=== PATIENT | male | born 1970 | race Caucasian/White ===

== ENCOUNTER 2022-02-06 08:51 | Observation (INO) | payer OTHER, SELFPAY ==
[2022-02-06] VITALS (14 sets, daily range): BP systolic 110–144; BP diastolic 67–104; PULSE 65–78; RESP 14–16; TEMP 36.7–36.9; O2SAT 93–99; BMI 19.9; BMI 19.6
--- NOTE | 2022-02-06 09:11 | ED.GENADULT ---
HPI - General Adult General Time Seen by Provider: 09:11 Date Seen: 02/06/22 Chief complaint: Headache/Migraine Stated complaint: severe pain on left side/headache/dizzy Time Seen by Provider: 02/06/22 09:05 Source: patient and RN notes reviewed Mode of arrival: ambulatory Limitations: no limitations History of Present Illness HPI narrative: Patient is a 51-year-old male coming in with headache, dizzy, nausea vomiting, left-sided abdominal pain, body aches. His symptoms started on Sunday night, today is Sunday morning. The headache is left-sided but generalize is into the full back of his head. He maybe thinks his global vision might be a little more blurry with this. He does have a history of migraines but he has other associated symptoms with this. He has felt chilled and hot but has not taken a temperature. He states he was vomiting all night last night, did not sleep. He is nauseated. He is complaining of left-sided abdominal pain. He describes the headache as someone just status Storm off inside his head. He has had no travel, is un vaccinated for COVID. He feels like he is probably had COVID before, maybe last time 8 months ago. He has had some diarrhea. He has had no hematemesis, no blood in his diarrhea. Denies any urinary symptoms. No neurologic changes such as numbness tingling weakness. He last took Tylenol about 2:00 a.m.. I did discuss pain management with him and he stated dilaudid is really what works for him. I did review his chart, did review [place] prescribing website. He only has had 30 Ambien prescribed in March of 2021. His last hospitalization here was in 2018 for colitis it appears that he uses our hospital primarily for his acute care. I do not feel upon review of his history that this is drug-seeking at all. He states he is feeling miserably. Does describe myalgias/body aches as well. Denies any sore throat or respiratory symptoms with this. No travel, no definite known ill contacts. Related Data Home Medications Medication Instructions Recorded Confirmed No Known Home Medications 02/06/22 02/06/22 Allergies Allergy/AdvReac Type Severity Reaction Status Date / Time No Known Drug Allergies Allergy Verified 02/06/22 09:10 Review of Systems Status of ROS: Reports: 10 or more systems reviewed and unremarkable except as noted in History and below [facility] Medical History (Updated 02/06/22 @ 15:14 by Bren Velasquez MD) Anxiety Colitis Depression Surgical History (Updated 02/06/22 @ 13:26 by Bren Velasquez MD) History of esophagogastroduodenoscopy (EGD) Hx laparoscopic cholecystectomy Social History Smoking Status: Never smoker How often do you have a drink containing alcohol: 2-3 times a week AUDIT-C Alcohol total score: 3 Non-prescribed substance use: former substance user and marijuana (any form) Exam Const: Vital Signs, click to edit/add: Vital Signs - 24 hr 02/06/22 09:03 02/06/22 12:11 02/06/22 12:13 Temperature 98.4 F Pulse Rate 66 68 Pulse Rate [Pulse Oximeter] 77 Respiratory Rate 14 Blood Pressure 110/70 Blood Pressure [Ri ght Upper Arm] 144/101 H Pulse Oximetry 99 96 95 Oxygen Delivery Me thod Room Air 02/06/22 12:31 02/06/22 13:02 02/06/22 13:32 Temperature Pulse Rate 73 72 65 Pulse Rate [Pulse Oximeter] Respiratory Rate Blood Pressure 133/104 H 144/102 H 141/99 H Blood Pressure [Ri ght Upper Arm] Pulse Oximetry 93 96 97 Oxygen Delivery Me thod 02/06/22 14:02 02/06/22 14:32 02/06/22 15:02 Temperature Pulse Rate 71 69 70 Pulse Rate [Pulse Oximeter] Respiratory Rate Blood Pressure 136/93 H 136/89 142/94 H Blood Pressure [Ri ght Upper Arm] Pulse Oximetry 94 94 97 Oxygen Delivery Me thod Documenting provider has reviewed patient's vital signs: yes Common normals: no apparent distress, oriented x3, no limitations, healthy appearing and alert General appearance: cooperative and well kempt Nutritional appearance: thin Other: Is lying on the ED cart, looks mildly uncomfortable at times but certainly is pleasant. Able speak in complete sentences. HENMT: Common normals: normocephalic, head/scalp atraumatic, hearing grossly normal bilaterally, external ears normal, EAC's normal, TM's normal bilaterally, external nose normal, nasal mucous membranes and turbinates normal, moist oral mucous membranes, oropharynx normal, dentition normal and gingiva normal Head and scalp: normocephalic and atraumatic Nose: external nose normal and nasal mucous membranes and turbinates normal External ear: external ears normal External auditory canal: EAC's normal Tympanic membrane: TM's normal bilaterally Eye: Common normals: PERRL, EOMs intact bilaterally, conjunctivae normal and no scleral icterus Conjunctiva: conjunctiva(e) normal Pupil: PERRL Neck & C-Spine: Common normals: full ROM, no lymphadenopathy, supple, no meningeal signs, no JVD and thyroid normal Thyroid: thyroid normal Resp: Common normals: normal respiratory effort, no retractions, no use of accessory muscles and clear to auscultation bilaterally Auscultation: clear to auscultation bilaterally Cardio: Common normals: no JVD, regular rate, regular rhythm, S1 normal heart sound, S2 normal heart sound, no gallops, no clicks, no murmurs, no rub and peripheral pulses 2+ throughout Rate: regular rate Rhythm: regular rhythm Heart sounds: S1 normal and S2 normal Peripheral pulses: pulses 2+ throughout GI: Common normals: Normal to inspection, nondistended, normoactive bowel sounds present, soft to palpation, non-tender, no hepatosplenomegaly, no masses and no bruits Palpation: soft and no hepatosplenomegaly Extremity: Common normals: normal to inspection, full ROM, normal capillary refill, no joint enlargement, no clubbing, cyanosis or edema, no calf tenderness and no pedal edema Neuro: [place] Coma Scale: document GCS findings Adolfo coma scale eye opening: Spontaneous (4) Adolfo coma scale verbal response: Orientated (5) [place] coma scale motor response: Obey commands (6) Adolfo coma scale total score: 15 Common normals: oriented x3, CN's II-XII intact bilaterally, moves all extremities, no focal motor deficits, no sensory deficits noted and gait normal Sensorium/orientation: alert Meningeal signs: no meningeal signs Speech: speech normal Psych: Appearance: well kempt Skin: Common normals: no rashes or lesions noted, no wounds, skin turgor normal, no jaundice, no petechiae and no mottling General skin exam: no rashes or lesions noted and turgor normal Course Course Hospital Course: We will start an IV, give this patient 1 L normal saline over 2 hours, given 4 mg IV Zofran and 0.5 mg IV Dilaudid. Again, I did review his past medical history and [place] prescribing website. He will be on pulse oximetry for monitoring. At this time it would seem that this is more of a possible viral type syndrome or an infectious etiology. I do not feel that this has any presentation concerning for bacterial meningitis but will await lab results. I do not feel that he needs imaging at this time, will await lab results and quit this with his clinical picture. Will see if we can get him more comfortable. We obviously will be doing a COVID test as I do have concerns that this could be COVID. Reevaluation(s) Reevaluation #1: Patient is urinating after the IV fluids. His pain is increasing again. Did order subsequent dose of Dilaudid 0.5 mg IV. Nausea is returning somewhat as well. Will give another dose of 4 mg IV Zofran. Have reviewed with him that his labs are looking normal. I looked back in the records when he had colitis before in his labs were normal then as well. He really is not feeling well. I am wondering if this is the colitis again. It is the left side of his abdomen that is bothering him primarily. I am ordering a CT of his abdomen and pelvis with IV contrast in he is in agreement with this. Time: 11:10 Vital Signs Vital signs: Initial Vital Signs Temperature 98.4 F 02/06/22 09:03 Temperature Source Temporal Artery Scan 02/06/22 09:03 Pulse Rate 77 02/06/22 09:03 Pulse Rhythm 02/06/22 09:03 Respiratory Rate 14 02/06/22 09:03 Blood Pressure 144/101 H 02/06/22 09:03 Blood Pressure Mean 115 02/06/22 09:03 Blood Pressure Position Sitting 02/06/22 09:03 Pulse Oximetry 99 02/06/22 09:03 Oxygen Delivery Method 02/06/22 09:03 Vital Signs Temperature 98.4 F 02/06/22 09:03 Pulse Rate 77 02/06/22 09:03 Respiratory Rate 14 02/06/22 09:03 Blood Pressure 144/101 H 02/06/22 09:03 Pulse Oximetry 99 02/06/22 09:03 Oxygen Delivery Method 02/06/22 09:03 Temperature 98.4 F 02/06/22 09:03 Pulse Rate 70 02/06/22 15:02 Respiratory Rate 14 02/06/22 09:03 Blood Pressure 142/94 H 02/06/22 15:02 Pulse Oximetry 97 02/06/22 15:02 Oxygen Delivery Method 02/06/22 09:03 Medical Decision Making Lab Data Lab results reviewed: Yes I reviewed the patient's lab results Labs: Lab Results 02/06/22 02/06/22 02/06/22 Range/Units 09:18 09:45 09:52 WBC 9.37 (4.50-11.00) K/uL RBC 5.20 (4.30-5.90) m/uL Hgb 16.3 (13.5-17.5) gm/dL Hct 47.3 (37.0-53.0) % MCV 91 (80-100) fL MCH 31 (26-34) pg MCHC 35 (32-36) gm/dL RDW Coeff of Syed 12.2 (11.5-15.5) % Plt Count 353 (140-440) K/uL Neut % (Auto) 84.2 H (42.0-72.0) % Lymph % (Auto) 10.0 L (20-44) % [place] % (Auto) 4.7 (0.0-11.0) % Eos % (Auto) 0.5 (0.0-7.0) % Baso % (Auto) 0.4 (0.0-3.0) % Neut # (Auto) 7.90 H (1.7-7.0) K/uL Lymph # (Auto) 0.90 (0.90-2.90) K/uL [place] # (Auto) 0.40 (0.00-0.90) K/UL Eos # (Auto) 0.05 (0.00-0.50) K/uL Baso # (Auto) 0.04 (0.00-0.30) K/uL Abs Immat Gran (auto) 0.02 (0.00-0.30) K/uL Sodium 138 (135-149) mmol/L Potassium 3.7 (3.6-5.1) mmol/L Chloride 105 (96-114) mmol/L Carbon Dioxide 26 (20-32) mmol/L BUN 16 (7-30) mg/dL Creatinine 0.8 (0.5-1.5) mg/dL Estimated Creat Clear 90.51 Estimated GFR 106 ml/min Glucose 106 (60-115) mg/dL Lactate (0.5-1.9) mmol/L Calcium 9.1 (8.4-10.6) mg/dL Total Bilirubin 0.7 (0.1-1.5) mg/dL AST 28 (12-35) U/L ALT 21 (4-50) U/L Alkaline Phosphatase 84 (40-150) U/L C-Reactive Protein < 0.5 L (0.5-1.0) mg/dL Total Protein 7.5 (6.0-8.3) g/dL Albumin 4.5 (3.3-5.0) g/dL Lipase 185 (23-300) U/L SARS-CoV-2 (PCR) Negative SARS-CoV-2 (Negative) 02/06/22 02/06/22 Range/Units 09:52 09:52 WBC (4.50-11.00) K/uL RBC (4.30-5.90) m/uL Hgb (13.5-17.5) gm/dL Hct (37.0-53.0) % MCV (80-100) fL MCH (26-34) pg MCHC (32-36) gm/dL RDW Coeff of Syed (11.5-15.5) % Plt Count (140-440) K/uL Neut % (Auto) (42.0-72.0) % Lymph % (Auto) (20-44) % [place] % (Auto) (0.0-11.0) % Eos % (Auto) (0.0-7.0) % Baso % (Auto) (0.0-3.0) % Neut # (Auto) (1.7-7.0) K/uL Lymph # (Auto) (0.90-2.90) K/uL [place] # (Auto) (0.00-0.90) K/UL Eos # (Auto) (0.00-0.50) K/uL Baso # (Auto) (0.00-0.30) K/uL Abs Immat Gran (auto) (0.00-0.30) K/uL Sodium (135-149) mmol/L Potassium (3.6-5.1) mmol/L Chloride (96-114) mmol/L Carbon Dioxide (20-32) mmol/L BUN (7-30) mg/dL Creatinine (0.5-1.5) mg/dL Estimated Creat Clear Estimated GFR ml/min Glucose (60-115) mg/dL Lactate 1.3 (0.5-1.9) mmol/L Calcium (8.4-10.6) mg/dL Total Bilirubin (0.1-1.5) mg/dL AST (12-35) U/L ALT (4-50) U/L Alkaline Phosphatase (40-150) U/L C-Reactive Protein (0.5-1.0) mg/dL Total Protein (6.0-8.3) g/dL Albumin (3.3-5.0) g/dL Lipase Cancelled (23-300) U/L SARS-CoV-2 (PCR) (Negative) Imaging Data CT scan - abdomen: Attestation: I have reviewed the pertinent imaging results. Radiologist's impression: Patient: [facility] Facility:?[facility] Patient ID:?[id number] Site Patient ID:?[id number]. Site :?[id number] Study:?CT Abdomen/Pelvis W/IV ONLY-02/06/2022 12:00:24 PM Ordering Physician:?Eva Correia Final Report: Indication: Abdominal pain, diarrhea, nausea vomiting Technique: Volumetric multidetector CT images of the abdomen and pelvis were obtained after the administration of intravenous contrast. 64 cc Isovue 370 low osmolar intravenous contrast Comparison: CT abdomen and pelvis September 11, 2017 Findings: The lung bases are clear. The liver is normal in attenuation without intrahepatic biliary ductal dilatation. The portal vein is patent. There is prior cholecystectomy. There is mild to moderate dilatation of the intrahepatic and common bile ducts similar to previous exam. The spleen is normal in enhancement and size. There is mild to moderate chronic gastritis change with a small hiatal hernia. There is again seen a small focal duodenal diverticulum within the head of the pancreas, somewhat decompressed from comparison. The pancreas is normal in enhancement without significant atrophy. The adrenal glands are unremarkable. The kidneys demonstrate preserved corticomedullary differentiation without evidence of obstructive uropathy. There is moderate stool seen throughout the colon. There are fluid containing loops of mid small bowel commensurate with likely mild enteritis changes. The appendix is unremarkable. There is no significant mesenteric, retroperitoneal, or pelvic sidewall lymph nodes. The aorta is nonaneurysmal. There is no significant atherosclerotic disease appreciated. The solid pelvic viscera are grossly unremarkable. There is no free fluid or free air. The anterior abdominal wall is intact without significant hernias. The lumbar vertebral body heights are grossly maintained in satisfactory alignment without evidence of displaced fracture, lytic or blastic lesion. Impression: Focal dilated fluid-filled loops of mid to distal small bowel commensurate with enterocolitis changes. Prior cholecystectomy with stable reservoir dilatation of the intrahepatic and common bile ducts. Moderate to severe stool seen throughout the colon. Prior cholecystectomy. Persistent mild chronic gastritis changes. Please note that all CT scans at this facility use dose modulation, iterative reconstruction, and/or weight-based dosing when appropriate to reduce radiation dose to as low as reasonably achievable. Dictated by Dwayne Shelby MD @ 02/06/2022 12:33:15 PM (Electronic Signature) Critical Care Time Critical Care Time Critical Care Time: No Discharge Plan Discharge Clinical Impression: Enterocolitis Patient Disposition: Admitted As Inpatient Condition: Stable Prescriptions: No Action No Known Home Medications Follow Up/Referrals: eJrad Mejía MD [Staff Physician] -
[2022-02-06] MEDS: 0.9 % SODIUM CHLORIDE 1000 ml 1,000 ML 500 ML IV (09:47)
[2022-02-06] MEDS: HYDROmorphone 0.5 mg/0.5 ml inj IVP ×4 (09:47→20:21)
[2022-02-06] MEDS: ONDANSETRON 2 MG/ML inj 4 MG IVP ×2 (09:47→11:21)
[2022-02-06 10:02] LABS: Lactate* 1.3 mmol/L (0.5-1.9)
[2022-02-06 10:08] LABS: Basophils Absolute Auto 0.04 K/uL (0.00-0.30); Basophils Percent Auto 0.4 % (0.0-3.0); Eosinophils Absolute Auto 0.05 K/uL (0.00-0.50); Eosinophils Percent Auto 0.5 % (0.0-7.0); Hematocrit 47.3 % (37.0-53.0); Hemoglobin* 16.3 gm/dL (13.5-17.5); Immature Granulocytes Abs Auto 0.02 K/uL (0.00-0.30); Mean Corpuscular HGB Conc 35 gm/dL (32-36); Mean Corpuscular Hemoglobin 31 pg (26-34); Mean Corpuscular Volume 91 fL (80-100); Monocytes Percent Auto 4.7 % (0.0-11.0); Neutrophils Percent Auto 84.2 % (42.0-72.0); Platelet Count* 353 K/uL (140-440); RDW Coefficient of Variation % 12.2 % (11.5-15.5); White Blood Count* 9.37 K/uL (4.50-11.00)
[2022-02-06 10:18] LABS: Albumin* 4.5 g/dL (3.3-5.0); Chloride* 105 mmol/L (96-114)
[2022-02-06 10:19] LABS: Potassium* 3.7 mmol/L (3.6-5.1); Sodium* 138 mmol/L (135-149)
[2022-02-06 10:21] LABS: Creatinine* 0.8 mg/dL (0.5-1.5); Est. Creatinine Clearance* 90.51; Estimated Glomerular Filt Rate 106 ml/min
[2022-02-06 10:22] LABS: Alanine Aminotransferase* 21 U/L (4-50); Alkaline Phosphatase* 84 U/L (40-150); Aspartate Amino Transferase* 28 U/L (12-35); Bilirubin Total* 0.7 mg/dL (0.1-1.5); Blood Urea Nitrogen* 16 mg/dL (7-30); Calcium* 9.1 mg/dL (8.4-10.6); Carbon Dioxide* 26 mmol/L (20-32); Glucose* 106 mg/dL (60-115); Lipase* 185 U/L (23-300); Total Protein* 7.5 g/dL (6.0-8.3)
[2022-02-06 10:25] LABS: Slide Review Reflex No
[2022-02-06 10:25] LABS: SARS PCR* Negative SARS-CoV-2 (Negative)
[2022-02-06 10:37] LABS: C Reactive Protein* < 0.5 mg/dL (0.5-1.0)
--- NOTE | 2022-02-06 11:10 | CRLHL7_ITS ---
For Patients: As a result of the Century Cures Act, medical imaging exams and procedure reports are released immediately into your electronic medical record. You may view this report before your referring provider. If you have questions, please contact your health care provider. Indication: Abdominal pain, diarrhea, nausea vomiting Technique: Volumetric multidetector CT images of the abdomen and pelvis were obtained after the administration of intravenous contrast. 64 cc Isovue 370 low osmolar intravenous contrast Comparison: CT abdomen and pelvis September 11, 2017 Findings: The lung bases are clear. The liver is normal in attenuation without intrahepatic biliary ductal dilatation. The portal vein is patent. There is prior cholecystectomy. There is mild to moderate dilatation of the intrahepatic and common bile ducts similar to previous exam. The spleen is normal in enhancement and size. There is mild to moderate chronic gastritis change with a small hiatal hernia. There is again seen a small focal duodenal diverticulum within the head of the pancreas, somewhat decompressed from comparison. The pancreas is normal in enhancement without significant atrophy. The adrenal glands are unremarkable. The kidneys demonstrate preserved corticomedullary differentiation without evidence of obstructive uropathy. There is moderate stool seen throughout the colon. There are fluid containing loops of mid small bowel commensurate with likely mild enteritis changes. The appendix is unremarkable. There is no significant mesenteric, retroperitoneal, or pelvic sidewall lymph nodes. The aorta is nonaneurysmal. There is no significant atherosclerotic disease appreciated. The solid pelvic viscera are grossly unremarkable. There is no free fluid or free air. The anterior abdominal wall is intact without significant hernias. The lumbar vertebral body heights are grossly maintained in satisfactory alignment without evidence of displaced fracture, lytic or blastic lesion. Impression: Focal dilated fluid-filled loops of mid to distal small bowel commensurate with enterocolitis changes. Prior cholecystectomy with stable reservoir dilatation of the intrahepatic and common bile ducts. Moderate to severe stool seen throughout the colon. Prior cholecystectomy. Persistent mild chronic gastritis changes. Please note that all CT scans at this facility use dose modulation, iterative reconstruction, and/or weight-based dosing when appropriate to reduce radiation dose to as low as reasonably achievable. Dictated by Dwayne Shelby MD @ 02/06/2022 12:33:15 PM (Electronically Signed)
--- NOTE | 2022-02-06 14:36 | P.IMHP_ITS ---
Hospitalist- H&P: HPI History of Present Illness Date Seen: 02/06/22 Chief complaint: severe pain on left side/headache/dizzy Narrative: ADMISSION HISTORY AND PHYSICAL - HOSPITALIST Chief Complaint: Left-sided chest/abdominal pain + migraine HPI: 51-year-old who had been in his usual state health until about 3 days ago. He started to feel the onset deep left lower chest and left sided abdominal discomfort. He said that it extends into his left testicle. No injury. No previous hernia history. He has a history of acute gastritis in 2018. This was never followed up on. 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 Beer. History NSAID induced gastritis, 2018. Hospitalized. 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 Complete metabolic panel appears unremarkable C reactive protein less than 0.5 SARS-CoV-[address] Focal dilated fluid-filled loops of mid to distal small bowel commensurate with enterocolitis changes. Prior cholecystectomy with stable reservoir dilatation of the intrahepatic and common bile ducts. Moderate to severe stool seen throughout the colon. Prior cholecystectomy. Persistent mild chronic gastritis changes. 2018 EGD: NSAID gastropathy, acute gastritis. Helicobacter negative Colonoscopy: Normal, negative biopsies REVIEW OF SYSTEMS: 12-point ROS completed with patient and negative unless otherwise stated in HPI or below. PHYSICAL EXAM: CODE STATUS: FULL CODE CONSTITUTIONAL: Thin. appears tired; mildly irritable. light phobic. complaining of frontal headache. VITAL SIGNS: see record. HEENT: Normocephalic, atraumatic. PERRL, EOMI, conjunctivae pink, no scleral icterus. Ears and nose externally normal. Pharynx normal. NECK: No JVD. No carotid bruit, no thyromegaly, no adenopathy. CHEST: Clear to auscultation bilaterally HEART: S1 and S2 normal. No harsh murmurs. no edema. Abdomen: Thin. abdomen is mildly tender to deep palpation over LUQ. coughing makes it worse. no hernia. MUSCULOSKELETAL: No gross joint deformity or swelling. NEURO: Cranial nerves intact. Grossly intact. No asymmetric findings. SKIN: No rashes, petechiae, concerning changes PSYCHIATRIC: Euthymic. ADMIT DVT: ambulation GI: PO intake - clears. IV PPI Time spent: 70 minutes examining patient, conferring with family and patient, care staff, developing care plan [facility] Medical History (Updated 02/06/22 @ 15:42 by June Espinosa MD) Anxiety Chronic migraine Colitis Daily consumption of alcohol Depression History of NSAID-associated gastropathy Surgical History (Updated 02/06/22 @ 15:42 by June Espinosa MD) History of esophagogastroduodenoscopy (EGD) Hx laparoscopic cholecystectomy Social History Smoking Status: Never smoker How often do you have a drink containing alcohol: 2-3 times a week AUDIT-C Alcohol total score: 3 Non-prescribed substance use: former substance user and marijuana (any form) Meds Home Medications and Allergies Home Medications Medication Instructions Recorded Confirmed Type No Known Home Medications 02/06/22 02/06/22 History Allergies Allergy/AdvReac Type Severity Reaction Status Date / Time No Known Drug Allergies Allergy Verified 02/06/22 09:10 Exam Const: Vital Signs, click to edit/add: Vital Signs - 24 hr 02/06/22 09:03 02/06/22 12:11 02/06/22 12:13 Temperature 98.4 F Pulse Rate 66 68 Pulse Rate [Pulse Oximeter] 77 Respiratory Rate 14 Blood Pressure 110/70 Blood Pressure [Ri ght Upper Arm] 144/101 H Pulse Oximetry 99 96 95 Oxygen Delivery Me thod Room Air 02/06/22 12:31 02/06/22 13:02 Temperature Pulse Rate 73 72 Pulse Rate [Pulse Oximeter] Respiratory Rate Blood Pressure 133/104 H 144/102 H Blood Pressure [Ri ght Upper Arm] Pulse Oximetry 93 96 Oxygen Delivery Me thod Hospitalist - H&P: Result Labs Labs: Short CBC 02/06/22 Range/Units 09:45 WBC 9.37 (4.50-11.00) K/uL Hgb 16.3 (13.5-17.5) gm/dL Hct 47.3 (37.0-53.0) % Plt Count 353 (140-440) K/uL BMP 02/06/22 09:52 Sodium 138 Potassium 3.7 Chloride 105 Carbon Dioxide 26 BUN 16 Creatinine 0.8 Glucose 106 Calcium 9.1 Liver Function 02/06/22 Range/Units 09:52 Total Bilirubin 0.7 (0.1-1.5) mg/dL AST 28 (12-35) U/L ALT 21 (4-50) U/L Alkaline Phosphatase 84 (40-150) U/L Albumin 4.5 (3.3-5.0) g/dL Assessment and Plan Assessment and plan (1) Enterocolitis: Status: Acute Assessment and Plan: CT evidence of enterocolitis. Stool cultures ordered. Chemistries and CBC and inflammatory markers are all reassuring. Still considering antibiotics at this point plus or minus Solu-Medrol and or oral prednisone. I would like to speak with Dr. Cruz if possible 1st. I reviewed his 2018 EGD and colonoscopy. I would like to get an endoscopy tomorrow for follow-up of his gastropathy noted for years ago. He continues to use NSAIDs. We will check his stool for blood, Helicobacter, culture and viral PCR. Hydrate, analgesia, antiemetics. (2) Chronic migraine: Status: Acute Assessment and Plan: Starting gabapentin 300 mg b.i.d., considering caffeine withdrawal, rebound secondary to NSAIDs, chronic migraine Fluids, aroma therapy, rest (3) Constipation: Status: Acute Assessment and Plan: Stool burden high based on CT. Patient is relatively asymptomatic. I think it is appropriate to go ahead and give him a suppository and MiraLax and follow his abdominal pain and bowel movements. (4) History of NSAID-associated gastropathy: Status: Acute Assessment and Plan: Chronic migraines lead to chronic NSAID use which can lead to intermittent rebound headaches. I would like to repeat his EGD in the morning. He has not had 1 in follow-up since 2018. (5) Daily consumption of alcohol: Status: Acute Assessment and Plan: Patient states 4 to 5 times a week he drinks 2-3 [place] beers. (6) Anxiety: Status: Acute Assessment and Plan: Unmedicated. Continue to follow.
--- NOTE | 2022-02-06 15:23 | CRLHL7_ITS ---
For Patients: As a result of the Century Cures Act, medical imaging exams and procedure reports are released immediately into your electronic medical record. You may view this report before your referring provider. If you have questions, please contact your health care provider. INDICATION: Left-sided chest pain. TECHNIQUE: Chest 2 views. COMPARISON: None. FINDINGS: Cardiovascular and mediastinum: Heart size and vasculature are normal in caliber and appearance. Lungs and pleural spaces: Lungs are clear. No sign of infiltrate or mass. No sign of pleural effusion. No pneumothorax. Bones and soft tissues: No significant findings. IMPRESSION: No acute or significant findings. Dictated by Tayo Hardy MD @ 02/06/2022 3:47:55 PM (Electronically Signed)
--- NOTE | 2022-02-06 15:29 | W.PC.EDHO ---
Primary Language: Preferred Language: Orientation Status: [X] Alert & Oriented [] Slight Confusion [] Known Dx Dementia Transfers By: [] Assist of 1 [] Assist of 2 [] Lift Active Medications Discontinued Medications Generic Name Dose Route Start Last Admin Trade Name Letty PRN Reason Stop Dose Admin Hydromorphone HCl 0.5 mg 02/06/22 09:27 02/06/22 09:47 Hydromorphone 0.5 Mg/0.5 Ml Inj IVP 02/06/22 09:28 0.5 mg ONCE ONE Administration Hydromorphone HCl 0.5 mg 02/06/22 11:09 02/06/22 11:21 Hydromorphone 0.5 Mg/0.5 Ml Inj IVP 02/06/22 11:10 0.5 mg ONCE ONE Administration Hydromorphone HCl 0.5 mg 02/06/22 14:17 02/06/22 14:41 Hydromorphone 0.5 Mg/0.5 Ml Inj IVP 02/06/22 14:18 0.5 mg ONCE ONE Administration Sodium Chloride 1,000 mls @ 500 mls/hr 02/06/22 09:22 02/06/22 11:10 0.9 % Sodium Chloride 1000 Ml IV 02/06/22 11:21 Infused .Q2H DENNIS Infusion Ondansetron HCl 4 mg 02/06/22 09:21 02/06/22 09:47 Ondansetron 2 Mg/Ml Inj IVP 02/06/22 09:22 4 mg ONCE ONE Administration Ondansetron HCl 4 mg 02/06/22 11:09 02/06/22 11:21 Ondansetron 2 Mg/Ml Inj IVP 02/06/22 11:10 4 mg ONCE ONE Administration Description of Symptoms ED Triage Present Problem Pt here for eval of RIVAS, L side abdominal pain, N/V Description , dizziness/lightheadedness, mild diarrhea. Denies fevers/SOB/CP. ED Triage Date of Onset of 02/04/22 Symptoms Female History Patient [place] Coma Scale Adolfo coma scale total score 15 Pain Pain Description [Left Flank] Acute Pain Intensity [Left Flank] 10 Pain Intensity 7 Pain Intensity 8 Pain Intensity 9 Pain Intensity 6 Pain Intensity 10 Pain Scale Used [Left Flank] Numeric (1 - 10) Pain Scale Used Numeric (1 - 10) Pain Scale Used Numeric (1 - 10) Pain Scale Used Numeric (1 - 10) Pain Scale Used Numeric (1 - 10) Pain Scale Used Numeric (1 - 10) Oxygen Administration Pulse Oximetry 97 Pulse Oximetry 94 Pulse Oximetry 94 Pulse Oximetry 97 Pulse Oximetry 96 Pulse Oximetry 93 Pulse Oximetry 95 Pulse Oximetry 96 Pulse Oximetry 99 Oxygen Delivery Method Room Air
[2022-02-06] MEDS: LACTATED RINGERS 1000 ML 1,000 ML 125 ML IV ×2 (16:57→23:27)
[2022-02-06] MEDS: ONDANSETRON ODT 4 MG TAB PO (16:58)
[2022-02-06] MEDS: ACETAMINOPHEN 325 MG TABLET PO ×2 (17:24→23:23)
[2022-02-06] MEDS: KETOROLAC 30 MG/ML inj IVP ×2 (17:25→23:23)
[2022-02-06] MEDS: PANTOPRAZOLE SODIUM 40 MG INJ IVP (17:46)
--- NOTE | 2022-02-06 18:54 | PC.NURSE ---
End of Shift: Patient pleasant and cooperative, arrived to the floor at 1715. Patient vitally stable, lungs clear, BS WNL, IV running LR at 125 in right AC. Patient is independent in room. EKG on admission=NSR, Incomplete R BBB, Tele=NSR. Patient after tylenol and toradol rates pain 5/10 in left abdominal/ flank pain that radiates into the testicles. Patient has not urinated or had a BM since admitted. Patient reports not passing gas. Patient had an emesis of 100 cc, clear/brown.
[2022-02-06] MEDS: SODIUM CHLORIDE 0.9 % (FLUSH) 10 ML SYRINGE 5 ML IVF (20:22)
[2022-02-06] MEDS: MELATONIN 3 MG TABLET PO (22:15)
[2022-02-06] MEDS: GABAPENTIN 300 MG CAPSULE PO (22:15)
[2022-02-06] MEDS: LORazepam 0.5 MG TABLET PO (22:15)
--- NOTE | 2022-02-06 22:47 | PC.NURSE ---
Pt pleasant and cooperative. VSS. Pain 6/10 !mg Dilaudid given and pain down to a 3/10. Up I in room. Per pt request for sleep aid. 6mg Melatonin given with 1mg Ativan. Will be NPO after midnight for EGD in am. Pt is aware.
[2022-02-07 00:06] VITALS: BP 125/80; PULSE 78; RESP 16; TEMP 36.7; O2SAT 96
[2022-02-07 03:42] VITALS: BP 133/91; PULSE 64; RESP 16; TEMP 36.6; O2SAT 97
[2022-02-07] MEDS: KETOROLAC 30 MG/ML inj IVP (05:28)
--- NOTE | 2022-02-07 05:38 | PC.NURSE ---
VSS RA. Tele NSR w/6 beat run of SVT at 0447 strip to chart. C/o headache 10/18 at 2315 so gave pt Tylenol, Toradol, a Sprite and a Coke. Pt was NPO after MN per shift report for Scope today. AquaK given for abd pain w/relief reported at 0400. Toradol repeated at 0530. Urine sample sent to lab in the wee hours. Urine is a moderate cassandra color. Bowel tones hypoactive abdomen slightly firm/nontender, passing small amt flatus no BM so no Guiac or stool samples sent. Pt would like to have something to drink if it is at all possible depending on actual time of scope. AM Prilosec held.
[2022-02-07 05:49] LABS: Amphetamine Screen Urine Negative (Negative); Barbiturate Screen Urine Negative (Negative); Cocaine Screen Urine Negative (Negative); Methadone Screen Urine Negative (Negative); Methamphetamines Screen Urine Negative (Negative); Oxycodone Screen Urine Negative (Negative); Phencyclidine Screen Urine Negative (Negative); Tricyclic Antidepressant Urine Negative (Negative)
[2022-02-07 06:02] LABS: Cannabinoid Screen Urine POSITIVE (Negative)
[2022-02-07 06:03] LABS: Benzodiazepines Screen Urine POSITIVE (Negative); Opiate Screen Urine POSITIVE (Negative)
[2022-02-07 06:03] LABS: Appearance Urine Clear (Clear); Bilirubin Urine Negative (Negative); Blood Urine Negative (Negative); Color Urine Yellow (Yellow); Glucose Urine Negative (Negative); Ketones Urine Negative (Negative); Leukocyte Esterase Urine Negative (Negative); Nitrite Urine Negative (Negative); Protein Urine Negative (Negative); Urobilinogen Urine 0.2 (0.2-1.0); pH Urine 6.5 (5.0-8.5)
[2022-02-07 06:44] LABS: Lactate* 0.6 mmol/L (0.5-1.9)
[2022-02-07] MEDS: LACTATED RINGERS 1000 ML 1,000 ML 125 ML IV (06:44)
[2022-02-07 06:46] LABS: Hematocrit 43.1 % (37.0-53.0); Hemoglobin* 14.7 gm/dL (13.5-17.5); Mean Corpuscular HGB Conc 34 gm/dL (32-36); Mean Corpuscular Hemoglobin 32 pg (26-34); Mean Corpuscular Volume 93 fL (80-100); Platelet Count* 301 K/uL (140-440); Red Blood Count 4.66 m/uL (4.30-5.90); White Blood Count* 5.56 K/uL (4.50-11.00)
[2022-02-07 06:52] LABS: Slide Review Reflex No
[2022-02-07 07:00] VITALS: BP 122/88; PULSE 73; PULSE 97; RESP 16; TEMP 36.6; O2SAT 97
[2022-02-07 07:13] LABS: Albumin* 3.5 g/dL (3.3-5.0); Chloride* 107 mmol/L (96-114); INR 1.04 (0.91-1.10)
[2022-02-07 07:14] LABS: Potassium* 4.2 mmol/L (3.6-5.1); Sodium* 138 mmol/L (135-149)
[2022-02-07 07:16] LABS: Creatinine* 0.8 mg/dL (0.5-1.5); Est. Creatinine Clearance* 89.52; Estimated Glomerular Filt Rate 106 ml/min
[2022-02-07 07:17] LABS: Alanine Aminotransferase* 26 U/L (4-50); Alkaline Phosphatase* 58 U/L (40-150); Aspartate Amino Transferase* 25 U/L (12-35); Bilirubin Total* 0.8 mg/dL (0.1-1.5); Blood Urea Nitrogen* 13 mg/dL (7-30); Calcium* 8.5 mg/dL (8.4-10.6); Carbon Dioxide* 28 mmol/L (20-32); Gamma Glutamyl Transpeptidase* 22 U/L (8-55); Glucose* 95 mg/dL (60-115); Magnesium* 1.9 mg/dL (1.5-2.6)
[2022-02-07 07:23] LABS: C Reactive Protein* < 0.5 mg/dL (0.5-1.0)
[2022-02-07] MEDS: GABAPENTIN 300 MG CAPSULE PO (08:34)
[2022-02-07] MEDS: HYDROmorphone 0.5 mg/0.5 ml inj IVP (08:34)
[2022-02-07] MEDS: SODIUM CHLORIDE 0.9 % (FLUSH) 10 ML SYRINGE 5 ML IVF (08:34)
[2022-02-07 11:39] VITALS: BP 149/84; PULSE 63; RESP 16; TEMP 36.7; O2SAT 97
--- NOTE | 2022-02-07 11:40 | PC.NURSE ---
ok for patient to advance diet as tolerated. Recommended patient start off with liquids and slowly advance. Patient responded If you don't let me eat, i will just walk out of here and go get mywaves. Educated patient that starting slow is recommended.
[2022-02-07 14:07] VITALS: BMI 19.5
--- NOTE | 2022-02-07 14:23 | PC.NURSE ---
PATIENT TOLERATED EGD, TOLERATED REGULAR DIET WITH SOME DISCOMFORT, BOWEL MOVEMENT THIS AFTERNOON SOILED, ALERT AND ORIENTED, PATIENT VERBALIZED UNDERSTANDING OF DISCHARGE INFORMATION AND HAD NO FURTHER QUESTIONS AT THIS TIME, IVS REMOVED, BELONGINGS SENT WITH PATIENT, LEFT AROUND 1415.
[2022-02-07 15:16] LABS: H pylori Ag Stool* Negative (Negative)
--- NOTE | 2022-02-14 07:58 | PM.DS1 ---
DS: Providers Provider Time Seen by Provider: 11:00 Date Seen: 02/07/22 Date of admission: 02/06/22 15:47 Primary care physician: Not a Local Provider Admitting Clinician: June Espinosa MD Consults: 02/07/22 13:01 Consult to Nutrition [CONS] Routine Comment: Reason for consult:: Miscellaneous Comment: short term dietary recommendations regarding gastritis Attending Physician on discharge: Osbaldo Pacheco MD Date of Discharge: 02/07/22 DS: Diagnosis Discharge Diagnosis (1) Epigastric pain: Status: Acute (2) History of NSAID-associated gastropathy: Status: Acute (3) Constipation: Status: Acute (4) NSAID induced gastritis: Status: Acute (5) Chronic migraine: Status: Acute (6) Daily consumption of alcohol: Status: Acute (7) Anxiety: Status: Acute (8) Enterocolitis: Status: Acute Problem details: Possible DS: Summary Hospital Course Hospital Course: 51-year-old who had been in his usual state health until about 3 days ago.? He started to feel the onset deep left lower chest and left sided abdominal discomfort.? He said that it extends into his left testicle.? No injury.? No previous hernia history.? He has a history of acute gastritis in 2018.? This was never followed up on. CT evidence of enterocolitis.? Stool cultures ordered.? Chemistries and CBC and inflammatory markers are all reassuring.??Stool burden high based on CT.? Patient is relatively asymptomatic.? Gave him a suppository and MiraLax with good results. Chronic migraines lead to chronic NSAID (Excedrin) use. Esophagogastroduodenoscopy demonstrated a diffuse, severe gastritis. Patient's condition greatly normalized throughout his hospital stay and he requested discharge with follow-up which is appropriate. Time spent discussing smoking cessation with patient: 3 to 10 minutes Status at Discharge Functional status at discharge: independent ambulation Overall status at discharge: patient is back to baseline Time Spent with Patient Time attestation: Total time spent providing and/or coordinating discharge services: Time spent: Greater than 30 minutes Exam Narrative: Exam Narrative: CONSTITUTIONAL: Thin. appears tired; mildly irritable. light phobic. complaining of frontal headache. VITAL SIGNS: see record.? HEENT: Normocephalic, atraumatic. PERRL, EOMI, conjunctivae pink, no scleral icterus. Ears and nose externally normal. Pharynx normal. NECK: No JVD. No carotid bruit, no thyromegaly, no adenopathy. CHEST:? Clear to auscultation bilaterally HEART: S1 and S2 normal.? No harsh murmurs. no edema. Abdomen: Thin. abdomen is mildly tender to deep palpation over LUQ. coughing makes it worse. no hernia. MUSCULOSKELETAL: No gross joint deformity or swelling. NEURO: Cranial nerves intact.? Grossly intact.? No asymmetric findings. SKIN:? No rashes, petechiae, concerning changes PSYCHIATRIC: Euthymic. Const: Documenting provider has reviewed patient's vital signs: yes Discharge Plan Discharge Disposition: Home, Self-Care Date of Admission: 02/06/22 15:47 Attending Provider on Discharge: Osbaldo Pacheco Primary Care Provider: Provider,Not a Local Condition: Stable Anticipated Discharge Date/Time: 02/07/22 15:30 Discharge Medications: New acetaminophen 325 mg Tablet 650 mg PO Q4H PRNQty: 100 0RF sucralfate 1 gram Tablet 1 g PO ACHS 14 Days Qty: 56 0RF omeprazole 20 mg Capsule,Delayed Release(Dr/Ec) 40 mg PO DAILY@0700 40 Days Qty: 80 0RF polyethylene glycol 3350 [Miralax] 17 gram Powder In Packet 17 g PO DAILY 30 Days Qty: 238 1RF sennosides-docusate sodium [Stool Softener-Laxative] 8.6-50 mg Tablet 1 tab PO DAILY PRN (Reason: constipation) Qty: 30 0RF ondansetron 4 mg Tablet,Disintegrating 4 mg PO Q6H PRN7 Days Qty: 14 0RF sumatriptan succinate 50 mg tablet See Rx Instructions .ROUTE .COMPLEX Qty: 14 0RF Rx Instructions: take 1 tab at onset of headache; if no relief may repeat 1 tab after at least 2 hrs; max = 4 tabs/24 hr Discharge Orders: Discharge Order (Routine); Ordered 02/07/22 Ordered By: Osbaldo Pacheco Patient Education: Sucralfate (By mouth) (Carafate), Acetaminophen (By mouth), Omeprazole (By mouth), Ondansetron (By mouth), Polyethylene Glycol 3350 (By mouth), Sumatriptan (By mouth), Senna (By mouth), Gastritis (GEN), Migraine Headache (GEN), At-Risk Alcohol Use (GEN) Activity Restrictions/Additional Instructions: 1. Appointment with [facility] physician in next 5-10 days - need to follow-up on gastritis and migraine headache (use of abortive and prophylactic medications) and at-risk alcohol use; 2. Do not consume any aspirin containing products, such as Excedrin, or any non-steroidal anti-inflammatory medications, such as Motrin, for the next 6 weeks; 3. Minimize consumption of alcohol for the next 6 weeks minimum, preferably indefinitely for your long-term health. Activity Level: No Restrictions Discharge Diet: Regular Diet Detail: Soft diet for next 10 days Follow Up Appointments: Jerad Mejía MD [Staff Physician] - Juan Hi MD [Staff Physician] - 02/14/22 9:45 am Provider,Not a Local [Primary Care Provider] - Forms: [employer] Info Instructions
== END 2022-02-07 14:15 | disposition home or self-care (01) ==
LOC: ED 15:14 → MEDSURG 15:48
PROVIDERS: Admitting Provider Family Medicine; Emergency Provider Family Medicine; Visit Provider Family Medicine
DX: K52.9 Noninfective gastroenteritis and colitis, unspecified (principal); G43.709 Chronic migraine without aura, not intractable, without status migrainosus; T39.395A Adverse effect of other nonsteroidal anti-inflammatory drugs [NSAID], initial encounter; H53.8 Other visual disturbances; R11.0 Nausea; M79.10 Myalgia, unspecified site; F10.99 Alcohol use, unspecified with unspecified alcohol-induced disorder; Z87.19 Personal history of other diseases of the digestive system; Z87.891 Personal history of nicotine dependence; F41.9 Anxiety disorder, unspecified; K59.00 Constipation, unspecified; Z78.9 Other specified health status; K31.9 Disease of stomach and duodenum, unspecified; K29.60 Other gastritis without bleeding; Z20.822 Contact with and (suspected) exposure to COVID-19
CPT/HCPCS: 36415; 43239; 71046; 74177; 80053; 80306; 81003; 82977; 83605; 83690; 83735; 85025; 85027; 85610; 86140; 87045; 87046; 87158; 87338; 87427; 87635; 88305; 93005; 96361; 96372; 96374; 96375; 96376; 99284; 99285; G0378; A9270; C9113; J1170; J1885; J2250; J2405; J3010; J7030; J7120; Q9967

== ENCOUNTER 2022-05-10 09:07 | Emergency (ER) | payer OTHER, SELFPAY ==
[2022-05-10 09:25] VITALS: BP 144/97; PULSE 74; RESP 16; TEMP 36.9; O2SAT 99; BMI 19.8
--- NOTE | 2022-05-10 09:29 | CRLHL7_ITS ---
For Patients: As a result of the Century Cures Act, medical imaging exams and procedure reports are released immediately into your electronic medical record. You may view this report before your referring provider. If you have questions, please contact your health care provider. INDICATION: Cough. TECHNIQUE: AP chest. COMPARISON: Two view chest x-ray February 06, 2022. FINDINGS: Clear lungs. Normal heart size and pulmonary vascularity. Normal included skeleton. IMPRESSION: Negative chest. No change other than technique. Dictated by Ramon Clark MD @ 05/10/2022 9:58:38 AM (Electronically Signed)
--- NOTE | 2022-05-10 09:39 | ED.GENADULT ---
HPI - General Adult General Time Seen by Provider: 09:40 Date Seen: 05/10/22 Chief complaint: Headache/Migraine Stated complaint: Fever, short of breath, headache Time Seen by Provider: 05/10/22 09:08 Source: patient Mode of arrival: ambulatory Limitations: no limitations History of Present Illness HPI narrative: Patient is a 51-year-old male who presents with 3 4 day history of fever chills body aches cough sore throat headache. He has had a history of migraine he has a headache now as mention body aches chills sore throat. He denies significant shortness of breath his O2 sat is 99% on room air he is afebrile. He is requesting Dilaudid to help with his headache. And states ?if he will just check my chart?. We discussed getting some laboratory studies and a chest x-ray and disposition pending. Patient presents with stigmata of influenza type illness. He has had pneumonia in the past and thus will get a chest x-ray as well Related Data Home Medications Medication Instructions Recorded Confirmed sucralfate 1 gram tablet 1 g PO ACHS 02/14/22 Previous Rx's Medication Instructions Recorded omeprazole 20 mg capsule,delayed 40 mg PO DAILY@0700 40 days #80 02/07/22 release caps ondansetron 4 mg disintegrating 4 mg PO Q6H PRN 7 days #14 tabs 02/07/22 tablet polyethylene glycol 3350 17 gram 17 g PO DAILY 30 days #238 grams 02/07/22 oral powder packet (Miralax) sennosides 8.6 mg-docusate sodium 1 tab PO DAILY PRN constipation 02/07/22 50 mg tablet (Stool #30 tabs Softener-Laxative) celecoxib 200 mg capsule (Celebrex) 200 mg PO BID #60 caps 02/14/22 tizanidine 4 mg capsule 4 mg PO BID PRN muscle spasticity 02/14/22 #60 caps sumatriptan succinate 100 mg tablet See Rx Instructions PO .COMPLEX 03/13/22 #14 tabs tramadol 100 mg tablet 100 mg PO Q8H PRN pain #14 tabs 05/10/22 Allergies Allergy/AdvReac Type Severity Reaction Status Date / Time No Known Drug Allergies Allergy Verified 02/14/22 09:50 Review of Systems Status of ROS: Reports: 6 or more systems reviewed and unremarkable except as noted in History and below [facility] Medical History Anxiety Colitis Constipation Daily consumption of alcohol Depression Influenza with pneumonia Insomnia Migraine NSAID induced gastritis Tension headache Surgical History History of esophageal surgery History of esophagogastroduodenoscopy (EGD) Hx laparoscopic cholecystectomy Family History Father Myocardial infarction Social History Narrative: , 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, 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, 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 Highest level of school completed/degree received: 10th grade Smoking Status: Former smoker What tobacco products do you use: cigarettes Smoking quit date/years: >15 years ago How often do you have a drink containing alcohol: 2-3 times a week Alcohol type: beer How many standard drinks containing alcohol do you have on a typical day: 1 or 2 How often do you have six or more drinks on one occasion: Never AUDIT-C Alcohol total score: 3 Non-prescribed substance use: former substance user and marijuana (any form) Non-prescribed substance use details: Smoke Marijuana occasionally, past history of meth, crack, coke, 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 His vital signs are largely unremarkable O2 sat excellent he is afebrile, neck is supple Lungs are clear Pulse regular Normal neurologic function good peripheral perfusion Const: Vital Signs, click to edit/add: Vital Signs - 24 hr 05/10/22 09:25 Temperature 98.5 F Pulse Rate [Right Pulse Oximeter] 74 Respiratory Rate 16 Blood Pressure [Le ft Upper Arm] 144/97 H Pulse Oximetry 99 Oxygen Delivery Me thod Room Air Course Vital Signs Vital signs: Initial Vital Signs Temperature 98.5 F 05/10/22 09:25 Temperature Source Temporal Artery Scan 05/10/22 09:25 Pulse Rate 74 05/10/22 09:25 Pulse Rhythm 05/10/22 09:25 Respiratory Rate 16 05/10/22 09:25 Blood Pressure 144/97 H 05/10/22 09:25 Blood Pressure Mean 112 05/10/22 09:25 Pulse Oximetry 99 05/10/22 09:25 Oxygen Delivery Method 05/10/22 09:25 Vital Signs Temperature 98.5 F 05/10/22 09:25 Pulse Rate 74 05/10/22 09:25 Respiratory Rate 16 05/10/22 09:25 Blood Pressure 144/97 H 05/10/22 09:25 Pulse Oximetry 99 05/10/22 09:25 Oxygen Delivery Method 05/10/22 09:25 Temperature 98.5 F 05/10/22 09:25 Pulse Rate 65 05/10/22 11:40 Respiratory Rate 16 05/10/22 09:25 Blood Pressure 143/91 H 05/10/22 11:40 Pulse Oximetry 98 05/10/22 11:40 Oxygen Delivery Method 05/10/22 11:40 Medical Decision Making MDM Narrative Medical decision making narrative: Patient given 1 dose of Toradol for his headache, will get a chest x-ray, a COVID/influenza/RSV test. Disposition pending findings we will wait for the test results of his viral testing as well as a chest x-ray. Addendum: The patient's chest x-ray is negative by my read. He has a positive COVID test on his nasal swab. He did not get any relief from the Toradol infected very upset that he did not get any significant relief from the Toradol and that I was not here to ?help his headache '. The patient was offered medication in the form of an injected morphine to help his headache and he accepted this, his was quite upset and they really had no interest and listening to the diagnostic process, that I needed to know what I am treating before given medication. His left the room and was upset nursing staff was present. Patient was confrontational, but then did subtle and is accepting of some pain medication. This time with COVID at least 4-5 days in Addendum: Discussed with the patient that he is at the edge of using Paxil of id or not, and after discussion he wished not to use it. We reiterated are lack of understanding, I apologized to him for any misunderstanding or disrespected he felt. He was concerned that I thought he had a narcotic issue and I did not see that to him. We will give him IM morphine for pain relief light activity recommended, he can continue ibuprofen and Motrin at home, will send him home with some Ultram. They can recheck with regular doctor within the next 2 days certainly sooner changes concerns. '. Lab Data Labs: Lab Results 05/10/22 Range/Units 09:29 SARS-CoV-2 (PCR) POSITIVE SARS-CoV-2 A (Negative) Influenza Type A (PCR) Negative PCR FLU A (Negative) Influenza Type B (PCR) Negative PCR FLU B (Negative) RSV (PCR) Negative PCR RSV (Negative) Discharge Plan Discharge Clinical Impression: Acute viral syndrome Patient Disposition: Home w/ Parent or Adult Condition: Stable Additional Instructions: Rest, light activity, Tylenol, Ultram as needed careful of side effect of sedation. You will be tired from the injection he received in the ER for the next 6-8 hours, so not do not recommend driving or working or any alcohol intake. Recommend recheck with regular doctor within the next 2-3 days. Discussed the use of Paxilovid and after discussion you declined this which I think is reasonable. Continue home medications Prescriptions: New tramadol 100 mg tablet 100 mg PO Q8H PRN (Reason: pain) Qty: 14 0RF No Action sucralfate 1 gram tablet 1 g PO ACHS celecoxib [Celebrex] 200 mg capsule 200 mg PO BID Qty: 60 1RF tizanidine 4 mg capsule 4 mg PO BID PRN (Reason: muscle spasticity) Qty: 60 1RF omeprazole 20 mg Capsule,Delayed Release(Dr/Ec) 40 mg PO DAILY@0700 40 Days Qty: 80 0RF polyethylene glycol 3350 [Miralax] 17 gram Powder In Packet 17 g PO DAILY 30 Days Qty: 238 1RF sennosides-docusate sodium [Stool Softener-Laxative] 8.6-50 mg Tablet 1 tab PO DAILY PRN (Reason: constipation) Qty: 30 0RF ondansetron 4 mg Tablet,Disintegrating 4 mg PO Q6H PRN7 Days Qty: 14 0RF sumatriptan succinate 100 mg tablet See Rx Instructions .ROUTE .COMPLEX Qty: 14 1RF Rx Instructions: take 1 tab at onset of headache; if no relief may repeat 1 tab after at least 2 hrs; max = 2 tabs/24 hr Follow Up/Referrals: Provider,Not a Local [Primary Care Provider] - Stand Alone Forms: [employer] Info Instructions
[2022-05-10] MEDS: KETOROLAC 10 MG TABLET PO (10:07)
--- OUTSIDE RECORDS SUMMARY | 2022-05-10 10:18 | XMS_ITS | Clinical Summary ---
:1970 Author Organization [facility] Address [address] [address] Care Team Providers Name Role Phone Polina Lynch NP Unavailable Polina Lynch NP Primary Care Provider [phone] Allergies Active Allergy Reactions Severity Noted Date Comments No Known Drug Allergies 01/06/2003 Medications Medication Sig Dispensed Refills Start Date End Date Status acetaminophen (TYLENOL) Take 325-650 mg 0 Active 325 MG tablet by mouth every 6 hours as needed for mild pain methocarbamol (ROBAXIN) Take 1 tablet 30 tablet 0 03/10/2021 Active 500 MG (500 mg) by mouth tabletIndications: Neck nightly as needed pain, Insomnia, for muscle spasms unspecified type sertraline (ZOLOFT) 50 Take 1 tablet (50 30 tablet 1 1 Active MG tabletIndications: mg) by mouth Moderate episode of daily recurrent major depressive disorder (H), Anxiety zolpidem (AMBIEN) 5 MG Take 1 tablet (5 30 tablet 1 03/30/2021 Active tabletIndications: mg) by mouth Moderate episode of nightly as needed recurrent major for sleep depressive disorder (H) Active Problems Problem Noted Date CARDIOVASCULAR SCREENING; LDL GOAL LESS THAN 160 04/10 Duodenitis Overview: With ulceration; EGD with bx at [facility] Problem list name updated by automated p rocess. Provider to review Anxiety state Overview: With panic attacks Problem list name updated by automated p rocess. Provider to review Resolved Problems Problem Noted Date Resolved Date iamLUMBAR DISC DISPLACEMENT 12/14/2005 03/10/2006 Immunizations Name Administration Dates Next Due Influenza Vaccine >6 months (Alfuria,Fluzone) 03/24/2016 Pneumococcal 23 valent 03/24/2016 Tdap (Adacel,Boostrix) 05/31/2013 Family History Medical History Relation Comments Coronary Artery Disease Father Hypertension Mother Relation Status Comments Brother Alive Daughter 1 Alive Daughter 2 Alive Daughter 3 Alive Daughter 4 Alive Father Alive Mother Alive Son Alive Social History Tobacco Use Types Packs/Day Years Used Date Smoking Tobacco: Former Cigarettes 2 Quit : 12/07/2001 Smokeless Tobacco: Never Tobacco Cessation: Counseling Given: No Alcohol Use Standard Drinks/Week Comments No 0 (1 standard drink = 0.6 oz pure alcoho l) quit in October 2020 Sex Assigned at Date Recorded Not on file Last Filed Vital Signs Vital Sign Reading Time Taken Comments Blood Pressure 150/98 02/06/2022 8:10 AM CDT Pulse 73 02/06/2022 8:10 AM CDT Temperature 36.7 ??C (98.1 ??F) 02/06/2022 8:10 AM CDT Respiratory Rate 18 02/06/2022 8:10 AM CDT Oxygen Saturation 100% 02/06/2022 8:10 AM CDT Inhaled Oxygen Concentration - - Weight 59 kg (130 lb) 02/06/2022 8:10 AM CDT Height 175.3 cm (5' 9) 02/06/2022 8:10 AM CDT Body Mass Index 19.2 02/06/2022 8:10 AM CDT Plan of Treatment Health Maintenance Due Date Last Done Comments ADVANCE CARE PLANNING 1970 ANNUAL REVIEW OF HM ORDERS 1969 CT COLONOGRAPHY 1970 DEPRESSION ACTION PLAN 1970 FIT-DNA (Cologuard) 1970 FIT 1970 FLEX SIG 1970 HEPATITIS B IMMUNIZATION (1 of 3 - 1970 3-dose series) YEARLY PREVENTIVE VISIT 1970 COVID-19 Vaccine (#1) 04/22/1970 LUNG CANCER SCREENING 10/21/2019 ZOSTER IMMUNIZATION (1 of 2) 10/21/2019 PHQ-9 09/28/2021 03/30/2021 INFLUENZA VACCINE (#1) 2022 03/24/2016 DTAP/TDAP/TD IMMUNIZATION (2 - Td 05/31/2023 05/31/2013 or Tdap) LIPID 03/30/2026 03/30/2021 COLONOSCOPY 09/25/2027 09/24/2017 COLORECTAL CANCER SCREENING 09/25/2027 Pneumococcal Vaccine: Pediatrics Aged Out 03/24/2016 No longer eligible based on (0 to 5 Years) and At-Risk patie nt's age to complete Patients (6 to 64 Years) this to pic HEPATITIS C SCREENING Completed 03/30/2021 HIV SCREENING Completed 03/30/2021 IPV IMMUNIZATION Aged Out No longer eligi ble based on patient's age to complete this topic MENINGITIS IMMUNIZATION Aged Out No longe r eligible based on patient's age to complete this topic Insurance Payer Benefit Plan / Subscriber ID Effective Dates Phone Addre ss Type Group UCARE UCARE INDIVIDUAL [id number] 2020-Present [phone] [address] [place] [address] Yinka Schaefer Personal/Family Self 1970 [address] none (Work) [place] [id number] Care 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
--- OUTSIDE RECORDS SUMMARY | 2022-05-10 10:19 | XMS_ITS | Encounter Summary ---
:1970 Author Organization [place] Address [facility] [place] [address] Care Team Providers Name Role Phone Jose Alonzo MD Primary Care Provider Unavailable Encounter Details Date Type Department Care Team Description 01/08/2010 Results Only [facility] [address] [place], [place] [address] (Wo rk) Social History Tobacco Use Types Packs/Day Years Used Date Smoking Tobacco: Former Cigarettes 2 Quit : 12/07/2001 Alcohol Use Standard Drinks/Week Comments No 0 (1 standard drink = 0.6 oz pure alcoho l) 3-6 beers twice a month Sex Assigned at Date Recorded Not on file documented as of this encounter Plan of Treatment Not on filedocumented as of this encounter Procedures Procedure Name Priority Date/Time Associated Diagnosis Comme [facility] HC ESOPHAGRAM Routine 01/08/2010 10:43 AM Results for this CDT procedure are i n the results section . documented in this encounter Results ESOPHAGRAM (01/08/2010 10:43 AM CDT) Anatomical Region Laterality Modality Other Specimen (Source) Anatomical Collection Method Collection Time Re ceived Time Location / / Volume Laterality 01/08/2010 10:43 AM CDT Impressions 01/08/2010 5:37 PM CDT Upper esophagram 01/08/2010 COMPARISON: ?01/06/2010 HISTORY: ?Status post excision of Ze nker diverticulum. Evaluate for leak. Fluoroscopy time: 1.5 minutes FINDINGS: ?There is an NG tube in pl nicho. Swallow mechanism appears normal. Within the lower esophagus, at t he site of the excised diverticulum, the cricopharyngeus outlin e is seen with a small amount of contrast in the neck of the excised d iverticulum. Contrast flows in and out of this area with no evidence of leak. IMPRESSION: ?No evidence of leak. I have personally reviewed the image and initial interpretation and agree with the findings. Khalida Tang MD SPECIAL IMAGING STUDIES documented in this encounter Visit Diagnoses Not on filedocumented in this encounter Care Teams Hawk Missile System Crewmember Relationship Specialty Start Date End Date Jose Alonzo MD PCP - General 01/08/03 12/30/14 [place] [address] documented as of this encounter
--- OUTSIDE RECORDS SUMMARY | 2022-05-10 10:19 | XMS_ITS | Encounter Summary ---
:1970 Author Organization [place] Address [facility] [place] [address] Care Team Providers Name Role Phone Jose Alonzo MD Primary Care Provider Unavailable Encounter Details Date Type Department Care Team Description 01/07/[address] [facility] [address] [place], [place] [address] (Wo rk) Social History Tobacco [...] Procedure Name Priority Date/Time Associated Diagnosis Comme nts HC X-RAY ABDOMEN AP Routine 01/07/2010 7:43 PM Re sults for this VIEW (KUB) CDT procedure are i n the results section. HC CHEST ONE VIEW Routine 01/07/2010 7:24 PM Resu lts for this CDT procedure are i n the results section. documented in this encounter Results X-RAY ABDOMEN 1 VW (01/07/2010 7:43 PM CDT) Anatomical Region Laterality Modality Other Specimen (Source) Anatomical Collection Method Collection Time Re ceived Time Location / / Volume Laterality 01/07/2010 7:43 PM CDT Impressions 01/07/2010 8:14 PM CDT Single view abdomen Comparisons: None. HISTORY: ?Zenker's diverticulum. FINDINGS: ?There is a feeding tube c oiled in the stomach. Contrast in the colon from previous esophagram fr om one day prior. No dilated loop of bowel is identified. Right upper quadrant clips. IMPRESSION: ?Feeding tube coiled in the stomach with the tip near the fundus. I have personally reviewed the image and initial interpretation and agree with the findings. Khalida Tang MD GENERAL IMAGING CHEST X-RAY 1 VW (01/07/2010 7:24 PM CDT) Anatomical Region Laterality Modality Other Specimen (Source) Anatomical Collection Method Collection Time Re ceived Time Location / / Volume Laterality 01/07/2010 7:24 PM CDT Impressions 01/07/2010 8:09 PM CDT Single view chest Comparisons: 08/15/2004 HISTORY: ?Zenker's diverticulum. Maryan luate feeding tube placement. FINDINGS: ?There is a feeding tube w hich is collimated off the inferior margin of the film, however the tip appears to be in the stomach. The lungs and pleural spaces ar e clear. Cardiac silhouette and pulmonary vascularity appear unremar kable. IMPRESSION: Clear lungs. I have personally reviewed the image and initial interpretation and agree with the findings. Khalida Tang MD GENERAL IMAGING documented in this encounter Visit Diagnoses Not on filedocumented in this encounter Care Teams Dough Molder Relationship Specialty Start Date End Date Jose Alonzo MD PCP - General 01/08/03 12/30/14 [place] [address] documented as of this encounter
--- OUTSIDE RECORDS SUMMARY | 2022-05-10 10:19 | XMS_ITS | Encounter Summary ---
:1970 Author Organization [place] Address [facility]0 [facility] [place] [address] Care Team Providers Name Role Phone Jose Alonzo MD Primary Care Provider Unavailable Encounter Details Date Type Department Care Team Description 01/18/2010 Office Visit-[facility] DEPT Unknown, Provider Social History Tobacco Use Types Packs/Day Years Used Date Smoking Tobacco: Former Cigarettes 2 Quit : 12/07/2001 Alcohol Use Standard Drinks/Week Comments No 0 (1 standard drink = 0.6 oz pure alcoho l) 3-6 beers twice a month Sex Assigned at Date Recorded Not on file documented as of this encounter Progress Notes Unknown, Provider - 01/18/2010 11:30 AM CDT Snath Handle Assembler: Zahida Sandra Status: Final Encounter: 18 Jan 2010 Type: Rooming Note Reason For Visit JORGE SCHAEFER is a 39 year old male presenting today with Zenkers post op. Do you have any other appointments of any type today within the [facility] system? (this includes clinic appt's, Imaging, labs, procedures etc.) No. Pain Eval Current history of pain associated with this visit is denied. Personal Hx Behavioral history: No tobacco use. Home environment: No secondhand tobacco smoke in home. Allergies Percocet TABS. Current Meds Med list offered and patient declined. SEROquel 50 MG Tablet;TAKE 2 TABLET BEDTIME; RPT Amitriptyline HCl 100 MG Tablet;TAKE 4 TABLET BEDTIME; RPT Aquaphor Ointment;Apply to incision site twice a day; RPT AAA-MED RECONCILE;per hospital discharge; RPT. Signature Signed By: Zahida Sandra MA; 01/18/2010 11:45 AM TRIAGE LICENSED PRACTICAL NURSE. documented in this encounter Plan of Treatment Not on filedocumented as of this encounter Visit Diagnoses Not on filedocumented in this encounter Care Teams Calender Let Off Operator Relationship Specialty Start Date End Date Jose Alonzo MD PCP - General 01/08/03 12/30/14 [place] [address] documented as of this encounter
--- OUTSIDE RECORDS SUMMARY | 2022-05-10 10:19 | XMS_ITS | Encounter Summary ---
:1970 Author Organization [place] Address [facility]0 [facility] [place] [address] Care Team Providers Name Role Phone Polina Lynch PART TIME Unavailable Polina Lynch PART TIME Primary Care Provider [phone] Reason for Visit Reason Comments Cold Symptoms Encounter Details Date Type Department Care Team Description 02/06/2022 Emergency [facility] Emergency Dept [address] [place] [phone] Social History Tobacco Use Types Packs/Day Years Used Date Smoking Tobacco: Former Cigarettes 2 Quit : 12/07/2001 Smokeless Tobacco: Never Alcohol Use Standard Drinks/Week Comments No 0 (1 standard drink = 0.6 oz pure alcoho l) quit in October 2020 Sex Assigned at Date Recorded Not on file COVID-19 Exposure Response Date Recorded In the last 10 days, have you been in contact with No / Unsu re 02/06/2022 8:02 AM CDT someone who was confirmed or suspected to have Coronavirus/COVID-19? documented as of this encounter Last Filed Vital Signs Vital Sign Reading [...] Mass Index 19.2 02/06/2022 8:10 AM CDT documented in this encounter Medications at Time of Discharge Medication Sig Dispensed Refills Start Date End Date acetaminophen (TYLENOL) 325 Take 325-650 mg by 0 MG tablet mouth every 6 hours as needed for mild pain methocarbamol (ROBAXIN) 500 Take 1 tablet (500 30 tablet 0 03/10/2021 MG tabletIndications: Neck mg) by mouth nightly pain, Insomnia, unspecified as needed for muscle type spasms sertraline (ZOLOFT) 50 MG Take 1 tablet (50 30 tablet 1 tabletIndications: Moderate mg) by mouth daily episode of recurrent major depressive disorder (H), Anxiety zolpidem (AMBIEN) 5 MG Take 1 tablet (5 mg) 30 tablet 1 tabletIndications: Moderate by mouth nightly as episode of recurrent major needed for sleep depressive disorder (H) documented as of this encounter ED Notes Maksim Junior RN - 02/06/2022 8:10 AM CDT ABCs intact. Pt c/o headache, body aches, n/v since Sunday. Last tylenol at 0200. Declines tylenol at present because he wants better pain meds. refused covid swab during triage documented in this encounter Plan of Treatment Not on filedocumented as of this encounter Visit Diagnoses Not on filedocumented in this encounter Additional Health Concerns Infection Onset Date Last Indicated Resolved Time Rule Out COVID-19 02/06/2022 02/06/2022 02/06/2022 12: 37 PM CDT Assessment Noted Time PHQ-9 Depression Total Score: 15 03/30/2021 9:25 AM CD T documented as of this encounter Care Teams Usability Strategist Relationship Specialty Start Date End Date Polina Lynch NP PCP - General Nurse Practitioner - Adult 03/10/21 [address] [place] [address] Polina Lynch NP Assigned PCP 12/16/20 [address] [place] [address] documented as of this encounter
--- OUTSIDE RECORDS SUMMARY | 2022-05-10 10:19 | XMS_ITS | Encounter Summary ---
:1970 Author Organization [place] Address [facility]0 [facility] [place] [address] Care Team Providers Name Role Phone Jose Alonzo MD Primary Care Provider Unavailable Encounter Details Date Type Department Care Team Description 12/23/2009 Office Visit-[facility] Unknown, Provider Social History Tobacco Use Types Packs/Day Years Used Date Smoking Tobacco: Former Cigarettes 2 Quit : 12/07/2001 Alcohol Use Standard Drinks/Week Comments No 0 (1 standard drink = 0.6 oz pure alcoho l) 3-6 beers twice a month Sex Assigned at Date Recorded Not on file documented as of this encounter Progress Notes Unknown, Provider - 12/23/2009 3:00 PM CDT Drawer Maker: Zahida Sandra Status: Final Encounter: 23 Dec 2009 Type: Rooming Note Reason For Visit JORGE SCHAEFER is a 39 year old male presenting today with post op zenkers. Do you have any other appointments of any type today within the [facility] system? (this includes clinic appt's, Imaging, labs, procedures etc.) No. Pain Eval Current history of pain associated with this visit is denied. Personal Hx Behavioral history: No tobacco use. Home environment: No secondhand tobacco smoke in home. Allergies Percocet TABS. Current Meds Med list offered and patient declined. AAA-MED RECONCILE;per patient; RPT SEROquel 50 MG Tablet;TAKE 2 TABLET BEDTIME; RPT Amitriptyline HCl 100 MG Tablet;TAKE 4 TABLET BEDTIME; RPT. Signature Signed By: Zahida Sandra MA; 12/23/2009 3:12 PM INSURANCE PRODUCER. documented in this encounter Plan of Treatment Not on filedocumented as of this encounter Visit Diagnoses Not on filedocumented in this encounter Care Teams Transportation Engineering Technician Relationship Specialty Start Date End Date Jose Alonzo MD PCP - General 01/08/03 12/30/14 [place] [address] documented as of this encounter
--- OUTSIDE RECORDS SUMMARY | 2022-05-10 10:19 | XMS_ITS | Encounter Summary ---
:1970 Author Organization [place] Address [facility] [place] [address] Care Team Providers Name Role Phone Jose Alonzo MD Primary Care Provider Unavailable Encounter Details Date Type Department Care Team Description 01/08/2010 Historic Notes INTERFACED REPORT Augustin Jackson MD [facility] [address] [facility] [address] [place] [address] (Wo rk) Social History Tobacco Use Types Packs/Day Years Used Date Smoking Tobacco: Former Cigarettes 2 Quit : 12/07/2001 Alcohol Use Standard Drinks/Week Comments No 0 (1 standard drink = 0.6 oz pure alcoho l) 3-6 beers twice a month Sex Assigned at Date Recorded Not on file documented as of this encounter Progress Notes Augustin Jackson - 08/26/2010 10:55 PM CDT Assessment and Plan - Assessment/Plan: S: He had a bit of urinary retention last night but this has since resolved. He is having difficulty getting pain control; Dilaudid didn't help, morphine didn't help, Darvocet didn't help, and now he wants Demerol. O: Vitals: 99, 97.5, 75, 115/68, 16, 95% RA. Drains: JOSE drain put out 10 cc yesterday and 5 cc overnight. Exam: Reclining in bed with at bedside. Comfortable. Normal mental status. Breathing quietly and without difficulty. He has an NG tube in place connected to a bag with green gastric secretions in it. His neck incision is intact with sutures and a small amount of post-op inflammation. The JOSE drain is holding suction and contains sanguinous drainage. Labs: WBC 9.9. Imaging: CXR yesterday was clear. AXR yesterday showed the feeding tube coiled in the stomach. The esophagram was just done around 10:30 AM this morning and results are not yet back. A: POD #1 s/p external approach to repair of Zenker's diverticulum, stable, with no tachycardia, no fever, no chest pain, no leukocytosis, and normal post-op CXR. He has been ordered for three clindamycin doses and has a feeding tube in place just in case he is not cleared for oral diet. P: This morning's esophagram will determine whether or not we can pull the feeding tube and start him on a full liquid diet. Discussed the pain situation with Pharmacy and they will start a low dose of Demerol once a serum creatinine comes back normal. Will leave JOSE drain in place for now given that it was just placed yesterday afternoon, less than 24 hours ago. Addendum Section 12:32 Entered By:AUGUSTIN JACKSON Esophagram showed no leak. I personally reviewed the images and discussed with the sales consultant residential manager. I discontinued the NG tube and am starting a clear liquid diet. Mr. Schaefer requests to stay tonight and be discharged tomorrow. Keep JOSE drain for now. Mr. Schaefer wants Demerol shots in-house and Demerol po to go home. Discussed with attending Dr. Oneal. Signatures AUGUSTIN JACKSON)[Signed 12:31] Authored: Assessment and Plan, Addendum Section Entered: Assessment and Plan Augustin Jackson - 08/26/2010 10:55 PM CDT [facility] - Discharged from: [facility]; [address]; [place] [address]; [phone]., 6A - Unit Name: 6A - Unit DISCHARGING PHYSICIAN - Discharge Diagnosis Zenker's diverticulum - Surgeon Dr. Diego Oneal - Discharging Attending Dr. Diego Oneal - Discharging Service Otolaryngology - Condition improving - Major treatments and External approach to repair of Zenker's findings this diverticulum 01/07/10 admission ORDERS AND INSTRUCTIONS - Diet: clear liquid - Diet Instructions: Clear liquid diet. On Sunday01/10/10, advance to full liquid diet. - Activity No heavy lifting for 2 weeks. Instructions: - Restrictions: No driving while taking narcotics. - Call your physician increased pain, increased swelling if you experience any of the following: - Report temp if 101.5 degrees F greater than: - Symptoms/Problems to Fever, chest pain, increased heart rate look for at home- call the physician about: - Who patient should ENT clinic if before 5pm call: - - Who patient should ENT resident on-call if after 5pm call: - and ask for ENT admissions officer - Additional May wash incision gently with soap and water and instructions for pat dry, but do not soak the wound underwater wound care: for three weeks. - Additional Change band-aid over drain site daily and as instructions for needed until it closes. dressings: - Is patient going home no with oxygen?: HOME CARE ORDERS - IS HOME CARE no RECOMMENDED? OUTPATIENT THERAPY ORDERS - IS OUTPATIENT THERAPY No RECOMMENDED FOLLOW UP APPOINTMENTS - PHYSICIAN/CLINICIAN Dr. Oneal, ENT NAME - REASON FOR FOLLOW-UP postoperative followup - WHEN TO SEE in 1 week for suture removal PHYSICIAN/CLINICIAN Discharge Planning - Date/Time of 12:00 discharge: - Discharge from: [facility] - Patient care unit: 6a - Patient care unit [phone] phone number: - Discharge to: home/alternative home - Patient phone number [phone] after discharge: - Method of discharge: ambulatory - Transportation: private - Accompanied by: Spouse STATEMENT OF APPROVAL & DISCHARGE ORDER - Statement of I agree with all the recommendations detailed in Approval: this document. - Discharge to:: home Signatures Terrie Laura)[Signed 11:27] Authored: ORDERS AND INSTRUCTIONS, STATEMENT OF APPROVAL & DISCHARGE ORDER AUGUSTIN JACKSON)[Signed 12:39] Authored: [facility], DISCHARGING PHYSICIAN, ORDERS AND INSTRUCTIONS, HOME CARE ORDERS, OUTPATIENT THERAPY ORDERS, FOLLOW UP APPOINTMENTS, STATEMENT OF APPROVAL & DISCHARGE ORDER ISAAC BEYER (RN)[Signed 11:36] Authored: Discharge Planning documented in this encounter Plan of Treatment Not on filedocumented as of this encounter Visit Diagnoses Not on filedocumented in this encounter Care Teams Environmental Field Professional Relationship Specialty Start Date End Date Jose Alonzo MD PCP - General 01/08/03 12/30/14 [place] [address] documented as of this encounter
--- OUTSIDE RECORDS SUMMARY | 2022-05-10 10:19 | XMS_ITS | Encounter Summary ---
:1970 Author Organization [place] Address [address] [place] [address]. [place] [address] Care Team Providers Name Role Phone Jose Alonzo MD Primary Care Provider Unavailable Encounter Details Date Type Department Care Team Description 01/06/2010 Results [facility] Results Ana gomez MD [address] [place], [place] [phone] (Wo rk) Social History Tobacco Use Types [...] encounter Procedures Procedure Name Priority Date/Time Associated Comments Diagnosis HC VIDEO SPEECH Routine 01/06/2010 2:09 PM Result s for this EVALUATION CDT procedure are i n the results section. documented in this encounter Results SPEECH EVALUATION, COMPLEX (01/06/2010 2:09 PM CDT) Anatomical Region Laterality Modality Other Specimen (Source) Anatomical Collection Method Collection Time Re ceived Time Location / / Volume Laterality 01/06/2010 2:09 PM CDT Impressions 01/09/2010 12:18 PM CDT Examination: ??VIDEO SPEECH EVALUATION J 2009 2:09:00 PM Comparison: None. History: Zenker's diverticulum. Technique: A modified barium swallow was performed with speech pathology. Fluoroscopy time: 1.1 minutes. Findings: The oral phase was normal. The re is no delay in swallowing. There is no penetration or aspiration wi th any consistency of barium. Thin liquid barium was seen to pool in a n outpouching posterior to the lower cervical esophagus. Impression: Zenker's diverticulum. I have personally reviewed the image and initial interpretation and agree with the findings. Diego Oneal MD GENERAL IMAGING documented in this encounter Visit Diagnoses Not on filedocumented in this encounter Care Teams Business Technology Architect Relationship Specialty Start Date End Date Jose Alonzo MD PCP - General 01/08/03 12/30/14 [place] [address] documented as of this encounter
--- OUTSIDE RECORDS SUMMARY | 2022-05-10 10:19 | XMS_ITS | Encounter Summary ---
:1970 Author Organization [place] Address [address] [place] [address]. [place] [address] Care Team Providers Name Role Phone Jose Alonzo MD Primary Care Provider Unavailable Encounter Details Date Type Department Care Team Description 12/02/2009 Office Visit-[facility] Ear, Nose and Throat Dain Garduno TMD 8th Floor, Clinic [address] [phone] Social History Tobacco Use Types Packs/Day Years Used Date Smoking Tobacco: Former Cigarettes 2 Quit : 12/07/2001 Alcohol Use Standard Drinks/Week Comments No 0 (1 standard drink = 0.6 oz pure alcoho l) 3-6 beers twice a month Sex Assigned at Date Recorded Not on file documented as of this encounter Progress Notes Yuan Garduno T - 12/02/2009 11:45 AM CDT It Teacher: Yuan Garduno Status: Final - Signature Encounter: 02 Dec 2009 Type: ENT Visit Department of Otolaryngology--Head and Neck Surgery [place] Mail Code [address] [place] [address] Office: [address] RE: Yinka Schaefer : 1970 CLARISSA: 12/02/2009 HISTORY OF PRESENT ILLNESS: The patient complains of a bite injury to his tongue. The patient underwent an endoscopic procedure 6 days ago and after his discharge from the recovery room he noted some bleeding from his tongue. He lives in [place], [place] and was taken to the hospital there. He was admitted for overnight observation. No actual treatment was provided. The patient's surgical procedure nestor endoscopic procedure for a Zenker's diverticulum. The patient is unable to swallow. He was advised to try liquid or very soft solid food. He was unable to eat a scrambled egg recently. He had a sense of choking. He found it necessary to regurgitate his scrambled egg. The patient is very upset abouthis post-operative condition at this time and particularly about his injury to the tongue which he says was never mentioned. PHYSICAL EXAMINATION: Physical exam reveals a [id number] injury to the right side of his anterior tongue. The rest of his oral cavity and pharynx are normal. The patient is here with his mother. His mother said the surgeon had informed the patient that if the endoscopic procedure, an open operation through the neck would be required. DIAGNOSIS: Zenker's diverticulum and injury to the tongue. MEDICAL DECISION MAKING: Considerable time was spent discussing the problem with the patient and hismother. He will continue to try soft food and will call to report as to whether he is successful with regard to his swallowing. If not, he was informed that the only other solution would be a complete removal of the diverticulum from the outside. He will report to us regarding his status in a matter of another week or 2 for additional healing and time to resolve the edema. Yuan Garduno M.D. Otolaryngology-Head & Neck Surgery AMANDA:carola RIVERA 12/02/2009 Electronically signed by:Yuan Garduno MD Dec 09 2009 7:46AM RECOVERY OPERATOR documented in this encounter Plan of Treatment Not on filedocumented as of this encounter Visit Diagnoses Not on filedocumented in this encounter Care Teams Behavioral Health Specialist Relationship Specialty Start Date End Date Jose Alonzo MD PCP - General 01/08/03 12/30/14 RETIRED [place], [place] [address] documented as of this encounter
--- OUTSIDE RECORDS SUMMARY | 2022-05-10 10:19 | XMS_ITS | Encounter Summary ---
:1970 Author Organization [place] Address [address] [place] [address]. [place] [address] Care Team Providers Name Role Phone Jose Alonzo MD Primary Care Provider Unavailable Encounter Details Date Type Department Care Team Description 01/18/2010 Office Visit-[facility] Ear, Nose and Throat Diego Oneal [facility] MD [place] 8th Floor, Clinic [address] [place] [address] [facility] [place] [address] Social History Tobacco Use Types Packs/Day Years Used Date Smoking Tobacco: Former Cigarettes 2 Quit : 12/07/2001 Alcohol Use Standard Drinks/Week Comments No 0 (1 standard drink = 0.6 oz pure alcoho l) 3-6 beers twice a month Sex Assigned at Date Recorded Not on file documented as of this encounter Progress Notes Diego Oneal - 01/18/2010 11:30 AM CDT Real Estate Developer: Diego Oneal Status: Final - Signature Encounter: 18 Jan 2010 Type: ENT Visit Department of Otolaryngology--Head and Neck Surgery [place] Mail Code [address] [place] [address] Office: [address] RE: Yinka Schaefer : 1970 CLARISSA: 01/18/2010 HISTORY OF PRESENT ILLNESS: Mr. Schaefer is a 39-year-old gentleman with a history of Zenker's diverticulum. Endoscopic approach was attempted on November 26, 2009. This was only partially successful. Therefore, on January 07 he underwent an external approach for Zenker's diverticulum. He was discharged the second postoperative day. He notes that his swallowing is much improved. He has no early postoperativecomplications. He has now advanced to a regular diet. MEDICATIONS: Seroquel, amitriptyline, Aquaphor ointment. ALLERGIES: Percocet. PHYSICAL EXAMINATION: The patient is awake, alert, and in no apparent distress. His tympanic membranes are clear and mobile bilaterally. Nasal examination shows a mild septal deviation without obstruction. Examination of the oral cavity shows no suspicious lesions. There is symmetric movement of the tongue and soft palate. Neck is supple without significant adenopathy. There is a well healing incision in the left lower neck with sutures in place. These were removed and Steri-Strips. PROCEDURE NOTE: Flexible laryngoscopy was performed and showed the vocal folds to be mobile and meetin the midline. No nodules, polyps, or ulcerations were seen. There is no pooling of saliva in the hypopharynx. The immediate subglottic area is clear. ASSESSMENT: He is doing well status post an external approach for Zenker's diverticulum with a cricopharyngeal myotomy. PLAN: He is back to a near normal diet. I did advise him regarding too large of boluses and to avoidlarge solid foods. As he continues to do quite well, I will have him follow-up on a p.r.n. basis. Diego Oneal M.D. Stone Processing Machine Operator Department of Otolaryngology [phone] cc: [place] [address] GSG:ms RIVERA 01/18/2010 Electronically signed by:Diego Oneal MD Jan 19 2010 7:58AM CATALYST CONCENTRATION OPERATOR documented in this encounter Plan of Treatment Not on filedocumented as of this encounter Visit Diagnoses Not on filedocumented in this encounter Care Teams Tooth Cutter Clutch Relationship Specialty Start Date End Date Jose Alonzo MD PCP - General 01/08/03 12/30/14 [place] [address] documented as of this encounter
--- OUTSIDE RECORDS SUMMARY | 2022-05-10 10:19 | XMS_ITS | Encounter Summary ---
:1970 Author Organization [place] Address [facility]0 [facility] [place] [address] Care Team Providers Name Role Phone Polina Lynch SHOP AND ALTERATION TAILOR Unavailable Polina Lynch SHOP AND ALTERATION TAILOR Primary Care Provider [phone] Encounter Details Date Type Department Care Team Description 02/06/2022 Travel Social History Tobacco Use Types Packs/Day Years [...] have Coronavirus/COVID-19? documented as of this encounter Plan of Treatment Not on filedocumented as of this encounter Visit Diagnoses Not on filedocumented in this encounter Additional Health Concerns Infection Onset Date Last Indicated Resolved Time Rule Out COVID-19 02/06/2022 02/06/2022 02/06/2022 12: 37 PM CDT Assessment Noted Time PHQ-9 Depression Total Score: 15 03/30/2021 9:25 AM CD T documented as of this encounter Care Teams Mixer Machine Feeder Relationship Specialty Start Date End Date Polina Lynch NP PCP - General Nurse Practitioner - Adult 03/10/21 [address] [place] [address] Polina Lynch NP Assigned PCP 12/16/20 [place] [address] documented as of this encounter
--- OUTSIDE RECORDS SUMMARY | 2022-05-10 10:19 | XMS_ITS | Encounter Summary ---
:1970 Author Organization [place] Address [facility] [place] [address] Care Team Providers Name Role Phone Jose Alonzo MD Primary Care Provider Unavailable Encounter Details Date Type Department Care Team Description 01/08/2010 Historic Results INTERFACED REPORT Unknown, Provider Social History Tobacco Use Types [...] Name Priority Date/Time Associated Diagnosis Comme nts CREATININE STAT 01/08/2010 6:24 AM Results f or this CDT procedure are i n the results section. CBC WITH PLATELETS Routine 01/08/2010 6:24 AM Res ults for this CDT procedure are i n the results section. documented in this encounter Results CBC with platelets (01/08/2010 6:24 AM CDT) P athologist Signature MCV 90 78 - 100 fl [facility] MCH 30.8 26.5 - 33.0 [facility] pg MCHC 34.3 31.5 - 36.5 [facility] g/dL RDW 12.9 10.0 - 15.0 [facility] % WBC 9.9 4.0 - 11.0 [facility] 10e9/L RBC Count 4.55 4.4 - 5.9 M[facility] 10e12/L Hemoglobin 14.0 13.3 - 17.7 [facility] g/dL Hematocrit 40.8 40.0 - 53.0 M[facility] % Platelet Count 239 150 - 450 [facility] 10e9/L Specimen (Source) Anatomical Collection Method Collection Time Re ceived Time Location / / Volume Laterality 01/08/2010 6:24 AM 0 CDT Khalida Tang MD LAB - BLOOD ORDERABLES Performing Organization Address City/State/ZIP Code Phon e Number [facility] Creatinine (01/08/2010 6:24 AM CDT) P athologist Signature Creatinine 0.90 0.66 - 1.25 [facility] mg/dL Comment: New IDMS-traceable calibration beginning 10/10/07 GFR Estimate >90 >60 mL/min/1.7m2 [facility] GFR Estimate If Black >90 >60 mL/min/1.7m2 [facility] Specimen Anatomical Collection Method Collection Time Receive d Time (Source) Location / / Volume Laterality 01/08/2010 6:24 AM 0 CDT 10:41 AM CDT Provider Unknown LAB - BLOOD ORDERABLES Performing Organization Address City/State/ZIP Code Phon e Number [facility] documented in this encounter Visit Diagnoses Not on filedocumented in this encounter Care Teams Fresh Meat Grader Relationship Specialty Start Date End Date Jose Alonzo MD PCP - General 01/08/03 12/30/14 [place] [address] documented as of this encounter
--- OUTSIDE RECORDS SUMMARY | 2022-05-10 10:19 | XMS_ITS | Encounter Summary ---
:1970 Author Organization [place] Address [address] [place] [address]. [place] [address] Care Team Providers Name Role Phone No Ref-Primary, Physician Primary Care Provider [phone] Reason for Visit Reason Comments Hearing Problem Encounter Details Date Type Department Care Team Description 12/31/2014 Emergency [facility] Sebas Ramos, Rian foration of [facility] Emergency Dep t BUYER AGENT CLEAN OUT DRILLER HELPER tympanic membrane [address] [facility], [place] [address] [address] [facility] [phone] [place], [place] [address] (Wo rk) Social History Tobacco Use Types Packs/Day Years Used Date Smoking Tobacco: Former Cigarettes 2 Quit : 12/07/2001 Alcohol Use Standard Drinks/Week Comments No 0 (1 standard drink = 0.6 oz pure alcoho l) 3-6 beers twice a month Sex Assigned at Date Recorded Not on file documented as of this encounter Last Filed Vital Signs Vital Sign Reading Time Taken Comments Blood Pressure 135/87 12/31/2014 8:08 PM CDT Pulse 85 12/31/2014 8:08 PM CDT Temperature 36.9 ??C (98.5 ??F) 12/31/2014 8:08 PM CDT Respiratory Rate 18 12/31/2014 8:08 PM CDT Oxygen Saturation 97% 12/31/2014 8:08 PM CDT Inhaled Oxygen Concentration - - Weight - - Height - - Body Mass Index - - documented in this encounter Discharge Instructions Discharge InstructionsPeMaksim yun - 12/31/2014 10:19 PM CDT Images from the original note were not included. Eardrum Rupture (Perforation) Your eardrum is a thin membrane between your outer and middle ear. Sound waves entering your ear cause the membrane to vibrate, which helps you hear. An injury or infection can cause your eardrum to tear (rupture). This creates a hole (perforation) that may affect your hearing. Causes of Eardrum Perforation Causes of a ruptured eardrum include: ?? Pressure from an ear infection ?? Putting an object, such as a cotton swab or pencil, into the ear ?? A very loud noise (such as a gunshot) close to the ear ?? Rapid changes in air pressure, which can occur during scuba diving or traveling at high altitudes ?? A slap or blow to the ear When to Go to the Emergency Room (ER) Seek medical care right away if you: ?? Have severe pain, bleeding, or ringing in your ear. ?? Lose your hearing suddenly. ?? Become very dizzy for no reason. ?? Have an object lodged in your ear. A ruptured eardrum from an ear infection usually isn't an emergency. In fact, the rupture often relieves pressure and pain. Still, the ear should be examined by a doctor or lobster fisherman within 24 hours. Do not clean inside the ear canal with cotton swabs or any other object. What to Expect in the ER Your ear will be examined. Treatment will depend on how severe the damage is. Small holes often healon their own. A small patch may be placed over a minor eardrum tear. Large tears may need to be repaired during an operation. If you are very dizzy or have severe hearing loss, you are likely to stay in the hospital for treatment for one or more days. ?? [id number] [employer] [address] [place] [address], [place] [address]. All rights reserved. This information is not intended as a substitute for professional medical care. Always follow your healthcare professional's instructions. Your blood pressure was checked while you were in the emergency department today. The last reading we obtained was 135/87. Please read the guidelines below about what these numbers mean and what you should do about them. If your systolic blood pressure (the top number) is less than 120 and your diastolic blood pressure (the bottom number) is less than 80, then your blood pressure is normal. There is nothing more that you need to do about it. If your systolic blood pressure (the top number) is 120-139 or your diastolic blood pressure (the bottom number) is 80-89, your blood pressure may be higher than it should be. You should have your blood pressure rechecked within a year by a primary care provider. If your systolic blood pressure (the top number) is 140 or greater or your diastolic blood pressure (the bottom number) is 90 or greater, you may have high blood pressure. High blood pressure is treatable, but if left untreated over time it can put you at risk for heart attack, stroke, or kidney failure. You should have your blood pressure rechecked by a primary care provider within the next 4 weeks. If your provider in the emergency department today gave you specific instructions to follow-up with your doctor or provider even sooner than that, you should follow that instruction and not wait for upto 4 weeks for your follow-up visit. documented in this encounter ED Notes Sebas Ramos APRN CLEAN OUT DRILLER HELPER - 12/31/2014 8:12 PM CDT History Chief Complaint: Hearing Problem HPI Yinka Schaefer is a 44 year old male who presents with hearing problem. The patient reports that he hit his head on the door of his truck 2 hours ago and immediately started to experience bilateral ear hearing loss, worse on the right. The patient did not sustain any direct pressure/trauma to eitherear, just his head. He has had a bad cough as well for the past month. He intermittently smokes. He has no PMH of asthma. The patient denies any loss of consciousness, ear drainage, headache, nausea, vomiting, postnasal drip, fever, or any other physical complaints at this time. Allergies: NKDA Medications: The patient is currently on no regular medications. Past Medical History: Duodenitis without hemorrhage Calculus of ureter Anxiety Past Surgical History: Lap cholecystectomy Family / Social History: No past pertinent family history. Marital Status: [2] Social History: The patient is a former smoker. The patient drinks alcohol monthly. Review of Systems Constitutional: Negative for fever. HENT: Positive for hearing loss. Negative for dental problem, ear discharge and postnasal drip. Gastrointestinal: Negative for nausea and vomiting. Neurological: Negative for syncope and headaches. All other systems reviewed and are negative. Physical Exam First Vitals: BP: 135/87 mmHg Pulse: 85 Temp: 98.5 ??F (36.9 ??C) Resp: 18 SpO2: 97 % Physical Exam General: Alert, No obvious discomfort, well kept Eyes: PERRL, conjunctivae pink no scleral icterus or conjunctival injection ENT: Moist mucus membranes, posterior oropharynx clear without erythema or exudates, No lymphadenopathy, Normal voice Right ear: Large TM rupture, no bleeding, no fluid or drainage. Left ear: Atraumatic. Resp: Lungs clear to auscultation bilaterally, no crackles/rubs/wheezes. Good air movement CV: Normal rate and rhythm, no murmurs/rubs/gallops Skin: Warm, dry. No rashes or petechiae Musculoskeletal: No peripheral edema or calf tenderness, Normal gross ROM Neuro: Alert and oriented to person/place/time, normal sensation Psychiatric: Normal affect, cooperative, good eye contact Emergency Department Course Emergency Department Course: Nursing notes and vitals reviewed. I performed an exam of the patient as documented above. [address] Godwin regarding the patient. He advised no drops or antibiotics and follow up within the next week. Findings and plan explained to the Patient. Patient discharged home with instructions regarding supportive care, medications, and reasons to return. The importance of close follow-up was reviewed. Impression & Plan Medical Decision Making: Yinka Schaefer is a 44 year old male who presents to the ED for evaluation of difficulty hearing in the right ear. This occurred after striking his head on the handle on the ceiling of his truck. Hisevaluation showed a large TM perforation. He denied any direct trauma to this area. I did speak to Dr. Godwin, who recommended no treatment at this time and follow up within the next week. There was no indication for antibiotics, as this is a noncontaminated injury. Patient was advised to avoid submerging head or placing anything in his ear. He will follow up with ENT within the next week and will return immediately to the ER if he develops any increasing pain, fevers, drainage or for other concerns. Diagnosis: 1. (384.20) Perforation of tympanic membrane. Maksim Crane, am serving as a scribe on 12/31/2014 at 8:13 PM to personally document services performed by Sebas Neely APRN based on my observations and the provider's statements to me. Maksim Al 12/31/2014 [facility] EMERGENCY DEPARTMENT Sebas Ramos APRN CNP 12/31/14 2226 Krystyna Pitt, MARLON - 12/31/2014 8:09 PM CDT Pt c/o right greater than left hearing loss/muffled sounds since hitting right side of head on handle above truck door around 6pm, denies any drainage from ear. Denies vision changes. Pt a/ox4, ABCs intact. documented in this encounter Plan of Treatment Not on filedocumented as of this encounter Visit Diagnoses Diagnosis Perforation of tympanic membrane Perforation of tympanic membrane, unspec ified documented in this encounter Care Teams Stripping Shovel Oiler Relationship Specialty Start Date End Date No Ref-Primary, Physician PCP - General 12/31/14 03/09/21 documented as of this encounter
--- OUTSIDE RECORDS SUMMARY | 2022-05-10 10:19 | XMS_ITS | Encounter Summary ---
:1970 Author Organization [place] Address [facility]0 [facility] [place] [address] Care Team Providers Name Role Phone Polina Lynch COMMERCIAL LOAN COLLECTION OFFICER Unavailable Polina Lynch COMMERCIAL LOAN COLLECTION OFFICER Primary Care Provider [phone] Encounter Details Date Type Department Care Team Description 03/24/2021 Travel Social History Tobacco Use Types Packs/Day Years Used Date Smoking Tobacco: Former Cigarettes 2 Quit : 12/07/2001 Smokeless Tobacco: Never Alcohol Use Standard Drinks/Week Comments No 0 (1 standard drink = 0.6 oz pure alcoho l) quit in October 2020 Sex Assigned at Date Recorded Not on file COVID-19 Exposure Response Date Recorded In the last month, have you been in contact with No / Unsure 03/24/2021 12:06 PM CDT someone who was confirmed or suspected to have Coronavirus / COVID-19? documented as of this encounter Plan of Treatment Not on filedocumented as of this encounter Visit Diagnoses Not on filedocumented in this encounter Care Teams Floor Person Relationship Specialty Start Date End Date Polina Lynch NP PCP - General Nurse Practitioner - Adult 03/10/[address] [employer] [place], [place] [id number] Polina Lynch NP Assigned PCP 12/16/[address] [place], [place] [id number] documented as of this encounter
--- OUTSIDE RECORDS SUMMARY | 2022-05-10 10:19 | XMS_ITS | Encounter Summary ---
:1970 Author Organization [place] Address [facility] [place] [address] Care Team Providers Name Role Phone Jose Alonzo MD Primary Care Provider Unavailable Encounter Details Date Type Department Care Team Description 01/08/2010 Historic Notes INTERFACED REPORT Interface, Transcript onMD Social History Tobacco Use Types Packs/Day Years Used Date Smoking Tobacco: Former Cigarettes 2 Quit : 12/07/2001 Alcohol Use Standard Drinks/Week Comments No 0 (1 standard drink = 0.6 oz pure alcoho l) 3-6 beers twice a month Sex Assigned at Date Recorded Not on file documented as of this encounter Progress Notes Interface, Validation Engineer - 08/26/2010 10:56 PM CDT Progress Note - :: D/A- Pt here after surgery, has surgical incision on his left anterior neck which looks clean dry and intact. He also has NG hooked up to the drainage bag and IV running. Pt c/o incisional pain ( See flow sheet), he is voiding but unable to clear his bladder. Pt still trying at the moment to void. I-Did pain assessment, helped pt walk to the bathroom and gave meds as indicated P-Continue with plan of care. Signatures Too, Esha (RN)[Signed 00:08] Authored: Progress Note documented in this encounter Plan of Treatment Not on filedocumented as of this encounter Visit Diagnoses Not on filedocumented in this encounter Care Teams Green Pipefitter Relationship Specialty Start Date End Date Jose Alonzo MD PCP - General 01/08/03 12/30/14 [place] [address] documented as of this encounter
--- OUTSIDE RECORDS SUMMARY | 2022-05-10 10:19 | XMS_ITS | Encounter Summary ---
:1970 Author Organization [facility] Address [facility] [place] [address] Care Team Providers Name Role Phone Jose Alonzo MD Primary Care Provider Unavailable Encounter Details Date Type Department Care Team Description 01/07/2010 Operative Report [facility] Jaclyn Oneal (Switchboard And Control Room Operator) [facility] MD Marce Results [address] [place], [place] [id number] Social History Tobacco Use Types Packs/Day Years Used Date Smoking Tobacco: Former Cigarettes 2 Quit : 12/07/2001 Alcohol Use Standard Drinks/Week Comments No 0 (1 standard drink = 0.6 oz pure alcoho l) 3-6 beers twice a month Sex Assigned at Date Recorded Not on file documented as of this encounter Progress Notes Jaclyn Oneal - 01/12/2010 7:58 AM CDT FINAL SURGEON: Jaclyn Oneal MD RESIDENT SURGEON: Khalida Tang MD PREOPERATIVE DIAGNOSIS: Zenker diverticulum. POSTOPERATIVE DIAGNOSIS: Zenker diverticulum. diverticulum. PROCEDURE: External approach for Zenker diverticulectomy. ANESTHESIA: General endotracheal. COMPLICATIONS: None. ESTIMATED BLOOD LOSS: 10 mL. SPECIMENS: None. INDICATIONS: Mr. Schaefer is a 39-year-old gentleman with a history of Zenker diverticulum that had been causing dysphagia, difficulty with p.o. intake and regurgitation. He had an endoscopic Zenker diverticulotomy approximately 1 month ago but was still not happy with the result. Thus, it was determined he should be taken back to the operating room for an external approach. FINDINGS: There was a large obvious Zenker diverticulum that was present. The evens from the previous diverticulotomy were present. At the end of the case, there was no evidence of esophageal leak. DESCRIPTION OF PROCEDURE: The patient was met in the preoperative area where the risks and benefitsof the procedure were explained and the consent was signed. He was taken to the operating room and placed under general anesthesia with endotracheal intubation. The bed was turned 90 degrees and the patient was prepped and draped in standard fashion. A timeout was performed and the patient was correctly identified. As first step of the procedure, a direct laryngoscopy and esophagoscopy was performed.The mouth guards were placed. The laryngoscope was used to achieve visualization and was then advanced into the opening of the esophagus. Nu Gauze was then placed to pack the diverticulum. At this point, a size 42 esophageal dilator was placed and advanced through the esophagus and into the stomach. The neck was then prepped and draped in sterile fashion. An incision was made just to the left of midline approximately 1 cm below the level of the cricoid. This incision was approximately 4 cm in size. This was carried down to subplatysma and subplatysma flaps were elevated both superiorly to the levelof the thyroid cartilage and inferiorly to the level of the clavicle. This dissection was carried down between the sternocleidomastoid muscle and the strap muscles. At this point, the esophageal dilator could be palpated and with gentle blunt dissection the Zenker diverticular pouch was visible. Dissection was carried out around this pouch to properly identify this completely. Once this had been completely dissected out, the attention turned to the cricopharyngeal muscle. The cricopharyngeal muscle was cut for a length of 4 cm using a 15- blade, taking care not to enter into the esophagus. At this point, the attention turned back to the diverticulum. An stapler was used to staple and transect the pouch. 3-0 Vicryl sutures were then used to oversew the side remaining along the esophageal wall and these were closed in inverted fashion. The wound was then irrigated and suctioned. A small amount of water was then inserted in the oral cavity to ensure that there was no leak, of which there was no evidence of a leak from the esophagus. A NG feeding tube was then placed and was visualized to ensure that it did not end up at the side of the resected Zenker diverticulum. A #10 JOSE drain was placed. The platysma layer was closed with a 3-0 Vicryl. Subcutaneous sutures were then placed using a 4-0 Vicrylin simple interrupted fashion and the skin was closed in a running fashion with a 4-0 nylon. The annalise ent was turned back over to care of anesthesia. The packing from the Zenker diverticulum was confirmed to have been removed prior to the stapling and the mouth guards were then removed. He was awakenedin the operating room and extubated and taken to the PACU in stable condition. Dr. Oneal was present and scrubbed for the entire procedure. Electronically signed on 01/12/2010 07:58 by JACLYN ONEAL MD As dictated by KHALIDA TANG MD MT: [place] Name: JORGE SCHAEFER Account: [id number] : 1970 Procedure Date: 01/07/2010 Document: [id number] cc: Mesfin Mejía MD documented in this encounter Plan of Treatment Not on filedocumented as of this encounter Visit Diagnoses Not on filedocumented in this encounter Care Teams Focus Puller Relationship Specialty Start Date End Date Jose Alonzo MD PCP - General 01/08/03 12/30/14 [place] [address] documented as of this encounter
--- OUTSIDE RECORDS SUMMARY | 2022-05-10 10:19 | XMS_ITS | Encounter Summary ---
:1970 Author Organization [facility] Address [address] [facility] [place] [address] Care Team Providers Name Role Phone No Ref-Primary, Physician Primary Care Provider [phone] Polina Lynch BANKING MANAGER Unavailable Reason for Referral Consultation (Routine) - Closed Specialty Diagnoses / Procedures Referred By Contact Refer red To Contact Gastroenterology Diagnoses Gastroesophageal reflux disease without esophagitis Polina Lynch [place] [facility] BANKING MANAGER [place] [address] [place] [address] [address] [place] [address] Phone: Referral ID Status Reason Start Date Expiration Date Visits Requ ested Visits Authorized [id number] Closed 01/10/2021 01/10/2022 1 1 Reason for Visit Reason Comments Headache constant headaches for 3 mon ths Insomnia onging 3 months Encounter Details Date Type Department Care Team Description 01/10/2021 Office Visit [facility] Polina Wall ophageal reflux disease without esophagitis (Primary Dx); Clinic Pamela Leung NP Neck pain; [address] Insomnia, uns pecified type [address] [place] [phone] Social History Tobacco Use Types Packs/Day Years [...] been in contact with No / Unsure 01/10/2021 6:55 AM CDT someone who was confirmed or suspected to have Coronavirus / COVID-19? documented as of this encounter Last Filed Vital Signs Vital Sign Reading Time Taken Comments Blood Pressure 124/78 01/10/2021 7:12 AM CDT Pulse 62 01/10/2021 7:12 AM CDT Temperature 36.8 ??C (98.3 ??F) 01/10/2021 7:12 AM CDT Respiratory Rate 16 01/10/2021 7:12 AM CDT Oxygen Saturation 97% 01/10/2021 7:12 AM CDT Inhaled Oxygen Concentration - - Weight 62 kg (136 lb 9.6 oz) 01/10/2021 7:12 AM CDT Height 172.7 cm (5' 8) 01/10/2021 7:12 AM CDT Body Mass Index 20.77 01/10/2021 7:12 AM CDT documented in this encounter Progress Notes Polina Lynch NP - 01/10/2021 7:00 AM CDT Assessment & Plan Gastroesophageal reflux disease without esophagitis - Adult Gastro Ref - Consult Only; Future Neck pain - methocarbamol (ROBAXIN) 500 MG tablet; Take 1 tablet (500 mg) by mouth nightly as needed for muscle spasms Insomnia, unspecified type - methocarbamol (ROBAXIN) 500 MG tablet; Take 1 tablet (500 mg) by mouth nightly as needed for muscle spasms F/u 1 month, consider PT H/o self medicating with ETOH, stopped 3 months ago. Request for ambien denied. Polina Lynch NP [facility] Analy Honeycutt is a 50 year old who presents for the following health issues accompanied by his spouse: HPI GERD/Heartburn Onset/Duration: years Description: burning in throat and frequent clearing of throat. Intensity: mild Progression of Symptoms: same Accompanying Signs & Symptoms: Does it feel like food gets stuck or trouble swallowing: no Nausea: no Vomiting (bloody?): no Abdominal Pain: no Black-Tarry stools: no Bloody stools: no History: Previous similar episodes: YES Previous ulcers: no Precipitating factors: Caffeine use: no Alcohol use: no NSAID/Aspirin use: no Tobacco use: no Worse with no particular food or drink. Alleviating factors: None Therapies tried and outcome: Lifestyle changes: None Medications: none Insomnia Onset/Duration: 3 months Description: Frequency of insomnia: nightly Time to fall asleep (sleep latency): unclear Middle of night awakening: YES sr solutions consultant awakening: YES Progression of Symptoms: same Accompanying Signs & Symptoms: Daytime sleepiness/napping: no Excessive snoring/apnea: YES- snoring Restless legs: no Waking to urinate: no Chronic pain: no Depression symptoms (if yes, do PHQ9): no Anxiety symptoms (if yes, do SONAM-7): no History: Prior Insomnia: no New stressful situation: YES Precipitating factors: Caffeine intake: no OTC decongestants: no Any new medications: no Alleviating factors: Self medicating (alcohol, etc.): YES, stopped 3 months ago Stress-reduction (exercise, yoga, meditation etc): no Therapies tried and outcome: Ambien - effective and hydroxyzine - not effective Neck Pain Onset/Duration: 3 months Description: Location: back of neck, base of skull Radiation: none Intensity: moderate Progression of Symptoms: same Accompanying Signs & Symptoms: Burning, tingling, prickly sensation in arm(s): no Numbness in arm(s): no Weakness in arm(s): no Fever: no Headache: YES, base of neck Nausea and/or vomiting: no History: Trauma: no Previous neck pain: no Previous surgery or injections: no Previous Imaging (MRI,X ray): no Precipitating or alleviating factors: poor sleep Does movement impact the pain: no Therapies tried and outcome: nothing Review of Systems CONSTITUTIONAL: NEGATIVE for fever, chills, change in weight RESP: NEGATIVE for significant cough or SOB CV: NEGATIVE for chest pain, palpitations or peripheral edema GI: NEGATIVE for constipation and diarrhea PSYCHIATRIC: NEGATIVE foranxiety and depressed mood Objective BP 124/78 Pulse 62 Temp 98.3 ??F (36.8 ??C) (Oral) Resp 16 Ht 1.727 m (5' 8) Wt 62 kg (136 lb 9.6 oz) SpO2 97% BMI 20.77 kg/m?? Body mass index is 20.77 kg/m??. Physical Exam GENERAL: alert, no distress and lean EYES: Eyes grossly normal to inspection, PERRL and conjunctivae and sclerae normal NECK: no adenopathy, no asymmetry, masses, or scars and thyroid normal to palpation RESP: lungs clear to auscultation - no rales, rhonchi or wheezes CV: regular rate and rhythm, normal S1 S2, no S3 or S4, no murmur, click or rub, no peripheral edemaand peripheral pulses strong ABDOMEN: soft, nontender, no hepatosplenomegaly, no masses and bowel sounds normal NEURO: Normal strength and tone, mentation intact and speech normal PSYCH: mentation appears normal, affect flat and anxious documented in this encounter Nursing Notes Madisyn Crowell MA - 01/10/2021 7:00 AM CDT Ongoing headaches and unable to sleep for 3 months. Vital signs: Temp: 98.3 ??F (36.8 ??C) Temp src: Oral BP: 124/78 Pulse: 62 Resp: 16 SpO2: 97 % Height: 172.7 cm (5' 8) Weight: 62 kg (136 lb 9.6 oz) Estimated body mass index is 20.77 kg/m?? as calculated from the following: Height as of this encounter: 1.727 m (5' 8). Weight as of this encounter: 62 kg (136 lb 9.6 oz). documented in this encounter Plan of Treatment Scheduled Referrals Name Type Priority Associated Diagnoses Order S chedule Adult Gastro Ref - Referral Routine Gastroesophageal reflu x Expected: 01/10/2021 Consult Only disease without esophagitis (Approximate), Expires: 2021 documented as of this encounter Visit Diagnoses Diagnosis Gastroesophageal reflux disease without esophagitis - Primary Esophageal reflux Neck pain Cervicalgia Insomnia, unspecified type documented in this encounter Care Teams Rope Cleaner Relationship Specialty Start Date End Date No Ref-Primary, Physician PCP - General 12/31/14 03/09/21 Polina Lynch, BONY Assigned PCP 12/16/[address] [place] [address] documented as of this encounter
--- OUTSIDE RECORDS SUMMARY | 2022-05-10 10:19 | XMS_ITS | Encounter Summary ---
:1970 Author Organization [facility] Address [address] 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 [address] [place] [address] [place] [phone] Fax: Referral ID Status Reason Start Date Expiration Date Visits Requ ested Visits Authorized [id number] Closed 03/30/2021 03/30/2022 1 1 V Testing (Routine) - Closed Specialty Diagnoses / Procedures Referred By Contact Refer red To Contact Diagnoses Atypical chest pain Benign essential hypertension Flavia Newton APRN Procedures Echocardiogram Exercise Stress ZZHC DOPPLER ECHO PULSED, F/U OR LIMITED ZZHC DOPPLER ECHO COLOR FLOW VELOCITY MAP ZZHC ECHO HEART XTHORACIC, STRESS/REST ZZ[facility] ECHO TRANSTHORACIC, STRESS/REST W CONTRAST FIELD RETURN REPAIRER ZZHC ECHO TRANSTHORACIC, STR ESS/REST W/O CONTRAST ZZHC IV PUSH SINGLE, INITIAL SUBSTANCE ZZC INJECTION, PERFLUTREN LIPID MICROSPHERES, PER ML ZZHC STATISTIC IV PUSH SINGLE INITIAL SUBSTANCE GA DOPPLER ECHO PULSED, F/U OR LIMITED [address] [place] DOPPLER ECHO COLOR FLOW V ELOCITY MAP GA ECHO HEART XTHORACIC, STRESS/REST GA INJECTION, PERFLUTREN LIPID MICROSPHERES, PER ML GA IV PUSH SINGLE, INITIAL SUBSTANCE GA ECHO HEART XTHORACIC, STRESS/REST GA ECHO HEART XTHORACIC, STRESS/[place] [address] HC DOPPLER ECHO PULSED, F/U OR LIMITED HC DOPPLER ECHO COLOR FLOW VELOCITY MAP HC IV PUSH SINGLE, INITIAL SUBSTANCE HC STATISTIC IV PUSH SINGLE INITIAL SUBSTANCE HC ECHO TRANSTHORACIC, STRESS/REST W CONTRAST HC ECHO TRANSTHORACIC, STRESS/REST W/O CONTRAST Referral ID Status Reason Start Date Expiration Date Visits Requ ested Visits Authorized [id number] Closed 03/30/2021 03/30/2022 1 1 Reason for Visit Reason Comments ER F/U ongoing of issues x 6 weeks. Encounter Details Date Type Department Care Team Description 03/30/2021 Office Visit [facility] Flavia Newton Atypical chest pain (Primary Dx); Clinic Cory Magdaleno APRN CNP Moderate episode of recurrent major depr essive disorder (H); [address] Insomnia, uns pecified type; [address] Anxiety; [address] [place], [place] Need for hepatitis C screeni ng test; [place] [address] Encounter for screening for HIV; [id number] Screening cholesterol level; Benign essential hypertension Social History Tobacco Use Types Packs/Day Years [...] been in contact with No / Unsure 03/30/2021 8:45 AM CDT someone who was confirmed or suspected to have Coronavirus / COVID-19? documented as of this encounter Last Filed Vital Signs Vital Sign Reading Time Taken Comments Blood Pressure 128/80 03/30/2021 9:02 AM CDT Pulse 65 03/30/2021 9:02 AM CDT Temperature 36.3 ??C (97.4 ??F) 03/30/2021 9:02 AM CDT Respiratory Rate 20 03/30/2021 9:02 AM CDT Oxygen Saturation 99% 03/30/2021 9:02 AM CDT Inhaled Oxygen Concentration - - Weight 60.8 kg (134 lb) 03/30/2021 9:02 AM CDT Height 172.7 cm (5' 8) 03/30/2021 9:02 AM CDT Body Mass Index 20.37 03/30/2021 9:02 AM CDT documented in this encounter Patient Instructions Patient InstructionsFlavia Newton APRN CNP - 03/30/2021 9:00 AM CDT Lab in [address] Sleep study Stress echo Make appointment to see eye doctor Zoloft 50 mg at bedtime Ambien at bedtime for sleep for short term documented in this encounter Progress Notes Flavia Newton APRN CNP - 03/30/2021 9:00 AM CDT Assessment & Plan Atypical chest pain Troponin normal EKG WNL today Will check stress test - Echocardiogram Exercise Stress; Future - TSH with free T4 reflex; Future - EKG 12-lead complete w/read - Clinics - TSH with free T4 reflex Moderate episode of recurrent major depressive disorder (H) Needs treatment Willing to try medication - sertraline (ZOLOFT) 50 MG tablet; Take 1 tablet (50 mg) by mouth daily Insomnia, unspecified type Will start zoloft Insomnia was helped with ambien in past Trazodone made him feel badly Will do a short term ambien as he has history of alcohol abuse and other - SLEEP EVALUATION & MANAGEMENT REFERRAL - ADULT -; Future - TSH with free T4 reflex; Future - Vitamin D Deficiency; Future - TSH with free T4 reflex - Vitamin D Deficiency Anxiety Needs improvement- probably influencing ability to sleep Tried hydroxyzine for sleep but was not helpful - given in ER - sertraline (ZOLOFT) 50 MG tablet; Take 1 tablet (50 mg) by mouth daily Need for hepatitis C screening test - Hepatitis C Screen Reflex to HCV RNA Quant and Genotype; Future - Hepatitis C Screen Reflex to HCV RNA Quant and Genotype Encounter for screening for HIV - HIV Antigen Antibody Combo; Future - HIV Antigen Antibody Combo Screening cholesterol level - Lipid panel reflex to direct LDL Fasting; Future - Lipid panel reflex to direct LDL Fasting Benign essential hypertension His blood pressure ok - he has not been taking blood pressure medication Will watch Probably related to his anxiety - Echocardiogram Exercise Stress; Future - TSH with free T4 reflex; Future - TSH with free T4 reflex 60 minutes spent on the date of the encounter doing chart review, history and exam, documentation and further activities per the note Depression Screening Follow Up PHQ 03/30/2021 PHQ-9 Total Score 15 Q9: Thoughts of better off /self-harm past 2 weeks Not at all Patient Instructions Lab in [address] Sleep study Stress echo Make appointment to see eye doctor Zoloft 50 mg at bedtime Ambien at bedtime for sleep for short term Return in about 2 weeks (around 04/13/2021). Flavia Newton APRN CNP [facility] [address] CORY Honeycutt is a 50 year old who presents for the following health issues HPI ED/UC Followup: Facility: [facility] Date of visit: 03-29-21 Reason for visit: anxiety, chest pain, nausea, insomnia Current Status: pt states just wants to go home and feel better unable to sleep and BP has been elevated onging x 6 weeks. 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 Objective BP 128/80 Pulse 65 Temp 97.4 ??F (36.3 ??C) (Tympanic) Resp 20 Ht 1.727 m (5' 8) Wt 60.8 kg (134 lb) SpO2 99% BMI 20.37 kg/m?? Body mass index is 20.37 kg/m??. Physical Exam GENERAL: alert and no distress- emotional RESP: lungs clear to auscultation - no rales, rhonchi or wheezes CV: regular rate and rhythm ABDOMEN: soft, nontender, and bowel sounds normal MS: no gross musculoskeletal defects noted, no edema NEURO: Normal strength and tone, mentation intact and speech normal PSYCH: mentation appears normal, affect sad teary Lab documented in this encounter Nursing Notes Tawana Mendoza LPN - 03/30/2021 9:00 AM CDT Chief Complaint Patient presents with ??? ER F/U ongoing of issues x 6 weeks. initial BP (!) 130/94 Pulse 65 Temp 97.4 ??F (36.3 ??C) (Tympanic) Resp 20 Ht 1.727 m (5' 8) Wt 60.8 kg (134 lb) SpO2 99% BMI 20.37 kg/m?? Estimated body mass index is 20.37 kg/m?? as calculated from the following: Height as of this encounter: 1.727 m (5' 8). Weight as of this encounter: 60.8 kg (134 lb).. bp completed using cuff size regular TAWAAN MENDOZA LPN documented in this encounter Plan of Treatment Scheduled Orders Name Type Priority Associated Diagnoses Order S chedule Echocardiogram Exercise Echocardiography Routine Atypica l chest pain Expected: Stress Benign essential 04/06/2021 hypertension (Approximate), Expires: 03/30/2022 Scheduled Referrals Name Type Priority Associated Diagnoses Order S chedule SLEEP EVALUATION & Referral Routine: Next Insomnia, Expected : MANAGEMENT REFERRAL available opening unspecified type 03/30/2021 - ADULT - (Approximate), Expires: 03/30/2022 documented as of this encounter Procedures Procedure Name Priority Date/Time Associated Diagnosis Comme nts HIV ANTIGEN Routine 03/30/2021 10:19 Encounter for Results fo r this ANTIBODY COMBO AM CDT screening for HIV procedur e are in the results section. HEPATITIS C SCREEN Routine 03/30/2021 10:19 Need for hepatitis C Results for this REFLEX TO HCV RNA AM CDT screening test procedur e are in QUANT AND GENOTYPE the resul ts section. VITAMIN D Routine 03/30/2021 10:19 Insomnia, unspecified Re sults for this DEFICIENCY AM CDT type procedure are i n SCREENING the results section. TSH WITH FREE T4 Routine 03/30/2021 10:19 Atypical chest pain Results for this REFLEX AM CDT Insomnia, unspecified proced ure are in type the results Benign essential section. hypertension LIPID REFLEX TO Routine 03/30/2021 10:19 Screening cholesterol Results for this DIRECT LDL PANEL AM CDT level procedure a re in the results section. EKG 12-LEAD Routine 03/30/2021 10:02 Atypical chest pain Resu lts for this COMPLETE W/READ - AM CDT procedure are in CLINICS the results section. documented in this encounter Results (ABNORMAL) Lipid panel reflex to direct LDL Fasting (03/30/2021 10:19 AM CDT) [facility] Method Time Signature Cholesterol 198 <200 03/31/2021 [facility] mg/dL 2:43 PM CDT Triglycerides 42 <150 03/31/2021 [facility] mg/dL 2:43 PM CDT Direct Measure 63 >=40 03/31/2021 [facility] HDL mg/dL 2:43 PM CDT LDL Cholesterol 127 (H) <=100 03/31/2021 [facility] Calculated mg/dL 2:43 PM CDT Non HDL 135 (H) <130 03/31/2021 [facility] Cholesterol mg/dL 2:43 PM CDT Patient Fasting > Yes 03/31/2021 [facility] R[facility] 8hrs? 2:43 PM CDT Specimen Anatomical Collection Method / Collection Time Recei heather Time (Source) Location / Volume Laterality Blood STRUCTURE OF RIGHT Venipuncture / 03/30/2021 10:19 UPPER LIMB / Unknown AM CDT 10:19 AM CDT Unknown Narrative [facility] - 03/31/2021 2:43 PM CDT Cholesterol Desirable: ??<200 mg/dL Triglycerides Normal: ??Less than 150 mg/dL Borderline High: ??150-199 mg/dL High: ??200-499 mg/dL Very High: ??Greater than or equal to 50 0 mg/dL Direct Measure HDL Female: ??Greater than or equal to 50 mg /dL Male: ??Greater than or equal to 40 mg/d L LDL Cholesterol Desirable: ??<100mg/dL Above Desirable: ??100-129 mg/dL Borderline High: ??130-159 mg/dL High: ??160-189 mg/dL Very High: ??>= 190 mg/dL Non HDL Cholesterol Desirable: ??130 mg/dL Above Desirable: ??130-159 mg/dL Borderline High: ??160-189 mg/dL High: ??190-219 mg/dL Very High: ??Greater than or equal to 22 0 mg/dL Flavia Newton APRN FIELD RETURN REPAIRER LAB - BLOOD ORDERABLES Performing Organization Address City/State/ZIP Code Phon e Number [facility] [place], [place] Care Lab [address] [place] [address], [address] [place], [place] [phone] [facility] [address] [place] [facility] [address] Lab (no room number, 1st floor of clinic) HIV Antigen Antibody Combo (03/30/2021 10:19 AM CDT) [facility] gist Method Time Signature HIV Antigen Nonreactive Nonreactive 03/30/2021 [facility] Antibody 9:19 PM CDT SPECIALTY Combo CORE Comment: HIV-1 p24 Ag & HIV-1/HIV-2 Ab N ot Detected Specimen Anatomical Collection Method / Collection Time Recei heather Time (Source) Location / Volume Laterality Blood STRUCTURE OF RIGHT Venipuncture / 03/30/2021 10:19 UPPER LIMB / Unknown AM CDT 10:19 AM CDT Unknown Flavia Newton APRN, CNP LAB - BLOOD ORDERABLES Performing Organization Address City/State/ZIP Code Phon e Number [place] [address] CORE/PROT/ENDO Core/Prot/Endo [address] [facility], Room [address] [facility] SPECIALTY [facility] [place] Lab [address], [facility] [address] [facility], [address]5 Hepatitis C Screen Reflex to HCV RNA Quant and Genotype (03/30/2021 10:19 AM CDT) Patholo gist Method Time Signature Hepatitis C Nonreactive Nonreactive 03/30/2021 [facility] Antibody 9:19 PM CDT SPECIALTY CORE Specimen Anatomical Collection Method / Collection Time Recei heather Time (Source) Location / Volume Laterality Blood STRUCTURE OF RIGHT Venipuncture / 03/30/2021 10:19 UPPER LIMB / Unknown AM CDT 10:19 AM CDT Unknown Narrative [facility] CORE - 03/30/2021 9:19 PM CDT Assay performance characteristics have n ot been established for newborns, infants, and children. Flavia Newton APRN, CNP LAB - BLOOD ORDERABLES Performing Organization Address City/[facility]/ZIP Code Phon e [place] [address] CORE/PROT/ENDO Core/Prot/Endo [address] [facility], Room 3[address]580 [facility] SPECIALTY [facility] [place] Lab [address], [facility] [address] [facility], Room [address]271-5 Vitamin D Deficiency (03/30/2021 10:19 AM CDT) P athologist Signature Vitamin D, 38 - 03/30/2021 [facility] Total ug/L 9:19 PM CDT SPECIALTY [facility] (25-Hydroxy) Comment: The Hepatitis C Screen testing will be used for pa Specimen Anatomical Collection Method / Collection Time Recei heather Time (Source) Location / Volume Laterality Blood STRUCTURE OF RIGHT Venipuncture / 03/30/2021 10:19 UPPER LIMB / Unknown AM CDT 10:19 AM CDT Unknown Narrative [facility] - 03/30/2021 9:19 PM CDT Season, race, dietary intake, and treatment affect the concentration of 18-euqwrht-Amtpiwx D. Values may decrease during winter months and in crease during summer months. Values 20- 29 ug/L may indicate Vitamin D insufficiency and values <20 ug/L may indicate Vitamin D deficiency. Vitamin D determination is routinely per formed by an immunoassay specific for 25 hydroxyvitamin D3. ??If an individual is on vitamin D2(ergocalciferol) supplementation, please specify 25 OH vitamin D2 and D3 level determination by LCMSMS test VITD23. Flavia Newton APRN, CNP LAB - BLOOD ORDERABLES Performing Organization Address City/State/[place] [address] CORE/PROT/ENDO Core/Prot/Endo [address] [facility], [address] [place] Lab [address], [facility] [address] [facility], Room [address]271-5 TSH with free T4 reflex (03/30/2021 10:19 AM CDT) P athologist Signature TSH 3.96 0.40 - 4.00 03/31/2021 [facility] mU/L 2:50 PM CDT Specimen Anatomical Collection Method / Collection Time Recei heather Time (Source) Location / Volume Laterality Blood STRUCTURE OF RIGHT Venipuncture / 03/30/2021 10:19 UPPER LIMB / Unknown AM CDT 10:19 AM CDT Unknown Flavia Newton APRN FIELD RETURN REPAIRER LAB - BLOOD ORDERABLES Performing Organization Address City/State/ZIP Code Phon e Number [facility] [place] [address] Care Lab [address] [facility], [address] EKG 12-lead complete w/read - Clinics (03/30/2021 10:02 AM CDT) Narrative This result has an attachment that is no t available. Flavia Monterovinh PILLAIN FIELD RETURN REPAIRER ECG ORDERABLES documented in this encounter Visit Diagnoses Diagnosis Atypical chest pain - Primary Other chest pain Moderate episode of recurrent major depr essive disorder (H) Insomnia, unspecified type Anxiety Anxiety state, unspecified Need for hepatitis C screening test Special screening examination for other specified viral diseases Encounter for screening for HIV Screening cholesterol level Screening for lipoid disorders Benign essential hypertension Essential hypertension, benign documented in this encounter Additional Health Concerns Assessment Noted Time PHQ-9 Depression Total Score: 15 03/30/2021 9:25 AM CD T documented as of this encounter Care Teams Hand Winder Relationship Specialty Start Date End Date Polina Lynch NP PCP - General Nurse Practitioner - Adult 03/10/21 [address] [place] [address] Polina Lynch NP Assigned PCP 12/16/20 [address] [place], [place] [id number] documented as of this encounter
--- OUTSIDE RECORDS SUMMARY | 2022-05-10 10:19 | XMS_ITS | Encounter Summary ---
:1970 Author Organization [facility] Address [address] [facility] [place] [address] Care Team Providers Name Role Phone Jose Alonzo MD Primary Care Provider Unavailable Encounter Details Date Type Department Care Team Description 01/06/[address] [facility] Bessie Swenson , REHABILITATION MANAGER [facility] Results [address] [place], [place] [id number] (Wo rk) Social History Tobacco Use Types Packs/Day Years Used Date Smoking Tobacco: Former Cigarettes 2 Quit : 12/07/2001 Alcohol Use Standard Drinks/Week Comments No 0 (1 standard drink = 0.6 oz pure alcoho l) 3-6 beers twice a month Sex Assigned at Date Recorded Not on file documented as of this encounter Procedure Notes Bessie Swenson - 01/08/2010 6:33 AM CDTAssociated Order(s): CONSULT SPEECH THERAPY FINAL SPEECH LANGUAGE PATHOLOGY DYSPHAGIA EVALUATION Total Evaluation Time: 25 minutes. PATIENT INFORMATION Current Diagnosis: Dysphagia, Zenker diverticulum. Date of Onset: 12/23/2009, which is the date of the order. Past Medical History: Mr. 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 He did have an internal diverticulotomy completed by Dr. Oneal. No other significant past medical history has been reported. Description of Current Issues: Mr. Schaefer is continuing to report difficulty with swallowing f ollowing his diverticulotomy. It was reported that this was completed as an internal surgery and thepatient is still having difficulty swallowing, specifically with solid textures. The patient reportsthat he has lost approximately 30 pounds. The patient is scheduled for followup surgery on 01/07/2010 for an external fixation of his Zenker diverticulum. Reason for Medical Necessity: A videofluoroscopic swallow study is recommended and necessary to fully visualize the Zenker diverticulum as well as to rule out aspiration. Living Status: With spouse. Place: House. Present Hydration/Nutrition Method: Oral. Diet: Regular, with thin liquids. The patient does report he has lost 30 pounds. Dentition: His own. Hearing: Within functional limits. Respiratory Status: Within functional limits. Vision: Within functional limits. Prior Dysphagia Evaluation: Yes. Date/Results: Zenker diverticulum. FALL RISK SCREEN: 1. Have you fallen 2 or more times in the past year? No. 2. Have you fallen and had an injury in the past year? No. IMPRESSIONS AND RECOMMENDATIONS Overall FAS Score/Level of Impairment: 3. The impressions and recommendations are based on the assessment data recorded on the attached pages. Please refer to the specific areas evaluated for detailed information. Dysphagia Diagnosis: Moderate upper esophageal dysphagia. Summary: Mr. Jorge Schaefer continues to present with a Zenker diverticulum which is impacting the safety of his swallow. The patient had a moderate to severe amount of retention in the upper esophagus which resulted in regurgitation of the barium material. No aspiration or penetration was observed; however, the patient was consistently refluxing material from his Zenker diverticulum throughout the study. At the completion of the study, the patient was spitting up barium. Diet Recommendations: Regular diet with thin liquids. Recommendations, Including Frequency/Duration of Treatment: The patient is seeing Dr. Oneal on 01/07/2010 for followup surgery. A followup videofluoroscopic swallow study may be indicated to determine the safety of the swallow following surgery. Prognosis: Good. Barriers to Learning: None identified. Patient Education: Completed. The Zenker diverticulum was shown to the patient on x-ray. Caregiver Education: Completed. Feeding Precautions/Treatment Techniques Recommended: Small bites and sips. Alternate consistencies. Sit upright at 90 degrees for all meals. Remain upright for 30 minutes after a meal. GOALS Long-Term Goals: The patient will demonstrate understanding of today's evaluation results includingfollowup recommendations. Goal Progress: This goal was met on 01/06/2010. Patient's Rehab Goal: To be able to eat without having food come back up. CLINICAL EVALUATION RESULTS Behavioral Observations: Mr. Schaefer was very pleasant and cooperative throughout today's study. Hereports significant frustration with his inability to swallow and difficulty with his Zenker diverticulum. Communication Observations: The patient is able to follow complex commands as well as verbalize concerns. Postural Stability: Head/Neck Control: Within functional limits. Sitting Balance: Within functional limits. Volitional Abilities: Within functional limits. Reflex Abilities: Cough, swallow, and throat clear. ORAL MOTOR/STRUCTURE ASSESSMENT Functional Assessment Scale (FAS) 7 = No Impairment 5 = Mild Impairment 3 = Moderate Impairment 1 = Severe Impairment 6 = Minimal Impairment 4 = Mild-Mod Impairment 2 = Mod-Severe Impairment 0 = Not tested, see comment Patient demonstrates deficits with Labial: Within functional limits. FAS Score: 7. Lingual: Within functional limits. FAS Score: 7. Mandible: Within functional limits. FAS Score: 7. Velar: Within functional limits. FAS Score: 7. Laryngeal: Within functional limits. FAS Score: 7. CLINICAL SWALLOW EXAMINATION OBSERVATIONS No P.O. trials presented due to: Known Zenker diverticulum which needed to be visualized under fluoroscopy. VIDEOFLUOROSCOPY EVALUATION RESULTS Procedure: Lateral and anterior/posterior. Thin Liquids: Varibar Thin contrast Order of Presentation: 1, 2, 5, 6. Volumes/Manner Presented: By cup. Pudding Pureed: Varibar Pudding contrast Order of Presentation: 3. Volumes/Manner Presented: By spoon. Solid: Piece Connie Doone cookie coated with Varibar Pudding contrast Order of Presentation: 4. Volumes/Manner Presented: By spoon. DEFICITS NOTED Oral preparatory phase: Within functional limits. Oral phase: Within functional limits. Pharyngeal phase: Noted the patient has a Zenker diverticulum in the upper esophagus which is resulting in moderate to severe retention of the barium bolus. The patient is refluxing this material; however, none of this was seen to be penetrated or aspirated. The patient was coughing up barium at the end of the today's study. Strategies Trialed: Alternating consistencies Patient response to aspiration/penetration: Not applicable. Dysphagia Outcome and Severity Score (LOLI) rating: Level 3. Definitions: *Penetration: Material enters the airway above the vocal cords. Aspiration: Material enters the airway and spills below the vocal cords. Please refer to the first page for general summary of results. The risks and benefits of treatment have been explained to the patient, family, and/or caregiver. These results, goals, and recommendations were discussed and agreed upon. Thank you very much for your referral of this patient. If you have any questions regarding this report, please feel free to contact me at [phone]. Electronically signed on 01/14/2010 15:44 by BESSIE SWENSON MS,CCC-REHABILITATION MANAGER MT: migdalia Name: JORGE SCHAEFER Account: [id number] : 1970 Visit Date: 01/06/2010 Sex: M Age: 39 Document: [id number] documented in this encounter Plan of Treatment Not on filedocumented as of this encounter Procedures Procedure Name Priority Date/Time Associated Diagnosis Comme nts ZZ CONSULT SPEECH 01/07/2010 8:53 AM Resu lts for this THERAPY CDT procedure are i n the results section. documented in this encounter Results CONSULT SPEECH THERAPY (01/07/2010 8:53 AM CDT) Transcriptions Bessie Swenson - 01/08/2010 6:33 AM CDT FINAL SPEECH LANGUAGE PATHOLOGY DYSPHAGIA EVALUATION Total Evaluation Time: 25 minutes. PATIENT INFORMATION Current Diagnosis: Dysphagia, Zenker di verticulum. Date of Onset: 12/23/2009, which is the date of the order. Past Medical History: Mr. Jorge godinez has a history of a Zenker diverticulum. He did have an internal diverticulotomy completed by Dr. Oneal. No other significant past medical history has been reported. Description of Current Issues: Mr. Thad burt is continuing to report difficulty with swallowing following his diverticulotomy. It was reported that this was completed as an internal surgery and the patient is still having difficulty swallowing, specifical ly with solid textures. The patient reports that he has lost approximately 30 pounds. The patient is scheduled for followup surgery on 01/07/2010 for an external fixation of his Zenker diverticulum. Reason for Medi rigo Necessity: A videofluoroscopic swallow study is recommended and necessary to fully visualize the Zenker diverticulum as well as to rule out aspiration. Living Status: With spouse. Place: House. Present Hydration/Nutrition Method: Ora l. Diet: Regular, with thin liquids. The p atient does report he has lost 30 pounds. Dentition: His own. Hearing: Within functional limits. Respiratory Status: Within functional l imits. Vision: Within functional limits. Prior Dysphagia Evaluation: Yes. Date/Results: Zenker diverticulum. FALL RISK SCREEN: 1. Have you fallen 2 or more times in t he past year? No. 2. Have you fallen and had an injury in the past year? No. IMPRESSIONS AND RECOMMENDATIONS Overall FAS Score/Level of Impairment: 3. The impressions and recommendations are based on the assessment data recorded on the attached pages. Please refer to the specific areas evaluated for detailed information. Dysphagia Diagnosis: Moderate upper eso phageal dysphagia. Summary: Mr. Jorge Schaefer continues t o present with a Zenker diverticulum which is impacting the safety of his swallow. The patient had a moderate to severe amount of retention in the upper esophagus which resulted in regurgitation of the barium material. No aspiration or penetration was observed; however, the patient was consistently refluxing material from his Zenker diverticulum throughout the study. At the completion of the study, the patient was spitting up barium. Diet Recommendations: Regular diet with thin liquids. Recommendations, Including Frequency/Du ration of Treatment: The patient is seeing Dr. Oneal on 01/07/2010 for followup surgery. A followup videofluoroscopic swallow study may be indicated to determine the safety of the swallow following surgery. Progno sis: Good. Barriers to Learning: None identified. Patient Education: Completed. The Zenke r diverticulum was shown to the patient on x-ray. Caregiver Education: Completed. Feeding Precautions/Treatment Technique s Recommended: Small bites and sips. Alternate consistencies. Sit upright at 90 degrees for all meals . Remain upright for 30 minutes after a m eal. GOALS Long-Term Goals: The patient will demon strate understanding of today's evaluation results including followup recommendations. Goal Progress: This goal was met on 01/06/2010. Patient's Rehab Goal: To be able to eat without having food come back up. CLINICAL EVALUATION RESULTS Behavioral Observations: Mr. Schaefer wa s very pleasant and cooperative throughout today's study. He reports significant frustration with his inability to swallow and difficulty with his Zenker diverticulum. Communication Observations: The patient is able to follow complex commands as well as verbalize concerns. Postural Stability: Head/Neck Control: Within functional li mits. Sitting Balance: Within functional limi ts. Volitional Abilities: Within functional limits. Reflex Abilities: Cough, swallow, and t hroat clear. ORAL MOTOR/STRUCTURE ASSESSMENT Functional Assessment Scale (FAS) 7 = No Impairment 5 = Mild Impairment 3 = Moderate Impairment 1 = Severe Impairment 6 = Minimal Impairment 4 = Mild-Mod Impairment 2 = Mod-Severe Impairment 0 = Not tested, see comment Patient demonstrates deficits with Labial: Within functional limits. FAS Score: 7. Lingual: Within functional limits. FAS Score: 7. Mandible: Within functional limits. FAS Score: 7. Velar: Within functional limits. FAS Score: 7. Laryngeal: Within functional limits. FAS Score: 7. CLINICAL SWALLOW EXAMINATION OBSERVATIO NS No P.O. trials presented due to: Known Zenker diverticulum which needed to be visualized under fluoroscopy. VIDEOFLUOROSCOPY EVALUATION RESULTS Procedure: Lateral and anterior/posteri or. Thin Liquids: Varibar Thin contrast Order of Presentation: 1, 2, 5, 6. Volumes/Manner Presented: By cup. Pudding Pureed: Varibar Pudding contras t Order of Presentation: 3. Volumes/Manner Presented: By spoon. Solid: Piece Connie Doone cookie coated with Varibar Pudding contrast Order of Presentation: 4. Volumes/Manner Presented: By spoon. DEFICITS NOTED Oral preparatory phase: Within function al limits. Oral phase: Within functional limits. Pharyngeal phase: Noted the patient has a Zenker diverticulum in the upper esophagus which is resulting in moderate to severe retention of the barium bolus. The patient is refluxing this material; however, none of this was seen to be penetrated or aspira yasmin. The patient was coughing up barium at the end of the today's study. Strategies Trialed: Alternating consistencies Patient response to aspiration/penetrat ion: Not applicable. Dysphagia Outcome and Severity Score (D OSS) rating: Level 3. Definitions: *Penetration: Material enters the airwa y above the vocal cords. Aspiration: Material enters the airwa y and spills below the vocal cords. Please refer to the first page for gene ral summary of results. The risks and benefits of treatment hav e been explained to the patient, family, and/or caregiver. These results, goals, and recommendations were discussed and agreed upon. Thank you very much for your referral o f this patient. If you have any questions regarding this report, please feel free to contact me at [phone]. Electronically signed on 01/14/2010 15: 44 by BESSIE SWENSON MS,CCC-REHABILITATION MANAGER MT: migdalia Name: JORGE SCHAEFER Account: [id number] : 1970 Visit Date: 01/06/2010 Sex: M Age: 39 Document: [id number] Bessie Swenson REHABILITATION MANAGER REFERRAL documented in this encounter Visit Diagnoses Not on filedocumented in this encounter Care Teams Actionscript Developer Relationship Specialty Start Date End Date Jose Alonzo MD PCP - General 01/08/03 12/30/14 [place] [address] documented as of this encounter
--- OUTSIDE RECORDS SUMMARY | 2022-05-10 10:19 | XMS_ITS | Encounter Summary ---
:1970 Author Organization [place] Address [address] [place] [address]. [place] [address] Care Team Providers Name Role Phone Jose Alonzo MD Primary Care Provider Unavailable Encounter Details Date Type Department Care Team Description 12/23/2009 Office Visit-[facility] Ear, Nose and Throat Diego Oneal [facility] MD [facility] [address] Floor, Clinic [address] [place] [address] [facility] [address] Social History Tobacco Use Types Packs/Day Years Used Date Smoking Tobacco: Former Cigarettes 2 Quit : 12/07/2001 Alcohol Use Standard Drinks/Week Comments No 0 (1 standard drink = 0.6 oz pure alcoho l) 3-6 beers twice a month Sex Assigned at Date Recorded Not on file documented as of this encounter Progress Notes Diego Oneal - 12/23/2009 3:00 PM CDT Assistant Facility Manager: Diego Oneal Status: Final - Signature Encounter: 23 Dec 2009 Type: ENT Visit Department of Otolaryngology--Head and Neck Surgery [place] Mail Code [address] [place] [address] Office: [address] RE: Yinka Schaefer : 1970 CLARISSA: 12/23/2009 HISTORY OF PRESENT ILLNESS: Mr. Schaefer is a 39-year-old gentleman who underwent an endoscopic Zenker's diverticulectomy on November 26, 2009. It was noted that he was a very difficult exposure but we wereable to get a stapling performed. Therefore, an external approach was not done. He did have a bite injury to his tongue following the procedure and did have an overnight observation in [place], [place] a few days after he left the OR. This has almost fully recovered. He notes that his swallowing is improved but not back to where he wants it. He is much better with liquids and soft foods but still is poorly tolerant of solid foods. He also has the added complication that he will lose his insurance on January 09 and wishes to have this done as soon as possible. MEDICATIONS: Amitriptyline. ALLERGIES: Percocet tablets. PHYSICAL EXAMINATION: He is awake, alert, and in no apparent distress. His tympanic membranes are clear and mobile bilaterally. Nasal examination shows a mild septal deviation without obstruction. Examination of the oral cavity shows a very small lesion of the right lateral border of the tongue which is healing nicely. The remainder of the oral cavity is clear. Neck is supple without significant adenopathy. Pulse is regular. Upper airway is clear. Cranial nerves II-XII are grossly intact. Flexible laryngoscopy was performed and showed the vocal folds to be mobile and meet in the midline. There is no pooling of secretions in the hypopharynx. ASSESSMENT: He is improved status post a Zenker's diverticulectomy but wishes to have an additional external surgery as he his swallowing function with solids has not returned as much as he would prefer. PLAN: We will be scheduling him for January 07 as this is the only day I have available prior to . We will be getting a swallow study in anticipation of the upcoming external approach for Zenker'sdiverticulum. I advised hem that complete return of normal swallow is often not accomplished with anexternal approach but improvement can be expected. we discussed the complications of continued swallowing problems, bleeding, infection ( in particular fistula and deep neck and mediastinal infection),and vocal fold problems. Diego Oneal M.D. [employer] Department of Otolaryngology [phone] cc: Mesfin Cruz MD [address] [place] [address] GSG:ms RIVERA 12/23/2009 Electronically signed by:Diego Oneal MD Dec 24 2009 9:24AM [employer] documented in this encounter Plan of Treatment Not on filedocumented as of this encounter Visit Diagnoses Not on filedocumented in this encounter Care Teams Disc Inspector Relationship Specialty Start Date End Date Jose Alonzo MD PCP - General 01/08/03 12/30/14 [place] [address] documented as of this encounter
--- OUTSIDE RECORDS SUMMARY | 2022-05-10 10:19 | XMS_ITS | Encounter Summary ---
:1970 Author Organization [facility] Address [facility] [place] [address] Care Team Providers Name Role Phone Polina Lynch CONFIGURATION MANAGER Unavailable Polina Lynch CONFIGURATION MANAGER Primary Care Provider [phone] Encounter Details Date Type Department Care Team Description 03/30/2021 Travel Social History Tobacco Use Types Packs/Day [...] filedocumented in this encounter Additional Health Concerns Assessment Noted Time PHQ-9 Depression Total Score: 15 03/30/2021 9:25 AM CD T documented as of this encounter Care Teams Office Rep Relationship Specialty Start Date End Date Polina Lynch NP PCP - General Nurse Practitioner - Adult 03/10/21 [address] [place] [address] [place] [address] Polina Lynch NP Assigned PCP 12/16/20 [address] [place], [place] [id number] documented as of this encounter
--- OUTSIDE RECORDS SUMMARY | 2022-05-10 10:19 | XMS_ITS | Encounter Summary ---
:1970 Author Organization [facility] Address [address] [place] [address]. [place] [address] Care Team Providers Name Role Phone No Ref-Primary, Physician Primary Care Provider Reason for Visit Reason Comments Generalized Body Aches Encounter Details Date Type Department Care Team Description 08/17/2015 Emergency [facility] Luis Miguel Higgins MD Influenza A Emergency Dept [facility] [address] [facility] [address] [place] [phone] [place] [address] (Wo rk) Social History Tobacco Use Types [...] Sign Reading Time Taken Comments Blood Pressure 128/81 08/17/2015 8:07 PM CLINICAL REGISTERED NURSE Pulse 101 08/17/2015 4:00 PM CLINICAL REGISTERED NURSE Temperature 37.4 ??C (99.4 ??F) 08/17/2015 4:02 PM CLINICAL REGISTERED NURSE Respiratory Rate 22 08/17/2015 4:00 PM CLINICAL REGISTERED NURSE Oxygen Saturation 99% 08/17/2015 8:08 PM CLINICAL REGISTERED NURSE Inhaled Oxygen Concentration - - Weight - - Height - - Body Mass Index - - documented in this encounter Discharge Instructions Discharge InstructionsLuis Miguel Higgins MD - 08/17/2015 7:56 PM CST Discharge Instructions Influenza You were diagnosed today with influenza or influenza like illness. Influenza is a respiratory illness caused by influenza A or B viruses. Influenza causes fever, headache, muscle aches, and fatigue. These symptoms start one to four days after you have been around a person with this illness. People with influenza commonly have a dry cough, sore throat, and a runny nose. Influenza is spread through sneezing and coughing and can live on surfaces for several days. It is usually contagious for 5 days butin some cases up to 10 days and often affects several family members. If you have a family member who is less than 2 years old, older than 65 years old, or has a serious medical condition, they should be seen right away by a physician to decide if they should take preventative medications. Return to the Emergency Department if: ??? You have trouble breathing. ??? You develop pain in your chest. ??? You have signs of being dehydrated, such as dizziness or unable to urinate at least three times daily. ??? You feel confused. ??? You cannot stop vomiting or you cannot drink enough fluids. In children, you should seek help if the child has any of the above or if child: ??? Has blue or purplish skin color. ??? Is so irritable that he or she does not want to be held. ??? Does not have tears when crying (in infants) or does not urinate at least three times daily. ??? Does not wake up easily. ??? Follow-up with your doctor if you are not improving after 5 days. What can I do to help myself? Rest. ??? Fluids -- Drink hydrating solutions such as Gatorade?? or Pedialyte?? as often as you can. If you are drinking enough, you should pass urine at least every eight hours. ??? Tylenol?? (acetaminophen) and Advil?? (ibuprofen) can relieve fever, headache, and muscle aches.Do not give aspirin to children under 18 years old. ??? Antiviral treatment -- Antiviral medicines do not make the flu symptoms go away immediately. They have only been shown to make the symptoms go away 12 to 24 hours sooner than they would without treatment. ??? Antibiotics -- Antibiotics are NOT useful for treating viral illnesses such as influenza. Antibiotics should only be used if there is a bacterial complication of the flu such as bacterial pneumonia, ear infection, or sinusitis. ??? Because you were diagnosed with a flu like illness you are very contagious. This means you cannot work, attend school or daycare for at least 24 hours or until you no longer have a fever. If you were given a prescription for medicine here today, be sure to read all of the information (including the package insert) that comes with your prescription. This will include important information about the medicine, its side effects, and any warnings that you need to know about. The pharmacist who fills the prescription can provide more information and answer questions you may have about the medicine. If you have questions or concerns that the pharmacist cannot address, please call or return to the Emergency Department. Opioid Medication Information Pain medications are among the most commonly prescribed medicines, so we are including this information for all our patients. If you did not receive pain medication or get a prescription for pain medicine, you can ignore it. You may have been given a prescription for an opioid (narcotic) pain medicine and/or have received apain medicine while here in the Emergency Department. These medicines can make you drowsy or impaired. You must not drive, operate dangerous equipment, or engage in any other dangerous activities whiletaking these medications. If you drive while taking these medications, you could be arrested for DUI, or driving under the influence. Do not drink any alcohol while you are taking these medications. Opioid pain medications can cause addiction. If you have a history of chemical dependency of any type, you are at a higher risk of becoming addicted to pain medications. Only take these prescribed medications to treat your pain when all other options have been tried. Take it for as short a time and asfew doses as possible. Store your pain pills in a secure place, as they are frequently stolen and provide a dangerous opportunity for children or visitors in your house to start abusing these powerful medications. We will not replace any lost or stolen medicine. As soon as your pain is better, you should flush all your remaining medication. Many prescription pain medications contain Tylenol?? (acetaminophen), including Vicodin??, Tylenol #3??, [place]??, Lortab??, and Percocet??. You should not take any extra pills of Tylenol?? if you are using these prescription medications or you can get very sick. Do not ever take more than 3000 mg of acetaminophen in any 24 hour period. All opioids tend to cause constipation. Drink plenty of water and eat foods that have a lot of fiber, such as fruits, vegetables, prune juice, apple juice and high fiber cereal. Take a laxative if you don???t move your bowels at least every other day. Miralax??, Milk of Magnesia, Colace??, or Senna?? can be used to keep you regular. Remember that you can always come back to the Emergency Department if you are not able to see your regular doctor in the amount of time listed above, if you get any new symptoms, or if there is anything that worries you. ICAL REGISTERED NURSE documented in this encounter Medications at Time of Discharge Medication Sig Dispensed Refills Start Date End Date ondansetron (ZOFRAN ODT) 4 Take 1 tablet (4 10 tablet 0 01/201608/20/2015 MG disintegrating tablet mg) by mouth every 8 hours as needed for nausea HYDROcodone-acetaminophen Take 1-2 tablets by 15 tablet 0 0 08/17/2015 01/10/2021 (NORCO) 5-325 MG per mouth every 6 hours tablet as needed for moderate to severe pain ibuprofen (ADVIL,MOTRIN) Take 3 tablets (600 30 tablet 0 01/10/2021 200 MG tablet mg) by mouth every 8 hours as needed for mild pain documented as of this encounter ED Notes Susie Ross RN - 08/17/2015 8:14 PM CST 20# IV removed from right antecubital space at time of discharge. Catheter intact. ICAL REGISTERED NURSE Luis Miguel Higgins MD - 08/17/2015 4:47 PM CST History Chief Complaint: Generalized Body Aches HPI Yinka Schaefer is a 44 year old male who presents with generalized body aches. The patient states that he started experiencing vomiting, nasal congestion, sore throat, coughing, headaches, and myalgias about 2 days ago. He states that he has been taking Excedrin for his headaches (last 5 hours ago) to minimal improvement of his symptoms. The patient states that several members of his family were diagnosed with influenza a few days ago. He presents to the ED today requesting help with symptom control. The patient did not receive a flu shot this year. He denies any fever, chills, hematemesis, chestpain, shortness of breath, urinary symptoms, or any other pertinent symptoms. Allergies: NKDA Medications: The patient is currently on no regular medications. Past Medical History: Duodenitis Anxiety Kidney stone Past Surgical History: Laparoscopic Cholecystectomy Family History: History reviewed. No significant family history. Social History: Relationship status: The patient is a former smoking (2 PPD, quit 2001). The patient admits alcohol use. Review of Systems Constitutional: Negative for fever and chills. HENT: Positive for congestion and sore throat. Respiratory: Positive for cough. Negative for shortness of breath. Cardiovascular: Negative for chest pain. Gastrointestinal: Positive for vomiting. Negative for hematemesis. Musculoskeletal: Positive for myalgias. Neurological: Positive for headaches. All other systems reviewed and are negative. Physical Exam First Vitals: BP: (!) 118/96 mmHg Pulse: 101 Temp: 99.4 ??F (37.4 ??C) Resp: 22 SpO2: 98 % Physical Exam General: White male supine. HEENT: The scalp and head appear normal The pupils are equal, round, and reactive to light Extraocular muscles are intact. Nasal congestion. The oropharynx is red. Uvula is in the midline. There is no peritonsillar abscess. Neck: Normal range of motion. Lungs: Clear. No rales, no wheezing. There is no tachypnea. Non-labored. Dry, raspy cough on exam. Cardiac: Regular rate. Normal S1 and S2. No S3 or S4. No pathological murmur. No pericardial rub. Abdomen: Soft. No distension. No tympani. No rebound. Non-tender. Lymph: No anterior or posterior cervical lymphadenopathy noted. MS: Normal tone. Normal movement of all extremities. Neuro: Normal mentation. No focal motor or sensory changes. Speech normal. Psych: Awake. Alert. Normal affect. Appropriate interactions. Skin: No rash. No lesions. Emergency Department Course Imaging: Radiographic findings were communicated with the patient who voiced understanding of the findings. Chest XR per radiology: Clear lungs. Laboratory: BMP: Cr 1.04 (WNL) Glucose 70 (WNL) Rest WNL UA: Clear, yellow urine; Albumin 30 (A) RBC 3 (H) Mucous Present (A) Rest WNL Rapid strep screen: Negative Beta strep group A culture: Pending Influenza A/B antigen: A: Positive B:Negative Interventions: Normal Saline, 1000 mL, IV injection Toradol, 30 mg, IV injection ED Course: The patient arrived in triage where his vitals were measured and recorded. The patient was then escorted back to the emergency department. Nursing notes and past medical history reviewed. I performed a physical examination of the patient as documented above. I explained the plan with the patient who consents to this. A peripheral IV was established. Blood was drawn and sent to the laboratory for testing, see above results. Urine was sent to the laboratory for testing, see above results. Nasal swab was sent to the laboratory for testing, see above results. Throat swab was sent to the laboratory for testing, see above results. The patient underwent the above imaging studies. The patient received the above interventions. I personally reviewed the laboratory and imaging results with the Patient and answered all related questions prior to discharge. Findings and plan explained to the Patient. Patient discharged home with instructions regarding supportive care, medications, and reasons to return. The importance of close follow-up was reviewed. Impression & Plan Medical Decision Making: Yinka Schaefer is a 44 year old male who presents for evaluation of cough, sore throat, and myalgias. This is consistent with an influenza which was confirmed by rapid test. The patient is within treatment window for influenza, but as he not an at risk patient, Tamiflu was not prescribed. They are at risk for pneumonia but no signs of this are detected on today's visit. Close followup of primary care physician is indicated and return to the ED for high fevers > 103 for more than 48 hours more, increasing productive cough, shortness of breath, or confusion. There is no signs of serious bacterial infection such as bacteremia, meningitis, UTI/pyelonephritis, strep pharyngitis, etc. He was prescribed the medications which he can use as needed. Diagnosis: ICD-10-CM 1. Influenza A J10.1 Disposition: Discharge to home with primary care follow up. Discharge Medications: 1. Smithfield, 1-2 tablets, PO, PRN Q6 hours as needed for moderate to severe pain, 15 total tablets 2. Ibuprofen, 600 mg, PO, PRN Q8 hours as needed for mild pain 3. Zofran ODT, 4 mg, PO, PRN Q8 hours as needed for nausea I, Malcolm Donovan, am serving as a scribe on 08/17/2015 at 4:47 PM to personally document services performed by Luis Miguel Higgins MD, based on my observations and the provider's statements to me. Luis Miguel Higgins MD 08/19/15 2211 ICAL REGISTERED NURSE Fide Bullock RN - 08/17/2015 3:59 PM CST Patient states that whole has recently been diagnosed with Influenza A. Day 2 of chills, body aches,cough and vomiting with sore throat. ICAL REGISTERED NURSE documented in this encounter Plan of Treatment Not on filedocumented as of this encounter Procedures Procedure Name Priority Date/Time Associated Comments Diagnosis XR CHEST 2 VIEWS STAT 08/17/2015 6:22 PM Resul ts for this CLINICAL REGISTERED NURSE procedure are i n the results section. RAPID STREP SCREEN STAT 08/17/2015 5:15 PM Res ults for this THROAT SWAB CLINICAL REGISTERED NURSE procedure are i n the results section. BETA HEMOLYTIC STREP Routine 08/17/2015 5:15 PM Influenza A R esults for this GROUP A CULTURE CLINICAL REGISTERED NURSE procedure ar e in the results section. BASIC METABOLIC PANEL STAT 08/17/2015 5:12 PM Results for this CLINICAL REGISTERED NURSE procedure are i n the results section. ROUTINE UA WITH STAT 08/17/2015 5:05 PM Result s for this MICROSCOPIC CLINICAL REGISTERED NURSE procedure are i n the results section. INFLUENZA A/B ANTIGEN STAT 08/17/2015 4:02 PM Results for this CLINICAL REGISTERED NURSE procedure are i n the results section. documented in this encounter Results XR Chest 2 Views (08/17/2015 6:22 PM CLINICAL REGISTERED NURSE) Anatomical Region Laterality Modality Chest Computed Radiography Specimen (Source) Anatomical Location Collection Method / Collectio n Time Received Time / Laterality Volume Impressions 08/17/2015 10:44 PM CLINICAL REGISTERED NURSE IMPRESSION: Clear lungs. ? JOVI CRAFT MD Narrative 08/17/2015 10:44 PM CLINICAL REGISTERED NURSE CHEST TWO VIEWS 08/17/2015 6:22 PM COMPARISON: Frontal chest x-ray 0. HISTORY: Chest and abdominal pain. FINDINGS: The cardiac silhouette, pulmon yair vasculature, lungs and pleural spaces are within normal limits. Procedure Note Jovi Craft MD - 08/17/2015Forma tting of this note might be different from the original. CHEST TWO VIEWS 08/17/2015 6:22 PM COMPARISON: Frontal chest x-ray 0. HISTORY: Chest and abdominal pain. FINDINGS: The cardiac silhouette, pulmon yair vasculature, lungs and pleural spaces are within normal limits. IMPRESSION: Clear lungs. JOVI CRAFT MD Luis Miguel Higgins MD IMG DIAGNOSTIC IMAGING ORDER EUGENIA Beta strep group A culture (08/17/2015 5:15 PM CLINICAL REGISTERED NURSE) Component Value Ref Test Analysis Performed At [facility] gist Range Method Time Signature Specimen Throat [facility] Culture Micro No Beta [facility] Micro Report FINAL 08/19/2015 [facility] Specimen Anatomical Collection Method Collection Time Receive d Time (Source) Location / / Volume Laterality 08/17/2015 5:15 PM 6 5:59 CLINICAL REGISTERED NURSE PM CLINICAL REGISTERED NURSE Luis Miguel Higgins MD LAB - MICRO GENERAL ORDERABL ES Performing Organization Address City/State/ZIP Code Phon e Number [address] [address] [facility] [address] [phone] Rapid strep screen (08/17/2015 5:15 PM CLINICAL REGISTERED NURSE) Component Value Ref Test Analysis Performed At [facility] gist Range Method Time Signature Specimen Throat [facility] Rapid Strep A NEGATIVE: No Group A strepto coccal antigen detected by immunoassay, await [place] Screen culture report. [facility] Micro Report FINAL 08/17/2015 [facility] Specimen Anatomical Collection Method Collection Time Receive d Time (Source) Location / / Volume Laterality Specimen from 08/17/2015 5:15 PM 08/17/19 16 5:59 throat CLINICAL REGISTERED NURSE PM CLINICAL REGISTERED NURSE (specimen) Luis Miguel Higgins MD LAB - MICRO GENERAL ORDERABL ES Performing Organization Address City/State/ZIP Code Phon e Number Alexandra [facility] [address] [place], [place] [address] [facility] [address] [place], [place] [address], [facility] [phone] Basic metabolic panel (08/17/2015 5:12 PM CLINICAL REGISTERED NURSE) P athologist Signature Sodium 135 133 - 144 [place] mmol/L [facility] Potassium 3.7 3.4 - 5.3 [place] mmol/L [facility] Chloride 99 94 - 109 [place] mmol/L [facility] Carbon Dioxide 28 20 - 32 [place] mmol/L [facility] Anion Gap 8 3 - 14 [place] mmol/L [facility] Glucose 70 70 - 99 [place] mg/dL [facility] Urea Nitrogen 14 7 - 30 [place] mg/dL [facility] Creatinine 1.04 0.66 - [place] 1.25 mg/dL [facility] GFR Estimate 77 >60 [place] mL/min/1.[address] Comment: Non GFR Calc GFR Estimate If Black >90 >60 mL/min/1.7m2 F [facility] GFR Calc HOSP ITAL Calcium 8.6 8.5 - 10.1 mg/dL [facility] Specimen Anatomical Collection Method Collection Time Receive d Time (Source) Location / / Volume Laterality Blood specimen 08/17/2015 5:12 PM 016 5:57 (specimen) CLINICAL REGISTERED NURSE PM CLINICAL REGISTERED NURSE Luis Miguel Higgins MD LAB - BLOOD ORDERABLES Performing Organization Address City/[facility]/ZIP Code Phon e Junior Morris [facility] [address] [place], [place] [address] [facility] [address] [place], [place] [address], [facility] [phone] (ABNORMAL) UA with Microscopic (08/17/2015 5:05 PM CLINICAL REGISTERED NURSE) Patholo gist Method Time Signature Color Urine Yellow [facility] Appearance Urine Clear [facility] Glucose Urine Negative NEG mg/dL [facility] Bilirubin Urine Negative NEG [facility] Ketones Urine Negative NEG mg/dL [facility] Specific [place] 1.018 1.003 - [place] Urine 1.035 [facility] Blood Urine Negative NEG [facility] pH Urine 7.0 5.0 - 7.0 [place] pH [facility] Protein Albumin 30 (A) NEG mg/dL [facility] Urobilinogen Normal 0.0 - 2.0 [place] mg/dL mg/dL [facility] Nitrite Urine Negative NEG [facility] Leukocyte Negative NEG [place] Esterase Urine [facility] Source Midstream [place] Urine [facility] WBC Urine 1 0 - 2 [place] /[facility] RBC Urine 3 (H) 0 - 2 [facility] Squamous <1 0 - 1 [place] Epithelial /[facility] /[facility] Mucous Urine Present (A) NEG /LPF [facility] Specimen Anatomical Collection Method Collection Time Receive d Time (Source) Location / / Volume Laterality Urine specimen URINE SPECIMEN 08/17/2015 5:05 PM 08/16 5:59 (specimen) OBTAINED BY CLEAN CLINICAL REGISTERED NURSE PM CLINICAL REGISTERED NURSE CATCH PROCEDURE / Unknown Luis Miguel Higgins MD LAB - URINE ORDERABLES Performing Organization Address City/State/ZIP [facility] Phon e Number M [facility] [address] [place] [address] [facility] [address] [phone] (ABNORMAL) Influenza A/B antigen (08/17/2015 4:02 PM CLINICAL REGISTERED NURSE) [facility] Method Time Signature Influenza A/B Nasal [place] Agn Specimen [facility] Influenza A Positive (A) NEG [facility] Influenza B Negative NEG [place] Test results must be correlated with clinical data. If ne cessary, results [place] should be confirmed by a molecular assay or viral culture. HOSPITAL Specimen (Source) Anatomical Collection Method Collection Time Re ceived Time Location / / Volume Laterality Specimen from SWAB FROM NASAL 08/17/2015 4:02 08/17/19 16 nasopharyngeal SINUS / Unknown PM CLINICAL REGISTERED NURSE 4:26 PM CS T structure (specimen) Luis Miguel Higgins MD LAB - MICRO GENERAL ORDERABL ES Performing Organization Address City/State/ZIP Code Phon e Number M [facility] [address] [place] [id number] [facility] [address] [place], [place] [address] [phone] documented in this encounter Visit Diagnoses Diagnosis Influenza A Influenza with other respiratory manifes tations documented in this encounter Administered Medications Inactive Administered Medications - up to 3 most recent administrations Medication Order MAR Action Action Date Dose Rate Site 0.9% sodium chloride BOLUS New Bag 08/17/2015 5:23 PM CLINICAL REGISTERED NURSE 1,000 mLs 1000 mL/hr Intravenous, 1,000 mL, ONCE, at 1,000 mL/hr, Administer over 1 Hours, On 08/17/15 at 1703, For 1 dose ketorolac (TORADOL) injection 30 mg Given 08/17/2015 5:23 PM CLINICAL REGISTERED NURSE 30 mg 30 mg, Intravenous, ONCE, On 08/17/15 at 1703, For 1 dose, Do not give within 6 hours of Ibuprofen. documented in this encounter Active and Recently Administered Medications Times are shown in CLINICAL REGISTERED NURSE. Scheduled Medication Order 08/15/2015 08/16/2015 08/17/2015 0.9% sodium chloride BOLUS (COMPLETED) 1723 (New Bag - Provider: Radhames Chang RN)1924 (Stopped - Provider: Radhames Chang, RN) Intravenous, 1,000 mL, ONCE, at 1,000 mL /hr, for 1 Hours, 08/17/15 at 1703, For 1 dose ketorolac (TORADOL) injection 30 mg (COMPLETED) 1723 (Given - Provider: Radhames Chang, RN) 30 mg, Intravenous, ONCE, 08/17/15 at 1703, For 1 dose, Do not give within 6 hours of Ibuprofen. documented in this encounter Care Teams Senior Solutions Architect Relationship Specialty Start Date End Date No Ref-Primary, Physician PCP - General 12/31/14 03/09/21 documented as of this encounter
--- OUTSIDE RECORDS SUMMARY | 2022-05-10 10:19 | XMS_ITS | Encounter Summary ---
:1970 Author Organization [place] Address [address] [place] [address]. [place] [address] Care Team Providers Name Role Phone Jose Alonzo MD Primary Care Provider Unavailable Encounter Details Date Type Department Care Team Description 01/07/2010 Historic Results [facility] Hayley Oneal Brookesmith MD [place] [address] [place] [phone] (Wo rk) Social History Tobacco Use Types [...] Procedure Name Priority Date/Time Associated Comments Diagnosis CBC WITH PLATELETS & STAT 01/07/2010 1:46 PM R esults for this DIFFERENTIAL CDT procedure are i n the results section. documented in this encounter Results CBC with platelets differential (01/07/2010 1:46 PM CDT) [facility] Method Time Signature MCV 90 78 - 100 MISYS fl MCH 31.3 26.5 - MISYS 33.0 pg MCHC 34.9 31.5 - MISYS 36.5 g/dL RDW 12.8 10.0 - MISYS 15.0 % WBC 4.2 4.0 - MISYS 11.0 10e9/L RBC Count 5.02 4.4 - 5.9 MISYS 10e12/L Hemoglobin 15.7 13.3 - MISYS 17.7 g/dL Hematocrit 45.0 40.0 - MISYS 53.0 % % Neutrophils 47 40 - 75 % MISYS % Lymphocytes 40 20 - 48 % MISYS % Monocytes 9 0 - 12 % MISYS % Eosinophils 3 0 - 6 % MISYS % Basophils 1 0 - 2 % MISYS Platelet Count 243 150 - 450 MISYS 10e9/L Absolute 2.0 1.6 - 8.3 MISYS Neutrophil 10e9/L Absolute 1.7 0.8 - 5.3 MISYS Lymphocytes 10e9/L Absolute 0.4 0.0 - 1.3 MISYS Monocytes 10e9/L Absolute 0.1 0.0 - 0.7 MISYS Eosinophils 10e9/L Absolute 0.0 0.0 - 0.2 MISYS Basophils 10e9/L Diff Method Automated MISYS Method Specimen Anatomical Collection Method Collection Time Receive d Time (Source) Location / / Volume Laterality 01/07/2010 1:46 PM 0 1:52 CDT PM CDT Diego Oneal MD LAB - BLOOD ORDERABLES Performing Organization Address City/State/ZIP Code Phon e Number MISYS documented in this encounter Visit Diagnoses Not on filedocumented in this encounter Care Teams Millroom Supervisor Relationship Specialty Start Date End Date Jose Alonzo MD PCP - General 01/08/03 12/30/14 [place] [address] documented as of this encounter
--- OUTSIDE RECORDS SUMMARY | 2022-05-10 10:19 | XMS_ITS | Encounter Summary ---
:1970 Author Organization [place] Address [facility] [place] [address] Care Team Providers Name Role Phone Jose Alonzo MD Primary Care Provider Unavailable Encounter Details Date Type Department Care Team Description 12/23/2009 Office Visit-[facility] INTERFACE [facility] DEPT Provider, [facility] Nurs e Social History Tobacco Use Types Packs/Day Years Used Date Smoking Tobacco: Former Cigarettes 2 Quit : 12/07/2001 Alcohol Use Standard Drinks/Week Comments No 0 (1 standard drink = 0.6 oz pure alcoho l) 3-6 beers twice a month Sex Assigned at Date Recorded Not on file documented as of this encounter Progress Notes Provider, [facility] Nurse - 12/23/2009 3:00 PM CDT Ross Furnace Operator: Saadia Mace Status: Signed Encounter: 23 Dec 2009 Type: Teaching Flowsheet Teaching Flowsheet - ENT Relevant Diagnosis: Zenker's Diverticulum Teaching Topic:Surgery: External approach, Zenker's Person(s) involved in teaching: Patient Motivation Level: Asks Questions: Yes Eager to Learn: Yes Cooperative: Yes Receptive (willing/able to accept information): Yes Patient demonstrates understanding of the following: Reason for the appointment, diagnosis and treatment plan: Yes Knowledge of proper use of medications and conditions for which they are ordered (with special attention to potential side effects or drug interactions): Yes Which situations necessitate calling provider and whom to contact: Proper use and care of (medical equip, care aids, etc.): Yes Nutritional needs and diet plan: Yes Pain management techniques: Yes Patient instructed on hand hygiene: Yes How and/when to access community resources: Yes Infection Prevention: Patient demonstrates understanding of the following: Surgical procedure site care taught Yes Signs and symptoms of infection taught Yes Wound care taught Yes Central venous catheter care taught Yes Instructional Materials Used/Given: Verbal and written. Signature Signed By: Saadia Mace R.N.; 12/23/2009 4:22 PM STAKING PRESS OPERATOR. documented in this encounter Plan of Treatment Not on filedocumented as of this encounter Visit Diagnoses Not on filedocumented in this encounter Care Teams Clerical Production Worker Relationship Specialty Start Date End Date Jose Alonzo MD PCP - General 01/08/03 12/30/14 [place] [address] documented as of this encounter
--- OUTSIDE RECORDS SUMMARY | 2022-05-10 10:19 | XMS_ITS | Encounter Summary ---
:1970 Author Organization [place] Address [facility] [place] [address] Care Team Providers Name Role Phone Jose Alonzo MD Primary Care Provider Unavailable Encounter Details Date Type Department Care Team Description 01/12/2010 Office Visit-[facility] INTERFACE [facility] DEPT Provider, [facility] Nurs e Social History Tobacco Use Types Packs/Day Years Used Date Smoking Tobacco: Former Cigarettes 2 Quit : 12/07/2001 Alcohol Use Standard Drinks/Week Comments No 0 (1 standard drink = 0.6 oz pure alcoho l) 3-6 beers twice a month Sex Assigned at Date Recorded Not on file documented as of this encounter Progress Notes Provider, [facility] Nurse - 01/12/2010 2:05 PM CDT Hr Operations Advisor: Emili Vanessa Status: Signed Encounter: 12 Jan 2010 Type: Hospital Disch Coordination Hospital DC Planning Hospital Discharge planning. Hospital discharge summary reviewed. JORGE SCHAEFER is a 39 year old male recently discharged from hospital on 01/09/10 for External approach for Zenker diverticulectomy. *Follow up appointments: Dr. Oneal 01/18/10 at 11:30 ENT clinic. [facility]/Edu No changes. . Assessment Are you progressing as expected? Called and left message 01/12/10 at 2:10 pm. Allergies Percocet TABS. Current Meds AAA-MED RECONCILE;per hospital discharge; RPT Aquaphor Ointment;Apply to incision site twice a day; RPT Demerol TABS;25 mg by mouth every 3 hrs PRN pain; RPT Amitriptyline HCl 100 MG Tablet;TAKE 4 TABLET BEDTIME; RPT SEROquel 50 MG Tablet;TAKE 2 TABLET BEDTIME; RPT. Signature Signed By: Emili Vanessa R.N.; 01/12/2010 2:11 PM HOME ECONOMICS EXPERT. documented in this encounter Plan of Treatment Not on filedocumented as of this encounter Visit Diagnoses Not on filedocumented in this encounter Care Teams Film Color Tester Relationship Specialty Start Date End Date Jose Alonzo MD PCP - General 01/08/03 12/30/14 [place] [address] documented as of this encounter
--- OUTSIDE RECORDS SUMMARY | 2022-05-10 10:19 | XMS_ITS | Encounter Summary ---
:1970 Author Organization [place] Address [facility]0 [facility] [address] Care Team Providers Name Role Phone No Ref-Primary, Physician Primary Care Provider [phone] Polina Lynch INSURANCE OFFICE SUPERVISOR Unavailable Encounter Details Date Type Department Care Team Description 01/10/2021 Travel Social History Tobacco Use Types Packs/Day [...] on filedocumented in this encounter Care Teams Tutoring Assistant Relationship Specialty Start Date End Date No Ref-Primary, Physician PCP - General 12/31/14 03/09/21 Polina Lynch, BONY Assigned PCP 12/16/20 Elaine ECKERT [place], [place] [id number] documented as of this encounter
--- OUTSIDE RECORDS SUMMARY | 2022-05-10 10:20 | XMS_ITS | Encounter Summary ---
:1970 Author Organization [place] Address [address] [place] [address]. [place] [address] Care Team Providers Name Role Phone Jose Alonzo MD Primary Care Provider Unavailable Encounter Details Date Type Department Care Team Description 12/02/2009 Office Visit-[facility] DEPT Provider, [facility] Nurs e Social History Tobacco Use Types Packs/Day Years Used Date Smoking Tobacco: Former Cigarettes 2 Quit : 12/07/2001 Alcohol Use Standard Drinks/Week Comments No 0 (1 standard drink = 0.6 oz pure alcoho l) 3-6 beers twice a month Sex Assigned at Date Recorded Not on file documented as of this encounter Progress Notes Provider, [facility] Nurse - 12/02/2009 11:45 AM CDT Eligibility And Occupancy Interviewer: Helen Barnes Status: Final Encounter: 02 Dec 2009 Type: Rooming Note Reason For Visit JORGE SCHAEFER is a 39 year old male presenting today with tongue pain, following zenkers surgery. Do you have any other appointments of any type today within the [facility] system? (this includes clinic appt's, Imaging, labs, procedures etc.) No. Pain Eval Current history of pain associated with this visit is as follows: Location: throat Quality: hurts Severity: 6 (Pain scale 1-10, with 10 being the worst) Duration: constant Timing: all the time Context: none Modifying factors: swallowing Associated signs/symptoms: none. Personal Hx Behavioral history: No tobacco use. Home environment: No secondhand tobacco smoke in home. Allergies Percocet TABS. Current Meds Amitriptyline HCl 100 MG Tablet;TAKE 1 TABLET PRN; RPT AAA-MED RECONCILE;per patient; RPT. Pt does not know names of medications he is on, list not updated. Med list offered and patient declined. Signature Signed By: Helen LAMAR; 12/02/2009 11:53 AM PHOTOGRAPHIC DOUBLE. documented in this encounter Plan of Treatment Not on filedocumented as of this encounter Visit Diagnoses Not on filedocumented in this encounter Care Teams Form Builder Relationship Specialty Start Date End Date Jose Alonzo MD PCP - General 01/08/03 12/30/14 [place] [address] documented as of this encounter
--- OUTSIDE RECORDS SUMMARY | 2022-05-10 10:20 | XMS_ITS | Encounter Summary ---
:1970 Author Organization [place] Address [facility] [address] Care Team Providers Name Role Phone Jose Alonzo MD Primary Care Provider Unavailable Encounter Details Date Type Department Care Team Description 12/02/2009 Office Visit-[facility] INTERFACE P DEPT Erik Burk RN, RN [facility] [address] [facility] [address] [place], [place] [id number] Social History Tobacco Use Types Packs/Day Years Used Date Smoking Tobacco: Former Cigarettes 2 Quit : 12/07/2001 Alcohol Use Standard Drinks/Week Comments No 0 (1 standard drink = 0.6 oz pure alcoho l) 3-6 beers twice a month Sex Assigned at Date Recorded Not on file documented as of this encounter Progress Notes Elaine Burk RN - 12/02/2009 11:45 AM CDT Grey Goods Marker: Elaine Burk Status: Final Encounter: 02 Dec 2009 Type: Nurse Note Visit Closing Pt and mother left voicing agreement with the plan as stated by MD. They arrived somewhat frustratedin that they understood that today was a follow up with the surgeon, Dr Oneal, but appeared very satisfied with this visit. Signature Signed By: Elaine Burk RN,MSN,BC; 12/02/2009 12:26 PM BULB FARMWORKER. documented in this encounter Plan of Treatment Not on filedocumented as of this encounter Visit Diagnoses Not on filedocumented in this encounter Care Teams Artificial Breeding Ranch Supervisor Relationship Specialty Start Date End Date Jose Alonzo MD PCP - General 01/08/03 12/30/14 [place] [address] documented as of this encounter
--- OUTSIDE RECORDS SUMMARY | 2022-05-10 10:21 | XMS_ITS | Encounter Summary ---
:1970 Author Organization [place] Address [address] [place] [address]. [place] [address] Care Team Providers Name Role Phone Jose Alonzo MD Primary Care Provider Unavailable Encounter Details Date Type Department Care Team Description 08/29/2006 Operative Report Kelle Willoughby MD (Stoner Hand) [address] [place], [place] [address] (Wo rk) Social History Tobacco Use Types Packs/Day Years Used Date Smoking Tobacco: Former Cigarettes 2 Quit : 12/07/2001 Alcohol Use Standard Drinks/Week Comments No 0 (1 standard drink = 0.6 oz pure alcoho l) 3-6 beers twice a month Sex Assigned at Date Recorded Not on file documented as of this encounter Progress Notes Kelle Willoughby - 08/31/2006 12:50 PM CDT FINAL SURGEON: Kelle Willoughby MD CIGARETTE MAKING MACHINE HOPPER FEEDER: VINICIO Alves PREOPERATIVE DIAGNOSIS: Acalculous cholecystitis. POSTOPERATIVE DIAGNOSIS: Acalculous cholecystitis. PROCEDURE: Laparoscopic cholecystectomy. ANESTHESIA: General. INDICATIONS FOR PROCEDURE: Mr. Schaefer is a 35-year-old man who had a somewhat complicated GI history. He did have a kidney stone, which cause pain and he subsequent passed the stone. The patient later developed right upper quadrant and right back pain that caused nausea, vomiting and weight loss. The original ultrasound for the first kidney stone and showed sludge in the gallbladder. We did obtain a hepatobiliary scan which showed a 6% ejection fraction. With this information and the symptoms ongoing cyst suggestive of gallbladder disease we discussed surgery. He understood the indications for surgery, the risks and potential complications and consented. OPERATIVE PROCEDURE: The patient was given a general anesthetic and the abdomen was scrubbed and prepped. A small vertical midline incision was made just above the umbilicus and using a Atwood technique, an 11 mm trocar was introduced. A pneumoperitoneum was then obtained and under direct vision, 3 additional trocars were placed. An 11-mm trocar was placed in subxiphoid position and two 5 mm trocarsin the right subcostal positions. Through the lateral 2 ports, grasping forceps were placed and the gallbladder was retracted cephalad. It should be noted that there were a good bit of what appeared mansi inflammatory adhesions to the gallbladder and these were bluntly taken down. The adelina hepatis was then dissected, isolating the cystic duct and cystic artery well away from the common hepatic duct.Both of these structures were triply clipped and divided between the middle and distal clip. The gallbladder was then taken from its bed retrograde using electrocautery. A couple of small branches of the cystic artery were identified during this dissection and these were clipped. Once the gallbladder was removed from the liver, it was placed in an endocatch bag and brought out through the abdominal wall. The scope was reinserted and everything was checked for hemostasis. Everything was dry.I irrigated with saline and aspirated the irrigant. The trocar sites were all infiltrated with 0.5% Marcaine with epinephrine for postop pain control and then the accessory trocars removed. The pneumoperitoneum was then decompressed and the umbilical trocar was removed. The fascia at the supraumbilical incision was closed with interrupted 0 Vicryl sutures. A single 0 Vicryl suture was placed in the subxiphoid incision closing the fascia as well. The skin incisions were all closed with 4-0 Vicryl subcuticular sutures and Steri-Strips. Dressings were applied. POSTOPERATIVE CONDITION/DISPOSITION: The patient went to recovery in good condition. ESTIMATED BLOOD LOSS: Total blood loss was minimal. FINAL COUNTS: Sponge and needle counts were correct x2. Electronically signed on 08/31/2006 12:49 by KELLE WILLOUGHBY MD MT: [id number] Name: JORGE SCHAEFER MRN: [id number] Account: [id number] : 1970 Procedure Date: 08/29/2006 Document: [id number] documented in this encounter Plan of Treatment Not on filedocumented as of this encounter Visit Diagnoses Not on filedocumented in this encounter Care Teams [employer] Human[employer] Teacher Relationship Specialty Start Date End Date Jose Alonzo MD PCP - General 01/08/03 12/30/14 [place] [address] documented as of this encounter
--- OUTSIDE RECORDS SUMMARY | 2022-05-10 10:21 | XMS_ITS | Encounter Summary ---
:1970 Author Organization [place] Address [facility] [place] [address] Care Team Providers Name Role Phone Jose Alonzo MD Primary Care Provider Unavailable Reason for Visit [facility] Physical Therapy (Routine) - Closed Specialty Diagnoses / Procedures Referred By Contact Refer red To Contact Jose Alonzo MD [facility] [place] [address] Referral ID Status Reason Start Date Expiration Date Visits Requ ested Visits Authorized HP/BACK Closed 12/19/2005 12/18/2006 20 Encounter Details Date Type Department Care Team Description 01/10/2006 Therapy Visit [facility] PHOTOVOLTAIC SUBCONTRACTOR DISPLACEMENT (Primary [place] [facility] [address] [facility] x) Therapy [address] [place] [address] [facility]. [address] [place] [address] Social History Tobacco Use Types Packs/Day Years Used Date Smoking Tobacco: Former Cigarettes 2 Quit : 12/07/2001 Alcohol Use Standard Drinks/Week Comments No 0 (1 standard drink = 0.6 oz pure alcoho l) Sex Assigned at Date Recorded Not on file documented as of this encounter Progress Notes David Nichole - 03/10/2006 11:02 AM CDT Addended by: DAVID NICHOLE on: 03/10/2006 11:02:02 AM Modules accepted: Orders Shannan Caraballo - 01/10/2006 4:18 PM CDT Please refer to the daily flowsheet for treatment today. documented in this encounter Plan of Treatment Not on filedocumented as of this encounter Procedures Procedure Name Priority Date/Time Associated Diagnosis Comme nts ZC NEUROMUSCULAR Routine 01/10/2006 4:19 PM iamLUMBAR DISC RE-EDUCATION CDT DISPLACEMENT ZC THERAPEUTIC Routine 01/10/2006 4:19 PM iamLUMBAR DISC EXERCISES CDT DISPLACEMENT 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
--- OUTSIDE RECORDS SUMMARY | 2022-05-10 10:21 | XMS_ITS | Encounter Summary ---
:1970 Author Organization [place] Address [address] [place] [address]. [place] [address] Care Team Providers Name Role Phone Jose Alonzo MD Primary Care Provider Unavailable Encounter Details Date Type Department Care Team Description 07/17/2006 Historic Results INTERFACED REPORT Jermaine Hinson MD EMERGENCY PHYSIC [facility] [address] [place] [address] (Wo rk) Social History Tobacco Use Types [...] Procedure Name Priority Date/Time Associated Comments Diagnosis ROUTINE UA WITH STAT 07/17/2006 7:05 AM Result s for this MICROSCOPIC APPLIQUER procedure are i n the results section. HEMOGRAM DIFFERENTIAL STAT 07/17/2006 6:40 AM Results for this AND PLATELET APPLIQUER procedure are i n the results section. LIPASE STAT 07/17/2006 6:40 AM Results f or this APPLIQUER procedure are i n the results section. COMPREHENSIVE STAT 07/17/2006 6:40 AM Results for this METABOLIC PANEL APPLIQUER procedure ar e in the results section. documented in this encounter Results Routine UA with microscopic (07/17/2006 7:05 AM APPLIQUER) [facility] Method Time Signature Source Midstream MISYS Urine Color Urine Light Yellow MISYS Appearance Urine Clear MISYS Glucose Urine Negative NEG mg/dL MISYS Bilirubin Urine Negative NEG MISYS Ketones Urine Negative NEG mg/dL MISYS Specific [place] 1.004 1.003 - MISYS Urine 1.035 Blood Urine Negative NEG MISYS pH Urine 7.0 5.0 - 7.0 MISYS pH Protein Albumin Negative NEG mg/dL MISYS Urine Urobilinogen Normal 0.0 - 2.0 MISYS mg/dL mg/dL Nitrite Urine Negative NEG MISYS Leukocyte Negative NEG MISYS Esterase Urine WBC Urine <1 0 - 2 MISYS /HPF RBC Urine 0 0 - 2 MISYS /HPF Specimen Anatomical Collection Method Collection Time Receive d Time (Source) Location / / Volume Laterality 07/17/2006 7:05 AM 7 6:27 APPLIQUER AM APPLIQUER Jermaine Hinson MD LAB - URINE ORDERABLES Performing Organization Address City/State/ZIP Code Phon e Number MISYS Hemogram differential and platelet (07/17/2006 6:40 AM APPLIQUER) [facility] Method Time Signature MCV 89 78 - 100 MIS[place] fl MCH 30.8 26.5 - MISYS 33.0 pg MCHC 34.7 32.0 - MISYS 36.0 g/dL RDW 10.6 10.0 - MISYS 15.0 % WBC 5.9 4.0 - MISYS 11.0 10e9/L RBC Count 4.79 4.4 - 5.9 MISYS 10e12/L Hemoglobin 14.8 13.3 - MISYS 17.7 g/dL Hematocrit 42.5 40.0 - MISYS 53.0 % % Neutrophils 54 40 - 75 % MISYS % Lymphocytes 31 20 - 48 % MISYS % Monocytes 9 0 - 12 % MISYS % Eosinophils 4 0 - 6 % MISYS % Basophils 2 0 - 2 % MISYS Platelet Count 256 150 - 450 MISYS 10e9/L Absolute 3.2 1.6 - 8.3 MISYS Neutrophil 10e9/L Absolute 1.8 0.8 - 5.3 MISYS Lymphocytes 10e9/L Absolute 0.5 0.0 - 1.3 MISYS Monocytes 10e9/L Absolute 0.2 0.0 - 0.7 MISYS Eosinophils 10e9/L Absolute 0.1 0.0 - 0.2 MISYS Basophils 10e9/L Diff Method Automated MISYS Method Specimen Anatomical Collection Method Collection Time Receive d Time (Source) Location / / Volume Laterality 07/17/2006 6:40 AM 7 6:27 APPLIQUER AM APPLIQUER Jermaine Hinson MD LAB - BLOOD ORDERABLES Performing Organization Address City/State/ZIP Code Phon e Number MISYS Comprehensive metabolic panel (07/17/2006 6:40 AM APPLIQUER) P athologist Signature Sodium 140 133 - 144 MISYS mmol/L Potassium 3.5 3.4 - 5.3 MISYS mmol/L Chloride 107 94 - 109 MISYS mmol/L Carbon Dioxide 25 20 - 32 MISYS mmol/L Glucose 87 60 - 110 MISYS mg/dL Urea Nitrogen 11 5 - 24 MISYS mg/dL Creatinine 0.91 0.80 - MISYS 1.50 mg/dL GFR Estimate >90 >60 MISYS mL/min/1.7 m2 GFR Estimate If >90 >60 MISYS Black mL/min/1.7 m2 Comment: Stages of Chronic Kidney Disease Stage 1: ??GFR 90 or greater and other e vidence of kidney damage* Stage 2: ??GFR 60-89 and other evidence of kidney damage * Stage 3: ??GFR 30-59 Stage 4: ??GFR 15-29 Stage 5: ??GFR less than 15 or dialysis *Chronic kidney disease is defined as ki dney damage or GFR less than 60 mL/min/1.73 m2 for three months or grea ter. ??Kidney damage is defined as pathologic abnormalities or markers or damage, including abnormalities in blood or urine tests or imaging studies. Calcium 9.7 8.5 - 10.4 mg/dL MISYS AST 25 0 - 55 U/L MISYS Protein Total 7.4 6.0 - 8.2 g/dL MISYS Anion Gap 8 6 - 17 mmol/L MISYS Albumin 4.1 3.3 - 4.6 g/dL MISYS ALT 31 0 - 70 U/L MISYS Alkaline Phosphatase 82 40 - 150 U/L MISYS Bilirubin Total 0.3 0.2 - 1.3 mg/dL MISYS Specimen Anatomical Collection Method Collection Time Receive d Time (Source) Location / / Volume Laterality 07/17/2006 6:40 AM 7 6:27 APPLIQUER AM APPLIQUER Jermaine Hinson MD LAB - BLOOD ORDERABLES Performing Organization Address City/State/ZIP Code Phon e Number MISYS Lipase (07/17/2006 6:40 AM APPLIQUER) P athologist Signature Lipase 103 20 - 250 U/L MISYS Specimen Anatomical Collection Method Collection Time Receive d Time (Source) Location / / Volume Laterality 07/17/2006 6:40 AM 7 6:27 APPLIQUER AM APPLIQUER Jermaine Hinson MD LAB - BLOOD ORDERABLES Performing Organization Address City/State/ZIP Code Phon e Number MISYS documented in this encounter Visit Diagnoses Not on filedocumented in this encounter Care Teams Vehicle Window Tinter Relationship Specialty Start Date End Date Jose Alonzo MD PCP - General 01/08/03 12/30/14 [place] [address] documented as of this encounter
--- OUTSIDE RECORDS SUMMARY | 2022-05-10 10:21 | XMS_ITS | Encounter Summary ---
:1970 Author Organization [place] Address [address] [place] [address]. [place] [address] Care Team Providers Name Role Phone Jose Alonzo MD Primary Care Provider Unavailable Encounter Details Date Type Department Care Team Description 08/29/2006 Historic Results INTERFACED REPORT Carlos Willoughby MD [address] [place], [place] [address] (Wo rk) Social History [...] Procedure Name Priority Date/Time Associated Diagnosis Comme [facility] HISTOPATHOLOGY Routine 08/29/2006 12:00 AM Result s for this CDT procedure are i n the results section . documented in this encounter Results Histopathology (08/29/2006 12:00 AM CDT) Component Value Ref Test Analysis Performed At [facility] Method Time Signature Copath Report CASE: [id number] ^ COPATH Patient Name: JORGE SCHAEFER MR#: [id number] Specimen #: [id number] Collected: 08/29/2006 Received: 08/29/2006 Reported: 08/30/2006 17:29 Ordering Phy(s): KELLE WILLOUGHBY Additional Phy(s): ANJUM VARGAS SPECIMEN(S): Gallbladder FINAL DIAGNOSIS: Gallbladder, resection - 1. ?No gallstones identified. 2. ? Chronic cholecystitis. 3. ? No evidence of malignancy. Electronically signed out by: Jcarlos Shook M.D. CLINICAL HISTORY: Cholecystitis. GROSS: The specimen, labeled gallbladder, consists of an 8 cm in length by 3 cm in diameter gallbladder. ??The outer surface is partially covered by congested and focally hemorrhagic serosa. ??Three metallic c lips are identified on the surface. ??On section, the lumen is filled with yellow-green mucoid bile. ??No gallstones are identified wit hin the lumen of the gallbladder, the cystic duct or the bag containing th e specimen. The wall is 0.2 cm in thickness. ??The thickness is uniform. ??The mucosa is yellow -green in color. ??No tumors are identified. ??Rep resentative section is submitted in one cassette. ??MGP/kd MICROSCOPIC: Microscopic examination was performed. MGP/kd 08-30-06 TESTING LAB LOCATION: [address] ??[id number] COLLECTION SITE: Client: [facility] Location: SDS (R) Specimen (Source) Anatomical Collection Method Collection Time Re ceived Time Location / / Volume Laterality 08/29/2006 08/30/2006 5:29 PM CDT Kelle Willoughby MD LAB - COPATH SPECIAL DIAG OR DERABLES Performing Organization Address City/State/ZIP Code Phon e Number COP[place] documented in this encounter Visit Diagnoses Not on filedocumented in this encounter Care Teams Eyelet Operator Relationship Specialty Start Date End Date Jose Alonzo MD PCP - General 01/08/03 12/30/14 [place] [address] documented as of this encounter
--- OUTSIDE RECORDS SUMMARY | 2022-05-10 10:21 | XMS_ITS | Encounter Summary ---
:1970 Author Organization [place] Address [address] [place] [address] Care Team Providers Name Role Phone Jose Alonzo MD Primary Care Provider Unavailable Reason for Referral Referral not Required - Closed Specialty Diagnoses / Procedures Referred By Contact Refer red To Contact Diagnoses Headache(784.0) Jose Alonzo MD [facility] [place] [address] Referral ID Status Reason Start Date Expiration Date Visits Requ ested Visits Authorized [id number] Closed 06/06/2007 06/10/[address] Reason for Visit Reason Comments Abdominal Pain hx large stomach ulcers Encounter Details Date Type Department Care Team Description 06/06/2007 Office Visit [facility] Jose Alonzo M D ABDOMINAL PAIN UNSPEC SITE (Primary Dx); [facility] RET[facility] HEADACHE; [address] [place]; [address] [place] [address] DUODENITIS [place] [address] Social History Tobacco Use Types Packs/Day Years Used Date Smoking Tobacco: Former Cigarettes 2 Quit : 12/07/2001 Alcohol Use Standard Drinks/Week Comments No 0 (1 standard drink = 0.6 oz pure alcoho l) 3-6 beers twice a month Sex Assigned at Date Recorded Not on file documented as of this encounter Last Filed Vital Signs Vital Sign Reading Time Taken Comments Blood Pressure 100/82 06/06/2007 11:[address] CAR CLEANER Pulse 72 06/06/2007 11:00 AM RAILRO[address] CAR CLEANER Temperature - - Respiratory Rate - - Oxygen Saturation - - Inhaled Oxygen Concentration - - Weight 61.7 kg (136 lb) 06/06/2007 11:00 AM RAILROAD CAR CLEANER Height 172.7 cm (5' 8) 06/06/2007 11:00 AM RAILROAD CAR CLEANER Body Mass Index 20.68 06/06/2007 11:00 AM RAILROAD CAR CLEANER documented in this encounter Progress Notes Jose Alonzo - 06/06/2007 1:27 PM CST S: F/u of abd pain. Had it during spring. Esophagogastroduodenoscopy showed mild duodenitis; startedomeprazole. Still had pain. Dxed with acalculus cholecystitis and under went lap ovidio, but still had pain. It worsened and he lost wt. Went to [place]; had another esophagogastroduodenoscopy that showed active chronic peptic duodenitis with ulceration. They put him on Protonix. Improved, but now he had pain again and is losing wt again. However, he decr Protonix from bid to 40 mg daily, and he's takingASA for headaches. Has had daily headaches in back of head/neck for 3 wk. Also feels as if he's having anxiety attacks; apparently had them in the past. O: Abdomen-nontender without organomegaly or mass. A: Abd pain may be replapse of duodenitis due to ASA use and decr Protonix. Headaches may be musc tension. Anxiety disorder with panic attacks. P: Incr Protonix back to 40 mg bid. Stop aspirin and use Duradrin for headaches. Fluox 20 mg daily. Alprazolam 0.25 mg tid for 7 days; then taper over 2 wk and stop. Duration of visit 25 minutes. Over 50% of this was counseling time. Counseling time included discussing each of the problems and the plan for it, incl P-T for the headaches. RTC [address] CLEANER documented in this encounter Nursing Notes 06/06/2007 11:00 AM CST >> TRISHA BALL 06/06/2007 11:25 am Yinka Gregorio Schaefer presents for stomach pain and panic attacks. Initial BP 100/82 Pulse 72 Ht 5' 8 (1.73m) Wt 136 lbs (61.7kg) Body mass index is 20.68 kg/(m^2).. BP completed using cuff size: regular documented in this encounter Plan of Treatment Not on filedocumented as of this encounter Procedures Procedure Name Priority Date/Time Associated Diagnosis Comme nts [facility] PT AND HAND REFERRAL Routine 06/27/2007 Headache documented in this encounter Results CONSULT [facility] (PT & CHIRO) (06/27/2007) Narrative This result has an attachment that is no t available. Jose Alonzo MD REFERRAL documented in this encounter Visit Diagnoses Diagnosis Abdominal pain, unspecified site - Prima ry Headache(784.0) Headache Anxiety state, unspecified Duodenitis without mention of hemorrhage documented in this encounter Care Teams Border Patrol Officer Relationship Specialty Start Date End Date Jose Alonzo MD PCP - General 01/08/03 12/30/14 [place] [address] documented as of this encounter
--- OUTSIDE RECORDS SUMMARY | 2022-05-10 10:21 | XMS_ITS | Encounter Summary ---
:1970 Author Organization [facility] Address [address] [place] [address]. [place] [address] Care Team Providers Name Role Phone Jose Alonzo MD Primary Care Provider Unavailable Encounter Details Date Type Department Care Team Description 11/16/2009 Office Visit-[facility] INTERFACE [facility] DEPT Provider, [facility] Nurs e Social History Tobacco Use Types Packs/Day Years Used Date Smoking Tobacco: Former Cigarettes 2 Quit : 12/07/2001 Alcohol Use Standard Drinks/Week Comments No 0 (1 standard drink = 0.6 oz pure alcoho l) 3-6 beers twice a month Sex Assigned at Date Recorded Not on file documented as of this encounter Progress Notes Provider, [facility] Nurse - 11/16/2009 11:30 AM CDT Distribution Systems Superintendent: Saadia Mace Status: Signed Encounter: 16 Nov 2009 Type: Teaching Flowsheet Teaching Flowsheet - ENT Relevant Diagnosis: Zenker's diveticulum Teaching Topic:Surgery: Endoscopic Zenker's, possible open approach Person(s) involved in teaching: Patient Motivation Level: [...] necessitate calling provider and whom to contact: Yes Proper use and care of(medical equip, care aids, etc.): NA Nutritional needs and diet plan: Yes Pain management techniques: Yes Patient instructed on hand hygiene: Yes How and/when to access community resources: Yes Infection Prevention: Patient demonstrates understanding of the following: Surgical procedure site care taught Yes Signs and symptoms of infection taught Yes Wound care taught Yes Central venous catheter care taught NA Instructional Materials Used/Given: Verbal and written. Signature Signed By: Saadia Mace R.N.; 11/16/2009 3:15 PM DIRECTOR GRAPHICS. documented in this encounter Plan of Treatment Not on filedocumented as of this encounter Visit Diagnoses Not on filedocumented in this encounter Care Teams Automotive Consultant Relationship Specialty Start Date End Date Jose Alonzo MD PCP - General 01/08/03 12/30/14 [place] [address] documented as of this encounter
--- OUTSIDE RECORDS SUMMARY | 2022-05-10 10:21 | XMS_ITS | Encounter Summary ---
:1970 Author Organization [place] Address [facility] [place] [address] Care Team Providers Name Role Phone Basilio Alonzo MD Primary Care Provider Unavailable Encounter Details Date Type Department Care Team Description 08/13/2006 Orders Only [facility] David Denise, DIAGNO SIS NOT YET Clinic Katia RAMACHANDRAN DEFINED (Primary Dx) [place] NO INFO FOUND [address] [address] Social History Tobacco Use Types Packs/Day Years [...] Name Priority Date/Time Associated Diagnosis Comme nts CL AFF SURGICAL Routine 08/09/2006 DIAGNOSIS NOT YET Results for this PATHOLOGY DEFINED procedure are i n the results section . documented in this encounter Results SURGICAL PATHOLOGY (08/09/2006) Specimen (Source) Anatomical Location Collection Method / Collectio n Time Received Time / Laterality Volume 08/09/2006 Dileeps Fahreen Perez - 08/09/2006 CASE: [id number] Patient Name: JORGE SCHAEFER MR#: [id number] Specimen #: [id number] Collected: 08/09/2006 Received: 08/09/2006 Reported: 08/10/2006 14:40 Ordering Phy(s): DAVID DENISE Additional Phy(s): BASILIO ALONZO SPECIMEN(S): A: Duodenal biopsy B: Gastric antrum biopsy for helicobacte r C: Gastroesophageal junction biopsy FINAL DIAGNOSIS: A. ??Small intestine, duodenum, biopsies : 1. ??Histologically normal small intesti nal mucosa showing no microscopic evidence of untreated sprue. 2. ??No evidence of intraepithelial lymp hocytosis, microorganisms, acute inflammation or malignancy. B. ??Stomach, antrum, biopsy: 1. ??Histologically normal antral mucosa showing no evidence of inflammation, Helicobacter (special stai ns performed) or atypia. C. ??Gastroesophageal junction: 1. ??Benign squamous and gastric cardiac pattern mucosa characteristic of the anatomic area. 2. ??No evidence of reflux or Blanco's esophagus changes (incomplete intestinal metaplasia is not present). Electronically signed out by: Orin Julio M.D. CLINICAL HISTORY: Abdominal pain, weightloss. ??Rule out s prue, rule out H. pylori, rule out Blanco's. GROSS: A. ??The specimen is labeled duodenal b iopsy. ??The specimen consists of a hart-brown tissue fragment measuring up to 0.4 cm. ??The specimen is entirely submitted. B. ??The specimen is labeled gastric an trum biopsy. ??The specimen consists of a hart-brown tissue fragment measuring up to 0.4 cm. The specimen is entirely submitted. C. ??The specimen is labeled GE junctio n biopsy. ??The specimen consists of 5 similar-appearing, hart tissue fragm ents, the largest measuring up to 0.2 cm. ??The specimen is entirely ríos bmitted. ??SI ??TRS/yanci MICROSCOPIC: A. ??A formal microscopic examination is performed. B. ??A formal microscopic examination is performed. C. ??Biopsies of GE junction show squamo us and glandular epithelium in continuity. ??Both components are normal . ??The squamous one shows no evidence of reflux changes and the gland ular component is benign cardiac mucosa with scant chronic inflammation. ??There is no evidence of incomplete intestinal metaplasia, as req uired for consideration of Blanco's esophagus changes. KPF/campos 08/10/2006 TESTING LAB LOCATION: [address] ??[id number] COLLECTION SITE: Client: [facility] Location: ENDO (S) Electronically filed by Farheen Perez ??08/13/2006 ??10:00 AM David Denise MD LABORATORY documented in this encounter Visit Diagnoses Diagnosis DIAGNOSIS NOT YET DEFINED - Primary documented in this encounter Care Teams Head Of Cytogenetics Relationship Specialty Start Date End Date Basilio Alonzo MD PCP - General 01/08/03 12/30/14 [place] [address] documented as of this encounter
--- OUTSIDE RECORDS SUMMARY | 2022-05-10 10:21 | XMS_ITS | Encounter Summary ---
:1970 Author Organization [place] Address On license of [facility] [place] [address] Care Team Providers Name Role Phone Jose Alonzo MD Primary Care Provider Unavailable Reason for Visit Reason Onset Date Comments Pain 08/09/2006 Pt calls requesting Vicodin. Encounter Details Date Type Department Care Team Description 08/09/2006 Telephone [facility] Ankush Leon MD Pain (Pt calls Clinic [facility] [address] requesting Vicodin. ) [address] [place] [address] [place], [place] [phone] (Wo rk) [address] [phone] Social History Tobacco Use Types Packs/Day Years Used Date Smoking Tobacco: Former Cigarettes 2 Quit : 12/07/2001 Alcohol Use Standard Drinks/Week Comments No 0 (1 standard drink = 0.6 oz pure alcoho l) 3-6 beers twice a month Sex Assigned at Date Recorded Not on file documented as of this encounter Miscellaneous Notes Telephone Encounter - Jose Alonzo - 08/10/2006 8:10 AM CST See results note from today. I OKed med that was denied yest, but he should contact surgery clinic as in results note. EDO SPECIALIST Telephone Encounter - Ankush Leon - 08/09/2006 4:38 PM CST Patient calls requesting vicodin--denied. EDO SPECIALIST documented in this encounter Plan of Treatment Not on filedocumented as of this encounter Visit Diagnoses Not on filedocumented in this encounter Care Teams Ground Nuclear Weapons Assembly Officer Relationship Specialty Start Date End Date Jose Alonzo MD PCP - General 01/08/03 12/30/14 [place] [address] documented as of this encounter
--- OUTSIDE RECORDS SUMMARY | 2022-05-10 10:21 | XMS_ITS | Encounter Summary ---
:1970 Author Organization [place] Address [address] [place] [address]. [place] [address] Care Team Providers Name Role Phone Jose Alonzo MD Primary Care Provider Unavailable Encounter Details Date Type Department Care Team Description 10/26/2009 Office Visit-[facility] DE[facility] Diego Oneal MD [address] [place] [address] (Wo rk) Social History Tobacco Use Types Packs/Day Years Used Date Smoking Tobacco: Former Cigarettes 2 Quit : 12/07/2001 Alcohol Use Standard Drinks/Week Comments No 0 (1 standard drink = 0.6 oz pure alcoho l) 3-6 beers twice a month Sex Assigned at Date Recorded Not on file documented as of this encounter Progress Notes Diego Oneal - 10/26/2009 2:31 PM CDT Buffet Manager: Diego Oneal Status: Signed Encounter: 26 Oct 2009 Type: Chart Note Pt was bumped for m clinic appt on 12/07/2009 and Rescheduled to 11/09/2009 pt received new map and letter and is aware of appt day and time. Electronically signed by:Elizabeth Guzman Oct 29 2009 12:32PM NATIONAL STORMWATER LEADER Administrative documented in this encounter Plan of Treatment Not on filedocumented as of this encounter Visit Diagnoses Not on filedocumented in this encounter Care Teams Legal Instructor Relationship Specialty Start Date End Date Jose Alonzo MD PCP - General 01/08/03 12/30/14 [place] [address] documented as of this encounter
--- OUTSIDE RECORDS SUMMARY | 2022-05-10 10:21 | XMS_ITS | Encounter Summary ---
:1970 Author Organization [place] Address [facility] [place] [address] Care Team Providers Name Role Phone Jose Alonzo MD Primary Care Provider Unavailable Reason for Visit Reason Comments Pre-Op Exam Encounter Details Date Type Department Care Team Description 08/28/2006 Office Visit [facility] [place], PREOP EXAM OTHER Clinic [place] Indira Damon MD SPECIFIED (Primary [address] Dx) [place] [address] [address] [place] [address] Social History Tobacco Use Types [...] Sign Reading Time Taken Comments Blood Pressure 108/64 08/28/2006 9:15 AM CDT Pulse 56 08/28/2006 9:15 AM CDT Temperature - - Respiratory Rate - - Oxygen Saturation - - Inhaled Oxygen Concentration - - Weight 63.5 kg (140 lb) 08/28/2006 9:15 AM CDT Height 172.7 cm (5' 8) 08/28/2006 9:15 AM CDT Body Mass Index 21.29 08/28/2006 9:15 AM CDT documented in this encounter Progress Notes Manju Lafleur - 08/28/2006 9:26 AM CDT PRE-OP EVALUATION: Today's date: 08/28/2006 Yinka Schaefer (: 1970) presents for pre-operative evaluation as requested by Dr. Clements. He requires evaluation and anesthesia clearance prior to undergoing surgery/procedure for treatment of gallbladder . Proposed procedure: gallbladder removal. Date of Surgery/ Procedure: 08/29/06 Time of Surgery/ Procedure: 0700 Hospital/Surgical Facility: [facility]--pt unsure Primary Physician: Dr Jose Alonzo Type of Anesthesia Anticipated: to be determined History of anesthesia complications: NONE History of abnormal bleeding: NONE History of blood transfusions: NO Patient has a Health Care Directive or Living Will: NO Manju Lafleur RN. Pt is here for preop eval to undergo gallbladder removal ,has been having abd pain and US -gallbladder sludge and HIDA-decreased EF gallbladder. Past Medical History Diagnosis Date ??? CALCULUS OF URETER Passed; has remaining stones in kidneys Past Surgical History Procedure Date ??? Nonspecific procedure none Current outpatient prescriptions Medication Sig ??? VICODIN 5-500 MG OR TABS 1 TABLET EVERY 4 TO 6 HOURS NEEDED ??? OMEPRAZOLE 20 MG OR CPDR ONE DAILY ??? REGLAN 10 MG OR TABS 1 TAB 4 TIMES DAILY, BEFORE MEALS AND AT BEDTIME OTC products: None, except as noted above Allergies Allergen Reactions ??? No Known Drug Allergies Latex Allergy: NO History Substance Use Topics ??? Tobacco Use: Quit -- 2.0 packs/day Quit date: 12/07/2001 ??? Alcohol Use: No 3-6 beers twice a month History Drug Use Not on file REVIEW OF SYSTEMS: CONSTITUTIONAL:NEGATIVE for fever, chills, change in weight INTEGUMENTARY/SKIN: NEGATIVE for worrisome rashes, moles or lesions EYES: NEGATIVE for vision changes or irritation ENT/MOUTH: NEGATIVE for ear, mouth and throat problems RESP:NEGATIVE for significant cough or SOB CV: NEGATIVE for chest pain, palpitations or peripheral edema GI: on and off abd pain MUSCULOSKELETAL: NEGATIVE for significant arthralgias or myalgia NEURO: NEGATIVE for weakness, dizziness or paresthesias ENDOCRINE: NEGATIVE for temperature intolerance, skin/hair changes HEME/ALLERGY/IMMUNE: NEGATIVE for bleeding problems PSYCHIATRIC: NEGATIVE for changes in mood or affect EXAM: BP 108/64 Pulse 56 Ht 5' 8 (1.73m) Wt 140 lbs (63.5kg) GENERAL APPEARANCE: healthy, alert and no distress EYES: Eyes grossly normal to inspection, PERRL and conjunctivae and sclerae normal HENT: ear canals and TM's normal and nose and mouth without ulcers or lesions NECK: no adenopathy, no asymmetry, masses, or scars and thyroid normal to palpation RESP: lungs clear to auscultation - no rales, rhonchi or wheezes CV: regular rates and rhythm, normal S1 S2, no S3 or S4 and no murmur, click or rub LYMPHATICS: normal ant/post cervical and supraclavicular nodes ABDOMEN: soft, nontender, without hepatosplenomegaly or masses and bowel sounds normal MS: extremities normal- no gross deformities noted NEURO: Normal strength and tone, sensory exam grossly normal, mentation intact, speech normal and DTR symmetrically normal in lower extremities PSYCH: mentation appears normal and affect normal/bright DIAGNOSTICS: Labs:Hgb: see attached IMPRESSION: V72.83 PREOP EXAM OTHER SPECIFIED (primary encounter diagnosis) For above listed surgery and anesthesia: Patient is at LOW risk for surgery/procedure and perioperative/procedure complications. RECOMMENDATIONS: Discontinue ASA 5 days prior to procedure to reduce bleeding risk. Discontinue NSAIDS 5 days prior to procedure to reduce bleeding risk. Signed Electronically by: Yuval Zurita MD Copy of this evaluation report is provided to requesting physician. documented in this encounter Nursing Notes 08/28/2006 9:15 AM CDT >> MANJU LAFLEUR 08/28/2006 9:26 am Yinka Gregorio Schaefer presents for pre-op physical. Initial BP 108/64 Pulse 56 Ht 5' 8 (1.73m) Wt 140 lbs (63.5kg) Body mass index is 21.29 kg/(m^2).. BP completed using cuff size: regular. documented in this encounter Plan of Treatment Not on filedocumented as of this encounter Procedures Procedure Name Priority Date/Time Associated Comments Diagnosis HCL HEMOGLOBIN Routine 08/28/2006 9:41 AM Preop Exam Other Res ults for this NONLAB CDT Specified procedure are i n the results section. documented in this encounter Results HGB (08/28/2006 9:41 AM CDT) P athologist Signature Hemoglobin 15.6 13.3 - 17.7 [facility] g/dL CLINIC LAB Specimen Anatomical Collection Method Collection Time Receive d Time (Source) Location / / Volume Laterality 08/28/2006 9:41 AM 7 9:46 CDT AM CDT Indira Zurita MD LABORATORY Performing Organization Address City/State/ZIP Code Phon e Number [facility] [address] [place] [address] [address] [facility] documented in this encounter Visit Diagnoses Diagnosis Other specified pre-operative examinatio n - Primary documented in this encounter Care Teams Planning Advisor Relationship Specialty Start Date End Date Jose Alonzo MD PCP - General 01/08/03 12/30/14 [place] [address] documented as of this encounter
--- OUTSIDE RECORDS SUMMARY | 2022-05-10 10:21 | XMS_ITS | Encounter Summary ---
:1970 Author Organization [place] Address [facility] [place] [address] Care Team Providers Name Role Phone Jose Alonzo MD Primary Care Provider Unavailable Encounter Details Date Type Department Care Team Description 07/17/2006 Emergency room Jermaine Sanchez Ma, MD EMERGENCY PHYSIC JOSE MOONEY [address] [facility] [place] [address] (Wo rk) Social History Tobacco Use Types Packs/Day Years Used Date Smoking Tobacco: Former Cigarettes 2 Quit : 12/07/2001 Alcohol Use Standard Drinks/Week Comments No 0 (1 standard drink = 0.6 oz pure alcoho l) Sex Assigned at Date Recorded Not on file documented as of this encounter Progress Notes Jermaine Sanchez - 07/26/2006 7:31 AM MARBLE CARVER FINAL CHIEF COMPLAINT: Abdominal pain. HISTORY OF PRESENT ILLNESS: This is a 35-year-old male with abdominal pain and back pain going on for 11 days. Kind of started suddenly. He gets pain across the low back and variable spots in his abdomen associated with intermittent nausea and vomiting. His last emesis was on Sunday. He does not haveany nausea now. He occasionally gets headaches with it. No urinary symptoms, slight constipation andmaybe a loose stool, nothing regular. He has had kidney stones. He had a kidney stone about a month ago. Has had no abdominal surgery. He actually was seen and admitted to [facility] over the weekend and was just discharged yesterday and had a negative evaluation, but his pain had gone. PAST MEDICAL HISTORY: Kidney stones. MEDICATIONS: Excedrin. ALLERGIES: None. REVIEW OF SYSTEMS: All systems negative except as stated above. SOCIAL HISTORY: He is , is here with his . They live in [place], [place]. 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 PHYSICAL EXAMINATION: VITAL SIGNS: Temperature 95.7, pulse 71, respirations 28 blood pressure 110/81 and O2 saturation 96%. GENERAL: The patient is alert, cooperative and in no respiratory distress. HEENT: Conjunctivae areclear. Lids are not swollen. Oropharynx, moist mucous membranes without erythema or lesion. NECK: Supple, nontender. BACK: Nontender. CHEST: Symmetric chest rise to inspiration, no sign of labored breathing. LUNGS: Clear to auscultation. No rub, rales, rhonchi or wheeze. CARDIOVASCULAR: Regular rate and rhythm without murmur. ABDOMEN: Soft and nondistended. He has tenderness across mostly his upper abdomen, no rebound or guarding. EXTREMITIES: No clubbing, cyanosis or edema. SKIN: Well perfused, no rash. EMERGENCY DEPARTMENT COURSE: I got the records from [facility]. I established an IV, ordered some blood work and urinalysis. I gave him a liter of normal saline. I gave him Toradol 30 mg IV, Zofran 4 mg IV and droperidol 0.625 mg IV and his pain and discomfort went from a 7 down to really essentially gone at the time he was discharged. His CBC and chemistry panel came back normal. No elevated white count. Liver function tests and lipase were normal. Urinalysis was clear. No sign of blood. I got his records and reviewed the CT scan. It showed some stones up in the renal pelvis on both sides but otherwise unremarkable and it really was unclear what the cause of his pain was at the time. I am not sure if this is more of a somatic type of discomfort or not, but I am going to put him on omeprazole for possible gastritis. I want him to follow up with Dr. Alonzo but possibly even referral to [facility] I think he needs an evaluation. CLINICAL IMPRESSION: Abdominal pain. CLINICAL PLAN: Omeprazole 20 mg daily, Reglan 10 mg up to every 6 hours for nausea. He has a prescription for Vicodin and I am going to have him keep that and use that. He is to return if worsening, otherwise follow up in GI as well as with Dr. Alonzo. Electronically signed on 07/26/2006 07:29 by JERMAINE SANCHEZ MD MT: [id number] Name: JORGE SCHAEFER Account: [id number] : 1970 Visit Date: 07/17/2006 Document: [id number] cc: Jose Alonzo MD LE CARVER documented in this encounter Plan of Treatment Not on filedocumented as of this encounter Visit Diagnoses Not on filedocumented in this encounter Care Teams Brake Repair Supervisor Relationship Specialty Start Date End Date Jose Alonzo MD PCP - General 01/08/03 12/30/14 [place] [address] documented as of this encounter
--- OUTSIDE RECORDS SUMMARY | 2022-05-10 10:21 | XMS_ITS | Encounter Summary ---
:1970 Author Organization [place] Address [facility] [place] [address] Care Team Providers Name Role Phone Jose Alonzo MD Primary Care Provider Unavailable Encounter Details Date Type Department Care Team Description 08/09/2006 GI Procedure [facility] [place] [facility] Endoscopy Jose Alonzo MD None [place] RETIRED [address] [place] [address] [place] [address] Social History Tobacco Use Types Packs/Day Years [...] Procedure Name Priority Date/Time Associated Diagnosis Comme [facility] UPPER GI ENDOSCOPY Routine 08/09/2006 11:45 AM Re sults for this COATING SUPERVISOR procedure are i n the results section. documented in this encounter Results UPPER GI ENDOSCOPY (08/09/2006 11:45 AM COATING SUPERVISOR) Component Value Ref Test Analysis Performed At [facility] Range Method Time Signature Upper GI [facility] RADIOLO GY Endoscopy [facility] Endoscopy Department RESULTS Patient Name: Yinka Schaefer ?Gender: M ? Procedure Date: 08/09/2006 11: 45 AM ? SSN: [id number] ?Date of : 1970 ? Age: 35 ? Admit Type: Outpatient ? Room: 6 ? Note Status: Finalized ?Attending MD: David Sarabia ? Pause For The Cause: Pause for the ca Procedure: ?Upper GI endoscopy Indications: ?Epigastric abdominal distress/ pain, Periumbilical abdominal ?distress/pain, Nausea with vomiting, Weight loss Providers: ?David Sarabia MD, Gretchen Mejía, RN Referring MD: ?? Jose Alonzo MD Medicines: ?Atropine IV 0.4 mgs, Fentanyl IV 100 mcgs, Versed IV 6 mgs Complications: ??No immediate complications Procedure: ?- A History and Physical has been perfo rmed, and patient ?medi cation allergies have been reviewed. The patient The ?risk s and benefits of the procedure and the sedation options ?and risks were discussed with the patient. All questions were ?answered and informed consent was obtained. Patient ?iden tification and proposed procedure were verified prior to ?the procedure by the physician in the endoscopy suite. Mental ?Status Examinati on: normal. Airway Examination: normal ?oropharyngeal airway and neck mobi lity. Respiratory ?Exam ination: clear to auscultation. CV Examination: normal. ?ASA Grade Assessment: P1 A normal healthy patient. After ?i merchant the risks and benefits, the patient was deemed in ?satisfactory condition to unde rgo the procedure. The ?anes thesia plan was to use moderate sedation / analgesia ?(con scious sedation). Immediately prior to administration of ?medi cations, the patient was re-assessed for adequacy to ?rece allen sedatives. The heart rate, respiratory rate, oxygen ?saturations, blood pressure, adequac y of pulmonary ?vent ilation, and response to care were monitored throughout ?the procedure. The physi rigo status of the patient was ?re-assessed after the procedure. ?Afte r obtaining informed consent, the endoscope was passed ?unde r direct vision. Throughout the procedure, the patient's ?bloo d pressure, pulse, and oxygen saturations were monitored ?cont inuously. The [id number] was introduced ?through the mouth, and a dvanced to the second part of ?duod enum. The upper GI endoscopy was accomplished with ease. ?The patient tolerated the procedure well. The total duration ?of the procedure was 12 minutes. ? Findings: ? The examined esophagu s was normal. Mucosa was biopsied from 4 quadrants. ? Biopsy specimens from the distal third of the esoph aylin were sent to ? Pathology to rule out Blanco's. The entire examined stomach was normal, ? but there was copious fluid present (raising the poss ibility of ? hypersecretion). Biopsies were taken with a cold forc eps for ? Helicobacter Pylori testing. The duodenal bulb and 2n d part of the ? duodenum were normal except for very mild bulba r duodenitis. Biopsies ? were taken with a cold forceps for histology to rule out sprue. ? Impression: ? - Normal esophagus. ?- Normal stomach. This was biopsied. ?- Normal duodenal bulb (except for very mild patchy ?duod enitis) and 2nd part of the duodenum. This was biopsied. Recommendation: - Discharge patient to home (ambulatory). ?- Avoid all anticoagulants for 5 mor e days. ?- Await pathology results. ?- Call my office in 5 days for the r eport. ?- Follow an antireflux regimen indef initely. ?- Use Prilosec (omeprazole) at 20 mg by mouth daily ?indefinitely. ?- Consider addition of metoclopramin de. ?- If PPI and promotility agents do not eliminate symptoms, ?consider abdominal CTscan and/or son ography. ?- Follow up with Dr. Alonzo as planned . ?- Re peat the upper endoscopy in 1 year for surveillance if ?Barett's is present or PRN only if n ot. ?- Th e findings and recommendations were discussed with the ?patient. ?- Th e findings and recommendations were discussed with the ?patient's family. ? David Sarabia M.D. David Sarabia MD Signed Date: 08/09/2006 12:56 PM Number of Addenda: 0 I was physically present for the entire viewing portion of t he exam. Note generated on 08/09/2006 11:44 AM Upper GI RADIOLOGY Endoscopy RESULTS Specimen (Source) Anatomical Collection Method Collection Time Re ceived Time Location / / Volume Laterality 08/09/2006 11:45 AM COATING SUPERVISOR Jose Alonzo MD PROCEDURES Performing Organization Address City/State/ZIP Code Phon e Number RADIOLOGY RESULTS documented in this encounter Visit Diagnoses Not on filedocumented in this encounter Care Teams Rubber And Pounder Relationship Specialty Start Date End Date Jose Alonzo MD PCP - General 01/08/03 12/30/14 [place] [address] documented as of this encounter
--- OUTSIDE RECORDS SUMMARY | 2022-05-10 10:21 | XMS_ITS | Encounter Summary ---
:1970 Author Organization [place] Address [facility]0 [facility] [place] [address] Care Team Providers Name Role Phone Jose Alonzo MD Primary Care Provider Unavailable Reason for Visit Reason Onset Date Comments Pain 07/25/2006 Encounter Details Date Type Department Care Team Description 07/25/2006 Telephone [facility] Adriano Alonzo MD Pain [place] RETIRED [address] [place] [address] [place] [address] [place] [address] Social History Tobacco Use Types Packs/Day Years Used Date Smoking Tobacco: Former Cigarettes 2 Quit : 12/07/2001 Alcohol Use Standard Drinks/Week Comments No 0 (1 standard drink = 0.6 oz pure alcoho l) 3-6 beers twice a month Sex Assigned at Date Recorded Not on file documented as of this encounter Miscellaneous Notes Telephone Encounter - Joanne Martinez - 07/26/2006 8:37 AM CST Patient was called and advised of message from Dr Alonzo RONMENTAL PERMITTING SPECIALIST Telephone Encounter - Jose Alonzo - 07/26/2006 7:46 AM CST Keep taking pain meds and go to appt when scheduled. RONMENTAL PERMITTING SPECIALIST Telephone Encounter - Kellen Park - 07/25/2006 12:40 PM CST [facility] (for [facility]) and has appt 07/31/06. calling to see if appt can be moved up. Called [facility] to see if 07/31/06 is first avail and they advised pt could be seen 07/30/06. Called pt. Pain has been about the same for the past month - not acutely worse. Pain is constant , though fairly well managed w/vicodin 2 tabs 3-4x daily. Offered first avail appt w/surgeon on 07/30/06,but pt declines. Pt tolerating vicodin, but doesn't like being on daily meds. Advised that pain management only option until surgical eval. Please advise if you want to request surgeon add pt to schedule earlier than . Thanks. RONMENTAL PERMITTING SPECIALIST documented in this encounter Plan of Treatment Not on filedocumented as of this encounter Visit Diagnoses Not on filedocumented in this encounter Care Teams Artificial Snow Making Machine Operator Relationship Specialty Start Date End Date Jose Alonzo MD PCP - General 01/08/03 12/30/14 [place] [address] documented as of this encounter
--- OUTSIDE RECORDS SUMMARY | 2022-05-10 10:21 | XMS_ITS | Encounter Summary ---
:1970 Author Organization [place] Address [facility] [place] [address] Care Team Providers Name Role Phone Jose Alonzo MD Primary Care Provider Unavailable Reason for Referral - Closed Specialty Diagnoses / Procedures Referred By Contact Refer red To Contact Diagnoses Abdominal pain, other specified site [place] [address] Referral ID Status Reason Start Date Expiration Date Visits Requ ested Visits Authorized [id number] Closed 07/31/2006 06/10/2011 1 1 UP SALES CONSULTANT Reason for Visit Reason Onset Date Comments EGD 08/01/2006 Encounter Details Date Type Department Care Team Description 07/31/2006 Telephone [facility] Adriano Alonzo MD EGD [place] RETIRED [address] [place] [address] [place] [address] [place], [place] [phone] Social History Tobacco Use Types Packs/Day Years Used Date Smoking Tobacco: Former Cigarettes 2 Quit : 12/07/2001 Alcohol Use Standard Drinks/Week Comments No 0 (1 standard drink = 0.6 oz pure alcoho l) 3-6 beers twice a month Sex Assigned at Date Recorded Not on file documented as of this encounter Miscellaneous Notes Telephone Encounter - Lien Mcmillan - 08/01/2006 3:37 PM CST EGD scheduled at [facility] on 08/09/06 at 11:45AM for chest.back and abd pain with nausea and vomiting. Worksheet completed and packet will be mailed. UP SALES CONSULTANT Telephone Encounter - Lien Mcmillan - 07/31/2006 4:57 PM CST Unable to reach pt. Talked with pt's [id number] and gave her my numbers to call me. She willgive them to the pt and he will call back to schedule the EGD. UP SALES CONSULTANT Telephone Encounter - Cami Benítez - 07/31/2006 1:[address] Clements called Dr Alonzo to recommend that pt have EGD for abdominal pain. Referral done and messageleft on Dr. Lubin's nurse's V.M. Message left with pt's [id number]. UP SALES CONSULTANT documented in this encounter Plan of Treatment Not on filedocumented as of this encounter Procedures Procedure Name Priority Date/Time Associated Diagnosis Comme lorelei ZRohini CONSULT GASTROENTEROLOGY Routine 04/15/2008 Abdominal Pain, Other Specified Site documented in this encounter Results CONSULT GASTROENTEROLOGY (04/15/2008) Narrative This result has an attachment that is no t available. Jose Alonzo MD REFERRAL documented in this encounter Visit Diagnoses Diagnosis Abdominal pain, other specified site - P rimary documented in this encounter Care Teams Sporting Goods Sales Associate Relationship Specialty Start Date End Date Jose Alonzo MD PCP - General 01/08/03 12/30/14 [place] [address] documented as of this encounter
--- OUTSIDE RECORDS SUMMARY | 2022-05-10 10:21 | XMS_ITS | Encounter Summary ---
:1970 Author Organization [place] Address [facility] [place] [address] Care Team Providers Name Role Phone Jose Alonzo MD Primary Care Provider Unavailable Reason for Visit Reason Comments Hospital F/U ER F/U Abdominal Pain Encounter Details Date Type Department Care Team Description 07/19/2006 Office Visit [facility] Jose Alonzo M D ABDOMINAL PAIN [facility] [place] RETIRED SITE (Primary Dx) [address] [place] [address] [place] [address] [place] [address] Social History Tobacco Use Types [...] Sign Reading Time Taken Comments Blood Pressure 126/76 07/19/2006 1:00 PM PRISON CLASSIFICATION COUNSELOR Pulse 64 07/19/2006 1:00 PM PRISON CLASSIFICATION COUNSELOR Temperature - - Respiratory Rate - - Oxygen Saturation - - Inhaled Oxygen Concentration - - Weight 63.9 kg (140 lb 12.8 oz) 07/19/2006 1:00 PM PRISON CLASSIFICATION COUNSELOR Height - - Body Mass Index 21.41 12/07/2005 4:30 PM CDT documented in this encounter Progress Notes Jose Alonzo - 07/19/2006 1:23 PM CST S: Abd pain for 14 days. Located in either upper quad and periumbilical area. Comes and goes but sort of hangs around. Pain is present about 75% of time; today is first day that it isn't too bad. Pain is mild most of the time but sometimes becomes severe; the severe episodes last 1-3 hrs. Eating seems to provoke it or make it worse. Sometimes has vomiting with it. Has lots of constip; had diarrhea 3-4 times. No melena or rectal bldg. Was hospitalized for 1-2 days for it ~ Jul 12 in [place]. Past Medical History Diagnosis Date ??? CALCULUS OF URETER Passed; has remaining stones in kidneys Past Surgical History Procedure Date ??? Nonspecific procedure none History Social History ??? Marital Status: Spouse Name: N/A Number of Children: N/A ??? Years of Education: N/A Occupational History ??? Not on file. Social History Main Topics ??? Tobacco Use: Quit -- 2.0 packs/day Quit date: 12/07/2001 ??? Alcohol Use: No 3-6 beers twice a month ??? Drug Use: Not on file ??? Sexually Active: Not on file Other Topics Concern ??? Not on file Social History Narrative ??? No narrative on file O: Abd-no mass. Mild RIQ tenderness. Had normal lab in [place] here 2 days ago, incl cbc, lipase, UA, andLFTs. ER reviewed CT from [place] from a few days ago; showed stones in renal pelvis on both sides but was o/w OK. A: ?etiol of pain; seems better today P: Try to stop metoclopramide (Reglan) if vomiting stays away; cont omep until used up. Abd ultrasound to better image gallbladder. If normal and sx persist, may need esophagogastroduodenoscopy. ON CLASSIFICATION COUNSELOR documented in this encounter Nursing Notes 07/19/2006 1:00 PM CST >> ANNALEE LIU 07/19/2006 1:03 pm Yinka Schaefer presents for a follow up from a [facility] visit from 07-15 to 07-16-06 and [facility] ER on 07-17-06 with abdominal pain. Initial BP 126/76 Pulse 64 Wt 140 lbs 12.8 oz (63.9kg) Estimated Body mass index is 21.41 kg/(m^2) as calculated from: Height of 5' 8 (1.727 m) as of 12/07/05 Weight of 140 lbs 12.8 oz (63.866 kg) as of this encounter. BP completed using cuff size: regular documented in this encounter Plan of Treatment Not on filedocumented as of this encounter Procedures Procedure Name Priority Date/Time Associated Diagnosis Comme nts US ABDOMEN Routine 07/24/2006 10:18 AM Abdominal pain, Resu lts for this COMPLETE PRISON CLASSIFICATION COUNSELOR unspecified site procedure a re in the results section. documented in this encounter Results SONO ABDOMEN COMPLETE (07/24/2006 10:18 AM PRISON CLASSIFICATION COUNSELOR) Anatomical Region Laterality Modality Other Specimen (Source) Anatomical Collection Method Collection Time Re ceived Time Location / / Volume Laterality 07/24/2006 10:18 AM PRISON CLASSIFICATION COUNSELOR Impressions 07/24/2006 3:16 PM PRISON CLASSIFICATION COUNSELOR US ABDOMEN COMPLETE* Jul 24, 2006 10:18: 00 AM Indication: Abdominal pain. Findings: The liver is normal in size an d texture without focal mass. There is no intra or extrahepatic biliar y dilatation. ??The common hepatic duct measures 4 mm. There is a s mall sludge in the gallbladder. No gallstones. The gallblad fabi otherwise appears normal. The pancreas body appears normal. Portio ns of the head and tail are obscured by bowel gas. The spleen is nor mal in size and appearance at 9.0 cm. The right kidney measures 11.2 c m and the left measures 10.7 cm. The kidneys are unremarkable. The pr oximal abdominal aorta and IVC appear normal. Impression: There is small amount of sludge in the g allbladder. No gallstones or other gallbladder abnormality. Jose Alonzo MD SPECIAL IMAGING STUDIES documented in this encounter Visit Diagnoses Diagnosis Abdominal pain, unspecified site - Prima ry documented in this encounter Care Teams Mixer And Scaler Relationship Specialty Start Date End Date Jose Alonzo MD PCP - General 01/08/03 12/30/14 [place] [address] documented as of this encounter
--- OUTSIDE RECORDS SUMMARY | 2022-05-10 10:21 | XMS_ITS | Encounter Summary ---
:1970 Author Organization [place] Address [facility] [place] [address] Care Team Providers Name Role Phone Jose Alonzo MD Primary Care Provider Unavailable Encounter Details Date Type Department Care Team Description 04/01/2008 Abstract [facility] Abstract, Provid er [facility] [address] [place] [address] Social History Tobacco Use [...] Date/Time Associated Diagnosis Comme nts CL AFF PROTHROMBIN TIME Routine 04/01/2008 DIAGNOSIS NOT YET Results for this DEFINED procedure are i n the results section . HCL POTASSIUM Routine 04/01/2008 DIAGNOSIS NOT YET Results f or this DEFINED procedure are i n the results section . HCL GLUCOSE Routine 04/01/2008 DIAGNOSIS NOT YET Results fo r this DEFINED procedure are i n the results section . HCL ALT Routine 04/01/2008 DIAGNOSIS NOT YET Results fo r this DEFINED procedure are i n the results section . HCL AST Routine 04/01/2008 DIAGNOSIS NOT YET Results fo r this DEFINED procedure are i n the results section . HCL CREATININE Routine 04/01/2008 DIAGNOSIS NOT YET Results for this DEFINED procedure are i n the results section . documented in this encounter Results ALT [51523.000] (04/01/2008) athologist Signature ALT 41@ U/L MISYS Provider Abstract LABORATORY Performing Organization Address [facility] Phon e Number MISYS AST [05119.000] (04/01/2008) P athologist Signature AST 25@ U/L MISYS Provider Abstract LABORATORY Performing Organization Address [facility] Phon e Number MISYS CREATININE [[id number]] (04/01/2008) P athologist Signature Creatinine 1.0@ mg/dL MISYS Provider Abstract LABORATORY Performing Organization Address [facility] Phon e Number MISYS POTASSIUM [[id number]] (04/01/2008) P athologist Signature Potassium 4.9@ mmol/L MISYS Provider Abstract LABORATORY Performing Organization Address [facility] Phon e Number MISYS GLUCOSE [79088.005] (04/01/2008) P athologist Signature Glucose 104@ mg/dL MISYS Provider Abstract LABORATORY Performing Organization Address [facility] Phon e Number MISYS PROTHROMBIN TIME [83249.002] (04/01/2008) P athologist Signature PT Seconds MISYS INR 1.0@ MISYS Provider Abstract LABORATORY Performing Organization Address [facility] Phon e Number MISYS documented in this encounter Visit Diagnoses Diagnosis DIAGNOSIS NOT YET DEFINED documented in this encounter Care Teams Customs Patrol Officer Relationship Specialty Start Date End Date Jose Alonzo MD PCP - General 01/08/03 12/30/14 [place] [address] documented as of this encounter
--- OUTSIDE RECORDS SUMMARY | 2022-05-10 10:21 | XMS_ITS | Encounter Summary ---
:1970 Author Organization [place] Address [facility]0 [facility] [place] [address] Care Team Providers Name Role Phone Jose Alonzo MD Primary Care Provider Unavailable Reason for Referral - Closed Specialty Diagnoses / Procedures Referred By Contact Refer red To Contact Diagnoses Calculus of gallbladder with acute cholecystitis, without mention of obstruction [place] [address] Referral ID Status Reason Start Date Expiration Date Visits Requ ested Visits Authorized [id number] Closed 07/24/2006 06/10/2011 1 1 PACKER Reason for Visit Reason Onset Date Comments Refill Request 07/24/2006 vicodin Encounter Details Date Type Department Care Team Description 07/24/2006 Refill [facility] Adriano Alonzo MD Refill Request (vicodin) [place] RET[place] [address] [place] [address] [place] [address] [place] [address] Social History Tobacco Use Types Packs/Day Years Used Date Smoking Tobacco: Former Cigarettes 2 Quit : 12/07/2001 Alcohol Use Standard Drinks/Week Comments No 0 (1 standard drink = 0.6 oz pure alcoho l) 3-6 beers twice a month Sex Assigned at Date Recorded Not on file documented as of this encounter Miscellaneous Notes Telephone Encounter - Karie Vickers - 07/24/2006 5:31 PM CST Pt advised,# given to pt to make appt referral mailed to pt. Pt advised medication faxed. PACKER Telephone Encounter - Jose Alonzo - 07/24/2006 4:08 PM CST Sludge in gallbladder. Could mean that abd pain is from gallbladder. Get surg consult. PACKER Telephone Encounter - Jerrica Montemayor - 07/24/2006 3:17 PM CST Results of US found in FCIS, copy given to Dr Alonzo. PACKER Telephone Encounter - Jerrica Montemayor - 07/24/2006 3:13 PM CST Pt wants to know results of US done today at [facility]; informed pt results are pending. PACKER Telephone Encounter - Lien Walden - 07/24/2006 1:40 PM CST Pt just had US ABD done today. He is out of his Vicodin, and asking for refill. Pt would like to speak with MD, if possible. Plz advise. PACKER documented in this encounter Plan of Treatment Not on filedocumented as of this encounter Procedures Procedure Name Priority Date/Time Associated Diagnosis Comme nts ZZ CONSULT SURGERY Routine 07/31/2006 Cholelith W Acute G b Dis-No Obstr documented in this encounter Results CONSULT SURGERY (07/31/2006) Narrative This result has an attachment that is no t available. Jose Alonzo MD REFERRAL documented in this encounter Visit Diagnoses Diagnosis Calculus of gallbladder with acute ovidio cystitis, without mention of obstruction - Primary documented in this encounter Care Teams Tank House Operator Relationship Specialty Start Date End Date Jose Alonzo MD PCP - General 01/08/03 12/30/14 [place] [address] documented as of this encounter
--- OUTSIDE RECORDS SUMMARY | 2022-05-10 10:21 | XMS_ITS | Encounter Summary ---
:1970 Author Organization [place] Address [address] [place] [address]. [place] [address] Care Team Providers Name Role Phone Basilio Alonzo MD Primary Care Provider Unavailable Encounter Details Date Type Department Care Team Description 08/09/2006 [facility] Amee toney, David Morris MD [facility] NO INFO FOUND [address] [phone] (Wo rk) Social History Tobacco Use Types [...] Procedure Name Priority Date/Time Associated Diagnosis Comme [facility] HISTOPATHOLOGY Routine 08/09/2006 12:00 AM Result s for this EDGE CUTTING MACHINE OPERATOR procedure are i n the results section . documented in this encounter Results Histopathology (08/09/2006 12:00 AM EDGE CUTTING MACHINE OPERATOR) Component Value Ref Test Analysis Performed At [facility] Range Method Time Signature Copath CASE: [id number] ^ COPATH Report Patient Name: JORGE SCHAEFER MR#: [id number] Specimen #: [id number] Collected: 08/09/2006 Received: 08/09/2006 Reported: 08/10/2006 14:40 Ordering Phy(s): DAVID DEINSE Additional Phy(s): BASILIO ALONZO SPECIMEN(S): A: Duodenal biopsy B: Gastric antrum biopsy for helicobacter C: Gastroesophageal junction biopsy FINAL DIAGNOSIS: A. ??Small intestine, duodenum, biopsies: 1. ??Histologically normal small intestinal mucosa showing n o microscopic evidenceof untreated sprue. 2. ??No evidence of intraepithelial lymphocytosis, microorga nisms, acute inflammation or malignancy. B. ??Stomach, antrum, biopsy: 1. ??Histologically normal antral mucosa showing no evidence of inflammation, Helicobacter (special stains performed) or aty maegan. C. ??Gastroesophageal junction: 1. ??Benign squamous and gastric cardiac pattern mucosa letha acteristic of the anatomic area. 2. ??No evidence of reflux or Blanco's esophagus changes (i ncomplete intestinal metaplasia is not present). Electronically signed out by: Orin Julio M.D. CLINICAL HISTORY: Abdominal pain, weightloss. ??Rule out sprue, rule out H. py lizbeth, rule out Blanco's. GROSS: A. ??The specimen is labeled duodenal biopsy. ??The specim en consists of a hart-brown tissue fragment measuring up to 0.4 cm. ??The sp ecimen is entirely submitted. B. ??The specimen is labeled gastric antrum biopsy. ??The specimen consists of a hart-brown tissue fragment measuring up to 0.4 cm. ??The specimen is entirely submitted. C. ??The specimen is labeled GE junction biopsy. ??The spe cimen consists of 5 similar-appearing, hart tissue fragments, the largest me asuring up to 0.2 cm. ??The specimen is entirely submitted. ??SI ??TRS/ yanci MICROSCOPIC: A. ??A formal microscopic examination is performed. B. ??A formal microscopic examination is performed. C. ??Biopsies of GE junction show squamous and glandular epi thelium in continuity. ??Both components are normal. ??The squamous one shows no evidence of reflux changes and the glandular component is be nign cardiac mucosa with scant chronic inflammation. ??There is no eviden ce of incomplete intestinal metaplasia, as required for considerat ion of Blanco's esophagus changes. FABIANF/campos 08/10/2006 TESTING LAB LOCATION: [address] ??[id number] COLLECTION SITE: Client: [facility] Location: ENDO (S) Specimen (Source) Anatomical Collection Method Collection Time Re ceived Time Location / / Volume Laterality 08/09/2006 08/10/2006 4:52 PM EDGE CUTTING MACHINE OPERATOR David Denise MD LAB - COPATH SPECIAL DIAG OR DERABLES Performing Organization Address City/State/ZIP Code Phon e Number COPATH documented in this encounter Visit Diagnoses Not on filedocumented in this encounter Care Teams Drain Layer Relationship Specialty Start Date End Date Basilio Alonzo MD PCP - General 01/08/03 12/30/14 [place] [address] documented as of this encounter
--- OUTSIDE RECORDS SUMMARY | 2022-05-10 10:21 | XMS_ITS | Encounter Summary ---
:1970 Author Organization [place] Address [facility]0 [facility] [place] [address] Care Team Providers Name Role Phone Jose Alonzo MD Primary Care Provider Unavailable Encounter Details Date Type Department Care Team Description 11/09/2009 Office Visit-[facility] INTERFACE UMP DEPT Unknown, Provider Social History Tobacco Use Types Packs/Day Years Used Date Smoking Tobacco: Former Cigarettes 2 Quit : 12/07/2001 Alcohol Use Standard Drinks/Week Comments No 0 (1 standard drink = 0.6 oz pure alcoho l) 3-6 beers twice a month Sex Assigned at Date Recorded Not on file documented as of this encounter Progress Notes Unknown, Provider - 11/09/2009 10:30 AM CDT Senior Accounting Manager: Boaz Zahida Status: Final Encounter: 09 Nov 2009 Type: Rooming Note Reason For Visit JORGE SCHAEFER is a 39 year old male presenting today with growth in the throat. Do you have any other appointments of any type today within the [facility] system? (this includes clinic appt's, Imaging, labs, procedures etc.) No. Pain Eval Current history of pain associated with this visit is as follows: Location: throat Quality: items are getting stuck in the throat Severity: 10 (Pain scale 1-10, with 10 being the worst) Duration: while eatingand swallowing Timing: while eating and swallowing Context: throat Modifying factors: none Associated signs/symptoms: none. Personal Hx Behavioral history: No tobacco use. Home environment: No secondhand tobacco smoke in home. Current Meds Amitriptyline HCl 100 MG Tablet;TAKE 1 TABLET DAILY.; RPT [facility]-MED RECONCILE;per patient; RPT. Med list offered and patient declined. Signature Signed By: Zahida Sandra MA; 11/09/2009 10:10 AM OCCUPATIONAL HEALTH NURSING DIRECTOR. documented in this encounter Plan of Treatment Not on filedocumented as of this encounter Visit Diagnoses Not on filedocumented in this encounter Care Teams Internet Merchant Relationship Specialty Start Date End Date Jose Alonzo MD PCP - General 01/08/03 12/30/14 [place] [address] documented as of this encounter
--- OUTSIDE RECORDS SUMMARY | 2022-05-10 10:21 | XMS_ITS | Encounter Summary ---
:1970 Author Organization [place] Address [facility]0 [place] [address] Care Team Providers Name Role Phone Jose Alonzo MD Primary Care Provider Unavailable Reason for Visit [facility] Physical Therapy (Routine) - Closed Specialty Diagnoses / Procedures Referred By Contact Refer red To Contact Jose Alonzo MD [facility] [place] [id number] Referral ID Status Reason Start Date Expiration Date Visits Requ ested Visits Authorized HP/BACK Closed 12/19/2005 12/18/2006 20 Encounter Details Date Type Department Care Team Description 01/03/2006 Therapy Visit [place] for Shannan Caraballo, [facility] Athletic Medicine - TURBINE MEASUREMENTS ENGINEER DISPLACEMENT (Primary [place] [facility] x) Therapy [address] [place] [address] [facility]. [address] [place] [address] Social History Tobacco Use Types Packs/Day Years Used Date Smoking Tobacco: Former Cigarettes 2 Quit : 12/07/2001 Alcohol Use Standard Drinks/Week Comments No 0 (1 standard drink = 0.6 oz pure alcoho l) Sex Assigned at Date Recorded Not on file documented as of this encounter Progress Notes Shannan Caraballo - 01/03/2006 3:36 PM CDT Please refer to the daily flowsheet for treatment today. documented in this encounter Plan of Treatment Not on filedocumented as of this encounter Procedures Procedure Name Priority Date/Time Associated Diagnosis Comme nts ZC NEUROMUSCULAR Routine 01/03/2006 3:37 PM iamLUMBAR DISC RE-EDUCATION CDT DISPLACEMENT ZZC THERAPEUTIC Routine 01/03/2006 3:37 PM iamLUMBAR DISC EXERCISES CDT DISPLACEMENT ZC MECHANICAL TRACTION Routine 01/03/2006 3:37 PM iamLUMBAR D ISC THERAPY CDT DISPLACEMENT documented in this encounter Visit Diagnoses Diagnosis iamLUMBAR DISC DISPLACEMENT - Primary Displacement of lumbar intervertebral di sc without myelopathy documented in this encounter Care Teams Vocational Counselor Relationship Specialty Start Date End Date Jose Alonzo MD PCP - General 01/08/03 12/30/14 [place] [address] documented as of this encounter
--- OUTSIDE RECORDS SUMMARY | 2022-05-10 10:21 | XMS_ITS | Encounter Summary ---
:1970 Author Organization [place] Address [facility]0 [facility] [address] Care Team Providers Name Role Phone Jose Alonzo MD Primary Care Provider Unavailable No Ref-Primary, Physician Primary Care Provider Polina Lynch NP Unavailable Polina Lynch NP Primary Care Provider [phone] Encounter Details Date Type Department Care Team Description 09/10/2006 [facility] Jose Alonzo M D [facility] RETIRED HOSP. DISMISSAL SUMMARY [address] [place] (Primary Dx) [address] [place] [address] [place] [address] Social History Tobacco Use Types [...] as of this encounter Visit Diagnoses Diagnosis [facility]. DISMISSAL [place] MMARY - Primary documented in this encounter Additional Health Concerns Infection Onset Date Last Indicated Resolved Time Rule Out COVID-19 02/06/2022 02/06/2022 02/06/2022 12: 37 PM CDT documented as of this encounter Care Teams Machine Accountant Relationship Specialty Start Date End Date Jose Alonzo MD PCP - General 01/08/03 12/30/14 [place] [address] No Ref-Primary, PCP - General 12/31/14 03/09/21 Physician Polina Lynch NP PCP - General Nurse Practitioner - Adult 03/10/21 [address] [place], [place] [id number] Polina Lynch NP Assigned PCP 12/16/20 [address] [place] [address] documented as of this encounter
--- OUTSIDE RECORDS SUMMARY | 2022-05-10 10:21 | XMS_ITS | Encounter Summary ---
:1970 Author Organization [place] Address [facility]0 [facility] [place] [address] Care Team Providers Name Role Phone Jose Alonzo MD Primary Care Provider Unavailable Reason for Visit Reason Onset Date Comments Headache 07/25/2007 Encounter Details Date Type Department Care Team Description 07/25/2007 Telephone [facility] Adriano Alonzo MD Headache [place] RET[place] [address] [place] [address] [place] [address] [place] [address] Social History Tobacco Use Types Packs/Day Years Used Date Smoking Tobacco: Former Cigarettes 2 Quit : 12/07/2001 Alcohol Use Standard Drinks/Week Comments No 0 (1 standard drink = 0.6 oz pure alcoho l) 3-6 beers twice a month Sex Assigned at Date Recorded Not on file documented as of this encounter Miscellaneous Notes Telephone Encounter - Heraclio October - 07/25/2007 3:52 PM CST Patient advised regarding new Rx for omprazole PHONE ANSWERER Telephone Encounter - Heraclio October - 07/25/2007 2:56 PM CST Left message for patient to call back PHONE ANSWERER Telephone Encounter - Jose Alonzo - 07/25/2007 2:22 PM CST Faxed rx for omeprazole 40 mg daily. This pill taken once daily is roughly equivalent to Protonix 40mg bid. But he should let us know later if he has more abd pain, because we could then increase thismed to 40 mg bid. PHONE ANSWERER Telephone Encounter - October - 07/25/2007 9:57 AM CST Patient calling, is on generic protonix, he gets a headache every day when he takes the med, he stopped the med for 3 days and did not get a headache, asking if you could order another med for him to try and see if it causes headaches-thanks PHONE ANSWERER documented in this encounter Plan of Treatment Not on filedocumented as of this encounter Visit Diagnoses Diagnosis Duodenitis without mention of hemorrhage - Primary documented in this encounter Care Teams Cryogenics Repairer Relationship Specialty Start Date End Date Jose Alonzo MD PCP - General 01/08/03 12/30/14 [place] [address] documented as of this encounter
--- OUTSIDE RECORDS SUMMARY | 2022-05-10 10:21 | XMS_ITS | Encounter Summary ---
:1970 Author Organization [place] Address [facility] [place] [address] Care Team Providers Name Role Phone Jose Alonzo MD Primary Care Provider Unavailable Encounter Details Date Type Department Care Team Description 11/16/2009 Office Visit-[facility] Ear, Nose and Throat Diego Oneal Clinic MD [place] 8[address] Floor, Clinic [address] [place] [address] [facility] [place] [address] Social History Tobacco Use Types Packs/Day Years Used Date Smoking Tobacco: Former Cigarettes 2 Quit : 12/07/2001 Alcohol Use Standard Drinks/Week Comments No 0 (1 standard drink = 0.6 oz pure alcoho l) 3-6 beers twice a month Sex Assigned at Date Recorded Not on file documented as of this encounter Progress Notes Diego Oneal - 11/16/2009 11:30 AM CDT Runner Out: Diego Oneal Status: Final - Signature Encounter: 16 Nov 2009 Type: ENT Visit Department of Otolaryngology--Head and Neck Surgery [place] Mail Code [address] [place] [address] Office: [address] RE: Yinka Schaefer : 1970 CLARISSA: 11/16/2009 HISTORY OF PRESENT ILLNESS: Yinka Schaefer is a 39-year-old gentleman who I saw on November 09, 2009, with a likely Zenker's diverticulum. We did not have the x- rays, but he has brought it with him today. He notes he is continuing to have problems with his swallowing, and this is bothering him greatly. PAST MEDICAL HISTORY, MEDICATIONS, PAST SURGICAL HISTORY, SOCIAL HISTORY, REVIEW OF SYSTEMS and FAMILY HISTORY are all unchanged from last week. PHYSICAL EXAMINATION: The patient is awake and alert, in no apparent distress. Tympanic membranes are clear and mobile bilaterally. Nasal exam shows a mild septal deviation without obstruction. Examination of the oral cavity shows no suspicious lesions. There is symmetric movement of the tongue and soft palate. The neck is supple without significant adenopathy. There is good mouth opening. Good neck flexion. Pulse is regular. Upper airway is clear. Cranial nerves II- XII are grossly intact. Flexible laryngoscopy was not repeated as it was performed last week. This showed a mildly prominenttongue base. No pooling of saliva in the hypopharynx. IMAGING: The x-ray was reviewed. This did show a Zenker's diverticulum approximately 3-4 cm in size with a prominent cricopharyngeal bar being present. IMPRESSION AND PLAN: I discussed with him the nature of the procedure. I gave him an 80% chance thatwe would be able to do this endoscopically. If we cannot do this, he is quite interested in performing an external approach. Should he require an external approach, a brief NG tube and at least an overnight hospitalization would likely be necessary. We reviewed the complications which include mediastinitis, infection, as well as increasing laryngopharyngeal reflux (LPR) with loss of cricopharyngeus muscle. I advised him that his symptoms may partially continue as he does seem to be more severe symptomatically than many patients with a Zenker's and other issues may arise. He is quite interested in proceeding. We will schedule him at a time of his convenience. Diego Oneal M.D. Racecar Driver Department of Otolaryngology [phone] cc: Mesfin Cruz MD [address] [place] [phone] GSG:alisa RIVERA 11/16/2009 Electronically signed by:Diego Oneal MD Nov 18 2009 12:42PM MANUFACTURING ENGINEER PAINT documented in this encounter Plan of Treatment Not on filedocumented as of this encounter Visit Diagnoses Not on filedocumented in this encounter Care Teams Accounting Auditor Relationship Specialty Start Date End Date Jose Alonzo MD PCP - General 01/08/03 12/30/14 [place] [address] documented as of this encounter
--- OUTSIDE RECORDS SUMMARY | 2022-05-10 10:21 | XMS_ITS | Encounter Summary ---
:1970 Author Organization [place] Address [facility]0 [facility] [place] [address] Care Team Providers Name Role Phone Jose Alonzo MD Primary Care Provider Unavailable Encounter Details Date Type Department Care Team Description 11/26/2009 Operative Report [facility] Jaclyn Oneal (Alum Plant Operator) [facility] MD [place] Results [address] [place], [place] [address] Social History Tobacco Use Types Packs/Day Years Used Date Smoking Tobacco: Former Cigarettes 2 Quit : 12/07/2001 Alcohol Use Standard Drinks/Week Comments No 0 (1 standard drink = 0.6 oz pure alcoho l) 3-6 beers twice a month Sex Assigned at Date Recorded Not on file documented as of this encounter Progress Notes Jaclyn Oneal - 12/02/2009 3:24 PM CDT FINAL PREOPERATIVE DIAGNOSIS: Dysphagia, Zenker's diverticulum. POSTOPERATIVE DIAGNOSIS: Dysphagia, Zenker's diverticulum. PROCEDURE: Endoscopic Zenker's diverticulectomy. STAFF: Jaclyn Oneal MD RESIDENT: Heidi Boles MD ANESTHESIA: General endotracheal. ESTIMATED BLOOD LOSS: 100 mL. COMPLICATIONS: None apparent. FINDINGS: Large Zenker's diverticulum coming off the left posterior wall of the cervical esophagus.A GI 3.5 mm stapler used. INDICATIONS: Jorge Schaefer is a 39-year-old gentleman who has a long history of dysphagia. On evaluation of his swallow, he was noted what appeared to be Zenker's diverticulum. He was seen in consultation in Otolaryngology Clinic and the option of an endoscopic Zenker's diverticulectomy was offered to the patient with the possibility of an open approach if we were unsuccessful in obtaining access to the diverticulum was offered. The patient wished to proceed and was scheduled for 11/26/2009. PROCEDURE IN DETAIL: The patient was met in the preoperative area and the procedure was reviewed and informed consent was confirmed. He was then taken back to the operating room and was placed supine on the operating table. General anesthesia was induced and he was endotracheally intubated. A timeoutwas called and the procedure were properly identified. The diverticuloscope was used to gain access to the cervical esophagus. Once the esophageal introitus was noted, the scope was advanced into the cervical esophagus and passed until the pouch was noted coming off the posterior and left aspect of the cervical esophagus. At this point, a long period of time was taken to maneuver this in the best posi tion possible, such that the sac wall was being straddled by the 2 limbs of the diverticuloscope. Wehad the scope and introduced as far as it would possibly go and could have still used extra length to put it on a slightly more tension but we did feel that this was sufficient enough view to safely perform the diverticulectomy endoscopically. A 3.5mm Endo-CAROL 30 stapler with a 3.5 mm load was introduced through the diverticuloscope and with the aid of a telescope; we were able to guide this such that it was in appropriate position on the wall of the sac. The esophagus and the base of the sac were both seen. We therefore fired the stapler. Once the stapler was removed, we examined the staple line ve ry closely with the telescope. There did not appear to be any defects. There were a few millimeters left of the wall; however, because the end of the stapler had a guide that precluded this from passing the stapler past these last final millimeters, we felt that this was the best we can do with the stapler endoscopically. The diverticuloscope was removed and the patient was turned back to anesthesia for emergence. He isextubated uneventfully and brought to recovery for observation. Dr. Oneal was present for the singh portions of the procedure. Electronically signed on 12/02/2009 15:24 by JACLYN ONEAL MD As dictated by HEIDI BOLES MD MT: ANGIE Name: JORGE SCHAEFER MRN: [id number] Account: [id number] : 1970 Procedure Date: 11/26/2009 Document: [id number] cc: Mesfin Mejía MD documented in this encounter Plan of Treatment Not on filedocumented as of this encounter Visit Diagnoses Not on filedocumented in this encounter Care Teams Avionics Electronics Technician Relationship Specialty Start Date End Date Jose Alonzo MD PCP - General 01/08/03 12/30/14 [place] [address] documented as of this encounter
--- OUTSIDE RECORDS SUMMARY | 2022-05-10 10:21 | XMS_ITS | Encounter Summary ---
:1970 Author Organization [place] Address [facility]0 [facility] [place] [address] Care Team Providers Name Role Phone Jose Alonzo MD Primary Care Provider Unavailable Reason for Visit Reason Onset Date Comments Referral 09/03/2006 Encounter Details Date Type Department Care Team Description 09/03/2006 Telephone [facility] Adriano Alonzo MD Referral [place] RETIRED [address] [place] [address] [place] [address] [place] [address] Social History Tobacco Use Types Packs/Day Years Used Date Smoking Tobacco: Former Cigarettes 2 Quit : 12/07/2001 Alcohol Use Standard Drinks/Week Comments No 0 (1 standard drink = 0.6 oz pure alcoho l) 3-6 beers twice a month Sex Assigned at Date Recorded Not on file documented as of this encounter Miscellaneous Notes Telephone Encounter - Cami Benítez - 09/04/2006 3:22 PM CDT Rx, med records, and appt info left at desk officer for Amanda to cloth picker. Telephone Encounter - Cami Benítez - 09/04/2006 9:21 AM CDT I called and we got him an appt for 09/[address] Ledezma at 7:45am Telephone Encounter - Jose Alonzo - 09/03/2006 5:34 PM CDT Stop Reglan. Find out from [facility] if his insurance covers him at [place]. Telephone Encounter - Kellen Park - 09/03/2006 4:05 PM CDT Pt also asking for referral to [facility] for urgent appt - their first avail is 09/26/06. Can advise [place] by calling [phone] ref # [id number]. Telephone Encounter - Joanne Martinez - 09/03/2006 12:35 PM CDT Patient was called and now wondering about the reglan 10mg? Should he continue? Telephone Encounter - Jose Alonzo - 09/03/2006 12:29 PM CDT See letters folder in my outpile. Stop omeprazole. Telephone Encounter - Cami Benítez - 09/03/2006 12:19 PM CDT Pt had gall bladder surgery last Sunday but he is still having sx he had before the surgery. He is requesting refill of Percocet that surgeon gave him. Wonders if he should be continuing omeprazole.He felt that wasn't helping pain anyway. Please advise. documented in this encounter Plan of Treatment Not on filedocumented as of this encounter Visit Diagnoses Not on filedocumented in this encounter Care Teams Rn Emergency Room Relationship Specialty Start Date End Date Jose Alonzo MD PCP - General 01/08/03 12/30/14 [place] [address] documented as of this encounter
--- OUTSIDE RECORDS SUMMARY | 2022-05-10 10:21 | XMS_ITS | Encounter Summary ---
:1970 Author Organization [place] Address [facility] [place] [address] Care Team Providers Name Role Phone Jose Alonzo MD Primary Care Provider Unavailable Reason for Visit Reason Onset Date Comments Refill Request 08/23/2006 Encounter Details Date Type Department Care Team Description 08/23/2006 Refill [facility] Adriano Alonzo MD Refill Request [place] RET[place] [address] [place] [address] [place] [address] [place] [address] Social History Tobacco Use Types Packs/Day Years Used Date Smoking Tobacco: Former Cigarettes 2 Quit : 12/07/2001 Alcohol Use Standard Drinks/Week Comments No 0 (1 standard drink = 0.6 oz pure alcoho l) 3-6 beers twice a month Sex Assigned at Date Recorded Not on file documented as of this encounter Miscellaneous Notes Telephone Encounter - Cami Benítez - 08/30/2006 1:56 PM CDT I called to check on pt and he had his surgery yesterday and is doing well. Telephone Encounter - Flavia Medina - 08/24/2006 8:06 AM CDT Message left for pt. To call clinic. Telephone Encounter - Jose Alonzo - 08/23/2006 5:31 PM CDT He had the EGD and it was normal. Dr. Clements's office ordered a hepatobiliary scan (HIDA), which showed a low ejection fxn. I don't know if that result is abnl enough for Dr. Clements to rec having his gallbladder out, but he should ask Dr. Clements's office about that. I faxed rx refill. Telephone Encounter - Cami Benítez - 08/23/2006 10:17 AM CDT I did look through chart and see that an EGD was recommended. Apparently pt did not understand that this is a different test. I left message, as pt requested, asking him to call Dr Lubin's office for an EGD. Telephone Encounter - Cami Benítez - 08/23/2006 10:09 AM CDT Pt requesting refill, persistent pain. He expressed frustration that he has not been scheduled for surgury yet. Requested another surgical group, but this nurse is not familiar with another group. Do you know if there is an explanation for delay. documented in this encounter Plan of Treatment Not on filedocumented as of this encounter Visit Diagnoses Not on filedocumented in this encounter Care Teams Oil Lease Broker Relationship Specialty Start Date End Date Jose Alonzo MD PCP - General 01/08/03 12/30/14 [place] [address] documented as of this encounter
--- OUTSIDE RECORDS SUMMARY | 2022-05-10 10:22 | XMS_ITS | Encounter Summary ---
:1970 Author Organization [place] Address [facility] [address] Care Team Providers Name Role Phone Jose Alonzo MD Primary Care Provider Unavailable Encounter Details Date Type Department Care Team Description 02/11/2003 Office Visit [facility] David Sarabia, [facility] Cory RAMACHANDRAN ENCOUNTER--DISREGARD [address] NO INFO FOUND (Primary Dx) [place] [address] Social History Tobacco Use Types Packs/Day Years Used Date Smoking Tobacco: Every Day Cigarettes 2 Alcohol Use Standard Drinks/Week Comments No 0 (1 standard drink = 0.6 oz pure alcoho l) Sex Assigned at Date Recorded Not on file documented as of this encounter Progress Notes 02/11/2003 2:00 PM CDT NO SHOW FOR GI CONSULT. PMO documented in this encounter Plan of Treatment Not on filedocumented as of this encounter Visit Diagnoses Diagnosis ERRONEOUS ENCOUNTER--DISREGARD - Primary documented in this encounter Care Teams Resource Agent Relationship Specialty Start Date End Date Jose Alonzo MD PCP - General 01/08/03 12/30/14 [place] [address] documented as of this encounter
--- OUTSIDE RECORDS SUMMARY | 2022-05-10 10:22 | XMS_ITS | Encounter Summary ---
:1970 Author Organization [place] Address [address] [facility] [place] [address] Care Team Providers Name Role Phone Jose Alonzo MD Primary Care Provider Unavailable No Ref-Primary, Physician Primary Care Provider [phone] Polina Lynch NP Unavailable Polina Lynch NP Primary Care Provider [phone] Encounter Details Date Type Department Care Team Description 03/13/2003 [facility] Roldan Solis MD ER ENCOUNTER (Primary Clinic [place] [address]) [address] [place] [address] [address] [place] [address] Social History Tobacco Use Types Packs/Day Years Used Date Smoking Tobacco: Former Cigarettes 2 Quit : 12/07/2001 Smokeless Tobacco: Never Alcohol Use Standard Drinks/Week Comments No 0 (1 standard drink = 0.6 oz pure alcoho l) quit in October 2020 Sex Assigned at Date Recorded Not on file documented as of this encounter Progress Notes 03/13/2003 11:59 PM CDT 00:00 Emergency Department Encounter-SHORTY JAIME) [Entered: Transcrip tion([facility])] : 68 CHIEF COMPLAINT: Pruritic rash. HISTORY OF PRESENT ILLNESS: Jorge gilliland complains of a rash in the forearms, face, behind the ears for the past several days. States it is very itchy. He states that he has been in the lord and thinks it might be poison memo. The christine haque has no fever, no chills, no nausea, vomiting or diarrhea, no dysuria. ALLERGIES: No known all ergies. MEDICATIONS: No medications. PAST MEDICAL HISTORY: Negative. SOCIAL HISTORY: He smokes two packs per day, denies alcohol use. FAMILY HISTORY: Noncontributory. REVIEW OF SYSTEMS: Genera lly, he has been feeling well except for the itching rash. Skin -see history of present illness. Ey es - negative. Ears - negative. Nose, throat - negative. Cardiorespiratory - negative. All other sy stems negative. PHYSICAL EXAM: Blood pressure 122/83, pulse 82, respiratory rate 22, temp. 96.0, pu lse oximetry 100% on room air. Generally, this is an alert, cooperative man complaining of an itchin g rash. SKIN - warm and dry. There is a scabbing type rash around both wrists, a little bit on the face, the back of the neck. MOUTH, THROAT - normal. No uvular edema. LUNGS - clear to auscultation , no rales or rhonchi, there are a few expiratory wheezes bilaterally on his lung exam. TREATMENT: Solu-Cortef 100 mg IM, Kwell lotion, Benadryl 50 mg p.r.n. itching q.6h. See PMD if not better in a week. My concern for him is that it is possibly poison memo reaction or scabies, therefore I am treat ing him in both fronts. DIAGNOSIS: Dermatitis. CONDITION: Stable. [id number] _ SHORTY DUFF MD MT: Document: [id number] [place], [place] Name: JORGE SCHAEFER EMERGENCY ROOM ENCOUNTER Page 2 of 2 LCN: PAZ DSC: 03/13/2003 [place], [place] Name: MR#: : Admit Date: EDEL BRENT RT Perkins -17 1970 03/13/2003 Doctor: SHORTY DUFF MD EMERGENCY ROOM ENCOUNTER Page 1 of 2 Electronically filed by Tatiana Overton 03/16/2003 4:37 PM documented in this encounter Plan of Treatment Not on filedocumented as of this encounter Visit Diagnoses Diagnosis ER ENCOUNTER - Primary documented in this encounter Additional Health Concerns Infection Onset Date Last Indicated Resolved Time Rule Out COVID-19 02/06/2022 02/06/2022 02/06/2022 12: 37 PM CDT documented as of this encounter Care Teams Surgical Rn Relationship Specialty Start Date End Date Jose Alonzo MD PCP - General 01/08/03 12/30/14 [place] [address] No Ref-Primary, PCP - General 12/31/14 03/09/21 Physician Polina Lynch NP PCP - General Nurse Practitioner - Adult 03/10/21 [address] [place] [address] Polina Lynch NP Assigned PCP 12/16/20 [address] [place] [address] documented as of this encounter
--- OUTSIDE RECORDS SUMMARY | 2022-05-10 10:22 | XMS_ITS | Encounter Summary ---
:1970 Author Organization [place] Address [facility]0 [facility] [place] [address] Care Team Providers Name Role Phone Jose Alonzo MD Primary Care Provider Unavailable Reason for Visit [facility] Physical Therapy (Routine) - Closed Specialty Diagnoses / Procedures Referred By Contact Refer red To Contact Jose Alonzo MD [facility] [place] [address] Referral ID Status Reason Start Date Expiration Date Visits Requ ested Visits Authorized HP/BACK Closed 12/19/2005 12/18/2006 20 Encounter Details Date Type Department Care Team Description 12/21/2005 Therapy Visit [place] for Shannan Caraballo, [facility] Athletic Medicine - PUBLIC HEALTH DENTIST DISPLACEMENT (Primary [facility] x) Therapy [address] [place] [address] [facility] [place] [address] Social History Tobacco Use Types Packs/Day Years Used Date Smoking Tobacco: Former Cigarettes 2 Quit : 12/07/2001 Alcohol Use Standard Drinks/Week Comments No 0 (1 standard drink = 0.6 oz pure alcoho l) Sex Assigned at Date Recorded Not on file documented as of this encounter Progress Notes Shannan Caraballo - 12/21/2005 11:32 AM CDT Please refer to the daily flowsheet for treatment today. documented in this encounter Plan of Treatment Not on filedocumented as of this encounter Procedures Procedure Name Priority Date/Time Associated Diagnosis Comme [facility] THERAPEUTIC Routine 12/21/2005 11:32 AM iamLUMBAR DISC EXERCISES CDT DISPLACEMENT ZZ[facility] ELECTRIC Routine 12/21/2005 11:32 AM iamLUMBAR DISC STIMULATION THERAPY CDT DISPLACEMENT ZZC MECHANICAL TRACTION Routine 12/21/2005 11:32 AM iamLUMBAR DISC THERAPY CDT DISPLACEMENT ZZC HOT OR COLD PACKS Routine 12/21/2005 11:32 AM iamLUMBAR DI SC THERAPY CDT DISPLACEMENT documented in this encounter Visit Diagnoses Diagnosis iamLUMBAR DISC DISPLACEMENT - Primary 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
--- OUTSIDE RECORDS SUMMARY | 2022-05-10 10:22 | XMS_ITS | Encounter Summary ---
:1970 Author Organization [place] Address [facility]0 [facility] [place] [address] Care Team Providers Name Role Phone Doctor, None MD Primary Care Provider Unavailable Encounter Details Date Type Department Care Team Description 12/21/2002 Orders Only [facility] Nora Solis, ABDOM EN X-RAY (Primary Clinic Pamela RAMACHANDRAN Dx) [address] [place], [place] [address] [address] [place], [place] [phone] (Wo rk) [address] [phone] Social History Tobacco Use Types Packs/Day Years Used Date Smoking Tobacco: Never Assessed Sex Assigned at Date Recorded Not on file documented as of this encounter Plan of Treatment Not on filedocumented as of this encounter Procedures Procedure Name Priority Date/Time Associated Diagnosis Comme nts HC X-RAY ABDOMEN AP Routine 12/21/2002 ABDOMEN X-RAY Results for this VIEW (KUB) procedure are i n the results section . documented in this encounter Results X-RAY ABDOMEN 1 VW (12/21/2002) Anatomical Region Laterality Modality Other Impressions 12/21/2002 1 VIEW ABDOMEN - 12/21/2002 CLINICAL HISTORY: Abdominal pain. Rule o ut stone. FINDINGS: No stones identified. Probable small phleboliths in the low lateral left pelvis. The bowel gas p attern is within normal limits. Ordering Provider: ??SANIA STEVENSON Principal Result Barrow Worker: ??IGOR VARGAS Pattern Worker: ??JORGE Calvo Nora Solis MD GENERAL IMAGING documented in this encounter Visit Diagnoses Diagnosis ABDOMEN X-RAY - Primary documented in this encounter Care Teams Rn Emergency Relationship Specialty Start Date End Date Doctor, None, MD PCP - General 07/26/01 01/07/03 documented as of this encounter
--- OUTSIDE RECORDS SUMMARY | 2022-05-10 10:22 | XMS_ITS | Encounter Summary ---
:1970 Author Organization [place] Address [facility] [place] [address] Care Team Providers Name Role Phone Jose Alonzo MD Primary Care Provider Unavailable Reason for Visit [facility] Physical Therapy (Routine) - Closed Specialty Diagnoses / Procedures Referred By Contact Refer red To Contact Jose Alonzo MD [facility] [place] [address] Referral ID Status Reason Start Date Expiration Date Visits Requ ested Visits Authorized HP/BACK Closed 12/19/2005 12/18/2006 20 Encounter Details Date Type Department Care Team Description 12/19/2005 Therapy Visit [place] [facility] Athletic Medicine - [address] HELLEN DIOR (Primary [place] [facility] [address] Dx) Therapy [place] [address] [address] [address] [facility] [place], [place] (Work) [address] [phone] Social History Tobacco Use Types Packs/Day Years Used Date Smoking Tobacco: Former Cigarettes 2 Quit : 12/07/2001 Alcohol Use Standard Drinks/Week Comments No 0 (1 standard drink = 0.6 oz pure alcoho l) Sex Assigned at Date Recorded Not on file documented as of this encounter Progress Notes David Ferguson - 12/19/2005 4:07 PM CDT Please refer to the daily flowsheet for treatment today. documented in this encounter Plan of Treatment Not on filedocumented as of this encounter Procedures Procedure Name Priority Date/Time Associated Diagnosis Comme nts ZZC MANUAL THER Routine 12/19/2005 4:07 PM iamLUMBAR DISC TECH,1+REGIONS,EA 15 CDT DISPLACEMENT MIN ZZC THERAPEUTIC Routine 12/19/2005 4:07 PM iamLUMBAR DISC EXERCISES CDT DISPLACEMENT ZZC ELECTRIC Routine 12/19/2005 4:07 PM iamLUMBAR DISC STIMULATION THERAPY CDT DISPLACEMENT ZZC HOT OR COLD PACKS Routine 12/19/2005 4:07 PM iamLUMBAR DIS C THERAPY CDT DISPLACEMENT documented in this encounter Visit Diagnoses Diagnosis iamLUMBAR DISC DISPLACEMENT - Primary Displacement of lumbar intervertebral 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
--- OUTSIDE RECORDS SUMMARY | 2022-05-10 10:22 | XMS_ITS | Encounter Summary ---
:1970 Author Organization [place] Address [facility] [place] [address] Care Team Providers Name Role Phone Jose Alonzo MD Primary Care Provider Unavailable Encounter Details Date Type Department Care Team Description 08/15/2004 Historic Results INTERFACED REPORT Interface, Glenys toledo MD Social History Tobacco Use Types Packs/Day Years Used Date Smoking Tobacco: Every Day Cigarettes 2 Alcohol Use Standard Drinks/Week Comments No 0 (1 standard drink = 0.6 oz pure alcoho l) Sex Assigned at Date Recorded Not on file documented as of this encounter Plan of Treatment Not on filedocumented as of this encounter Procedures Procedure Name Priority Date/Time Associated Comments Diagnosis HEMOGRAM DIFFERENTIAL STAT 08/15/2004 10:15 Re sults for this AND PLATELET PM TRAVELING ELECTRICIAN procedure are i n the results section. INFLUENZA A/B ANTIGEN Routine 08/15/2004 5:50 AM Results for this TRAVELING ELECTRICIAN procedure are i n the results section. BASIC METABOLIC PANEL STAT 08/15/2004 5:45 AM Results for this TRAVELING ELECTRICIAN procedure are i n the results section. RAPID STREP SCREEN STAT 08/15/2004 2:55 AM Res ults for this THROAT SWAB TRAVELING ELECTRICIAN procedure are i n the results section. BETA HEMOLYTIC STREP Routine 08/15/2004 2:55 AM R esults for this GROUP A CULTURE TRAVELING ELECTRICIAN procedure ar e in the results section. documented in this encounter Results (ABNORMAL) Hemogram differential and platelet (08/15/2004 10:15 PM TRAVELING ELECTRICIAN) [facility] Method Time Signature MCV 91 78 - 100 [facility] fl MCH 32.0 26.5 - MISYS 33.0 pg MCHC 35.0 32.0 - MISYS 36.0 g/dL RDW 11.6 10.0 - MISYS 15.0 % WBC 4.8 4.0 - MISYS 11.0 10e9/L RBC Count 4.49 4.4 - 5.9 MISYS 10e12/L Hemoglobin 14.4 13.3 - MISYS 17.7 g/dL Hematocrit 41.1 40.0 - MISYS 53.0 % % Neutrophils 75 40 - 75 % MISYS % Lymphocytes 16 (L) 20 - 48 % MISYS % Monocytes 9 0 - 12 % MISYS % Eosinophils 0 0 - 6 % MISYS % Basophils 0 0 - 2 % [facility] Platelet Count 234 150 - 450 [facility] 10e9/L Absolute 3.6 1.6 - 8.3 [facility] Neutrophil 10e9/L Absolute 0.8 0.8 - 5.3 [facility] Lymphocytes 10e9/L Absolute 0.4 0.0 - 1.3 [facility] Monocytes 10e9/L Absolute 0.0 0.0 - 0.7 [facility] Eosinophils 10e9/L Absolute 0.0 0.0 - 0.2 [facility] Basophils 10e9/L Diff Method Automated [facility] Method Specimen Anatomical Collection Method Collection Time Receive d Time (Source) Location / / Volume Laterality 08/15/2004 10:15 08/15/2004 9:59 PM TRAVELING ELECTRICIAN PM TRAVELING ELECTRICIAN Kevin Aguilar MD LAB - BLOOD ORDERABLES Performing Organization Address City/State/ZIP Code Phon e Number MIS[facility] (ABNORMAL) Influenza A/B antigen (08/15/2004 5:50 AM TRAVELING ELECTRICIAN) Patholo gist Method Time Signature Influenza A/B Normal mackenzie [facility] Agn Specimen Influenza A Negative NEG [facility] Influenza B Positive (A) NEG [facility] Specimen Anatomical Collection Method Collection Time Receive d Time (Source) Location / / Volume Laterality 08/15/2004 5:50 AM 5 5:59 TRAVELING ELECTRICIAN AM TRAVELING ELECTRICIAN Transcripton Interface LAB - MICRO GENERAL ORDERABL ES Performing Organization Address City/State/ZIP Code Phon e Number [place] Basic metabolic panel (08/15/2004 5:45 AM TRAVELING ELECTRICIAN) P athologist Signature Sodium 141 133 - 144 [place] mmol/L Potassium 3.8 3.4 - 5.3 [place] mmol/L Chloride 102 94 - 109 [place] mmol/L Carbon Dioxide 27 20 - 32 [place] mmol/L Glucose 92 60 - 110 [place] mg/dL Urea Nitrogen 10 5 - 24 [place] mg/dL Creatinine 1.20 0.80 - [facility] 1.50 mg/dL GFR Estimate 74 >60 [place] mL/min/1.7 m2 GFR Estimate If >80 >60 [facility] Black mL/min/1.7 m2 Calcium 9.1 8.5 - 10.4 [facility] mg/dL Anion Gap 11 6 - 17 [place] mmol/L Specimen Anatomical Collection Method Collection Time Receive d Time (Source) Location / / Volume Laterality 08/15/2004 5:45 AM 5 5:29 TRAVELING ELECTRICIAN AM TRAVELING ELECTRICIAN Jermaine Hinson MD LAB - BLOOD ORDERABLES Performing Organization Address City/[facility] Phon e Number MISYS Rapid strep screen (08/15/2004 2:55 AM TRAVELING ELECTRICIAN) Component Value Ref Test Analysis Performed At Patholo gist Range Method Time Signature Specimen Throat [facility]IS[facility] Description Micro Report FINAL [id number] [facility] Status Rapid Strep A NEGATIVE: No [facility] Screen Group A streptococcal antigen detected by immunoassay, await Comment: culture report. Specimen Anatomical Collection Method Collection Time Receive d Time (Source) Location / / Volume Laterality 08/15/2004 2:55 AM 5 3:24 TRAVELING ELECTRICIAN AM TRAVELING ELECTRICIAN Renard Whitlock MD LAB - MICRO GENERAL ORDERABL ES Performing Organization Address [facility] Phon e Number MISYS Beta strep group A culture (08/15/2004 2:55 AM TRAVELING ELECTRICIAN) Component Value Ref Test Analysis Performed At Patholo gist Range Method Time Signature Specimen Throat MISYS Description Culture Micro No beta MISYS hemolytic Streptococcus Group A isolated Micro Report FINAL [id number] MIS[facility] Status Specimen Anatomical Collection Method Collection Time Receive d Time (Source) Location / / Volume Laterality 08/15/2004 2:55 AM 5 3:57 TRAVELING ELECTRICIAN AM TRAVELING ELECTRICIAN Transcripton Lacey RAMACHANDRAN LAB - MICRO GENERAL ORDERABL ES Performing Organization Address City/[facility] Phon e Number MISYS documented in this encounter Visit Diagnoses Not on filedocumented in this encounter Care Teams Change Release Manager Relationship Specialty Start Date End Date Jose Alonzo MD PCP - General 01/08/03 12/30/14 [place] [address] documented as of this encounter
--- OUTSIDE RECORDS SUMMARY | 2022-05-10 10:22 | XMS_ITS | Encounter Summary ---
:1970 Author Organization [place] Address [facility] [place] [address] Care Team Providers Name Role Phone Jose Alonzo MD Primary Care Provider Unavailable Encounter Details Date Type Department Care Team Description 08/22/[address] [facility] Igor Rubin MD (Manager Internship) [facility] [address] [facility] [address] [facility] [address] [place] [address] [phone] Social History Tobacco Use Types Packs/Day Years Used Date Smoking Tobacco: Every Day Cigarettes 2 Alcohol Use Standard Drinks/Week Comments No 0 (1 standard drink = 0.6 oz pure alcoho l) Sex Assigned at Date Recorded Not on file documented as of this encounter Progress Igor Molina - 08/22/2004 11:59 PM BOTTLE ASSEMBLER : 68 DISCHARGE DIAGNOSIS: Acute influenzae B. HOSPITAL COURSE: Jorge Schaefer was admitted to the [facility] and continued on I.V. fluids, narcotics for headache, and continued on Tamiflu. He also had some nausea, was given Zofran for nausea as well and he continued to have headaches for about 24 hours after admission with gradual resolution with Excedrin. He currently is feeling much better and will be discharged home in stable condition. He will complete another two and a half days of Tamiflu 75 mg b.i.d., Excedrin p.o. p.r.n. Patient has seen Dr. Alonzo in the past rather than Dr. Zurita, and so will be following up with him as needed in the future. Discharged in stable condition. [id number]_ MD Gregorio RED: 08/18/2004 09:34 MT: Document: [id number] [place], [place] Name: MR#: JORGE SCHAEFER -17 Please refer to the Nursing Discharge Information Sheet for more detailed information regarding diet, physical actvity limitations, medications and other pertinent instructions given to this patient upon discharge. DISCHARGE SUMMARY Page 2 of 1 LCN: MS3 DSC: 08/18/2004 [place], [place] Name: MR#: JORGE SCHAEFER -17 : Admit Date: Discharge Date: Account #: 1970 08/16/2004 08/18/2004 [id number] Doctor: IGOR RUBIN MD Please refer to the Nursing Discharge Information Sheet for more detailed information regarding diet, physical activity limitations, medications and other pertinent instructions given to this patient upon discharge. DISCHARGE SUMMARY Page 1 of 1 LE ASSEMBLER documented in this encounter Plan of Treatment Not on filedocumented as of this encounter Visit Diagnoses Not on filedocumented in this encounter Care Teams Silk Spreader Relationship Specialty Start Date End Date Jose Alonzo MD PCP - General 01/08/03 12/30/14 [place] [address] documented as of this encounter
--- OUTSIDE RECORDS SUMMARY | 2022-05-10 10:22 | XMS_ITS | Encounter Summary ---
:1970 Author Organization [place] Address [address] [place] [address]. [place] [address] Care Team Providers Name Role Phone Jose Alonzo MD Primary Care Provider Unavailable Encounter Details Date Type Department Care Team Description 08/15/2004 Emergency room Jermaine Sanchez Ma, MD EMERGENCY PHYSIC [facility] [address] [facility] [address] [place] [address] (Wo rk) Social History Tobacco Use Types Packs/Day Years Used Date Smoking Tobacco: Every Day Cigarettes 2 Alcohol Use Standard Drinks/Week Comments No 0 (1 standard drink = 0.6 oz pure alcoho l) Sex Assigned at Date Recorded Not on file documented as of this encounter Progress Notes Jermaine Sanchez - 08/15/2004 11:59 PM ROUTE DELIVERY CLERK : 68 CHIEF COMPLAINT: Fever and sore throat. HISTORY OF PRESENT ILLNESS: This is a 33-year-old male who has had a sore throat that began about two to three days ago. Associated with occasional vomiting, fever, cough, just achy all over. Family supposedly has the flu though it was not really proven as influenza. PAST MEDICAL HISTORY: He is otherwise healthy. MEDICATIONS: Some Excedrin. ALLERGIES: None. REVIEW OF SYMPTOMS: All systems negative except for that stated above. 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 He lives in [place] and is . PHYSICAL EXAMINATION: Temperature 99.9. Pulse 89. Respirations 20. Blood pressure 151/85. O2 saturation 95 percent. The patient is alert, cooperative, in no respiratory distress. EYES: PUPILS equal, round and reactive to light. CONJUNCTIVA is clear. LIDS not swollen. OROPHARYNX: Moist mucous membranes without erythema or lesion. NECK: Supple. No adenopathy. TRACHEA midline. No stridor. BACK: Nontender. CHEST: Symmetric. CHEST rises with inspiration. No sign of labored breathing. LUNGS: Clear to ausculation. No rub, rale, rhonchi or wheeze. Cardiovascular: Regular rate and rhythm without murmur. ABDOMEN: Soft, nondistended, nontender. Extremities: Just kind of muscle aches, no arthritis. SKIN is otherwise well perfused, no rash. He just looked kind of like he did not feel comfortable. EMERGENCY DEPARTMENT COURSE: I started an IV, gave him a couple of liters of fluid of normal saline. I gave him Toradol 30 milligrams IV, Zofran 4 milligrams IV. We already had a rapid stress test cooking from the triage nurse. I did influenza testing as well. The rapid strep test was negative. His chemistry panel was normal with a creatinine of 1.2 but he was positive for influenza B. So at that point I had a patient who had influenza B, kind of just real body aches and pains and some vomiting. I hydrated him. He is showing more improved so I set him up for discharge. CLINICAL IMPRESSION: Influenza B with body aches and vomiting. CLINICAL PLAN: He is to push fluids. I gave him Percocet one to two tablets every four to six hours as needed for pain, I dispensed 15. He is also to use ibuprofen 600 milligrams every eight hours. He is to return if he has worsening symptoms or shortness of breath. He is otherwise follow up with his primary physician if not improved within four days. [id number]_ JERMAINE SANCHEZ MD MT: Document: [id number] [place], [place] Name: MR#: JORGE SCHAEFER [id number] EMERGENCY ROOM ENCOUNTER Page 2 of 2 LCN: MS3 DSC: 08/18/2004 [place], [place] Name: MR#: JORGE SCHAEFER -17 : Admit Date: Account #: 1970 08/16/2004 [id number] Doctor: JERMAINE SANCHEZ MD EMERGENCY ROOM ENCOUNTER Page 1 of 2 E DELIVERY CLERK documented in this encounter Plan of Treatment Not on filedocumented as of this encounter Visit Diagnoses Not on filedocumented in this encounter Care Teams Weatherization Operations Manager Relationship Specialty Start Date End Date Jose Alonzo MD PCP - General 01/08/03 12/30/14 [place] [address] documented as of this encounter
--- OUTSIDE RECORDS SUMMARY | 2022-05-10 10:22 | XMS_ITS | Encounter Summary ---
:1970 Author Organization [place] Address [facility] [place] [address] Care Team Providers Name Role Phone Jose Alonzo MD Primary Care Provider Unavailable Doctor, Cally RAMACHANDRAN Primary Care Provider Unavailable No Ref-Primary, Physician Primary Care Provider [phone] Polina Lynch NP Unavailable Polina Lynch NP Primary Care Provider [phone] Encounter Details Date Type Department Care Team Description 01/18/2002 [facility] Nora Solis MD [place] [address] [facility] [address] [place] [address] [address] [place] [address] [phone] Social History Tobacco Use Types Packs/Day Years Used Date Smoking Tobacco: Former Cigarettes 2 Quit : 12/07/2001 Smokeless Tobacco: Never Alcohol Use Standard Drinks/Week Comments No 0 (1 standard drink = 0.6 oz pure alcoho l) quit in October 2020 Sex Assigned at Date Recorded Not on file documented as of this encounter Progress Notes 01/18/2002 11:59 PM CDT Addended by: NORA SOLIS on: 05/23/2002,1:09 PM Modules accepted: Progress Notes Addended by: CRISTOPHER MAY on: 04/23/2002,3:13 PM Comment: copied wrong visit, had to erase and recopy correc t visit Modules accepted: Progress Notes 00:00 Admission Note DWAYNE ESTEVES) [Entered: 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 Medica. IDENTIFICATION: The patient is a 31-year-old white male. CHIEF COMPLAINT AND PRESENT MEDICAL HISTO RY: Recently hospitalized; I refer you to the admission and discharge reports of that hospitalization from 12/08/01 through 12/13/01. On this occasion, the patient was brought forward by his mother and also a brother. He is apparently from his for four months. It would appear that his is now re-involved with an ex- of a previous relationship, and resides at her mother's house with four children. It would appear that the patient's has been playing head games, as per the patient's understanding. Increasingly, the patient has been beset with depression. It woul d appear that the patient has had difficulty in processing these items. He has not been successful i n securing outpatient therapy, evaluation, and/or treatment. Instead, he presents on an emergency ba sis in the following format. From 12/08/01 through 12/13/01, the patient was hospitalized inpatient at [facility]. On 10/13/01, he had overdosed, at which time he was hospitalized at [facility]. On 10/16/01, he had 4 to 5 days with some psychiatric testing. On 11/20/01, he eloped from the Emergency Department, when he had come in for chest pain. On 12/07/01, he came i n with anxiety to [facility]; and questionably again on 12/08/01. Medications: 1. Trazodone 50 q.h.s. 2. Celexa 20 q.a.m. 3. Xanax 1 mg q.4h. p.r.n. One is unclear as to the information and da ta; but, it would appear that the family had found him hitting his head on a cement sidewalk several times, with him crying. It would appear that the patient has been from his for a 4- to 5-month period. They have been for 4 years and have 4 children, ages 1, 3, 5, and 8. He has also helped to raise his 's first child (age 11) from a different marriage. It would appear that he is trying to reconcile with his , but an ex- is causing problems. It would appe ar that he went to his iueyqy-cl-jty's house to get a hug and was rejected. He basically, thereaft er, fell apart, and has so for the last 3 to 4 days. He has seen a psychiatrist , but is unable to provide information and data. It would appear that he has not been back for 2-1/2 weeks . He had run out of his recent medications including the trazodone. He maintained that he slept at [employer] in [place] on the night prior to admission. He denies alcohol or drug use, although th ere is a positive screening for amphetamines. CHEMICAL USE AND ABUSE: Two packs of cigarettes per day. A joint weekly is identified. He denies any other drugs including amphetamines. REVIEW OF S TEMS: Neurologic: He shakes from anxiety. Unable to fall asleep. The remainder is negative. FOR MAL MENTAL STATUS EXAMINATION: The patient is somnolent and lethargic. He is unkempt with a body od or. He stares at the floor. He is not prepared to sit up for a reasonable interview. Instead, he is insistent that he is too tired. Concentration and cognition: He reiterates the circumstances of ad mission. No psychotic symptoms of hallucinations or delusions. Motor behavior was initially shown wi th him ringing his hands, with psychomotor restlessness, but now he is somnolent and lethargic. DIAG NOSES: Unchanged, including the following: [place] I: 1.Depression-major, recurrent. 2. Dysthymia. 3. Chemical dependency, to be established. [place] II: Deferred. [place] III: Anorexia and a recent los s of weight. [place] IV: Stressors: Mild to moderate. [place] V: Global assessment of functioning (GA F): 50 to 60. WEAKNESS: Noncompliance and nonadherence, with minimal insight. STRENGTH: Support of the family. TREATMENT PLAN: Restart his medication including trazodone, 50 q.h.s.; Celexa, 20, 2 q.a.m.; and Xanax, 1 mg q.4h. p.r.n. We will additionally ask for Dr. Nicholson and Associate s. We will ask Technology Adoption Manager to assist the family in formalizing disposition and plan. VELA MD Dictated by: DWAYNE ESTEVES MD MT : clk Document: [id number] LCN: [id number] DSC: [facility] Name: MR#: : Admit Date: JORGE SCHAEFER -17 1970 01/18/2002 ADMISSI ON NOTE Page 4 of 4 Electronically filed by Cristophre Lugo 04/23/2002 3:12 PM documented in this encounter Plan of Treatment Not on filedocumented as of this encounter Visit Diagnoses Not on filedocumented in this encounter Additional Health Concerns Infection Onset Date Last Indicated Resolved Time Rule Out COVID-19 02/06/2022 02/06/2022 02/06/2022 12: 37 PM CDT documented as of this encounter Care Teams Ocean Export Agent Relationship Specialty Start Date End Date Jose Alonzo MD PCP - General 01/08/03 12/30/14 [place] [address] Doctor, None, PCP - General 07/26/01 01/07/03 No Ref-Primary, PCP - General 12/31/14 03/09/21 Physician oPlina Lynch NP PCP - General Nurse Practitioner - Adult 03/10/21 [address] [place], [place] [address] Polina Lynch NP Assigned PCP 12/16/20 [address] [place], [place] [id number] documented as of this encounter
--- OUTSIDE RECORDS SUMMARY | 2022-05-10 10:22 | XMS_ITS | Encounter Summary ---
:1970 Author Organization [place] Address [address] [facility] [place] [address] Care Team Providers Name Role Phone Doctor, None MD Primary Care Provider Unavailable Reason for Referral - Closed Specialty Diagnoses / Procedures Referred By Contact Refer red To Contact Diagnoses Abdominal pain, unspecified site Hemorrhage of rectum and anus [place] [address] Referral ID Status Reason Start Date Expiration Date Visits Requ ested Visits Authorized [id number] Closed 01/06/2003 06/10/2011 1 1 Reason for Visit Reason Comments RECHECK Pt has abdominal pain and re ctal bleeding-not related to kidney stones Encounter Details Date Type Department Care Team Description 01/06/2003 Office Visit [facility] Jose Alonzo M D ABDOMINAL PAIN UNSPEC SITE; [facility] [place] 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 [address] [place] [address] [place] [address] [place] [address] Social History Tobacco Use Types Packs/Day Years Used Date Smoking Tobacco: Every Day Cigarettes 2 Alcohol Use Standard Drinks/Week Comments No 0 (1 standard drink = 0.6 oz pure alcoho l) Sex Assigned at Date Recorded Not on file documented as of this encounter Last Filed Vital Signs Vital Sign Reading Time Taken Comments Blood Pressure 126/80 01/06/2003 11:00 AM CDT Pulse 84 01/06/2003 11:00 AM CDT Temperature - - Respiratory Rate - - Oxygen Saturation - - Inhaled Oxygen Concentration - - Weight 59 kg (130 lb) 01/06/2003 11:00 AM CDT Height 175.3 cm (5' 9) 01/06/2003 11:00 AM CDT Body Mass Index 19.2 01/06/2003 11:00 AM CDT documented in this encounter Progress Notes 01/06/2003 11:00 AM CDT S: Abd pain and blood in stool for 4-5 mos. Notes blood on toilet paper every time he wipes; sometimes has blood even w/out BM, such as blood staining the underwear when it comes in contact w/anus. Anus hurts. Pain in abd involves entire abd. Hurts every day. Worse with eating. Sometimes nauseat edbut no vomiting. O: Abdomen-nontender without organomegaly or mass. Rectal-I did not do digita l exam, but there is tenderness along the post mildline; may have a fissure there (hard to tell for s ure). A: Abd pain and rectal bleeding may be irritable bowel syndrome and outlet bleeding, but need to consider other processes, too. P: GI consult to consider upper and lower endoscopic studies; defer decision about small bowel follow-thru to GI. Sitz baths; Metamucil. documented in this encounter Plan of Treatment Not on filedocumented as of this encounter Visit Diagnoses Diagnosis Abdominal pain, unspecified site Hemorrhage of rectum and anus documented in this encounter Care Teams Shower Enclosure Installer Relationship Specialty Start Date End Date Doctor, Cally, PCP - General 07/26/01 01/07/03 documented as of this encounter
--- OUTSIDE RECORDS SUMMARY | 2022-05-10 10:22 | XMS_ITS | Encounter Summary ---
:1970 Author Organization [place] Address [address] [place] [address]. [place] [address] Care Team Providers Name Role Phone Jose Alonzo MD Primary Care Provider Unavailable Doctor, Cally RAMACHANDRAN Primary Care Provider Unavailable No Ref-Primary, Physician Primary Care Provider [phone] Polina Lynch NP Unavailable Polina Lynch NP Primary Care Provider [phone] Encounter Details Date Type Department Care Team Description 01/18/2002 [facility] Peggy Solis MD [place] [address] [facility] [address] [place] [address] [address] [place] [address] [phone] Social History Tobacco Use Types Packs/Day Years Used Date Smoking Tobacco: Former Cigarettes 2 Quit : 12/07/2001 Smokeless Tobacco: Never Alcohol Use Standard Drinks/Week Comments No 0 (1 standard drink = 0.6 oz pure alcoho l) quit in October 2020 Sex Assigned at Date Recorded Not on file documented as of this encounter Progress Notes 02/04/2002 11:59 PM CDT Addended by: PEGGY SOLIS on: 02/05/2002,2:22 PM Modules accepted: Progress Notes Addended by: ELIS HAMILTON on: 02/04/2002,11:05 AM Modules accepted: Progress Notes 00:00 Admission Note DWAYNE ESTEVES () [Entered: Checkerer Hand (HIM)] PATIENT'S ADDRESS: [address] [place] [address]; [place], [place] [address] ( ) AGE: 31 SEX: M SSN: [id number] INSURANCE: ? Medica. IDENTIFICATION: The patient is a 31-year-old white male. CHIEF COMPL AINT AND PRESENT MEDICAL HISTORY: Recently hospitalized; I refer you to the admission and discharge r eports of that hospitalization from 12/08/01 through 12/13/01. On this occasion, the patient was bro ught forward by his mother and also a brother. He is apparently from his for four mon ths. It would appear that his is now re-involved with an ex- of a previous [facility], and resides at her mother's house with four children. It would appear that the patient's has been playing head games, as per the patient's understanding. Increasingly, the patient has been b eset with depression. It would appear that the patient has had difficulty in processing these items. He has not been successful in securing outpatient therapy, evaluation, and/or treatment. Instead, he presents on an emergency basis in the following format. From 12/08/01 through 12/13/01, the patie nt was hospitalized inpatient at [facility]. On 10/13/01, he had overdosed, at which basilio e he was hospitalized at [facility]. On 10/16/01, he had 4 to 5 days with some psyc hiatric testing. On 11/20/01, he eloped from the Emergency Department, when he had come in for chest pain. On 12/07/01, he came in with anxiety to [facility]; and questionably again on 2. Medications: 1. Trazodone 50 q.h.s. 2. Celexa 20 q.a.m. 3. Xanax 1 mg q.4h. p.r.n. One is unclea r as to the information and data; but, it would appear that the family had found him hitting his hea d on a cement sidewalk several times, with him crying. It would appear that the patient has been sep arated from his for a 4- to 5-month period. They have been for 4 years and have 4 child christine, ages 1, 3, 5, and 8. He has also helped to raise his 's first child (age 11) from a differe nt marriage. It would appear that he is trying to reconcile with his , but an ex- is cau sing problems. It would appear that he went to his peywkv-cn-pti's house to get a hug and was rej ected. He basically, thereafter, fell apart, and has so for the last 3 to 4 days. He has seen a p sychiatrist , but is unable to provide information and data. It would appear that he has not been back for 2-1/2 weeks. He had run out of his recent medications including the trazodone. Tasha ott maintained that he slept at [employer] in [place] on the night prior to admission. He denies al cohol or drug use, although there is a positive screening for amphetamines. CHEMICAL USE AND ABUSE: Two packs of cigarettes per day. A joint weekly is identified. He denies any other drugs includin g amphetamines. REVIEW OF SYSTEMS: Neurologic: He shakes from anxiety. Unable to fall asleep. T he remainder is negative. FORMAL MENTAL STATUS EXAMINATION: The patient is somnolent and lethargic. He is unkempt with a body odor. He stares at the floor. He is not prepared to sit up for a reason able interview. Instead, he is insistent that he is too tired. Concentration and cognition: He reit erates the circumstances of admission. No psychotic symptoms of hallucinations or delusions. Motor b jayla was initially shown with him ringing his hands, with psychomotor restlessness, but now he is somnolent and lethargic. DIAGNOSES: Unchanged, including the following: [place] I: 1.Depression-m ajor, recurrent. 2. Dysthymia. 3. Chemical dependency, to be established. [place] II: Deferred. [place] I II: Anorexia and a recent loss of weight. [place] IV: Stressors: Mild to moderate. [place] V: Global assessment of functioning (GAF): 50 to 60. WEAKNESS: Noncompliance and nonadherence, with minimal insight. STRENGTH: Support of the family. TREATMENT PLAN: Restart his medication including traz odone, 50 q.h.s.; Celexa, 20, 2 q.a.m.; and Xanax, 1 mg q.4h. p.r.n. We will additionally ask for Dr. Nicholson and Associates. We will ask Carrot Harvester to assist the family in formalizing dis position and plan. DWAYNE ESTEVES MD Dictated by: DWAYNE ESTEVES MD MT: patricia Document: [id number] LCN: [id number] DSC: [place], [place] Name: MR#: : Admit Date: JORGE SCHAEFER [id number] 01/18/2002 ADMISSION NOTE Page 4 of 4 Electronically filed by Elis Keith 02/04/2002 11:05 AM documented in this encounter Plan of Treatment Not on filedocumented as of this encounter Visit Diagnoses Not on filedocumented in this encounter Additional Health Concerns Infection Onset Date Last Indicated Resolved Time Rule Out COVID-19 02/06/2022 02/06/2022 02/06/2022 12: 37 PM CDT documented as of this encounter Care Teams Dynamite Packing Machine Operator Relationship Specialty Start Date End Date Jose Alonzo MD PCP - General 01/08/03 12/30/14 [place] [address] Doctor, MD Cally PCP - General 07/26/01 01/07/03 No Ref-Primary, PCP - General 12/31/14 03/09/21 Physician Polina Lynch NP PCP - General Nurse Practitioner - Adult 03/10/21 [address] [place], [place] [id number] Polina Lynch NP Assigned PCP 12/16/20 [address] [place], [place] [id number] documented as of this encounter
--- OUTSIDE RECORDS SUMMARY | 2022-05-10 10:22 | XMS_ITS | Encounter Summary ---
:1970 Author Organization [place] Address [facility] [address] Care Team Providers Name Role Phone Jose Alonzo MD Primary Care Provider Unavailable Encounter Details Date Type Department Care Team Description 08/15/2004 Emergency room Kevin Aguilar [place] [address] Social History Tobacco Use Types Packs/Day Years Used Date Smoking Tobacco: Every Day Cigarettes 2 Alcohol Use Standard Drinks/Week Comments No 0 (1 standard drink = 0.6 oz pure alcoho l) Sex Assigned at Date Recorded Not on file documented as of this encounter Progress Notes Interface, Stave Log Ripsaw Operator - 08/15/2004 11:59 PM POLICE COMMUNICATIONS OPERATOR : 68 CHIEF COMPLAINT: Vomiting. HISTORY OF PRESENT ILLNESS: This 33-year-old male was seen in this emergency department earlier today with a 48-hour history of severe frontal headache, sore throat, ear pain and cough, and was diagnosed with influenza B infection. He was discharged on Tamiflu and Percocet to treat his headache symptoms. Since leaving the hospital, he has had more frequent nausea, vomiting, and inability to keep liquids or solids down. He has also developed pleuritic pain in the left chest and upper abdominal cramping, not linked to self-administration of Percocet which he has taken in the past without gastrointestinal side effects. He has no prior history of asthma. He has had fever, profound malaise and diffuse migratory polymyalgias in addition to his frontal headache. There has been no nasal discharge, facial pressure and/or painful mastication. He has had no prior abdominal surgery. PAST MEDICAL HISTORY: Remarkable for spinal meningitis at age 11 with hospitalization and serious illness. MEDICATIONS: He takes no medications chronically and has no allergies to medications. 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 FAMILY HISTORY: Noncontributory. REVIEW OF SYSTEMS: Please see present illness and completed systems review is negative. PHYSICAL EXAMINATION: Temperature 98.4, pulse 80, respirations 16, blood pressure 137/86. General appearance is that of a healthy cooperative male of stated age who exhibits profound malaise. HEENT: Lids and conjunctivae are clear. Funduscopic exam identifies clear and distinct disc margins. EARS: Reveals retracted tympanic membranes. Posterior PHARYNGEAL wall hyperplastic changes present as well. NECK: TRACHEA is midline. RESPIRATORY: LUNGS are clear without pleural rub, rales or signs of consolidation. CARDIOVASCULAR: HEART without murmur, rub or extra sound. Peripheral pulses are symmetrical, full and without bruits. ABDOMEN: Nondistended, bowel sounds are active, there is no focal tenderness, guarding or rebound and no palpable mass. External GENITALIA documents descended testes, normal appearing scrotum. SKIN: Reveals no exanthem or petechiae. Musculoskeletal: NECK is supple without nuchal rigidity. Neurologic, cranial nerve, motor, sensory and cerebellar testing is physiologic. LABORATORY AND DIAGNOSTIC IMAGING: White blood count is 4800 with a normal differential. Hemoglobin is 14.4 grams percent. A chest x-ray is negative. Laboratory tests from earlier today identify influenza B antigen positivity, a normal basic metabolic battery and a negative strep screen. EMERGENCY DEPARTMENT TREATMENT AND MEDICAL DECISION MAKING: IV hydration with normal saline was initiated. Zofran 4 mg, Toradol 30 mg, and morphine sulfate titration was undertaken with the patient experiencing attenuation of his headache and nausea. Clinical findings were reviewed with Dr. Kevin Alonzo, with the patient to be admitted to the hospital for IV hydration and symptom management. DIAGNOSTIC IMPRESSION: 1. Influenza B infection. 2. Abdominal pain and vomiting, probably secondary to number one. [id number] _ KEVIN AGUILAR MD 231:1 MT: Document: [id number] [place], [place] Name: MR#: JORGE SCHAEFER -17 EMERGENCY ROOM ENCOUNTER Page 2 of 2 LCN: MS3 DSC: [place], [place] Name: MR#: JORGE SCHAEFER -17 : Admit Date: Account #: 1970 08/16/2004 [id number] Doctor: KEVIN AGUILAR MD EMERGENCY ROOM ENCOUNTER Page 1 of 2 CE COMMUNICATIONS OPERATOR documented in this encounter Plan of Treatment Not on filedocumented as of this encounter Visit Diagnoses Not on filedocumented in this encounter Care Teams Crystal Mounter Relationship Specialty Start Date End Date Jose Alonzo MD PCP - General 01/08/03 12/30/14 [place] [address] documented as of this encounter
--- OUTSIDE RECORDS SUMMARY | 2022-05-10 10:22 | XMS_ITS | Encounter Summary ---
:1970 Author Organization [place] Address [facility] [place] [address] Care Team Providers Name Role Phone Jose Alonzo MD Primary Care Provider Unavailable Reason for Visit Reason Onset Date Comments X-ray Results 12/14/2005 Lumbar spine x-rays Encounter Details Date Type Department Care Team Description 12/14/[address] [facility] Jose Alonzo M D X-ray Results ([facility] [place] RETIRED spine x-rays) [address] [place] [address] [place] [address] [place] [address] Social History Tobacco Use Types Packs/Day Years Used Date Smoking Tobacco: Former Cigarettes 2 Quit : 12/07/2001 Alcohol Use Standard Drinks/Week Comments No 0 (1 standard drink = 0.6 oz pure alcoho l) Sex Assigned at Date Recorded Not on file documented as of this encounter Miscellaneous Notes Telephone Encounter - Jerrica Montemayor - 12/14/2005 5:27 PM CDT Pt informed. Please see tele encounter also dated 12/14/05. Telephone Encounter - Kellen Park - 12/14/2005 1:02 PM CDT Left message for pt to call clinic. Telephone Encounter - Jose Alonzo - 12/14/2005 12:26 PM CDT Report appeared in my in basket yest, and I was going to send him a note today. So instead, tell himx-ray shows mild wear and tear arthritis. These changes may not contribute to the pain all that much. The P-T that was ordered and the naproxen that was prescribed might help. Telephone Encounter - Flavia Medina - 12/14/2005 9:32 AM CDT Pt. Calling for lumbar spine x-rays.(12/08/05) Please advise. Thanks. documented in this encounter Plan of Treatment Not on filedocumented as of this encounter Visit Diagnoses Not on filedocumented in this encounter Care Teams Barrel Cooper Relationship Specialty Start Date End Date Jose Alonzo MD PCP - General 01/08/03 12/30/14 [place] [address] documented as of this encounter
--- OUTSIDE RECORDS SUMMARY | 2022-05-10 10:22 | XMS_ITS | Encounter Summary ---
:1970 Author Organization [place] Address [facility] [address] Care Team Providers Name Role Phone Jose Alonzo MD Primary Care Provider Unavailable Reason for Visit Reason Onset Date Comments Back Pain 12/14/2005 Encounter Details Date Type Department Care Team Description 12/14/2005 Telephone [facility] Adriano Alonzo MD Back Pain [place] RETIRED [address] [place] [address] [place] [address] [place] [address] Social History Tobacco Use Types Packs/Day Years Used Date Smoking Tobacco: Former Cigarettes 2 Quit : 12/07/2001 Alcohol Use Standard Drinks/Week Comments No 0 (1 standard drink = 0.6 oz pure alcoho l) Sex Assigned at Date Recorded Not on file documented as of this encounter Miscellaneous Notes Telephone Encounter - Kellen Park - 12/15/2005 1:58 PM CDT Left message for pt that rx faxed and to please call the clinic. Please inquire if he's contacted PTyet. Thanks. Telephone Encounter - Jose Alonzo - 12/14/2005 5:58 PM CDT Faxed. Make sure he starts the P-T that was ordered. Rx for Vicodin was faxed, but he can't take this freq on a chronic basis; I note he's had back pain for 5- 6 yrs, and we will not allow him to get freq refills of this for years on end. So go to P-T and use the Vicodin sparingly. Telephone Encounter - Jerrica Montemayor - 12/14/2005 4:49 PM CDT Pt returning call; he said his is in major pain in lower back. Naproxen has helped arm pain but not back pain at all. Requesting med for pain (has used Vicodin for pain in the past for dental problem). He asked me to hugh this urgent Telephone Encounter - Cedric Owens - 12/14/2005 3:40 PM CDT Pt calling to report that he was prescribed med for arm and back pain. He states that his back pain is extreme and Naproxen is not helping. Would like Dr Alonzo to prescribe something else. Please advise. Thank you. documented in this encounter Plan of Treatment Not on filedocumented as of this encounter Visit Diagnoses Not on filedocumented in this encounter Care Teams Library Attendant Relationship Specialty Start Date End Date Jose Alonzo MD PCP - General 01/08/03 12/30/14 [place] [address] documented as of this encounter
--- OUTSIDE RECORDS SUMMARY | 2022-05-10 10:22 | XMS_ITS | Encounter Summary ---
:1970 Author Organization [place] Address [address] [place] [address]. [place] [address] Care Team Providers Name Role Phone Jose Alonzo MD Primary Care Provider Unavailable Encounter Details Date Type Department Care Team Description 08/09/2003 Emergency room IleneSourav begum EMERGENCY PHYSIC JOSE [facility] [address] [facility] [address] [place] [address] (Wo rk) Social History Tobacco Use Types Packs/Day Years Used Date Smoking Tobacco: Every Day Cigarettes 2 Alcohol Use Standard Drinks/Week Comments No 0 (1 standard drink = 0.6 oz pure alcoho l) Sex Assigned at Date Recorded Not on file documented as of this encounter ED Notes Sourav Moreno - 08/10/2003 12:00 AM 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 HISTORY OF THE PRESENT ILLNESS: This is a 32-year-old male who describes having a laceration to the left ankle today when he was actually doing some willian, about an hour and a half ago he states he hit it against a gutter when he was on the top of the roof. His last tetanus was about seven months ago. Denies any other complaints. All review of systems are otherwise negative. PAST MEDICAL HISTORY: Surgeries: None. Illness: None. SOCIAL HISTORY: No cigarette smoking. FAMILY HISTORY: Noncontributory. ALLERGIES: No known drug allergies. MEDICATIONS: None. PHYSICAL EXAMINATION: Temperature 98.8. Blood pressure 132/78. Pulse 74. Respirations 20. HEAD, EYES, EARS, NOSE and THROAT: Atraumatic, normocephalic. NECK is supple. Midline trachea. LUNGS: Normal breaths without wheezes. Cardiovascular: Regular rate and rhythm without rubs, gallops or murmur. The patient's ankle had a 1.5 centimeter laceration to the lateral malleolus, good range of motion. Neurologic and sensation are intact. Vasculature is intact as well as capillary refill. EMERGENCY DEPARTMENT COURSE: Left ankle laceration. The Emergency Room physician did suture it, see procedure note below. PROCEDURE NOTE: The patient's left lateral malleolus was actually anesthetized using sterile technique with 4 cc of Marcaine which was cleaned up by the video surveillance technician with normal saline. Afterwards the Emergency Room physician placed a total of four stitches using 4-0 Ethilon and P3 blade with good approximation. The patient was able to walk on it without any problems. ASSESSMENT: Left ankle laceration. PLAN: The patient will follow-up here or clinic in seven to ten days for suture removal and 24 to 48 hours for a wound check. Tylenol over-the- counter for pain. Return for signs of wound infection, i.e. yellow discharge, redness or worsening symptoms. [id number] SOURAV MORENO MD MT: Document: [id number] [place], [place] Name: JORGE SCHAEFER Gregorio EMERGENCY ROOM ENCOUNTER Page 2 of 2 LCN: KRISTOPHER DSC: 08/09/2003 [place], [place] Name: MR#: : Admit Date: JORGE SCHAEFER -17 1970 08/09/2003 Doctor: SOURAV MORENO MD EMERGENCY ROOM ENCOUNTER Page 1 of 2 documented in this encounter Plan of Treatment Not on filedocumented as of this encounter Visit Diagnoses Not on filedocumented in this encounter Care Teams Insulator Tester Relationship Specialty Start Date End Date Jose Alonzo MD PCP - General 01/08/03 12/30/14 [place] [address] documented as of this encounter
--- OUTSIDE RECORDS SUMMARY | 2022-05-10 10:22 | XMS_ITS | Encounter Summary ---
:1970 Author Organization [place] Address [address] [facility] [place] [address] Care Team Providers Name Role Phone Jose Alonzo MD Primary Care Provider Unavailable Reason for Referral - Closed Specialty Diagnoses / Procedures Referred By Contact Refer red To Contact Diagnoses Backache, unspecified [place] [address] Referral ID Status Reason Start Date Expiration Date Visits Requ ested Visits Authorized [id number] Closed 12/07/2005 06/10/2011 1 1 Reason for Visit Reason Comments Musculoskeletal Problem Hand and arm numbness and pa in from right hip to knee Encounter Details Date Type Department Care Team Description 12/07/2005 Office Visit [facility] Jose Alonzo M D SKIN SENSATION DISTURB (Primary Dx); Clinic [place] RETIREGreg[place] BACKACHE NOS [address] [place] [address] [place] [address] [place] [address] Social History Tobacco Use Types Packs/Day Years Used Date Smoking Tobacco: Former Cigarettes 2 Quit : 12/07/2001 Alcohol Use Standard Drinks/Week Comments No 0 (1 standard drink = 0.6 oz pure alcoho l) Sex Assigned at Date Recorded Not on file documented as of this encounter Last Filed Vital Signs Vital Sign Reading Time Taken Comments Blood Pressure 102/76 12/07/2005 4:30 PM CDT Pulse 66 12/07/2005 4:30 PM CDT Temperature - - Respiratory Rate - - Oxygen Saturation - - Inhaled Oxygen Concentration - - Weight 65.3 kg (144 lb) 12/07/2005 4:30 PM CDT Height 172.7 cm (5' 8) 12/07/2005 4:30 PM CDT Body Mass Index 21.9 12/07/2005 4:30 PM CDT documented in this encounter Progress Notes Jose Alonzo - 12/07/2005 5:01 PM CDT S: Awakens freq at night because of numb fingers and arms; either side. This happens 5 nights each week. Sx for 1-2 yrs. Low back pain; sometimes sharp pain down to rt knee. Lower back pain present for5-6 yrs. Worse with bending. No incont, abnl wt loss, fevers, or hx of cancer. O: Pos median nerve Tinel's sign bilat. Pos Phalen's sign bilat after 15 sec. Back-not tender. Normal ROM. Neg st elg raising and symmetric lower ext reflexes bilat. A: Numbness; poss carpal tunnel syndrome. Chronic low back pain. P: Bilat wrist splints. Naproxen 500 mg bid until numbness is better. Call in 3 wk if not better; order EMG then. Same med may also help the back pain. P-T and L-spine x-rays. documented in this encounter Nursing Notes 12/07/2005 4:30 PM CDT >> TRISHA BALL 12/07/2005 4:48 pm Jorge Schaefer presents for hand and arm numbness and pain from low back to R leg. Initial BP 102/76 Pulse 66 Ht 5' 8 (1.73m) Wt 144 lbs (65.3kg) Body mass index is 21.90 kg/(m^2).. BP completed using cuff size: large documented in this encounter Plan of Treatment Not on filedocumented as of this encounter Procedures Procedure Name Priority Date/Time Associated Diagnosis Comme [facility] X-RAY LUMBAR SPINE Routine 12/08/2005 Backache Nos Result s for this 2-3 VIEWS procedure are i n the results section . documented in this encounter Results X-RAY LUMBAR SPINE 2 VW (12/08/2005) Anatomical Region Laterality Modality Other Impressions 12/08/2005 JORGE SCHAEFER. ?? : 68 LUMBAR SPINE: ??12/07/05 FINDINGS: ??There are mild degenerative changes present in the lower lumbar spine. ??No acute pathology is identified. Paul Souza M.D./jackeline D/T: ??12/11/05 Electronically filed by Saritha Keith ??12/13/2005 ??8:08 AM Jose Alonzo MD GENERAL IMAGING documented in this encounter Visit Diagnoses Diagnosis Disturbance of skin sensation - Primary Backache, unspecified documented in this encounter Care Teams Stationary Boiler Fireman Relationship Specialty Start Date End Date Jose Alonzo MD PCP - General 01/08/03 12/30/14 [place] [address] documented as of this encounter
--- OUTSIDE RECORDS SUMMARY | 2022-05-10 10:22 | XMS_ITS | Encounter Summary ---
:1970 Author Organization [place] Address [facility] [place] [address] Care Team Providers Name Role Phone Cally Guardado MD Primary Care Provider Unavailable Encounter Details Date Type Department Care Team Description 03/07/2002 Orders Only [facility] Nora Solis ABSTR ACTING RESULTS Clinic Pamela RAMACHANDRAN (Primary Dx) [address] [place], [place] [address] [address] [place], [place] [phone] (Wo rk) [address] [phone] Social History Tobacco Use Types Packs/Day Years Used Date Smoking Tobacco: Never Assessed Sex Assigned at Date Recorded Not on file documented as of this encounter Plan of Treatment Not on filedocumented as of this encounter Procedures Procedure Name Priority Date/Time Associated Diagnosis Comme nts X-RAY CERV SPINE Routine 02/14/2002 ABSTRACTING RESULTS R esults for this 2-3 VIEWS procedure are i n the results section . documented in this encounter Results X-RAY CERV SPINE 2 OR 3 VIEW (02/14/2002) Anatomical Region Laterality Modality Other Impressions 02/14/2002 THREE VIEWS OF THE CERVICAL SPINE HISTORY: Injury. FINDINGS: Negative. Ordering Provider: ??JOVI WILL Principal Result Shake Backboard Notcher: ??COLETTE BARRERA Rare/Endangered Species Specialist: ??Uma SCHAEFER Nora Solis MD GENERAL IMAGING documented in this encounter Visit Diagnoses Diagnosis ABSTRACTING RESULTS - Primary documented in this encounter Care Teams Family Service Counselor Relationship Specialty Start Date End Date Cally Guardado MD PCP - General 07/26/01 01/07/03 documented as of this encounter
--- OUTSIDE RECORDS SUMMARY | 2022-05-10 10:22 | XMS_ITS | Encounter Summary ---
:1970 Author Organization [place] Address [facility] [place] [address] Care Team Providers Name Role Phone DoctorCally MD Primary Care Provider Unavailable Reason for Visit Reason Comments Appointment Encounter Details Date Type Department Care Team Description 03/26/2002 Telephone [facility] Nora Solis MD Appointment [place] [address] [facility] [address] [place] [address] [address] [place] [address] [phone] Social History Tobacco Use Types Packs/Day Years Used Date Smoking Tobacco: Never Assessed Sex Assigned at Date Recorded Not on file documented as of this encounter Miscellaneous Notes Telephone Encounter - 03/26/2002 11:59 PM CDT >> HILARIO GREGORY Wed Mar 26, 2002 2:51 PM >> CALL RECEIVED. Contact: Scheduled pt 03-31-[address] Solis in error. Need to reschedule as her schedule is full that PM.Called pt home #- Not in service. Left msg at work number listed. Sent letter to pt home addres s chidi. Pt in reschedule queue. Please resched w/ Will or acute opening with any MD. documented in this encounter Plan of Treatment Not on filedocumented as of this encounter Visit Diagnoses Not on filedocumented in this encounter Care Teams Capacitor Tester Relationship Specialty Start Date End Date Cally Guardado MD PCP - General 07/26/01 01/07/03 documented as of this encounter
--- OUTSIDE RECORDS SUMMARY | 2022-05-10 10:22 | XMS_ITS | Encounter Summary ---
:1970 Author Organization [place] Address [facility] hospital0 [facility] [place] [address] Care Team Providers Name Role Phone Jose Alonzo MD Primary Care Provider Unavailable Doctor, Cally RAMACHANDRAN Primary Care Provider Unavailable No Ref-Primary, Physician Primary Care Provider [phone] Polina Lynch NP Unavailable Polina Lynch NP Primary Care Provider [phone] Encounter Details Date Type Department Care Team Description 03/16/2002 [facility] Nora Solis MD [place] [address] [facility] [address] [place] [address] [address] [place] [address] [phone] Social History Tobacco Use Types Packs/Day Years Used Date Smoking Tobacco: Former Cigarettes 2 Quit : 12/07/2001 Smokeless Tobacco: Never Alcohol Use Standard Drinks/Week Comments No 0 (1 standard drink = 0.6 oz pure alcoho l) quit in October 2020 Sex Assigned at Date Recorded Not on file documented as of this encounter Progress Notes 03/16/2002 11:59 PM CDT Addended by: NORA SOLIS on: 05/23/2002,1:08 PM Modules accepted: Progress Notes Addended by: CRISTOPHER MAY on: 04/23/2002,2:59 PM Modules accepted: Progress Notes 00:00 Emergency Department Encounter-SADAF CHAO () [Entered: 00:00 Electrician Manager (HIM)] D OB: 68 CHIEF COMPLAINT: Neck pain. HISTORY OF PRESENT ILLNESS: The patient is a 31-year-ol d white male who states that he fell two or three weeks ago. He was seen here in the Emergency Depar tment and had x-rays of the neck which were reportedly negative. He was treated with medication and he improved, but now he is out of the medication and states that he is using increased pain in his ne ck, especially on the right side. He denies any trauma. He denies a headache. He denies any back p ain. He denies any numbness or weakness. He arrives by car. His drove him, but refused to com e in with him. She is telling him that she needed to go back home immediately because the children w ere awakened when they left and she needed to check on them. He states he became upset because he di dn't want to come in alone. There was a verbal argument in the parking lot overheard by hospital sta ff. The patient states that he is calm now and only upset because his didn't come in with him. He does not want to talk to anybody from Social Service regarding this. PAST MEDICAL HISTORY: Neck injury. Medications - none. Allergies - none. SOCIAL HISTORY: Positive tobacco use. 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 He is . REVIEW OF SYSTEMS: See history of present illness. All other sy stems are negative at this time. PHYSICAL EXAMINATION: Blood pressure 141/93, pulse 107, respirator y rate 20, temperature 96.8. GENERALLY, the patient is in no acute distress, ambulatory complaining of right sided neck pain only. Color is good. O2 saturations are 98% on room air. SKIN is warm and dry. No rashes are noted. HEENT reveals head is atraumatic, normocephalic. NECK reveals there is t enderness posterior cervical spinous process extending into the right paracervical musculature with p alpable swelling and spasm. Left side is negative. There is no tenderness under the trapezius. FELIPE ROLOGICAL examination is intact. PSYCHIATRIC examination reveals that the patient is oriented times three, calm, cooperative while here. No delusions or hallucinations are evident. EMERGENCY DEPARTME NT COURSE: The could not be found in the parking lot. I called the home phone number and there was no answer. DIAGNOSIS: Musculoskeletal neck pain. DISPOSITION: Home. Vioxx 25 mg PO q day, # 5. Norflex 100 mg PO bid, #10. Ice as needed. Follow-up with primary medical doctor in one week if not resolved. [id number]_ SADAF MISTRY MD MT: Document: [id number] [place], [place] Name: JORGE SCHAEFER EMERGENCY ROOM ENCOUNTER Page 2 of 2 LCN: ERA DSC: 03/16/2002 [facility] a Name: MR#: : Admit Date: JORGE SCHAEFER [id number] 1970 03/16/2002 Doctor: FRANDY MISTRY MD EMERGENCY ROOM ENCOUNTER Page 1 of 2 Electronically filed by Cristopher Lugo 002 2:59 PM documented in this encounter Plan of Treatment Not on filedocumented as of this encounter Visit Diagnoses Not on filedocumented in this encounter Additional Health Concerns Infection Onset Date Last Indicated Resolved Time Rule Out COVID-19 02/06/2022 02/06/2022 02/06/2022 12: 37 PM CDT documented as of this encounter Care Teams Licensed Sales Assistant Relationship Specialty Start Date End Date Jose Alonzo MD PCP - General 01/08/03 12/30/14 [place] [address] Doctor, MD Cally PCP - General 07/26/01 01/07/03 No Ref-Primary, PCP - General 12/31/14 03/09/21 Physician Polina Lynch NP PCP - General Nurse Practitioner - Adult 03/10/21 [address] [facility] [employer] [place], [place] [address] Polina Lynch NP Assigned PCP 12/16/20 [address] [place], [place] [id number] documented as of this encounter
--- OUTSIDE RECORDS SUMMARY | 2022-05-10 10:22 | XMS_ITS | Encounter Summary ---
:1970 Author Organization [place] Address Formerly [facility], [facility] [place] [address] Care Team Providers Name Role Phone Jose Alonzo MD Primary Care Provider Unavailable Doctor, Cally RAMACHANDRAN Primary Care Provider Unavailable No Ref-Primary, Physician Primary Care Provider [phone] Polina Lynch NP Unavailable Polina Lynch NP Primary Care Provider [phone] Encounter Details Date Type Department Care Team Description 02/17/2002 [facility] Peggy Solis MD [place] [address] [facility] [address] [place] [address] [address] [place] [address] [phone] Social History Tobacco Use Types Packs/Day Years Used Date Smoking Tobacco: Former Cigarettes 2 Quit : 12/07/2001 Smokeless Tobacco: Never Alcohol Use Standard Drinks/Week Comments No 0 (1 standard drink = 0.6 oz pure alcoho l) quit in October 2020 Sex Assigned at Date Recorded Not on file documented as of this encounter Progress Notes 02/24/2002 11:59 PM CDT Addended by: PEGGY SOLIS on: 03/06/2002,3:21 PM Modules accepted: Progress Notes Addended by: CRISTOPHER MAY on: 02/24/2002,3:12 PM Modules accepted: Progress Notes 00:00 Emergency Department Encounter-SONIDO PATRICK) [Entered: 00:00 Relocation Commissioner ([facility])] : 68 CHIEF COMPLAINT: Dizzy, headache. HISTORY OF PRESENT ILLNESS: This 32-year-old Barney kulkarni male presents to the emergency department with development of symptoms. He states he fell a we ek ago striking the right side of his head causing initially neck pain and injury to the scalp. Denise ent was seen to have no evidence of C-spine fractures by imaging studies and he was discharged on Ibu profen, Flexeril and Vicodin. The patient continues to have the symptoms. He is now episodically li ghtheaded particularly with movement and continues to have severe head pain. He denies any somnolenc e or persisting neck pain. He denies speech aberrations and has no motor disabilities. PAST MEDICAL HISTORY: Significant for depression. CURRENT MEDICATIONS: Excedrin. DRUG ALLERGIES: None. IMMU NIZATIONS: Not current. HABITS: Does use tobacco, denies alcohol or recreational drugs, abuse of o puk-rux-viyyihz medications. SOCIAL HISTORY: He is and employed. REVIEW OF SYSTEMS: Only as noted above. All other systems unremarkable. FAMILY HISTORY: Noncontributory. EXAM: A 31-yea r-old male appearing uncomfortable, appropriately responsive. Blood pressure 135/75, respi rations 18 and unlabored, heart rate 92 and regular, temperature 97.9, room air pulse oximetry 98%. HEENT - head is remarkable for soft tissue swelling over the right occiput, negative Anderson's sign, n egative maxillary raccooning. NECK - nontender, supple and appropriate for age with full range of mo tion, trachea midline, no stridor, drooling, pooling, dysphonia, cervical vascular masses or bruits. Pupils equal, round and reactive, extraocular muscles intact. FUNDUSCOPIC - benign. Nares are james nt. OROPHARYNX - unremarkable, intact gag reflex is present. Temporomandibular joints nontender with full range of motion, no evidence of clicks or pops. CHEST - symmetric, lung gao are clear, ches t wall is nontender. CARDIOVASCULAR - no heaves, rubs, thrills, regular rate and rhythm. Peripheral pulses equal, capillary refill normal. ABDOMEN - flat, bowel sounds active. No involuntary guarding , no masses. DERMATOLOGIC - normal texture and turgor. Mucous membranes moist. No evidence of icte fide or lesions with exception of the soft tissue swelling as described above for the right occiput. N EUROLOGIC - right-hand dominant, fluent speech, cranial nerves are intact. Deep tendon reflexes symm etrical, bilateral downgoing toes. Cerebellar sensory exam normal. Station and gait appropriate, no visual field cuts. Speech prieto normal. IMAGING STUDIES: Unenhanced head CT negative for acute o r chronic space occupying intracranial lesions, bone window is normal, this report by Dr. Maya Monique. CLINICAL IMPRESSION: 1. Headache, post concussional type. 2. No evidence for closed head inj ury by CT scan. 3. Nonfocal neurologic exam, Elrod Coma Score 15. 4. No evidence of skull fract ure. 5. No evidence for middle ear traumatic injuries by examination. EMERGENCY DEPARTMENT COURSE A ND MANAGEMENT: Following admission to the department and completion of the above documented exam, the patient received Toradol 60 mg IM and morphine 10 mg with relief of symptoms. He was discharged cb e with assistance to rest for the next two days with intermittent movements to reset his vestibular c ochlear mechanism instead of laying around as he has done to this point. Patient should apply ice to the area every 1-2 hours for 20 minutes for the next two to three days, and to take oral fluids and food as able. DISCHARGE MEDICATION: Ultracet one to two every 6 hours five days only. The patient should follow up with his primary physician if symptoms should persist, or return to the emergency de partment if symptoms should worsen. [id number] SONIDO OROSCO MD MT: Document: [id number] [place], [place] Name: Ignacio SCHAEFER EMERGENCY ROOM ENCOUNTER Page 3 of 2 LCN: ERB DSC: 02/17/2002 [place], [place] Name: MR#: : Admit Date: JORGE SCHAEFER [id number] 1970 02/17 Doctor: SONIDO OROSCO MD EMERGENCY ROOM ENCOUNTER Page 1 of 2 Electronically filed by Adriano Lugo 02/24/2002 3:12 PM documented in this encounter Plan of Treatment Not on filedocumented as of this encounter Visit Diagnoses Not on filedocumented in this encounter Additional Health Concerns Infection Onset Date Last Indicated Resolved Time Rule Out COVID-19 02/06/2022 02/06/2022 02/06/2022 12: 37 PM CDT documented as of this encounter Care Teams Technical Sales Associate Relationship Specialty Start Date End Date Jose Alonzo MD PCP - General 01/08/03 12/30/14 [place] [address] Doctor, None, PCP - General 07/26/01 01/07/03 No Ref-Primary, PCP - General 12/31/14 03/09/21 Physician Polina Lynch NP PCP - General Nurse Practitioner - Adult 03/10/21 [address] [employer] [address] Polina Lynch NP Assigned PCP 12/16/20 [address] [place] [address] documented as of this encounter
--- OUTSIDE RECORDS SUMMARY | 2022-05-10 10:22 | XMS_ITS | Encounter Summary ---
:1970 Author Organization [place] Address [address] [place] [place] [address] Care Team Providers Name Role Phone Jose Alonzo MD Primary Care Provider Unavailable Encounter Details Date Type Department Care Team Description 02/08/2003 Orders Only [facility] [place] Nora Solis L HAN D X-RAY (Primary Clinic Pamela RAMACHANDRAN Dx) [address] [place], [place] [address] [address] [place], [place] [phone] (Wo rk) [address] [phone] Social History Tobacco Use Types Packs/Day Years [...] Priority Date/Time Associated Diagnosis Comme nts X-RAY HAND >=3 Routine 02/08/2003 L HAND X-RAY Results fo r this VIEWS procedure are i n the results section . documented in this encounter Results X-RAY HAND 3+ VW (02/08/2003) Anatomical Region Laterality Modality Other Impressions 02/08/2003 Exam Location: ??[facility] 3 VIEW LEFT HAND - 02/08/2003 INDICATION: Injury. Pain. IMPRESSION: No osseous abnormality is se en. Ordering Provider: ??MARY LEY Principal Result Workers' Compensation Claims Examiner: ??COOKIE STEWARD Process Tank Tender: ??JORGE Calvo Nora Solis MD GENERAL IMAGING documented in this encounter Visit Diagnoses Diagnosis L HAND X-RAY - Primary documented in this encounter Care Teams Meter Tester Primary Relationship Specialty Start Date End Date Jose Alonzo MD PCP - General 01/08/03 12/30/14 [place] [address] documented as of this encounter
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
--- OUTSIDE RECORDS SUMMARY | 2022-05-10 10:22 | XMS_ITS | Encounter Summary ---
:1970 Author Organization [place] Address [facility] [place] [address] Care Team Providers Name Role Phone Doctor, None MD Primary Care Provider Unavailable Encounter Details Date Type Department Care Team Description 04/30/2002 Orders Only [facility] Nora Solis, ABSTR ACTING RESULTS Clinic Pamela RAMACHANDRAN (Primary Dx) [address] [place] [address] [place], [place] [address] [address] [place], [place] [phone] (Wo rk) [address] [phone] Social History Tobacco Use Types Packs/Day Years Used Date Smoking Tobacco: Never Assessed Sex Assigned at Date Recorded Not on file documented as of this encounter Plan of Treatment Not on filedocumented as of this encounter Procedures Procedure Name Priority Date/Time Associated Diagnosis Comme nts HC CT HEAD WO CONTRAST Routine 04/23/2002 ABSTRACTING RESULT S Results for this procedure are i n the results section . documented in this encounter Results CT SCAN HEAD/BRAIN (04/23/2002) Anatomical Region Laterality Modality Other Impressions 04/23/2002 CT HEAD SCAN - 04/23/2002 HISTORY: 31-year-old male presenting to the Emergency Room with a severe headache. FINDINGS: The unenhanced head scan demon strates a normal ventricular system. Midline position. Th ere is no evidence of an acute intracranial bleed nor mass. The s inuses at the base of the skull, where included, are clear. IMPRESSION: Negative CT head scan. No change since a previous study of 02/17/2002. END OF IMPRESSION Ordering Provider: ??RENUKA CHAPPELL Principal Result Attending Ambulatory Care: ??VIRAL REYES Consulting Solution Director: ??Trinity schaefer Electronically filed by Zuleyma Garland ??04/30/2002 ??11:04 AM Nora Solis MD SPECIAL IMAGING STUDIES documented in this encounter Visit Diagnoses Diagnosis ABSTRACTING RESULTS - Primary documented in this encounter Care Teams Electrotyper Relationship Specialty Start Date End Date Doctor, None, PCP - General 07/26/01 01/07/03 documented as of this encounter
--- OUTSIDE RECORDS SUMMARY | 2022-05-10 10:22 | XMS_ITS | Encounter Summary ---
:1970 Author Organization [place] Address [facility] [place] [address] Care Team Providers Name Role Phone Jose Alonzo MD Primary Care Provider Unavailable Reason for Visit [facility] Physical Therapy (Routine) - Closed Specialty Diagnoses / Procedures Referred By Contact Refer red To Contact Jose lAonzo MD [facility] [place] [address] Referral ID Status Reason Start Date Expiration Date Visits Requ ested Visits Authorized HP/BACK Closed 12/19/2005 12/18/2006 20 Encounter Details Date Type Department Care Team Description 01/01/2006 Therapy Visit [place] for Shannan Caraballo, [facility] Athletic Medicine - BARREL BRIDGE ASSEMBLER DISPLACEMENT (Primary [place] [facility] x) Therapy [address] [place] [address] [facility]. [address] [place] [address] Social History Tobacco Use Types Packs/Day Years Used Date Smoking Tobacco: Former Cigarettes 2 Quit : 12/07/2001 Alcohol Use Standard Drinks/Week Comments No 0 (1 standard drink = 0.6 oz pure alcoho l) Sex Assigned at Date Recorded Not on file documented as of this encounter Progress Notes Shannan Caraballo - 01/01/2006 3:38 PM CDT Please refer to the daily flowsheet for treatment today. documented in this encounter Plan of Treatment Not on filedocumented as of this encounter Procedures Procedure Name Priority Date/Time Associated Diagnosis Comme nts [facility] THERAPEUTIC Routine 01/01/2006 3:39 PM iamLUMBAR DISC EXERCISES CDT DISPLACEMENT ZZC ELECTRIC Routine 01/01/2006 3:39 PM iamLUMBAR DISC STIMULATION THERAPY CDT DISPLACEMENT ZZC MECHANICAL TRACTION Routine 01/01/2006 3:39 PM iamLUMBAR D ISC THERAPY CDT DISPLACEMENT ZZC HOT OR COLD PACKS Routine 01/01/2006 3:39 PM iamLUMBAR DIS C THERAPY CDT DISPLACEMENT documented in this encounter Visit Diagnoses Diagnosis iamLUMBAR DISC DISPLACEMENT - Primary Displacement of lumbar intervertebral di 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
--- OUTSIDE RECORDS SUMMARY | 2022-05-10 10:22 | XMS_ITS | Encounter Summary ---
:1970 Author Organization [place] Address [facility] [place] [address] Care Team Providers Name Role Phone Jose Alonzo MD Primary Care Provider Unavailable Encounter Details Date Type Department Care Team Description 12/14/2005 Therapy Visit [place] for David Ferguson P T iamLUMBAR DISC Athletic Medicine - [address] [place]EMENT (Primary [place] [facility] [address] Dx) Therapy [place] [id number] [facility] [address] [facility]. [address] [place], [place] (Work) [address] [phone] Social History Tobacco Use Types Packs/Day Years Used Date Smoking Tobacco: Former Cigarettes 2 Quit : 12/07/2001 Alcohol Use Standard Drinks/Week Comments No 0 (1 standard drink = 0.6 oz pure alcoho l) Sex Assigned at Date Recorded Not on file documented as of this encounter Progress Notes David Ferguson - 12/14/2005 2:22 PM CDT Please refer to the daily flowsheet for treatment today. Initial evaluation was completed. 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
--- OUTSIDE RECORDS SUMMARY | 2022-05-10 10:22 | XMS_ITS | Encounter Summary ---
:1970 Author Organization [place] Address [address] [facility] [place] [address] Care Team Providers Name Role Phone Jose Alonzo MD Primary Care Provider Unavailable Encounter Details Date Type Department Care Team Description 08/15/2004 Results Only [facility] Kevin Aguilar, [facility] [place] [address] Social History Tobacco Use Types Packs/Day Years Used Date Smoking Tobacco: Every Day Cigarettes 2 Alcohol Use Standard Drinks/Week Comments No 0 (1 standard drink = 0.6 oz pure alcoho l) Sex Assigned at Date Recorded Not on file documented as of this encounter Plan of Treatment Not on filedocumented as of this encounter Procedures Procedure Name Priority Date/Time Associated Diagnosis Comme [facility] CHEST TWO VIEWS, Routine 08/15/2004 10:37 PM R esults for this FRONT/LAT STEAM FITTER procedure are i n the results section. documented in this encounter Results CHEST X-RAY 2 VW (08/15/2004 10:37 PM STEAM FITTER) Anatomical Region Laterality Modality Other Specimen (Source) Anatomical Collection Method Collection Time Re ceived Time Location / / Volume Laterality 08/15/2004 10:37 PM STEAM FITTER Impressions 08/16/2004 7:46 AM STEAM FITTER 2 VIEW CHEST - 08/15/2004 ?? CLINICAL HISTORY: Cough. ?? FINDINGS: Negative. Kevin Aguilar MD GENERAL IMAGING documented in this encounter Visit Diagnoses Not on filedocumented in this encounter Care Teams Roller Skate Repairer Relationship Specialty Start Date End Date Jose Alnozo MD PCP - General 01/08/03 12/30/14 [place] [address] documented as of this encounter
--- OUTSIDE RECORDS SUMMARY | 2022-05-10 10:22 | XMS_ITS | Encounter Summary ---
:1970 Author Organization [place] Address [address] [facility] [place] [address] Care Team Providers Name Role Phone Doctor, None MD Primary Care Provider Unavailable Encounter Details Date Type Department Care Team Description 12/21/2002 Orders Only [facility] Nora Solis, CT AB D/PELVIS (Primary Clinic Pamela RAMACHANDRAN Dx) [address] [place] [address] [place], [place] [address] [address] [place], [place] [phone] (Wo rk) [address] [phone] Social History Tobacco Use Types Packs/Day Years Used Date Smoking Tobacco: Never Assessed Sex Assigned at Date Recorded Not on file documented as of this encounter Plan of Treatment Not on filedocumented as of this encounter Procedures Procedure Name Priority Date/Time Associated Diagnosis Comme nts HC CT ABDOMEN WO&W Routine 12/21/2002 Results f or this CONTRAST procedure are i n the results section . documented in this encounter Results CT SCAN OF ABDOMEN COMBO (12/21/2002) Anatomical Region Laterality Modality Other Impressions 12/21/2002 CT ABDOMEN & PELVIS WITHOUT CONTRAST - 12/21/2002 CLINICAL HISTORY: Generalized pelvic, te sticular and back pain. Rule out kidney stone. TECHNIQUE: Non-contrast through the abdo men and pelvis using a renal stone protocol. FINDINGS: There is a small, approximatel y 4 mm, nonobstructing stone in the lower pole of the left kidn ey. Mild left hydronephrosis. The suggestion of a tiny , approximately 1 mm, faint calcification in the region of the left ureterovesical junction which may represent a tiny mildly obstru cting distal left ureteral stone. The right kidney and ureter are u nremarkable. IMPRESSION: 1. Nonobstructing left renal stone. 2. Suspect minimally obstructing distal left ureteral stone at the ureterovesical junction with mild hydron ephrosis. This differs somewhat from the preliminary report aft er hours and the Emergency Service was notified of this finding. END OF IMPRESSION Ordering Provider: ??SANIA STEVENSON Principal Result Wire Turning Machine Operator: ??IGOR VARGAS Script Coordinator: ??JORGE Calvo Nora Solis MD SPECIAL IMAGING STUDIES documented in this encounter Visit Diagnoses Diagnosis CT ABD/PELVIS - Primary documented in this encounter Care Teams Chain Dyer Relationship Specialty Start Date End Date Doctor, Cally, PCP - General 07/26/01 01/07/03 documented as of this encounter
--- OUTSIDE RECORDS SUMMARY | 2022-05-10 10:22 | XMS_ITS | Encounter Summary ---
:1970 Author Organization [place] Address [facility] [place] [address] Care Team Providers Name Role Phone Basilio Alonzo MD Primary Care Provider Unavailable Encounter Details Date Type Department Care Team Description 08/16/2004 Admission [facility] Basilio Alonzo M D (Antenna Specialist) [facility] [place] RETIRED [address] [place] [address] [place] [address] [place] [address] Social History Tobacco Use Types Packs/Day Years Used Date Smoking Tobacco: Every Day Cigarettes 2 Alcohol Use Standard Drinks/Week Comments No 0 (1 standard drink = 0.6 oz pure alcoho l) Sex Assigned at Date Recorded Not on file documented as of this encounter Progress Notes Basilio Alonzo - 08/16/2004 11:59 PM HAM FACER : [birth year] Jorge Schaefer is a 33-year-old male admitted because of myalgias, vomiting, and headaches. HISTORY OF PRESENT ILLNESS: He became ill about three days prior to admission. He started out with a sore throat and a tickle in the throat with a cough. Then he developed generalized myalgias. These were severe enough so he could barely move. He had a fever up to 102 degrees and a cough that was sometimes productive. He vomited once or twice. He also had a headache. He went to the emergency room early on 08/15/04. Strep test was negative, and he was discharged. He vomited six more times and continued to have severe, throbbing, occipital headaches, so he was subsequently admitted. He has not had constipation or diarrhea. No abdominal pain except that associated with myalgias. PAST MEDICAL HISTORY: MEDICATIONS: None except Percocet and Tamiflu, started after the earlier emergency room visit a number of hours prior to admission. ALLERGIES: None. SURGERIES: None. HOSPITALIZATIONS: Meningitis as a child. CHRONIC MEDICAL PROBLEMS: None. FAMILY HISTORY: Father is 62. Mother is in her 50s. Both are in good health. SOCIAL HISTORY: . [place]. Does not smoke. Alcohol: Two drinks monthly. SYSTEMIC REVIEW: CONSTITUTIONAL: Negative except for the present illness. EYES: Negative. ENT: Negative except for current illness. RESPIRATORY: Negative except for the cough that just started. CARDIOVASCULAR: Negative. GI: See above. : Negative. MUSCULOSKELETAL: Negative except for myalgias. NEUROLOGIC AND PSYCHIATRIC: Negative. PHYSICAL EXAMINATION: Temperature 98.4, Pulse 80, Blood pressure 137/86. The patient appears as a young adult male in no acute distress, although appearing somewhat tired. EYES: Pupils and extraocular movements normal. EARS: Normal. THROAT: Normal. NECK: Supple. No adenopathy. THYROID: Not enlarged or tender. LUNGS: Clear. HEART: Regular rhythm without gallop or murmur. ABDOMEN: Bowel sounds present. Soft and nontender without organomegaly or mass. PULSES: Normal carotid pulses without bruits. Normal femoral, posterior tibial, and dorsalis pedis pulses. EXTREMITIES: No edema. REFLEXES: Symmetric. LABORATORY DATA: Negative Strep test. Positive influenza B antigen, as noted. Hemoglobin 14.4, white count 4800 with only 16 percent lymphocytes. Normal electrolytes and renal function. IMPRESSION: Influenza B with headache and vomiting. PLAN: IV fluids. Tamiflu. Antiemetics and analgesics. [id number] BASILIO ALONZO MD MT: Document: [id number] [place], [place] Name: MR#: JORGE SCHAEFER -17 HISTORY AND PHYSCIAL Page 2 of 2 LCN: [id number] DSC: [place], [place] Name: MR#: JORGE SCHAEFER [id number] : Admit Date: Account #: 1970 08/16/2004 [id number] Doctor: BASILIO ALONZO MD HISTORY AND PHYSICAL Page 1 of 2 FACER documented in this encounter Plan of Treatment Not on filedocumented as of this encounter Visit Diagnoses Not on filedocumented in this encounter Care Teams Telegraph Printer Mechanic Relationship Specialty Start Date End Date Basilio Alonzo MD PCP - General 01/08/03 12/30/14 [place] [address] documented as of this encounter
--- OUTSIDE RECORDS SUMMARY | 2022-05-10 10:22 | XMS_ITS | Encounter Summary ---
:1970 Author Organization [place] Address [facility]0 [facility] [place] [address] Care Team Providers Name Role Phone Jose Alonzo MD Primary Care Provider Unavailable Encounter Details Date Type Department Care Team Description 05/15/2004 Results Only [facility] Results Deonna Higgins MD EMERGENCY PHYSIC [facility]NA [facility] [address] [place], [place] [address] (Wo rk) Social History [...] Priority Date/Time Associated Diagnosis Comme nts HC MRI BRAIN W/O Routine 05/15/2004 5:32 PM Resul ts for this CONTRAST GUM DIPPER procedure are i n the results section. HC CT HEAD WO Routine 05/15/2004 4:20 PM Results for this CONTRAST GUM DIPPER procedure are i n the results section. documented in this encounter Results MRI BRAIN (05/15/2004 5:32 PM GUM DIPPER) Anatomical Region Laterality Modality Other Specimen (Source) Anatomical Collection Method Collection Time Re ceived Time Location / / Volume Laterality 05/15/2004 5:32 PM GUM DIPPER Impressions 05/17/2004 11:38 AM GUM DIPPER MRI BRAIN - 05/15/2004 ?? CLINICAL DATA: Vertigo. Occipital headac he. ?? TECHNIQUE: Sagittal T1, axial diffusion, axial T2, axial FLAIR and post contrast axial T1 weighted images w ere obtained through the brain parenchyma and brain stem. ?? FINDINGS: Diffusion weighted images are normal. The brain parenchyma, brain stem, ventricular system, subarach noid spaces, and vascular structures are normal in appearance. Pos t contrast images do not show any abnormal areas of enhancement or any focal mass lesions. ? IMPRESSION: ?? Negative brain and brain stem MRI examin ation without and with intravenous contrast. Luis Miguel Higgins MD SPECIAL IMAGING STUDIES CT SCAN HEAD/BRAIN (05/15/2004 4:20 PM GUM DIPPER) Anatomical Region Laterality Modality Other Specimen (Source) Anatomical Collection Method Collection Time Re ceived Time Location / / Volume Laterality 05/15/2004 4:20 PM GUM DIPPER Impressions 05/17/2004 10:[address] HEAD SCAN WITHOUT CONTRAST - 4 AT 1620 HOURS ?? HISTORY: Headache. ?? FINDINGS: Paranasal sinuses seen in part are normal. The ventricular system is normal. There is no evidence o f intracranial hemorrhage or mass effect. ?? CONCLUSION: ? 1. ?? Normal ?unenhanced C T head scan. ? 2. ?? This ?report was fax ed to the Emergency Room by Dr. Martin at the time of the ?exam ination. Luis Miguel Higgins MD SPECIAL IMAGING STUDIES documented in this encounter Visit Diagnoses Not on filedocumented in this encounter Care Teams Automotive Dismantler Relationship Specialty Start Date End Date Jose Alonzo MD PCP - General 01/08/03 12/30/14 [place] [address] documented as of this encounter
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
--- OUTSIDE RECORDS SUMMARY | 2022-05-10 10:23 | XMS_ITS | Clinical Summary ---
:1970 Author Organization [employer] [place] [address] Care Team Providers Name Role Phone [facility] Primary Care Provider [phone] Allergies No known active allergies Medications Medication Sig Dispensed Refills Start Date End Date Status Omeprazole 20 mg Take 1 tablet by 60 tablet 1 10/04/2017 Active tabletIndications: mouth once daily Colitis before a meal. hydrOXYzine HCL Take 1-2 Tablets 30 Tablet 0 03/29/2021 Active (ATARAX) 25 mg (25-50 mg) by tabletIndications: mouth every 6 Anxiety hours if needed for Anxiety. Active Problems Problem Noted Date Psychophysiological insomnia 02/19/2016 Adjustment disorder with disturbance of emotion 2011 Noncompliance with medication regimen 07/10/2009 Overview: Frustrated about lack of efficacy, and s tressed by family legal problems. Gastritis, chronic 07/10/2009 Overview: History of ulcers. EGD 10/2017 severe gastritis with hemorrh age due to NSAID use, patient must stop Nsaids Migraine 07/10/2009 Overview: Amitriptyline prophylaxis. Depression, major 07/04/2009 Panic disorder without agoraphobia 11/09/2008 Sensorineural hearing loss, bilateral 08/05/2008 Alcohol Abuse; episodic; in remission, per patient rep ort 07/27/2008 Overview: States that he was using alcohol about o nce a week, up to 4 beers, and stopped two weeks ago. Generalized anxiety disorder 07/13/2008 Resolved Problems Problem Noted Date Resolved Date Recurrent major depression in partial remission 11/09/2008 07/02/2009 Adjustment disorder with depressed mood 07/13/2008 07/13/2008 Adjustment disorder with depressed mood 07/13/2008 07/13/2008 Major Depression, Recurrent; moderate to severe 07/13/2008 11/09/2008 Encounters Date Type Specialty Care Team Description 02/07/2022 Lab Requisition Debi Trejo MD from Last 3 Months Immunizations Name Administration Dates Next Due AMB Influenza, IIV4 PF (=>6 mos Flulaval,Fluzone 03/24/2016 Fluarix)(Flu Clinic Only) Pneumococcal Poly,23-Valent (Pneumovax) 03/24/2016 Tdap 05/31/2013 Family History Medical History Relation Name Comments Good Health Brother 2 Good Health Father Cancer Maternal Grandmother Stroke Maternal Grandmother Good Health Mother Anesthesia Problem No Family History Blood Disease No Family History Relation Name Status Comments Brother 1 Alive Brother 2 Father Alive Maternal Grandfather Maternal Grandmother Mother Alive Paternal Grandfather Paternal Grandmother Social History Tobacco Use Types Packs/Day Years Used Date Former Smoker 2 20 Quit: 09/19/19 05 Smokeless Tobacco: Never Used Tobacco Cessation: Counseling Given: Yes Alcohol Use Standard Drinks/Week Comments No 0 (1 standard drink = 0.6 oz pure alcoho l) Sex Assigned at Date Recorded Not on file Obstetrics History Last Filed Vital Signs Vital Sign Reading Time Taken Comments Blood Pressure 126/78 03/29/2021 10:46 PM CDT Pulse 61 03/29/2021 10:46 PM CDT Temperature 37.2 ??C (99 ??F) 03/29/2021 7:19 PM CDT Respiratory Rate 16 03/29/2021 10:46 PM CDT Oxygen Saturation 98% 03/29/2021 10:46 PM CDT Inhaled Oxygen Concentration - - Weight 62.1 kg (137 lb) 03/29/2021 7:19 PM CDT Height 172.7 cm (5' 8) 03/29/2021 7:19 PM CDT Body Mass Index 20.83 03/29/2021 7:19 PM CDT Plan of Treatment Health Maintenance Due Date Last Done Comments COVID-19 vaccine series (#1) 04/22/1970 HIV for age 15-65 1984 Hepatitis C screening for age 0510/21/1987 18-79 Lipids for age 45-75 2014 BMI (ht and wt on same day) for 10/05/2018 10/05/2017, 04/11/2017, age 18+ 09/18/2017, Additional history exists Depression screening for age 12+ 10/05/2018 10/05/2017, 01/2016, 01/13/2016 Zoster (shingles) series for age 0510/21/2019 50+ (1 of 2) Influenza for age 50-64 02/09/2022 03/24/2016 Tetanus booster 05/31/2023 05/31/2013 Colonoscopy through age 75 09/25/2027 09/24/2017, 8, 09/24/2017 Tdap Completed 05/31/2013 Procedures Procedure Name Priority Date/Time Associated Diagnosis Comme nts LAB TRACKING EVENT Routine 02/07/2022 10:17 AM CDT PATH TISSUE EXAM Routine 02/07/2022 10:17 AM Resu lts for this CDT procedure are i n the results section. from Last 3 Months Results LAB TRACKING EVENT (02/07/2022 10:17 AM CDT) Specimen Anatomical Collection Method Collection Time Receive d Time (Source) Location / / Volume Laterality Other (Other) Client Collect / 02/07/2022 10:17 2021 Unknown AM CDT 10:05 PM CDT Debi Trejo MD LAB BILL ONLY Performing Organization Address City/State/ZIP Code Phon e Number [facility] [address] [place] [address] LABORATORY-CENTRAL 1999 LABORATORY PATH TISSUE EXAM (02/07/2022 10:17 AM CDT) Component Value Ref Test Analysis Performed At [facility] gist Range Method Time Signature Case Report Pathology Report ?Case: [id number] ? 02/09/2022 [facility] Authorizing Provider: ??Debi Thayer MD ??Collected: ? 02/07/2022 1017 ? 9:09 AM HEALTH Ordering Location: ? [facility] LAB ?Received: ?02/08/2022 0829 ? CDT [place] Pathologist: ? Ramon Torres MD ? ENTRAL Specimens: ?? A) - Duodenal ? LABORATORY ? B) - Stom ach Biopsy ? Final A) DUODENUM, BIOPSY: 02/09/2022 [facility] Electronically Diagnosis 1. Normal duodenal mucosa 9:09 AM HEAL TH signed by 2. Negative for celiac disease and other enteropathy CDT LABORATORY-Ramon Aguirre MD on B) STOMACH, BIOPSY: LABORATORY 02/09/2022 at 9:09 1. Erosive reactive gastropathy (see comment) AM ?? a. Sampling: Antrum and body ?? b. Distribution: Antrum and body 2. Negative for inflammation, atrophy and Helicobacter Comment B) The likely 02/09/2022 [facility] etiology is an 9:09 AM HEALTH ongoing CDT LABORATORY-C non-inflammatory ENTRAL type mucosal LABORATORY injury due to a chemical type of injury; this may be due to ingestion of non-steroidal anti-inflammator y drugs, aspirin (via prostaglandin-me diated injury), excess alcohol, corticosteroids, or bile/alkaline reflux, the latter usually in the setting of a gastroenteric anastomosis. Clinical Mr. Schaefer is a 02/09/2022 [facility] Information 51 y.o. with new 9:09 AM HEALTH onset of upper CDT LABORATORY-C abdominal ENTRAL symptoms. LABORATORY Gross A) Received in formalin are 2 hart mucosal fragments averaging 2 mm in greatest dimension, which are entirely submitted in one cassette. It is labeled with the patient's name and designated Duodenal. 06/2021 [facility] Description 9:09 AM HEALTH B) Received in formalin are 4 hart mucosal fragments averaging 2 mm in greatest dimension, which are entirely submitted in one cassette. It is labeled with the patient's name and designated Random stomach. CDT LABORATORY-C ENTRAL Radhames Mata 02/08/2022 1:04 PM LABORATORY Microscopic The final 02/09/2022 [facility] Description diagnosis is 9:09 AM HEALTH based on CDT LABORATORY-C microscopic ENTRAL examination of LABORATORY appropriate sections of all specimens. Additional 02/09/2022 [facility] Information Interpreted at [facility] Laboratory, Central Laboratory - [address], [place] [address] 9:09 AM HEALTH CDT LABORATORY-C ENTRAL LABORATORY Specimen Anatomical Collection Method Collection Time Receive d Time (Source) Location / / Volume Laterality Other (Duodenal) 02/07/2022 10:17 02/08/2 022 8:29 AM CDT AM CDT Specimen 02/07/2022 10:17 02/08/2022 8:29 (specimen) AM CDT AM CDT (Stomach Biopsy) Debi Trejo MD PATHOLOGY/CYTOLOGY Performing Organization Address City/State/ZIP Code Phon e Number [facility] [address] [place] [address] LABORATORY-CENTRAL 2000 LABORATORY from Last 3 Months L [address] (Home) [address] [place] [address] Advance Directives Latest Code Status on File Code Status Date Activated Date Inactivated Comments Full Code 06/15/2011 1:18 PM 06/17/2011 12:19 PM Full Code 07/09/2009 9:01 PM 07/12/2009 11:01 AM Care Teams Vehicle Dismantler Relationship Specialty Start Date End Date [facility] PCP - General 03/29/21 [address] [place], [place] [id number]
--- OUTSIDE RECORDS SUMMARY | 2022-05-10 10:23 | XMS_ITS | Encounter Summary ---
:1970 Author Organization [place] Address [facility] [place] [address] Care Team Providers Name Role Phone Jose Alonzo MD Primary Care Provider Unavailable Doctor, Cally RAMACHANDRAN Primary Care Provider Unavailable No Ref-Primary, Physician Primary Care Provider [phone] Polina Lynch NP Unavailable Polina Lynch NP Primary Care Provider [phone] Encounter Details Date Type Department Care Team Description 12/08/2001 [facility] Peggy Solis MD [place] [address] [facility] [address] [place] [address] [address] [place] [address] [phone] Social History Tobacco Use Types Packs/Day Years Used Date Smoking Tobacco: Former Cigarettes 2 Quit : 12/07/2001 Smokeless Tobacco: Never Alcohol Use Standard Drinks/Week Comments No 0 (1 standard drink = 0.6 oz pure alcoho l) quit in October 2020 Sex Assigned at Date Recorded Not on file documented as of this encounter Progress Notes 01/03/2002 11:59 PM CDT Addended by: PEGGY SOLIS on: 01/06/2002,8:27 AM Modules accepted: Progress Notes Addended by: CRISTOPHER MAY on: 01/03/2002,3:55 PM Modules accepted: Progress Notes 00:00 Emergency Department Encounter-SONIDO PATRICK) [Entered: 00:00 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 HISTORY OF PRESENTING ILLNESS: This 31-year-old male was seen in the Emergency Department last night by myself for depression, anxiety disorder, and panic attacks. He was commenced on Celexa and Xanax last night. He has lolis nued to be depressed but his condition has now become more intense with feelings of hopelessness, mandy pair, and thoughts of stating that he will use any means to kill himself. He is not communicat allen. PAST MEDICAL HISTORY: Past medical history is remarkable for depression, anxiety, and panic at tacks. MEDICATIONS: Current medications include Celexa and Alprazolam. IMMUNIZATIONS: Immunizatio ns are current. SOCIAL HISTORY: He denies use of alcohol. He does use tobacco products. He is mar ried but . Social history does include the recent of his father within the last two m onths. FAMILY HISTORY: Family history is otherwise unremarkable. PHYSICAL EXAMINATION: GENERAL: This 31-year-old male appears depressed and tearful. VITAL SIGNS: Blood pressure is 140/88, respira tions 14, heart rate 75, and temperature 97.8 degrees F. Room air pulse oximeter reading is 98%. The CHEST is symmetric. The chest wall is nontender. The lung gao are clear to auscultation and reso nant to percussion. CARDIOVASCULAR EXAM: There are no heaves or thrills. There is regular rate and rhythm. Peripheral pulses are equal. Capillary refill is normal. The HEAD is atraumatic. The TYM PANIC MEMBRANES are normal. The NARES are patent. The OROPHARYNX is unremarkable. The NECK is supp le. The trachea is midline. There is no stridor, drooling, or pooling. The ABDOMEN is flat. Bowel sounds are active. There is no involuntary guarding or mass. NEUROLOGIC EXAM: Cranial nerves are i ntact. Deep tendon reflexes are symmetric. There are bilateral down going toes. MENTAL STATUS EXAM : He has a flat affect. He is answering questions in monosyllables. He has suicidal ideation but n o homicidal or vandalistic thoughts. CLINICAL IMPRESSION: 1. Depression. 2. Suicidal ideation. 3. Comorbid condition: History of anxiety disorder and panic attacks. EMERGENCY DEPARTMENT COURSE A ND MANAGEMENT: Following admission to the Emergency Department and completion of the above documented exam, the patient was placed on a medical and transport hold. He was administered Haldol 2.5 mg IM and Benadryl 25 mg IM for reduction in anxiety and depression. The patient was then entered into the mental health intake process that was completed by consultation with [facility] approval. This was granted . The patient was transported to [facility] by [facility]. EM#[id number] SONIDO OROSCO MD MT: Document: [id number] [place], [place] Name: JORGE SCHAEFER EMERGENCY ROOM ENCOUNTER Page 2 of 2 LCN: ERA DSC: 12/08/2001 [place], [place] Name: MR#: : Admit Date: EDEL VICENTA Perkins [id number] 1970 12/08/2001 Doctor: SONIDO OROSCO MD EMERGENCY ROOM ENCOUNTER Page 1 of 2 Electronically filed by Cristopher Lugo 01/03/2002 3:55 PM documented in this encounter Plan of Treatment Not on filedocumented as of this encounter Visit Diagnoses Not on filedocumented in this encounter Additional Health Concerns Infection Onset Date Last Indicated Resolved Time Rule Out COVID-19 02/06/2022 02/06/2022 02/06/2022 12: 37 PM CDT documented as of this encounter Care Teams National Service Officer Relationship Specialty Start Date End Date Jose Alonzo MD PCP - General 01/08/03 12/30/14 [place] [address] Cally Guardado MD PCP - General 07/26/01 01/07/03 No Ref-Primary, PCP - General 12/31/14 03/09/21 Physician Polina Lynch NP PCP - General Nurse Practitioner - Adult 03/10/21 [address] [place] [address] Polina Lynch NP Assigned PCP 12/16/20 [address] [place] [address] documented as of this encounter
--- OUTSIDE RECORDS SUMMARY | 2022-05-10 10:23 | XMS_ITS | Encounter Summary ---
:1970 Author Organization [place] Address [facility] [place] [address] Care Team Providers Name Role Phone Jose Alonzo MD Primary Care Provider Unavailable Doctor, Cally RAMACHANDRAN Primary Care Provider Unavailable No Ref-Primary, Physician Primary Care Provider [phone] Polina Lynch NP Unavailable Polina Lynch NP Primary Care Provider [phone] Encounter Details Date Type Department Care Team Description 12/08/2001 [facility] Peggy Solis MD [place] [address] [facility] [address] [place] [address] [address] [place] [address] [phone] Social History Tobacco Use Types Packs/Day Years [...] PM CDT Addended by: PEGGY SOLIS on: 01/03/2002,11:41 AM Modules accepted: Progress Notes Addended by: CRISTOPHER LUGO on: 01/03/2002,10:52 AM Modules accepted: Progress Notes 00:00 Admissi on Note DWAYNE ESTEVES () [Entered: 00:00 Diversity Manager([facility])] IDENTIFICATION: The patient is a 31-year-old white male. HISTORY OF PRESENT ILLNESS: He maintains he had taken hi mself directly to [facility] where they placed him on a 72-hour medical hold because of ongoing symptoms that included suicidal ideation, intention, and depression. The patient is aware o f the institution, the hold, and also the date of expiration. It should be noted he saw Dr. Kenzie Jenkins MD at [facility]. The patient is not a reliable or resourceful historian. He pr esents his information and data in a rather turps manner and with some resistance to be interviewed. He identifies that he is from his . She in fact just left the household and moved in with her mother. It would appear they have four children. To reiterate he is rather reluctant and withholding information. It is thus like pulling teeth to obtain data and information from him. Tasha ott identifies that he has been increasingly despondent in that he misses her, the children, and the involvement. It would appear that the patient had within the last one month gone to [place]. It wo uld appear that he then left. He indicates he was only there about a few days ago and was started on Celexa in the emergency room. With no gain or benefit he came back to the emergency room for clarence tional evaluation and attention. Additionally, he also indicated he was using Xanax for sleep, but w as asleep within 15 minutes of reaching the unit. He was unable to be assessed with regard to admi ssion. It would appear that the patient identifies that at 5:30 he came to the unit, indicating he n eeded medication, including Ativan, and that he has not been able to induce and maintain sleep. He r eiterates that his stressors include his separation from his of nine years. They live separatel y. His is taking care of their four children. 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 He has been having suicidal thoughts that have 'hit him. He genuinely maintains that he has no specific plan, n otion, idea, or intention. I specifically explored with the patient regarding the lethal method of s uicide. Specifically explored was with regards to the following with which he responded in the negat allen, such as jumping from a building, then a bridge, and jumping in front of a vehicle, alternatively hanging himself, electrocution, using his car at a high speed, overdosing on medication, or using a plastic bag or the likes. Instead the patient remains rather adamant that these scenes of suicide hammer d not been part of his scenario. Overdosing or the likes again is not an issue, including alcohol an d/or drugs. CHEMICAL-DEPENDENCY HISTORY: Absent. He is insistent that he does not and has not been seeking various formats of drugs. This is not his way of doing things. He is a woi-jhbb-t-day smoke r. He used alcohol two to three years ago, but he has abstained from alcohol since. The circumstance of this is unclear. He identifies no alcohol or drug use or abuse. MEDICATIONS: He maintains he h as recently been on Xanax for the last two weeks. He takes two a day. SUPPORT SYSTEM: He identifie s this is basically his . He identifies no other family of origin or no significant individuals that he can reach out to. REVIEW OF SYSTEMS: Neurologic: negative. Respiratory and cardiovascular : chest pain at times. GI/: eating less. No active report. His weight is of a rather slight bu ilt individual. Endocrine/musculoskeletal: back pain. Mouth and dental: cavities and tooth pain. His sleep pattern has been disrupted. FORMAL MENTAL STATUS EXAMINATION: He is oriented to person, p lace, and time. His eye contact is sparse and limited. His thought processes show some latency of r esponse, with paucity of ideation. His concentration and cognition is inadequate. He is unable to r ecall the events or circumstance of admission. His affect and mood are certainly one of despondency, with depression and being withdrawn and isolative. He has no psychotic symptoms, hallucinations, or delusions. SOCIAL HISTORY: He has a ninth grade education. He is unemployed as a proofer. He edel cates he lives with friends at the present time, but basically has been with friends or his mother. He is from his , which has extended over two months. Although he talks to her over the phone she commented that she does not want him in the psychiatric unit. He indicates he has tried to make an appointment to address issues with his but has not been successful. PAST PSYCHIATRI C HISTORY: No chemical-dependency treatment. No medical treatment. No psychiatric treatment. Curre ntly he was started on alprazolam 0.25 mg q.d. b.i.d. over the past two weeks and Celexa 20 mg at [address] Sims in the emergency room had prescribed these for him. DIAGNOSIS: Lamar I: 1. Depression, major recurrent. 2. Dysthymia. 3. Chemical dependency not established. Lamar II:de ferred. Lamar III:per primary care, including low back pain. Lamar IV:Psychosocial stressors: modera te to severe. His weakness is the rather incipient nature to his depression. Lamar V:GAF: 30; high est in last year 70 to 80. His strength is he is rather almost childlike. He reiterates th at his symptoms of depression focus on the separation from his , with loneliness and depression. He occasionally in view of the stress says it just hurts. He indicates he thought he would be way over this. He could not do it anymore. TREATMENT RECEIVED: Increase trazodone to 50 mg q.h.s. a nd may repeat x 1. Increase Celexa to 20 mg 2 tablets q.a.m. Chemical dependency evaluation. [facility] psychological testing. Anticipate a 72- hour medical hold, although the patient is requesting terrance ahmadi. DWAYNE ESTEVES MD Dictated by: DWAYNE ESTEVES MD T: 2001 17:27 MT: [facility] Document: [id number] LCN: [id number] DSC: [place], [place] Name: MR#: : Admit Date: JORGE SCHAEFER -17 1970 002 ADMISSION NOTE Page 3 of 3 Electronically filed by Cristopher Lugo 01/03/2002 10:52 AM documented in this encounter Plan of Treatment Not on filedocumented as of this encounter Visit Diagnoses Not on filedocumented in this encounter Additional Health Concerns Infection Onset Date Last Indicated Resolved Time Rule Out COVID-19 02/06/2022 02/06/2022 02/06/2022 12: 37 PM CDT documented as of this encounter Care Teams Hospitality Job Titles Relationship Specialty Start Date End Date Jose Alonzo MD PCP - General 01/08/03 12/30/14 [place] [address] Doctor, None, PCP - General 07/26/01 01/07/03 No Ref-Primary, PCP - General 12/31/14 03/09/21 Physician Polina Lynch NP PCP - General Nurse Practitioner - Adult 03/10/21 [address] [place] [address] Polina Lynch NP Assigned PCP 12/16/20 [address] [place] [address] documented as of this encounter
--- OUTSIDE RECORDS SUMMARY | 2022-05-10 10:23 | XMS_ITS | Encounter Summary ---
:1970 Author Organization [place] Address [facility] [address] Care Team Providers Name Role Phone Jose Alonzo MD Primary Care Provider Unavailable Doctor, Cally RAMACHANDRAN Primary Care Provider Unavailable No Ref-Primary, Physician Primary Care Provider [phone] Polina Lynch NP Unavailable Polina Lynch NP Primary Care Provider [phone] Encounter Details Date Type Department Care Team Description 09/06/2001 [facility] Nora Solis MD [place] [address] [facility] [address] [place] [address] [address] [place] [address] [phone] Social History Tobacco Use Types Packs/Day Years Used Date Smoking Tobacco: Former Cigarettes 2 Quit : 12/07/2001 Smokeless Tobacco: Never Alcohol Use Standard Drinks/Week Comments No 0 (1 standard drink = 0.6 oz pure alcoho l) quit in October 2020 Sex Assigned at Date Recorded Not on file documented as of this encounter Progress Notes 01/03/2002 11:59 PM CDT Addended by: NORA SOLIS on: 01/03/2002,3:18 PM Modules accepted: Progress Notes Addended by: CRISTOPHER MAY on: 01/03/2002,1:54 PM Modules accepted: Progress Notes 00:00 Emergency Department Encounter-SONIDO PATRICK) [Entered: 00:00 Welfare Analyst ([facility])] : 68 CHIEF COMPLAINT: Anxiety, depression. HISTORY OF PRESENT ILLNESS: The patient is a 31-year-old male who presents to the Emergency Department with family members. He has had significant emotional stress. He is with his . He is here with his csyhcp-ls-wru and his mother and brother. The patient states he is depressed but not suicidal. He is also having epi sodes of anxiety and sometimes hyperventilation with what he believes to be panic attacks. He does n ot use alcohol. PAST MEDICAL HISTORY: Remarkable for depression. Current medications - Xanax but h e ran out two weeks ago. Allergies - none. Immunizations are current. HABITS: Does not use alcohol , tobacco or recreational drugs, be so the current medications. SOCIAL HISTORY: He is and e mployed. REVIEW OF SYSTEMS: Otherwise as noted above. All other systems are unremarkable. FAMILY HISTORY: Noncontributory. PHYSICAL EXAMINATION: The patient is a 31-year-old male appearing thin w ith flat affect. Blood pressure 109/64, respirations 20, heart rate is 38, temperature 98.1, room ai r pulse oximetry 97%. HEENT examination reveals head is atraumatic, normocephalic. Pupils are equal, round, reactive to light. Nares patent. Oropharynx unremarkable. NECK is supple. Trachea is midl ine. No stridor, drooling or pooling. CHEST is symmetric. LUNG gao are clear. Chest wall is non tender. CARDIOVASCULAR reveals no heaves or thrills. Regular rate and rhythm. Peripheral pulses an d capillary refill normal. ABDOMEN is full, soft, bowel sounds are active. No rebound, guarding or masses. DERMATOLOGIC examination reveals normal texture and turgor. Mucous membranes are moist. No evidence of icterus, lesions. MENTAL STATUS EXAMINATION: The patient is alert and answers question s appropriately. Flat affect without suicidal ideation. CLINICAL IMPRESSION: 1. Anxiety disorder. 2. History of panic attacks. 3. Depression without suicidal ideation. DISPOSITION: The josé luis armstrong is discharged home with family members with crisis telephone line number to be provided, nirav courtney several of these available at different locations and on his person and for other family members. He should follow-up with his primary care physician for reevaluation on Sunday. He should return t o the Emergency Department if he becomes suicidally depressed. DISCHARGE MEDICATIONS: Celexa 20 mg PO q day for seven days, Xanax 0.25 mg PO on a prn basis, four only. [id number] _ SONIDO OROSCO MD [place]: Document: [id number] [place], [place] Name: JORGE SCHAEFER EMERGENCY ROOM ENCOUNTER Page 2 of 2 LCN: ERA DSC: 12/07/2001 [place], [place] Name: MR#: : Admit Date: BRENT SCHAEFER RT D -17 1970 12/07/2001 Doctor: SONIDO OROSCO MD EMERGENCY ROOM ENCOUNTER Page 1 of 2 Electronically filed by Cristopher Lugo 01/03/2002 1:54 PM documented in this encounter Plan of Treatment Not on filedocumented as of this encounter Visit Diagnoses Not on filedocumented in this encounter Additional Health Concerns Infection Onset Date Last Indicated Resolved Time Rule Out COVID-19 02/06/2022 02/06/2022 02/06/2022 12: 37 PM CDT documented as of this encounter 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
[2022-05-10 11:00] LABS: PCR FLU A Negative PCR FLU A (Negative); PCR FLU B Negative PCR FLU B (Negative); PCR RSV Negative PCR RSV (Negative); SARS PCR* POSITIVE SARS-CoV-2 (Negative)
--- NOTE | 2022-05-10 11:10 | ED.NURSE ---
Pt became agitated, yelling and swearing at MD. Security contacted, present outside room. MD able to deescalate pt.
[2022-05-10] MEDS: MORPHINE 10 MG/ML inj IM (11:22)
[2022-05-10 11:40] VITALS: BP 143/91; PULSE 65; O2SAT 98
== END 2022-05-10 11:46 | disposition home or self-care (01) ==
PROVIDERS: Emergency Provider Family Medicine
DX: U07.1 COVID-19 (principal)
CPT/HCPCS: 71045; 87502; 87634; 87635; 96372; 99283; 99284; A9270; J2270

== ENCOUNTER 2022-08-29 12:24 | Emergency (ER) | payer OTHER, SELFPAY ==
[2022-08-29 12:27] VITALS: BP 126/69; PULSE 60; RESP 18; TEMP 36.4; O2SAT 97; BMI 19.8
--- NOTE | 2022-08-29 12:32 | ED_ITS ---
HPI - General Adult General Time Seen by Provider: 12:32 Date Seen: 08/29/22 Chief complaint: Neck Injury/Pain Stated complaint: Neck pain Time Seen by Provider: 08/29/22 12:25 Source: patient Mode of arrival: ambulatory History of Present Illness HPI narrative: Yinka is a 51-year-old male past medical history includes anxiety and depression, migraine headaches, presents emergency department via private car with neck injury. 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 He went home ate dinner was doing well, pain progressively got worse, pain is bilateral radiates up his neck the base of his occiput. Patient can rotate but pain is worse with flexion and extension, he denies any popping sensation during the incident, denies any midline tenderness, he states he has no history of any neck pain in the past, he denies any weakness, paresthesias or tingling of his upper extremities. He has allergies to NSAIDs due to gastritis so he has been taking Tylenol with minimal relief, he woke up this morning and symptoms were worse, pain is minimal with rest, worse with movement. Denies any anterior neck pain, trouble swallowing or speaking, denies any chest pain or shortness of breath. Patient had been doing well prior to the injury. Related Data Home Medications Medication Instructions Recorded Confirmed sucralfate 1 gram tablet 1 g PO ACHS 02/14/22 Previous Rx's Medication Instructions Recorded omeprazole 20 mg capsule,delayed 40 mg PO DAILY@0700 40 days #80 02/07/22 release caps ondansetron 4 mg disintegrating 4 mg PO Q6H PRN 7 days #14 tabs 02/07/22 tablet polyethylene glycol 3350 17 gram 17 g PO DAILY 30 days #238 grams 02/07/22 oral powder packet (Miralax) sennosides 8.6 mg-docusate sodium 1 tab PO DAILY PRN constipation 02/07/22 50 mg tablet (Stool #30 tabs Softener-Laxative) celecoxib 200 mg capsule (Celebrex) 200 mg PO BID #60 caps 02/14/22 tizanidine 4 mg capsule 4 mg PO BID PRN muscle spasticity 02/14/22 #60 caps tramadol 100 mg tablet 100 mg PO Q8H PRN pain #14 tabs 05/10/22 sumatriptan succinate 100 mg tablet See Rx Instructions PO .COMPLEX 08/14/22 #14 tabs diazepam 5 mg tablet (Valium) 5 mg PO Q6H PRN #20 tabs 08/29/22 Allergies Allergy/AdvReac Type Severity Reaction Status Date / Time No Known Drug Allergies Allergy Verified 02/14/22 09:50 Review of Systems Status of ROS: Reports: 10 or more systems reviewed and unremarkable except as noted in History and below [facility] Medical History Anxiety Colitis Constipation Daily consumption of alcohol Depression Influenza with pneumonia Insomnia Migraine NSAID induced gastritis Tension headache Surgical History History of esophageal surgery History of esophagogastroduodenoscopy (EGD) Hx laparoscopic cholecystectomy Family History Father Myocardial infarction Social History Narrative: , 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, 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, 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 Highest level of school completed/degree received: 10th grade Smoking Status: Former smoker What tobacco products do you use: cigarettes Smoking quit date/years: >15 years ago How often do you have a drink containing alcohol: 2-3 times a week Alcohol t ype: beer How many standard drinks containing alcohol do you have on a typical day: 1 or 2 How often do you have six or more drinks on one occasion: Never AUDIT-C Alcohol total score: 3 Non-prescribed substance use: former substance user and marijuana (any form) Non-prescribed substance use details: Smoke Marijuana occasionally, past history of meth, crack, coke, 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 HEENT: Pupils equal round reactive to light, extraocular muscles intact, tympanic membranes within normal limits bilaterally, oropharynx is clear and moist, no trismus, Neck: Tender to palpation the lower to upper cervical bilateral paraspinal and trapezius musculature, no midline tenderness or step-offs, rotation to 45?, limited extension and flexion due to pain. Nontender to palpation the SCM. No adenopathy. Lungs: Clear to auscultation bilaterally Heart: Normal sinus rhythm S1-S2 Abdomen: Soft nontender Muscle skeletal: Has +5 strength upper extremities bilaterally, CMS intact. Neuro: Alert awake and oriented times X 3, normal sensation and strength to the median, ulnar, radial and anterior interosseous nerve distribution. Psych: Anxious Const: Vital Signs, click to edit/add: Vital Signs - 24 hr 08/29/22 12:27 08/29/22 14:41 Temperature 97.6 F Pulse Rate [Right Pulse Oximeter] 60 63 Respiratory Rate 18 20 Blood Pressure [Ri ght Upper Arm] 126/69 123/79 Pulse Oximetry 97 99 Oxygen Delivery Me thod Room Air Room Air Course Course Hospital Course: 12:30 PM: AIDET performed. Based on history and physical exam no imaging to be obtained, no red flags on exam, no focal deficits, no midline tenderness, seems more related to muscular strain due to his activity, seems less likely radicular. IM Toradol 30 mg and Valium 7.5 mg, by the derm patch applied bilaterally in the very area of pain. Patient in agreement. Reevaluation(s) Reevaluation #1: Additional 5 mg oral Valium given, neck range of motion is significantly improved on rotation and extension and flexion, he is feeling better after above care given, plan would be to discharge prescription for Valium 5-10 mg to be taken every 6 hours as needed for muscle spasm, to continue with Tylenol 1 g every 4-6 hours as needed for pain, Lidoderm patch 4% applied every 12 hours, he needs to follow up with primary care provider over the next 5-7 days. Time: 15:31 Vital Signs Vital signs: Initial Vital Signs Temperature 97.6 F 08/29/22 12:27 Temperature Source Temporal Artery Scan 08/29/22 12:27 Pulse Rate 60 08/29/22 12:27 Respiratory Rate 18 08/29/22 12:27 Blood Pressure 126/69 08/29/22 12:27 Blood Pressure Mean 88 08/29/22 12:27 Pulse Oximetry 97 08/29/22 12:27 Oxygen Delivery Method Room Air 08/29/22 12:27 Vital Signs Temperature 97.6 F 08/29/22 12:27 Pulse Rate 60 08/29/22 12:27 Respiratory Rate 18 08/29/22 12:27 Blood Pressure 126/69 08/29/22 12:27 Pulse Oximetry 97 08/29/22 12:27 Oxygen Delivery Method Room Air 08/29/22 12:27 Temperature 97.6 F 08/29/22 12:27 Pulse Rate 63 08/29/22 14:41 Respiratory Rate 20 08/29/22 14:41 Blood Pressure 123/79 08/29/22 14:41 Pulse Oximetry 99 08/29/22 14:41 Oxygen Delivery Method Room Air 08/29/22 14:41 Discharge Plan Discharge Clinical Impression: History of migraine, Injury of neck Patient Disposition: Home, Self-Care Condition: Improved Instructions: Neck Pain (ED) Additional Instructions: Valium 5-10 mg every 4-6 hours for pain, to continue with the Lidocaine patch 4 or 5 % every 12 hours, to take Tylenol 1 gram every 6 hours in addition. Follow-up with primary care provider over the next 5-7 days. Return precautions given. Prescriptions: New diazepam [Valium] 5 mg tablet 5 mg PO Q6H PRNQty: 20 0RF No Action sucralfate 1 gram tablet 1 g PO ACHS celecoxib [Celebrex] 200 mg capsule 200 mg PO BID Qty: 60 1RF tizanidine 4 mg capsule 4 mg PO BID PRN (Reason: muscle spasticity) Qty: 60 1RF omeprazole 20 mg Capsule,Delayed Release(Dr/Ec) 40 mg PO DAILY@0700 40 Days Qty: 80 0RF polyethylene glycol 3350 [Miralax] 17 gram Powder In Packet 17 g PO DAILY 30 Days Qty: 238 1RF sennosides-docusate sodium [Stool Softener-Laxative] 8.6-50 mg Tablet 1 tab PO DAILY PRN (Reason: constipation) Qty: 30 0RF ondansetron 4 mg Tablet,Disintegrating 4 mg PO Q6H PRN7 Days Qty: 14 0RF tramadol 100 mg tablet 100 mg PO Q8H PRN (Reason: pain) Qty: 14 0RF sumatriptan succinate 100 mg tablet See Rx Instructions .ROUTE .COMPLEX Qty: 14 1RF Rx Instructions: take 1 tab at onset of headache; if no relief may repeat 1 tab after at least 2 hrs; max = 2 tabs/24 hr Follow Up/Referrals: Provider,Not a Local [Primary Care Provider] - Stand Alone Forms: [employer] Info Instructions
[2022-08-29] MEDS: LIDOCAINE 5% PATCH 1 PATCH TRANSDERMA ×2 (13:12→13:13)
[2022-08-29] MEDS: diazePAM 5 MG/ML inj 7.5 MG IM (13:14)
[2022-08-29] MEDS: KETOROLAC 30 MG/ML inj IM (13:14)
--- NOTE | 2022-08-29 13:15 | ED.NURSE ---
15mg toradol given per verbal order. 30mg actually ordered. aware
[2022-08-29] MEDS: ACETAMINOPHEN 500 MG TABLET 1000 MG PO (14:08)
[2022-08-29] MEDS: diazePAM 5 MG TABLET PO (14:36)
[2022-08-29] MEDS: KETOROLAC 30 MG/ML inj 15 MG IM (14:39)
[2022-08-29 14:41] VITALS: BP 123/79; PULSE 63; RESP 20; O2SAT 99
== END 2022-08-29 16:02 | disposition home or self-care (01) ==
PROVIDERS: Emergency Provider Student in an Organized Health Care Education/Training Program
DX: M54.2 Cervicalgia (principal); G43.909 Migraine, unspecified, not intractable, without status migrainosus; Y93.39 Activity, other involving climbing, rappelling and jumping off
CPT/HCPCS: 96372; 96374; 96375; 99283; 99284; A9270; J1885; J3360

== ENCOUNTER 2023-04-03 08:29 | Emergency (ER) | payer OTHER, SELFPAY ==
[2023-04-03 08:33] VITALS: BP 125/88; PULSE 85; RESP 22; TEMP 37.1; O2SAT 97; BMI 21.3
--- NOTE | 2023-04-03 09:14 | CRLHL7_ITS ---
For Patients: As a result of the Century Cures Act, medical imaging exams and procedure reports are released immediately into your electronic medical record. You may view this report before your referring provider. If you have questions, please contact your health care provider. INDICATION: Cough TECHNIQUE: Chest 2 views COMPARISON: 02/06/2022 FINDINGS: Cardiovascular and mediastinum: Heart size and vasculature are normal in caliber and appearance. Lungs and pleural spaces: Lungs are clear. No sign of infiltrate or mass. No sign of pleural effusion. No pneumothorax. Bones and soft tissues: Postop changes upper abdomen. IMPRESSION: No acute findings. Dictated by Juan Jackson MD @ 04/03/2023 9:35:21 AM (Electronically Signed)
[2023-04-03 09:37] LABS: PCR FLU A Negative PCR FLU A (Negative); PCR FLU B Negative PCR FLU B (Negative); PCR RSV Negative PCR RSV (Negative)
[2023-04-03 09:38] LABS: SARS PCR* Negative SARS-CoV-2 (Negative)
[2023-04-03 09:52] LABS: Basophils Absolute Auto 0.03 K/uL (0.00-0.30); Basophils Percent Auto 0.3 % (0.0-3.0); Eosinophils Absolute Auto 0.03 K/uL (0.00-0.50); Eosinophils Percent Auto 0.3 % (0.0-7.0); Hematocrit 47.8 % (37.0-53.0); Hemoglobin* 16.4 gm/dL (13.5-17.5); Immature Granulocytes Abs Auto 0.01 K/uL (0.00-0.30); Immature Granulocytes Pct Auto 0.1 %; Lymphocytes Percent Auto 6.2 % (20-44); Mean Corpuscular HGB Conc 34 gm/dL (32-36); Mean Corpuscular Hemoglobin 32 pg (26-34); Mean Corpuscular Volume 92 fL (80-100); Monocytes Percent Auto 8.4 % (0.0-11.0); Neutrophils Percent Auto 84.7 % (42.0-72.0); Platelet Count* 303 K/uL (140-440); RDW Coefficient of Variation % 11.9 % (11.5-15.5); Red Blood Count 5.19 m/uL (4.30-5.90)
[2023-04-03 10:05] LABS: Slide Review Reflex No
--- NOTE | 2023-04-03 10:29 | ED.GENADULT ---
HPI - General Adult General Chief complaint: Cough Stated complaint: cough,congestion,headache,sore throat Time Seen by Provider: 04/03/23 08:34 Source: patient Mode of arrival: ambulatory Limitations: no limitations History of Present Illness HPI narrative: 52-year-old male presenting today complaining of ?feeling like crap?. He states that he feels achy, tired, cough, headache. He states that he has had COVID in the past and it has felt similar. He has also had pneumonia in the past and this also feels similar to that. The coughing is making his throat hurt. He tells me is that he cannot take ibuprofen secondary to NSAID induced gastritis and that Tylenol does not work for him. He denies any fevers, no chills, no rashes, no neurologic deficits. Patient states that he drinks regularly and consumes marijuana regularly. Related Data Home Medications Medication Instructions Recorded Confirmed sucralfate 1 gram tablet 1 g PO ACHS 02/14/22 04/03/23 Previous Rx's Medication Instructions Recorded omeprazole 20 mg capsule,delayed 40 mg (2 x 20 mg) PO DAILY@0700 40 02/07/22 release days #80 caps ondansetron 4 mg disintegrating 4 mg PO Q6H PRN 7 days #14 tabs 02/07/22 tablet polyethylene glycol 3350 17 gram 17 g PO DAILY 30 days #238 grams 02/07/22 oral powder packet (Miralax) sennosides 8.6 mg-docusate sodium 1 tab PO DAILY PRN constipation 02/07/22 50 mg tablet (Stool #30 tabs Softener-Laxative) tizanidine 4 mg capsule 4 mg PO BID PRN muscle spasticity 02/14/22 #60 caps tramadol 100 mg tablet 100 mg PO Q8H PRN pain #14 tabs 05/10/22 sumatriptan succinate 100 mg tablet See Rx Instructions PO .COMPLEX 08/14/22 #14 tabs Allergies Allergy/AdvReac Type Severity Reaction Status Date / Time No Known Drug Allergies Allergy Verified 04/03/23 08:39 Review of Systems Status of ROS: Reports: 10 or more systems reviewed and unremarkable except as noted in History and below [facility] Medical History Migraine ?G43.909 - Migraine, unspecified, not intractable, without status migrainosus (ICD-10) Tension headache ?G44.209 - Tension-type headache, unspecified, not intractable (ICD-10) Insomnia ?G47.00 - Insomnia, unspecified (ICD-10) Influenza with pneumonia ?J11.00 - Influenza due to unidentified influenza virus with unspecified type of pneumonia (ICD-10) NSAID induced gastritis ?K29.60 - Other gastritis without bleeding (ICD-10) ?T39.395A - Adverse effect of other nonsteroidal anti-inflammatory drugs [NSAID], initial encounter (ICD-10) Daily consumption of alcohol ?Z78.9 - Other specified health status (ICD-10) Constipation ?K59.00 - Constipation, unspecified (ICD-10) Anxiety ?F41.9 - Anxiety disorder, unspecified (ICD-10) Depression ?F32.A - Depression, unspecified (ICD-10) Colitis ?K52.9 - Noninfective gastroenteritis and colitis, unspecified (ICD-10) Surgical History History of esophageal surgery ?Z98.890 - Other specified postprocedural states (ICD-10) History of esophagogastroduodenoscopy (EGD) ?Z98.890 - Other specified postprocedural states (ICD-10) Hx laparoscopic cholecystectomy ?Z90.49 - Acquired absence of other specified parts of digestive tract (ICD-10) Family History Father Myocardial infarction Social History Narrative: , 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, 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, 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 Highest level of school completed/degree received: 10th grade Smoking Status: Former smoker What tobacco products do you use: cigarettes Smoking quit date/years: >15 years ago How often do you have a drink containing alcohol: 2-3 times a week Alcohol type: beer How many standard drinks containing alcohol do you have on a typical day: 1 or 2 How often do you have six or more drinks on one occasion: Never AUDIT-C Alcohol total score: 3 Non-prescribed substance use: former substance user and marijuana (any form) Non-prescribed substance use details: Smoke Marijuana occasionally, past history of meth, crack, coke, 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 Alert and oriented. Answers questions appropriately. Mood and affect are appropriate. Thoughts are goal oriented and rational. No tangential or magical thinking noted. Patient speaks in full sentences without needing to catch his breath. HEENT: Normocephalic atraumatic. Pupils are equally round reactive to light. Extraocular muscles are intact. Conjunctivae are moist without any icterus noted. Moist mucous membranes. Posterior pharynx is normal. Neck is soft without any lymphadenopathy or thyromegaly. No masses are appreciated. Cardiovascular: Heart is regular rate and rhythm S1 and S2 are present without any murmurs. Lungs: Clear to auscultation bilaterally no wheezes rhonchi or rales are appreciated. Patient takes deep breaths without any discomfort. Abdomen: Soft and nontender nondistended with normal bowel sounds. Extremities: Bilateral lower extremities are without edema. Skin: Well perfused without any obvious rashes. Const: Vital Signs, click to edit/add: Vital Signs - 24 hr 04/03/23 08:33 Temperature 98.8 F Pulse Rate [Right Pulse Oximeter] 85 Respiratory Rate 22 Blood Pressure [Ri ght Upper Arm] 125/88 Pulse Oximetry 97 Oxygen Delivery Me thod Room Air Course Course ED Course: Triple swab was negative. Chest x-ray, read by me, does not show any acute pathology. Vital Signs Vital signs: Initial Vital Signs Temperature 98.8 F 04/03/23 08:33 Temperature Source Temporal Artery Scan 04/03/23 08:33 Pulse Rate 85 04/03/23 08:33 Respiratory Rate 22 04/03/23 08:33 Blood Pressure 125/88 04/03/23 08:33 Blood Pressure Mean 100 04/03/23 08:33 Blood Pressure Position Sitting 04/03/23 08:33 Pulse Oximetry 97 04/03/23 08:33 Oxygen Delivery Method Room Air 04/03/23 08:33 Vital Signs Temperature 98.8 F 04/03/23 08:33 Pulse Rate 85 04/03/23 08:33 Respiratory Rate 22 04/03/23 08:33 Blood Pressure 125/88 04/03/23 08:33 Pulse Oximetry 97 04/03/23 08:33 Oxygen Delivery Method Room Air 04/03/23 08:33 Temperature 98.8 F 04/03/23 08:33 Pulse Rate 85 04/03/23 08:33 Respiratory Rate 22 04/03/23 08:33 Blood Pressure 125/88 04/03/23 08:33 Pulse Oximetry 97 04/03/23 08:33 Oxygen Delivery Method Room Air 04/03/23 08:33 Medical Decision Making MDM Narrative Medical decision making narrative: 52-year-old male with viral syndrome. Discussed symptomatic treatment with Tylenol, cough drops, rest and fluid. Discussed follow-up with his primary care provider. Lab Data Lab results reviewed: Yes I reviewed the patient's lab results Labs: Lab Results 04/03/23 04/03/23 Range/Units 08:46 09:41 WBC 8.90 (4.50-11.00) K/uL RBC 5.19 (4.30-5.90) m/uL Hgb 16.4 (13.5-17.5) gm/dL Hct 47.8 (37.0-53.0) % MCV 92 (80-100) fL MCH 32 (26-34) pg MCHC 34 (32-36) gm/dL RDW Coeff of Syed 11.9 (11.5-15.5) % Plt Count 303 (140-440) K/uL Neut % (Auto) 84.7 H (42.0-72.0) % Lymph % (Auto) 6.2 L (20-44) % [place] % (Auto) 8.4 (0.0-11.0) % Eos % (Auto) 0.3 (0.0-7.0) % Baso % (Auto) 0.3 (0.0-3.0) % Neut # (Auto) 7.50 H (1.7-7.0) K/uL Lymph # (Auto) 0.60 L (0.90-2.90) K/uL [place] # (Auto) 0.70 (0.00-0.90) K/UL Eos # (Auto) 0.03 (0.00-0.50) K/uL Baso # (Auto) 0.03 (0.00-0.30) K/uL Abs Immat Gran (auto) 0.01 (0.00-0.30) K/uL Imm/Tot Granulo (auto) 0.1 % SARS-CoV-2 (PCR) Negative SARS-CoV-2 (Negative) Influenza Type A (PCR) Negative PCR FLU A (Negative) Influenza Type B (PCR) Negative PCR FLU B (Negative) RSV (PCR) Negative PCR RSV (Negative) Imaging Data Chest x-ray: Attestation: I have reviewed the pertinent imaging results. Radiologist's impression: Chest 2 views COMPARISON: 02/06/2022 FINDINGS: Cardiovascular and mediastinum: Heart size and vasculature are normal in caliber and appearance. Lungs and pleural spaces: Lungs are clear. No sign of infiltrate or mass. No sign of pleural effusion. No pneumothorax. Bones and soft tissues: Postop changes upper abdomen. IMPRESSION: No acute findings. Discharge Plan Discharge Clinical Impression: Acute viral syndrome Patient Disposition: Home, Self-Care Condition: Stable Additional Instructions: Okay to use sthw-hah-phnstpf cough syrup or cough drops as needed/as directed. Increase fluid intake and rest as much as possible. Follow-up with your primary care provider if you like you are not slowly improving over the next week. Cough can linger for a couple of weeks before it gets better. Prescriptions: No Action sucralfate 1 gram tablet 1 g PO ACHS tizanidine 4 mg capsule 4 mg PO BID PRN (Reason: muscle spasticity) Qty: 60 1RF omeprazole 20 mg Capsule,Delayed Release(Dr/Ec) 40 mg PO DAILY@0700 40 Days Qty: 80 0RF polyethylene glycol 3350 [Miralax] 17 gram Powder In Packet 17 g PO DAILY 30 Days Qty: 238 1RF sennosides-docusate sodium [Stool Softener-Laxative] 8.6-50 mg Tablet 1 tab PO DAILY PRN (Reason: constipation) Qty: 30 0RF ondansetron 4 mg Tablet,Disintegrating 4 mg PO Q6H PRN7 Days Qty: 14 0RF tramadol 100 mg tablet 100 mg PO Q8H PRN (Reason: pain) Qty: 14 0RF sumatriptan succinate 100 mg tablet See Rx Instructions .ROUTE .COMPLEX Qty: 14 1RF Rx Instructions: take 1 tab at onset of headache; if no relief may repeat 1 tab after at least 2 hrs; max = 2 tabs/24 hr Follow Up/Referrals: Provider,Not a Local [Primary Care Provider] - Stand Alone Forms: [employer] Info Instructions
[2023-04-03] MEDS: KETOROLAC 60 MG/2 ML inj IM (10:57)
[2023-04-03 11:07] LABS: Strep A DNA Probe* NOT DETECTED (Not Detectd)
== END 2023-04-03 10:57 | disposition home or self-care (01) ==
PROVIDERS: Emergency Provider Family Medicine
DX: B34.9 Viral infection, unspecified (principal)
CPT/HCPCS: 36415; 71046; 85025; 87631; 87651; 96372; 99284; J1885

== ENCOUNTER 2023-06-28 08:35 | Outpatient (CLI) | payer OTHER, SELFPAY ==
--- OUTSIDE RECORDS SUMMARY | 2023-06-28 08:39 | XMS_ITS | Encounter Summary ---
Author Name Unknown Organization [place] Address [facility] [address] Care Team Providers Care Alteration Tailor Apprentice Name Role Phone Polina Lynch APRN CRUDE OIL TREATER Primary Care Provi fabi Unavailable Flavia Newton APRN CRUDE OIL TREATER Unavailable [phone]- [phone] Reason for Visit * Reason Onset Date Comments Previsit 09/06/2022 Encounter Details Date Type Department Care Team (Late st Contact Info) Description 09/06/2022 PRE VISIT [facility] [address] [phone] June Swan, COAL INSPECTOR [address] [id number] Previsit Social History Tobacco Use Types Packs/Day Years Used Date Smoking Tobacco: Former Cigarettes 2 Q uit: 12/07/2001 Smokeless Tobacco: Never Alcohol Use Standard Drinks/Week Comments No 0 (1 standard drink = 0.6 oz pur e alcohol) quit in October 2020 PHQ-2 Answer Date Recorded PHQ-2 Score 0 09/05/2022 Sex and Gender Information Value Date Recorded Sex Assigned at Not on file Gender Identity Not on file Sexual Orientation Not on file COVID-19 Exposure Response Date Recorded In the last 10 days, have yo u been in contact with someone who was confirmed or suspected to have Coronavirus/COVID-19? No / Unsure 09/06/2022 8:58 AM CDT documented as of this encounter Miscellaneous Notes * Telephone Encounter - LizzetteNataly - 09/06/2022 9:58 AM CDT NEUROSURGERY- NEW PREVISIT PLANNING Record Status/Location Referring Provider Epic Referral Arias Ahuja MD Diagnosis Epic Neck pain, Strain of neck muscle, upper back strain MRI (HEAD, NECK, SPINE) n/a No CT n/a No X-ray Epic imaging Xray Cervical Spine INJECTION n/a No PHYSICAL THERAPY n/a No SURGERY n/a No documented in this encounter Plan of Treatment Not on file documented as of this encounter Visit Diagnoses Not on filedocumented in this encounter Additional Health Concerns Assessment Noted Time PHQ-9 Depression Total Score: 0 09/06/19 23 3:17 PM CDT documented as of this encounter Care Teams Alteration Tailor Apprentice Relationship Specialty Start Date End Date Polina Lynch APRN CRUDE OIL TREATER PCP - General Nurse Practitioner - Adult Health 03/10/21 02/02/23 Flavia Newton APRN CRUDE OIL TREATER [address] [place] [address] Assigned PCP 07/15/22 documented as of this encounter
--- OUTSIDE RECORDS SUMMARY | 2023-06-28 08:39 | XMS_ITS | Referral Summary ---
Author Name Unknown Organization [place] Address [facility] [place] [address] Care Team Providers Care Glass Furnace Operator Name Role Phone LevarFlavia toney Sharla PARISH FELT DYEING MACHINE TENDER Unavailable [phone] June Swan SPINNING FRAME TENDER Unavailable Allergies Active Allergy Reactions Criticality Noted Date Comments No Known Drug Allergy 01/06/2003 Medications Medication Sig Dispensed Refills Start Date End Date Status acetaminophen (TYLENOL) 325 MG tablet Take 325-650 mg by mouth every 6 hours as needed for mild pain 0 Active methocarbamol (ROBAXIN) 500 MG tabletIndications:N tg pain,Insomnia, unspecified type Take 1 tablet (500 mg) by mouth nightly as needed for muscle spasms 30 tablet 0 03/10/2021 Active Additional Information Patient not taking.Reported on 09/05/2022 methocarbamol (ROBAXIN) 750 MG tabletIndications:N tg pain Take 1 tablet (750 mg) by mouth 4 times daily as needed for muscle spasms 25 tablet 1 09/05/2022 Active ketorolac (TORADOL) 10 MG tabletIndications:N tg pain Take 1 tablet (10 mg) by mouth 4 times daily (with meals and nightly) This is for pain. 20 tablet 0 09/05/2022 Active SUMAtriptan (IMITREX) 100 MG tabletIndications:M igraine without status migrainosus, not intractable, unspecified migraine type Take 1 tablet (100 mg) by mouth at onset of headache for migraine 14 tablet 1 09/05/2022 Active Active Problems Problem Noted Date Diagnosed Date CARDIOVASCULAR SCREENING; LDL GOAL LESS THAN 160 04/10/2010 Duodenitis Overview: With ulceration; EGD with bx at [facility] Problem list name updated by automated process. Provider to review Anxiety state Overview: With panic attacks Problem list name updated by automated process. Provider to review Resolved Problems Problem Noted Date Diagnosed Date Resolved Date iamLUMBAR DISC DISPLACEMENT 12/14/2005 03/10/2006 Immunizations Name Administration Dates Next Due Influenza Vaccine >6 months,quad, PF 03/24/2016 Pneumococcal 23 valent 03/24/2016 TDAP (Adacel,Boostrix) 05/31/2013 Social History Tobacco Use Types Packs/Day Years Used Date Smoking Tobacco: Former Cigarettes 2 Q uit: 12/07/2001 Smokeless Tobacco: Never Tobacco Cessation:Counseling Given: No Alcohol Use Standard Drinks/Week Comments No 0 (1 standard drink = 0.6 oz pur e alcohol) quit in October 2020 PHQ-2 Answer Date Recorded PHQ-2 Score 0 09/05/2022 Adolescent Education Answer Date Record ed Getting School Help Needed Not on file 03/25 Sex and Gender Information Value Date Recorded Sex Assigned at Not on file Gender Identity Not on file Sexual Orientation Not on file Last Filed Vital Signs Vital Sign Reading Time Taken Comments Blood Pressure 122/84 09/05/2022 3:23 PM CDT Pulse 80 09/05/2022 3:23 PM CDT Temperature 36.5 ??C (97.7 ??F) 09/05/2022 3:23 PM CD T Respiratory Rate 16 09/05/2022 3:23 PM CDT Oxygen Saturation 99% 09/05/2022 3:23 PM CDT Inhaled Oxygen Concentration - - Weight 66.2 kg (146 lb) 09/05/2022 3:23 PM CDT Height 175.3 cm (5' 9) 09/05/2022 3:23 PM CDT Body Mass Index 21.56 09/05/2022 3:23 PM CDT Plan of Treatment Not on file Care Teams Glass Furnace Operator Relationship Specialty Start Date End Date Flavia Newton APRN FELT DYEING MACHINE TENDER [address] [place], [place] [address] Assigned PCP 07/15/22 June Swan NP [address] [facility] [place] [address] Assigned Neuroscience Provider 09/16/22
--- OUTSIDE RECORDS SUMMARY | 2023-06-28 08:39 | XMS_ITS | Encounter Summary ---
Author Name Unknown Organization [place] Address [facility] [place] [address] Care Team Providers Care Production Proofreader Name Role Phone Polina Lynch APRN, CNP Primary Care Provi fabi Unavailable Flavia Newton APRN, CNP Unavailable [phone]- [phone] Encounter Details Date Type Department Care Team (Latest Contact Info) Description 09/06/2022 Travel Social History Tobacco Use Types Packs/Day [...] AM CDT documented as of this encounter Plan of Treatment Not on file documented as of this encounter Visit Diagnoses Not on filedocumented in this encounter Additional Health Concerns Assessment Noted Time PHQ-9 Depression Total Score: 0 09/06/19 23 3:17 PM CDT documented as of this encounter Care Teams Production Proofreader Relationship Specialty Start Date End Date Polina Lynch APRN CNP PCP - General Nurse Practitioner - Adult Health 03/10/21 02/02/23 Flavia Newton APRN CNP [address] [place] [address] Assigned PCP 07/15/22 documented as of this encounter
--- OUTSIDE RECORDS SUMMARY | 2023-06-28 08:39 | XMS_ITS | Encounter Summary ---
Author Name Unknown Organization [place] Address [facility] [place] [address] Care Team Providers Care Chief Medical Physicist Name Role Phone Ploina Lynch APRN, CNP Primary Care Provi fabi Unavailable Flavia Newton APRN, CNP Unavailable [phone]- [phone] Encounter Details Date Type Department Care Team (Latest Contact Info) Description 09/04/2022 Travel Social History Tobacco Use Types Packs/Day [...] suspected to have Coronavirus/COVID-19? No / Unsure 09/04/2022 9:24 AM CDT documented as of this encounter Plan of Treatment Not on file documented as of this encounter Visit Diagnoses Not on filedocumented in this encounter Additional Health Concerns Assessment Noted Time PHQ-9 Depression Total Score: 15 021 9:25 AM CDT documented as of this encounter Care Teams Chief Medical Physicist Relationship Specialty Start Date End Date Polina Lynch APRN CNP PCP - General Nurse Practitioner - Adult Health 03/10/21 02/02/23 Flavia Newton APRN CNP [address] [place] [address] Assigned PCP 07/15/22 documented as of this encounter
--- OUTSIDE RECORDS SUMMARY | 2023-06-28 08:39 | XMS_ITS | Encounter Summary ---
Author Name Unknown Organization [place] Address [address] [facility] [place] [address] Care Team Providers Care Coke Wheeler Name Role Phone Polina Lynch APRN [employer] MARKETING SPECIALIST Primary Care Provi fabi Unavailable Flavia Newton APRN [employer] MARKETING SPECIALIST Unavailable [phone]- [phone] Reason for Referral * Consultation (Priority: 1-2 Weeks) - Closed Specialty Diagnoses / Procedures Referred By Contac t Referred To Contact Diagnoses Neck pain Strain of neck muscle, initial encounter Upper back strain, initial encounter Arias Ahuja MD [address] [place] [address] June Swan, CRISIS CLINICIAN [address] [facility] [address] [address] Referral ID Status Reason Start Date Expiration Date Visits Re quested Visits Authorized [id number] Closed 09/05/2022 09/05/2023 1 1 Question Answer Referral Type: Per Protocol Scheduling Instructions: [facility] will call you to coordinate your care as prescribed by your provider. If you don't hear from a major account representative within 2 business days, please call . Additional Information: upper back and neck pain Comments Please be aware that coverage of these services is subject to the terms and limitations of your health insurance plan. Call member services at your health plan with any benefit or coverage questions. [facility] will call you to coordinate your care as prescribed by your provider. If you don't hear from a major account representative within 2 business days, please call . * Diagnostic Imaging XR (Routine) - Pending Review Specialty Diagnoses / Procedures Referred By Contac t Referred To Contact Radiology. Diagnoses Neck pain Procedures XR Cervical Spine 2/3 Views Arias Ahuja MD [address] [place] [address] Referral ID Status Reason Start Date Expiration Date V isits Requested Visits Authorized [id number] Pending Review 09/05/2022 09/05/2023 1 1 Reason for Visit * Reason Comments ER F/U Encounter Details Date Type Department Care Team (Late st Contact Info) Description 09/05/2022 3:30 PM CDT Office Visit [address] [place] [phone] Arias Ahuja MD [address] [place] [address] Neck pain (Primary Dx); Strain of neck muscle, initial encounter; Upper back strain, initial encounter; Migraine without status migrainosus, not intractable, unspecified migraine type Social History Tobacco Use Types Packs/Day Years [...] suspected to have Coronavirus/COVID-19? No / Unsure 09/05/2022 3:07 PM CDT documented as of this encounter Last Filed [...] Mass Index 21.56 09/05/2022 3:23 PM CDT documented in this encounter Progress Notes * Arias Ahuja MD - 09/05/2022 3:30 PM CDT (M54.2) Neck pain (primary encounter diagnosis) Comment: Plan: XR Cervical Spine 2/3 Views, methocarbamol (ROBAXIN) 750 MG tablet, ketorolac (TORADOL) 10 MG tablet, Spine Brand Marketing Coordinator Referral (S16.1XXA) Strain of neck muscle, initial encounter Comment: Plan: Spine Brand Marketing Coordinator Referral (S29.012A) Upper back strain, initial encounter Comment: Plan: Spine Brand Marketing Coordinator Referral (G43.909) Migraine without status migrainosus, not intractable, unspecified migraine type Comment: He gets occasional migraine. This is a refill. Plan: SUMAtriptan (IMITREX) 100 MG tablet Subjective Additional Questions 09/05/2022 Roomed by JOLLY Rodríguez Accompanied by none Patient Reported Additional Medications 09/05/2022 Patient reports taking the following new medications none HPI ED/UC Followup: Facility: [facility] Date of visit: 08-29-2022 Reason for visit: neck injury Current Status: no better This patient was out working out a week ago outside. He was pulling himself up a cash like area tara rope kind of hand overhand. He experienced sudden onset of pain in the upper back and in the neckradiating up into the occipital region. Pain was quite severe accompanied by stiffness. He was not getting pain radiating down into his arms. He was seen in the emergency room in [facility]. Given diazepam 5 mg. He has not improved much over the last week. He has no history of neck problems but has had some low back problems in the past. 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 Review of Systems No fevers or chills. No head congestion or sore throat. No shortness of breath or cough. No nausea. No numbness or weakness. Objective BP 122/84 Pulse 80 Temp 97.7 ??F (36.5 ??C) Resp 16 Ht 1.753 m (5' 9) Wt 66.2 kg (146 lb) SpO2 99% BMI 21.56 kg/m?? There is no height or weight on file to calculate BMI. Physical Exam He appears in good physical condition and looks about his stated age. HEENT atraumatic. Equal pupils. Cervical range of motion mildly diminished in sidebending and in rotation to right side. Flexion and extension are fairly good. He does not have a great deal of paraspinous spasm in the cervical region or in the trapezii. He is ambulating comfortably. I looked at his C-spine film. He has some loss of lordosis and some early degenerative change. No results found for any visits on 09/05/22. Answers for HPI/ROS submitted by the patient on 09/05/2022 PHQ9 TOTAL SCORE: 0 documented in this encounter Plan of Treatment Scheduled Referrals Name Type Priority Associated Diagnoses Orde r Schedule Spine Brand Marketing Coordinator Referral Referral Priority: 1-2 Weeks Neck pain Strain of neck muscle, initial encounter Upper back strain, initial encounter Expected: 09/05/2022 (Approximate), Expires: 09/06/2023 documented as of this encounter Results * XR Cervical Spine 2/3 Views (09/05/2022 4:07 PM CDT) Anatomical Region Laterality Modality Spine Computed Radiogr aphy Impressions 09/06/2022 8:54 AM CDT IMPRESSION: Mild degenerative retrolisthesis of C4 upon C5. Alignment of the cervical vertebrae is otherwise normal; however, there is reversal of normal cervical lordosis centered at the C3 level. Vertebral body heights of the cervical spine are normal. Craniocervical alignment is normal. There are no fractures of the cervical spine. Loss of disc space height and degenerative endplate spurring at C3-C4 and C4-C5. Mild to moderate facet arthropathy throughout the cervical spine. JOVI RUEDA MD SYSTEM ID: ??[id number] Narrative 09/06/2022 8:54 AM CDT CERVICAL SPINE TWO TO THREE VIEWS September 05, 2022 4:07 PM HISTORY: Pain for a week. Neck pain. COMPARISON: None. Procedure Note Jovi Rueda MD - 09/06/2022 CERVICAL SPINE TWO TO THREE VIEWS September 05, 2022 4:07 PM HISTORY: Pain for a week. Neck pain. COMPARISON: None. IMPRESSION: Mild degenerative retrolisthesis of C4 upon C5. Alignment of the cervical vertebrae is otherwise normal; however, there is reversal of normal cervical lordosis centered at the C3 level. Vertebral body heights of the cervical spine are normal. Craniocervical alignment is normal. There are no fractures of the cervical spine. Loss of disc space height and degenerative endplate spurring at C3-C4 and C4-C5. Mild to moderate facet arthropathy throughout the cervical spine. JOVI RUEDA MD SYSTEM ID: [id number] Arias Ahuja MD IMG DIAGNOSTIC IMAGI NG ORDERABLES documented in this encounter Visit Diagnoses Diagnosis Neck pain- Primary Cervicalgia Strain of neck muscle, initial encounter Upper back strain, initial encounter Migraine without status migrainosus, not intractable, unspecified migraine type Neck pain Cervicalgia documented in this encounter Additional Health Concerns Assessment Noted Time PHQ-9 Depression Total Score: 0 09/06/19 3:17 PM CDT documented as of this encounter Care Teams Coke Wheeler Relationship Specialty Start Date End Date Polina Lynch APRN [employer] MARKETING SPECIALIST PCP - General Nurse Practitioner - Adult Health 03/10/21 02/02/23 Flavia Newton APRN [employer] MARKETING SPECIALIST [address] [place] [address] Assigned PCP 07/15/22 documented as of this encounter
--- OUTSIDE RECORDS SUMMARY | 2023-06-28 08:39 | XMS_ITS | Encounter Summary ---
Author Name Unknown Organization [place] Address [facility] [place] [address] Care Team Providers Care Pro Shop Attendant Name Role Phone Polina Lynch APRN, CNP Primary Care Provi fabi Unavailable Flavia Newton APRN, CNP Unavailable [phone]- [phone] Encounter Details Date Type Department Care Team (Latest Contact Info) Description 09/07/2022 Travel Social History Tobacco Use Types Packs/Day [...] suspected to have Coronavirus/COVID-19? No / Unsure 09/07/2022 1:07 PM CDT documented as of this encounter Plan of Treatment Not on file documented as of this encounter Visit Diagnoses Not on filedocumented in this encounter Additional Health Concerns Assessment Noted Time PHQ-9 Depression Total Score: 0 09/06/19 23 3:17 PM CDT documented as of this encounter Care Teams Pro Shop Attendant Relationship Specialty Start Date End Date Polina Lynch APRN CNP PCP - General Nurse Practitioner - Adult Health 03/10/21 02/02/23 Flavia Newton APRN CNP [address] [place] [address] Assigned PCP 07/15/22 documented as of this encounter
--- OUTSIDE RECORDS SUMMARY | 2023-06-28 08:39 | XMS_ITS | Encounter Summary ---
Author Name Unknown Organization [place] Address [facility] [place] [address] Care Team Providers Care Seam Checker Name Role Phone Polina Lynch APRN, CNP Primary Care Provi fabi Unavailable Flavia Newton APRN, CNP Unavailable [phone]- [phone] Encounter Details Date Type Department Care Team (Latest Contact Info) Description 09/05/2022 Travel Social History Tobacco Use Types Packs/Day [...] documented as of this encounter Care Teams Seam Checker Relationship Specialty Start Date End Date Polina Lynch APRN CNP PCP - General Nurse Practitioner - Adult Health 03/10/21 02/02/23 Flavia Newton APRN CNP [address] [place] [address] Assigned PCP 07/15/22 documented as of this encounter
--- OUTSIDE RECORDS SUMMARY | 2023-06-28 08:39 | XMS_ITS | Encounter Summary ---
Author Name Unknown Organization [place] Address [facility]0 [facility] [place] [address] Care Team Providers Care Disbursing Officer Name Role Phone Polina Lynch APRN RIBBON SWEATBAND OPERATOR Primary Care Provi fabi Unavailable Flavia Newton APRN RIBBON SWEATBAND OPERATOR Unavailable [phone] Reason for Visit * Reason Comments Consult * Consultation (Priority: 1-2 Weeks) - Closed Specialty Diagnoses / Procedures Referred By Swetha t Referred To Contact Diagnoses Neck pain Strain of neck muscle, initial encounter Upper back strain, initial encounter Arias Ahuja MD [address] [place] [address] June Swan NP [address] [place] [address] Referral ID Status Reason Start Date Expiration Date Visits Re quested Visits Authorized [id number] Closed 09/05/2022 09/05/2023 1 1 Encounter Details Date Type Department Care Team (Late st Contact Info) Description 09/07/2022 1:30 PM CDT Office Visit [facility] Neurological [address] [phone] Arias Ahuja MD [address] [place] [address] June Swan NP [address] [place], [place] [id number] Neck pain; Strain of neck muscle, initial encounter; Upper back strain, initial encounter Social History Tobacco Use Types Packs/Day Years [...] PM CDT documented as of this encounter Patient Instructions * Patient Instructions* June Swan NP - 09/07/2022 1:30 PM CDT -Contact our office if you are interested in medrol dose pack that was previously recommended. -Contact our office if symptoms persist or worsen. -Please contact our clinic with questions or concerns at [phone]. documented in this encounter Progress Notes * June Swan NP - 09/07/2022 1:30 PM CDT [facility] Neurosurgery Neurosurgery Clinic Visit CC: neck pain and headaches Primary care Provider: Polina Lynch (Inactive) Reason For Visit: I was asked by Dr. Arias Ahuja to consult on the patient for neck pain, strain of neck muscle. HPI: Yinka Schaefer is a 51 year old male with a 9 day history of neck pain who presents for evaluation. He states he was working out when he was puling himself up a rope when he experienced suddenonset of pain in the upper back, neck which radiated to the head causing headache. No reports of paresthesias or overt weakness. He states his pain in his upper back has resolved. He continues to have pain at the base of his head which radiates to his posterior head. He was seen in primary care 2 days ago and was provided with tramadol and robaxin. He was also refilled his imitrex. He inquires about additional imaging. Past Medical History: Diagnosis Date ??? Anxiety state, unspecified With panic attacks ??? Calculus of ureter Passed; has remaining stones in kidneys ??? Duodenitis without mention of hemorrhage 2006 With ulceration; EGD with bx at [place] Past Medical History reviewed with patient during visit. Past Surgical History: Procedure Laterality Date ??? ZZC NONSPECIFIC PROCEDURE 2007 Lap cholecystectomy Past Surgical History reviewed with patient during visit. Current Outpatient Medications Medication ??? acetaminophen (TYLENOL) 325 MG tablet ??? ketorolac (TORADOL) 10 MG tablet ??? methocarbamol (ROBAXIN) 500 MG tablet ??? methocarbamol (ROBAXIN) 750 MG tablet ??? SUMAtriptan (IMITREX) 100 MG tablet No current facility-administered medications for this visit. Allergies Allergen Reactions ??? No Known Drug Allergies Social History Socioeconomic History ??? Marital status: Tobacco Use ??? Smoking status: Former Packs/day: 2.00 Types: Cigarettes Quit date: 12/07/2001 Years since quittin.7 ??? Smokeless tobacco: Never Vaping Use ??? Vaping Use: Never used Substance and Sexual Activity ??? Alcohol use: No Comment: quit in October 2020 ??? Drug use: Not Currently Types: Marijuana Comment: quit October 2020 ??? Sexual activity: Yes Partners: Female Family History Problem Relation Age of Onset ??? Hypertension Mother ??? Coronary Artery Disease Father ROS: 10 point ROS neg other than the symptoms noted above in the HPI. Vital Signs: There were no vitals taken for this visit. Examination: Constitutional: Alert, well nourished, NAD. Memory: recent and remote memory HEENT: Normocephalic, atraumatic. Pulm: Without shortness of breath CV: No pitting edema of BLE. Neurological: Awake Alert Oriented x 3 Speech clear Motor exam: Moving all extremities equally. Unable to complete motor exam. Gait: Able to stand from a seated position. Normal non-antalgic, non-myelopathic gait. Imaging: Cervical XR 09/05/2022: IMPRESSION: Mild degenerative retrolisthesis of C4 upon [...] moderate facet arthropathy throughout the cervical spine. Assessment/Plan: Cervicalgia Migraine Reviewed cervical xray. Would recommend continued medication management at this time. Discussed possibility of Medrol Dosepak in addition to current regimen. He inquires about additional imaging. Discussed with him that in the absence of red flag symptoms, MRI imaging not indicated at this time. Hedeclined Medrol Dosepak. He states visit was a waste of time. Instructed to follow-up in 4 to 6 weeks if symptoms persist or if new symptoms develop. There are no Patient Instructions on file for this visit. June Swan CNP [place] [address] documented in this encounter Nursing Notes * Giovanni Matta - 09/07/2022 1:30 PM CDT Yinka Schaefer is a 51 year old male who presents for: Chief Complaint Patient presents with ??? Consult Initial Vitals: There were no vitals taken for this visit. Estimated body mass index is 21.56 kg/m?? as calculated from the following: Height as of 09/05/22: 5' 9 (1.753 m). Weight as of 09/05/22: 146 lb (66.2 kg).. There is no height or weight on file to calculate BSA. Extreme Pain (8) Nursing Comments: Giovanni Matta documented in this encounter Plan of Treatment Not on file documented as of this encounter Visit Diagnoses Diagnosis Neck pain Cervicalgia Strain of neck muscle, initial encounter Upper back strain, initial encounter documented in this encounter Additional Health Concerns Assessment Noted Time PHQ-9 Depression Total Score: 0 09/06/19 3:17 PM CDT documented as of this encounter Care Teams Disbursing Officer Relationship Specialty Start Date End Date Polina Lynch APRN CNP PCP - General Nurse Practitioner - Adult Health 03/10/21 02/02/23 Flavia Newton APRN RIBBON SWEATBAND OPERATOR [address] [place] [address] Assigned PCP 07/15/22 documented as of this encounter
--- OUTSIDE RECORDS SUMMARY | 2023-06-28 08:39 | XMS_ITS | Clinical Summary ---
Author Name Unknown Organization [place] Address [facility]0 [facility] [place] [address] Care Team Providers Care Lacquer Dipping Machine Operator Name Role Phone LevarFlavia toney PARISH CERTIFIED PROSTHETIST/ORTHOTIST Unavailable [phone] June Swan FLOOR SCRAPER Unavailable Allergies Active Allergy Reactions Criticality Noted [...] Overview: With ulceration; EGD with bx at [place] Problem list name updated by automated process. Provider to review Anxiety state Overview: With panic attacks Problem list name updated by automated process. Provider to review Resolved Problems Problem Noted Date Diagnosed Date Resolved Date iamLUMBAR DISC DISPLACEMENT 12/14/2005 03/10/2006 Immunizations Name Administration Dates Next Due Influenza Vaccine >6 months,quad, PF 03/24/2016 Pneumococcal 23 valent 03/24/2016 TDAP (Adacel,Boostrix) 05/31/2013 Family History Medical History Relation [...] 09/05/2022 3:23 PM CDT Plan of Treatment Health Maintenance Due Date Last Done Comments ADVANCE CARE PLANNING 1969 ANNUAL REVIEW OF HM ORDERS 1969 CT COLONOGRAPHY 1969 DEPRESSION ACTION PLAN 1969 FIT 1969 FLEX SIG 1969 HEPATITIS B IMMUNIZATION (1 of 3 - 3-dose series) 1969 YEARLY PREVENTIVE VISIT 1969 sDNA (Cologuard) 1969 COVID-19 Vaccine (#1) 04/22/1970 ZOSTER IMMUNIZATION (1 of 2) 10/21/2019 INFLUENZA VACCINE (#1) 2023 03/24/2016 PHQ-9 03/08/2023 09/05/2022, 03/30/2021 DTAP/TDAP/TD IMMUNIZATION (2 - Td or Tdap) 05/31/2023 05/31/2013 LIPID 03/30/2026 03/30/2021 COLONOSCOPY 09/25/2027 09/24/2017 COLORECTAL CANCER SCREENING 09/25/2027 Pneumococcal Vaccine: Pediatrics (0 to 5 Years) and At-Risk Patients (6 to 64 Years) Aged Out 03/24/2016 No longer eligible b ased on patient's age to complete this topic HEPATITIS C SCREENING Completed 03/30/2021 HIV SCREENING Completed 03/30/2021 HPV IMMUNIZATION Aged Out No longer e ligible based on patient's age to complete this topic IPV IMMUNIZATION Aged Out No longer e ligible based on patient's age to complete this topic MENINGITIS IMMUNIZATION Aged Out No l onger eligible based on patient's age to complete this topic RSV MONOCLONAL ANTIBODY Aged Out No l onger eligible based on patient's age to complete this topic Care Teams Lacquer Dipping Machine Operator Relationship Specialty Start Date End Date Flavia Newton APRN CERTIFIED PROSTHETIST/ORTHOTIST [address] [place] [address] Assigned PCP 07/15/22 June Swan NP [address] [place] [address] [place] [address] Assigned Neuroscience Provider 09/16/22
--- OUTSIDE RECORDS SUMMARY | 2023-06-28 08:39 | XMS_ITS | Encounter Summary ---
Author Name Unknown Organization [place] Address [facility]0 [facility] [place] [address] Care Team Providers Care Fixing Machine Operator Name Role Phone Polina Lynch APRN LEAD PRINCIPAL TECHNICAL ARCHITECT Primary Care Provi fabi Unavailable Flavia Newton APRN LEAD PRINCIPAL TECHNICAL ARCHITECT Unavailable [phone] Reason for Visit * Diagnostic Imaging XR (Routine) - Pending Review Specialty Diagnoses / Procedures Referred By Swetha t Referred To Contact Radiology. Diagnoses Neck pain Procedures XR Cervical Spine 2/3 Views Arias Ahuja MD [address] [place] [address] Referral ID Status Reason Start Date Expiration Date V isits Requested Visits Authorized [id number] Pending Review 09/05/2022 09/05/2023 1 1 Encounter Details Date Type Department Care Team (Late st Contact Info) Description 09/05/2022 4:00 PM CDT Ancillary Procedure [facility] [address] [place] [address] Arias Ahuja MD [address] [place], [place] [address] Neck pain Social History Tobacco Use Types Packs/Day Years [...] on file documented as of this encounter Procedures Procedure Name Priority Date/Time Associated Diagnosis Comments XR CERVICAL SPINE 2/3 VIEWS Routine 09/05/2022 4:07 PM CDT Neck pain documented in this encounter Results * XR Cervical Spine [...] cervical spine. JOVI RUEDA MD SYSTEM ID: ??[id number] Narrative 09/06/2022 8:54 AM CDT CERVICAL SPINE [...] cervical spine. JOVI RUEDA MD SYSTEM ID: [id number] Arias Ahuja MD IMG DIAGNOSTIC IMAGI NG ORDERABLES documented in this encounter Visit Diagnoses Diagnosis Neck pain Cervicalgia documented in this encounter Additional Health Concerns Assessment Noted Time PHQ-9 Depression Total Score: 0 09/06/19 3:17 PM CDT documented as of this encounter Care Teams Fixing Machine Operator Relationship Specialty Start Date End Date Polina Lynch APRN LEAD PRINCIPAL TECHNICAL ARCHITECT PCP - General Nurse Practitioner - Adult Health 03/10/21 02/02/23 Flavia Newton APRN LEAD PRINCIPAL TECHNICAL ARCHITECT [address] [place] [address] Assigned PCP 07/15/22 documented as of this encounter
--- OUTSIDE RECORDS SUMMARY | 2023-06-28 08:40 | XMS_ITS | Encounter Summary ---
Author Name Unknown Organization [place] Address [facility] [place] [address] Care Team Providers Care Pricing Director Name Role Phone Jose Alonzo MD Primary Care Provider Unavailabl e Doctor, None MD Primary Care Provider Unavailabl e No Ref-Primary, Physician Primary Care Provider Polina Lynch APRN SUPERVISOR SAWMILL Unavailable Un available Polina Lynch APRN SUPERVISOR SAWMILL Primary Care Provi fabi Unavailable Flavia Newton APRN SUPERVISOR SAWMILL Unavailable [phone] June Swan ASSET MANAGER Unavailable [phone] Encounter Details Date Type Department Care Team (Late st Contact Info) Description 12/08/[address] [place] [address] Peggy Solis MD [facility] [place] [address] Social History Tobacco Use Types Packs/Day Years Used Date Smoking Tobacco: Former Cigarettes 2 Q uit: 12/07/2001 Smokeless Tobacco: Never Alcohol Use Standard Drinks/Week Comments No 0 (1 standard drink = 0.6 oz pur e alcohol) quit in October 2020 Sex and Gender Information Value Date Recorded Sex Assigned at Not on file Gender Identity Not on file Sexual Orientation Not on file documented as of this encounter Progress Notes * 01/03/2002 11:59 PM CDTAddended by: PEGGY SOLIS on: 01/06/2002,8:27 AM Modules accepted: Progress Notes Addended by: CRISTOPHER MAY on: 01/03/2002,3:55 PM Modules accepted: Progress Notes 00:00 Emergency Department Encounter-SONIDO PATRICK) [Entered: 00:00 Eligibility Consultant ([facility])] : 68 CHIEF COMPLAINT: Depression, suicidal thoughts. [...] his father within the last two [place] [facility] [place]. FAMILY HISTORY: Family history is otherwise unremarkable. [...] process that was completed by consultation with [facility] approval. This was granted . The patient was transported to [facility] by [facility]. [id number] SONIDO OROSCO MD MT: Document: [id number] [place], [place] Name: JORGE HOLLINGSWORTH EMERGENCY ROOM ENCOUNTER Page 2 of 2 LCN: ERA DSC: 12/08/2001 [place], [place] Name: MR#: : Admit Date: EDEL VICENTA Perkins -17 1970 12/08/2001 Doctor: SONIDO OROSCO MD EMERGENCY ROOM ENCOUNTER Page 1 of 2 Electronically filed by Cristopher Lugo 01/03/2002 3:55 PM documented in this encounter Plan of Treatment Not on file documented as of this encounter Visit Diagnoses Not on filedocumented in this encounter Additional Health Concerns Infection Onset Date Last Indicated Resolved Time Rule Out COVID-19 02/06/2022 02/06/2022 02/06/2022 12:37 PM CDT documented as of this encounter Care Teams Pricing Director Relationship Specialty Start Date End Date [place] [address] PCP - General 01/08/03 12/30/14 Cally Guardado MD PCP - General 07/26/01 01/07/03 No Ref-Primary, Physician PCP - General 12/31/14 03/09/21 Polina Lynch APRN SUPERVISOR SAWMILL PCP - General Nurse Practitioner - Adult Health 03/10/21 02/02/23 Polina Lynch, EMERGENCY MANAGEMENT COORDINATOR SUPERVISOR SAWMILL Assigned PCP 12/16/20 07/14/22 Flavia Newton APRN SUPERVISOR SAWMILL [address] [facility] [place] [address] Assigned PCP 07/15/22 June Swan NP [address] [place] [address] [place] [address] Assigned Neuroscience Provider 09/16/22 documented as of this encounter
--- OUTSIDE RECORDS SUMMARY | 2023-06-28 08:40 | XMS_ITS | Encounter Summary ---
Author Name Unknown Organization [place] Address [facility] [place] [address] Care Team Providers Care Organizational Consultant Name Role Phone Jose Alonzo MD Primary Care Provider Unavailabl e Doctor, None MD Primary Care Provider Unavailabl e No Ref-Primary, Physician Primary Care Provider Polina Lynch APRN OPTICAL EFFECTS LINE UP PERSON Unavailable Un available Polina Lynch APRN OPTICAL EFFECTS LINE UP PERSON Primary Care Provi fabi Unavailable Flavia Newton APRN OPTICAL EFFECTS LINE UP PERSON Unavailable [phone] June Swan ASSEMBLY DEPARTMENT SUPERVISOR Unavailable Encounter Details Date Type Department Care Team (Late st Contact Info) Description 12/08/[address] [place] [address] Peggy Solis MD [facility] [place] [address] Social History Tobacco Use Types Packs/Day Years [...] 11:59 PM CDTAddended by: PEGGY SOLIS on: 01/03/2002,11:41 AM Modules accepted: Progress Notes Addended by: CRISTOPHER LUGO on: 01/03/2002,10:52 AM Modules accepted: Progress Notes 00:00 Admissi on Note DWAYNE ESTEVES) [Entered: 00:00 Slab Miller Operator ([facility])] IDENTIFICATION: The patient is a 31-year-old white male. HISTORY OF PRESENT ILLNESS: He maintains he had taken hi mself directly to [facility] where they placed him on a 72-hour medical hold because of ongoing symptoms that included suicidal ideation, intention, and depression. The patient is aware o f the institution, the hold, and also the date of expiration. It should be noted he saw Dr. Kenzie Jenkins MD at [facility]. The patient is not a reliable or [...] within the last one month gone to [place]. It wo uld appear that he then [...] from his of nine years. [facility] His is taking care of their four children. 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 He is a gvo-otut-q-day smoke r. He used alcohol two to [...] grade education. 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 He edel cates he lives with friends [...] treatment. No medical treatment. No psychiatric treatment. Mimi granado he was started on alprazolam 0.25 mg q.d. b.i.d. over the past two weeks and Celexa 20 mg at [address] Sims in the emergency room had prescribed these for him. DIAGNOSIS: [place] I: 1. Depression, major recurrent. 2. Dysthymia. 3. Chemical dependency not established. [place] II:de ferred. [place] III:per primary care, including low back pain. [place] IV:Psychosocial stressors: modera te to severe. His weakness is the rather incipient nature to his depression. [place] V:GAF: 30; high est in last year [...] 2 tablets q.a.m. Chemical dependency evaluation. [facility] psychological testing. Anticipate a 72- hour medical hold, although the patient is requesting terrance ahmadi. DWAYNE ESTEVES MD Dictated by: DWAYNE ESTEVES MD T: 2001 17:27 MT: [facility] Document: [id number] LCN: [id number] DSC: [place], [place] Name: MR#: : Admit Date: JORGE HOLLINGSWORTH [id number] 1970 002 ADMISSION NOTE Page 3 of [...] documented as of this encounter Care Teams Organizational Consultant Relationship Specialty Start Date End Date [place] [address] PCP - General 01/08/03 12/30/14 Doctor, Cally, PCP - General 07/26/01 01/07/03 No Ref-Primary, Physician PCP - General 12/31/14 03/09/21 Polina Lynch APRN OPTICAL EFFECTS LINE UP PERSON PCP - General Nurse Practitioner - Adult Health 03/10/21 02/02/23 Polina Lynch APRN OPTICAL EFFECTS LINE UP PERSON Assigned PCP 12/16/20 07/14/22 Flavia Newton APRN OPTICAL EFFECTS LINE UP PERSON [address] [place] [address] Assigned PCP 07/15/22 June Swan NP [address] [place] [address] Assigned Neuroscience Provider 09/16/22 documented as of this encounter
--- OUTSIDE RECORDS SUMMARY | 2023-06-28 08:40 | XMS_ITS | Encounter Summary ---
Author Name Unknown Organization [place] Address [facility] [place] [address] Care Team Providers Care Outsole Splicer Name Role Phone Polina Lynch APRN, CNP Unavailable Un available Polina Lynch APRN PUBLIC RELATIONS COUNSELOR Primary Care Provi fabi Unavailable Flavia Newton APRN PUBLIC RELATIONS COUNSELOR Unavailable [phone] June Swan RAKER BUFFING WHEEL Unavailable [phone] Encounter Details Date Type Department Care Team (Latest Contact Info) Description 03/30/2021 Historic Results Social History Tobacco Use Types Packs/Day Years Used Date Smoking Tobacco: Former Cigarettes 2 Q uit: 12/07/2001 Smokeless Tobacco: Never Alcohol Use Standard Drinks/Week Comments No 0 (1 standard drink = 0.6 oz pur e alcohol) quit in October 2020 PHQ-2 Answer Date Recorded PHQ-2 Score 6 03/30/2021 Sex and Gender Information Value Date Recorded Sex Assigned at Not on file Gender Identity Not on file Sexual Orientation Not on file COVID-19 Exposure Response Date Recorded In the last month, have you been in contact with someone who was confirmed or suspected to have Coronavirus / COVID-19? No / Unsure 03/30/2021 8:45 AM CDT documented as of this encounter Plan of Treatment Not on file documented as of this encounter Visit Diagnoses Not on filedocumented in this encounter Additional Health Concerns Infection Onset Date Last Indicated Resolved Time Rule Out COVID-19 02/06/2022 02/06/2022 02/06/2022 12:37 PM CDT Assessment Noted Time PHQ-9 Depression Total Score: 15 021 9:25 AM CDT documented as of this encounter Care Teams Outsole Splicer Relationship Specialty Start Date End Date Polina Lynch APRN CNP PCP - General Nurse Practitioner - Adult Health 03/10/21 02/02/23 Polina Lynch APRN PUBLIC RELATIONS COUNSELOR Assigned PCP 12/16/20 07/14/22 Flavia Newton APRN PUBLIC RELATIONS COUNSELOR [address] [place] [address] Assigned PCP 07/15/22 June Swan NP [address] [address] Assigned Neuroscience Provider 09/16/22 documented as of this encounter
--- OUTSIDE RECORDS SUMMARY | 2023-06-28 08:40 | XMS_ITS | Encounter Summary ---
Author Name Unknown Organization [place] Address [facility] [place] [address] Care Team Providers Care Terminal Worker Name Role Phone Jose Alonzo MD Primary Care Provider Unavailabl e No Ref-Primary, Physician Primary Care Provider Polina Lynch APRN CHIEF SCIENCE OFFICER Unavailable Un available Polina Lynch APRN CHIEF SCIENCE OFFICER Primary Care Provi fabi Unavailable Flavia Newton APRN CHIEF SCIENCE OFFICER Unavailable [phone] June Swan WASTE MACHINE OFFBEARER Unavailable [phone] Encounter Details Date Type Department Care Team (Late st Contact Info) Description 03/13/2003 [facility] [address] [facility] [address] [place] [address] Nora Solis MD [address] [place], [place] [address] ER ENCOUNTER (Primary Dx) Social History Tobacco Use Types Packs/Day Years [...] as of this encounter Progress Notes * 03/13/2003 11:59 PM [id number] 00:00 Emergency Department Encounter-[facility] SHORTY DUFF) [Entered: Nai jackson([facility])] : 68 CHIEF COMPLAINT: Pruritic rash. HISTORY [...] [id number] _ SHORTY DUFF MD MT: Document: [id number] [place], [place] Name: JORGE SCHAEFRE EMERGENCY ROOM ENCOUNTER Page 2 of 2 LCN: PAZ DSC: 03/13/2003 [place], [place] Name: MR#: : Admit Date: BRENT SCHAEFER [id number] 1970 03/13/2003 Doctor: SHORTY DUFF MD EMERGENCY ROOM ENCOUNTER Page 1 of 2 Electronically filed by Tatiana Overton 03/16/2003 4:37 PM documented in this encounter Plan of Treatment Not on file documented as of this encounter Visit Diagnoses Diagnosis ER ENCOUNTER- Primary documented in this encounter Additional Health Concerns Infection Onset Date Last Indicated Resolved Time Rule Out COVID-19 02/06/2022 02/06/2022 02/06/2022 12:37 PM CDT documented as of this encounter Care Teams Terminal Worker Relationship Specialty Start Date End Date [place] [address] PCP - General 01/08/03 12/30/14 No Ref-Primary, Physician PCP - General 12/31/14 03/09/21 Polina Lynch APRN CHIEF SCIENCE OFFICER PCP - General Nurse Practitioner - Adult Health 03/10/21 02/02/23 Polina Lynch APRN CHIEF SCIENCE OFFICER Assigned PCP 12/16/20 07/14/22 Flavia Newton APRN CHIEF SCIENCE OFFICER [address] [facility] [place] [address] Assigned PCP 07/15/22 June Swan NP [address] [place] [address] [place] [address] Assigned Neuroscience Provider 09/16/22 documented as of this encounter
--- OUTSIDE RECORDS SUMMARY | 2023-06-28 08:40 | XMS_ITS | Clinical Summary ---
Author Name Unknown Organization [facility] Address [place], [place] [address] Care Team Providers Care Junior Data Analyst Name Role Phone Clinic, [facility] Primary Care Provider [phone] Allergies No known active allergies Medications Medication Sig Dispensed Refills Start Date End Date Status Omeprazole 20 mg tabletIndications:Col itis Take 1 tablet by mouth once daily before a meal. 60 tablet 1 10/04/2017 Active hydrOXYzine HCL (ATARAX) 25 mg tabletIndications:Anx iety Take 1-2 Tablets (25-50 mg) by mouth every 6 hours if needed for Anxiety. 30 Tablet 0 03/29/2021 Active Active Problems Problem Noted Date Diagnosed Date Psychophysiological insomnia 02/19/2016 Adjustment disorder with disturbance of emotion 06/16/2011 Noncompliance with medication regimen 07/10/2009 Overview: Frustrated about lack of efficacy, and stressed by family legal problems. Gastritis, chronic 07/10/2009 Overview: History of ulcers. EGD 10/2017 severe gastritis with hemorrhage due to NSAID use, patient must stop Nsaids Migraine 07/10/2009 Overview: Amitriptyline prophylaxis. Depression, major 07/04/2009 Panic disorder without agoraphobia 11/09/2008 Sensorineural hearing loss, bilateral 08/05/2008 Alcohol Abuse; episodic; in remission, per redd nt report 07/27/2008 Overview: States that he was using alcohol about once a week, up to 4 beers, and stopped two weeks ago. Generalized anxiety disorder 07/13/2008 Resolved Problems Problem Noted Date Diagnosed Date Resolved Date Recurrent major depression i n partial remission 11/09/2008 07/02/2009 Adjustment disorder with depressed mood 07/13/2008 07/13/2008 Adjustment disorder with depressed mood 07/13/2008 07/13/2008 Major Depression, Recurrent; moderate to severe 07/13/2008 11/09/2008 Immunizations Name Administration Dates Next Due AMB Influenza, IIV4 PF (=>6 mos Flulaval,Fluzone Fluarix)(Flu Clinic Only) 03/24/2016 Pneumococcal Poly,23-Valent (Pneumovax) 03/24/20 16 Tdap 05/31/2013 Family History Medical History Relation [...] Used Date Smoking Tobacco: Former Cigarettes 2 20 0 09/18/1984 - 09/18/2004 Smokeless Tobacco: Never Tobacco Cessation:Counseling Given: Yes Alcohol Use Standard Drinks/Week Comments No 0 (1 standard drink = 0.6 oz pur e alcohol) PHQ-2 Answer Date Recorded PHQ-2 Score 0 08/12/2018 Sex and Gender Information Value Date Recorded Sex Assigned at Not on file Gender Identity Not on file Sexual Orientation Not on file Obstetrics History Last Filed [...] 15-65 1984 Hepatitis C screening for age 18-79 10/21/1987 Lipids for age 45-75 2014 BMI (ht and wt on same day) for age 18+ 10/05/2018 10/05/2017, 10/04/2017, 09/18/2017, Additional history exists Depression screening for age 12+ 10/05/2018 10/05/2017, 02/17/2016, 01/13/2016 Zoster (shingles) series for age 50+ (1 of 2) 10/21/2019 Influenza for age 50-64 02/09/2023 03/24/2016 Tetanus booster 05/31/2023 05/31/2013 Colonoscopy through age 75 09/25/202709/24, 09/24/2017, 09/24/2017 Tdap Completed 05/31/2013 Pneumococcal series for age 6-64 Aged Out 03/24/2016 No longer eligible based on patient's age to complete this topic Advance Directives Latest Code Status on File Code Status Date Activated Date Inactivated Comments Full Code 06/15/2011 1:18 PM 06/17/2011 12:19 PM Code Status History Code Status Date Activated Date Inactivated Comments Full Code 07/09/2009 9:01 PM 07/12/2009 11:01 AM Care Teams Junior Data Analyst Relationship Specialty Start Date End Date [address] [address] PCP - General 03/29/21
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
--- OUTSIDE RECORDS SUMMARY | 2023-06-28 08:40 | XMS_ITS | Encounter Summary ---
Author Name Unknown Organization [place] Address [facility] [place] [address] Care Team Providers Care Lacrosse Coach Name Role Phone Jose Alonzo MD Primary Care Provider Unavailabl e Doctor, None MD Primary Care Provider Unavailabl e No Ref-Primary, Physician Primary Care Provider Polina Lynch APRN TECHNICAL COMMUNICATOR Unavailable Un available Polina Lynch APRN TECHNICAL COMMUNICATOR Primary Care Provi fabi Unavailable Flavia Newton APRN TECHNICAL COMMUNICATOR Unavailable [phone] June Swan PBX SUPERVISOR Unavailable Encounter Details Date Type Department Care Team (Late st Contact Info) Description 02/14/[address] [place] [address] Peggy Solis MD [facility] [place] [address] Social History Tobacco Use Types Packs/Day Years [...] as of this encounter Progress Notes * 02/14/2002 11:59 PM CDTAddended by: PEGGY SOLIS on: 05/23/2002,1:09 PM Modules accepted: Progress Notes Addended by: CRISTOPHER MAY on: 04/23/2002,2:57 PM Modules accepted: Progress Notes 00:00 Emergency Department Encounter-JOVI ADEN) [Entered: 00:00 Professor Of Business Administration ([facility] [employer]) ] : 68 CHIEF COMPLAINT: Neck pain [...] better. [id number]_ JOVI WILL MD MT: Document: [id number] [place], [place] Name: JORGE SCHAEFER EMERGENCY ROOM ENCOUNTER Page 2 of 2 LCN: KRISTOPHER DSC: 02/14/2002 [facility] Name: MR#: : Admit Date: JORGE SCHAEFER -17 1970 02/14/2002 Doctor: WAN WILL MD EMERGENCY [...] documented as of this encounter Care Teams Lacrosse Coach Relationship Specialty Start Date End Date [place] [address] PCP - General 01/08/03 12/30/14 Doctor, MD Cally PCP - General 07/26/01 01/07/03 No Ref-Primary, Physician PCP - General 12/31/14 03/09/21 Polina Lynch APRN TECHNICAL COMMUNICATOR PCP - General Nurse Practitioner - Adult Health 03/10/21 02/02/23 Polina Lynch APRN TECHNICAL COMMUNICATOR Assigned PCP 12/16/20 07/14/22 Flavia Newton APRN TECHNICAL COMMUNICATOR [address] [place] [address] Assigned PCP 07/15/22 June Swan NP [address] [facility] [address] [place], [place] [address] Assigned Neuroscience Provider 09/16/22 documented as of this encounter
--- OUTSIDE RECORDS SUMMARY | 2023-06-28 08:40 | XMS_ITS | Encounter Summary ---
Author Name Unknown Organization [place] Address [facility] [place] [address] Care Team Providers Care Electronic Operator Name Role Phone Jose Alonzo MD Primary Care Provider Unavailabl e Doctor, None MD Primary Care Provider Unavailabl e No Ref-Primary, Physician Primary Care Provider Polina Lynch APRN HYDROGEN OPERATOR Unavailable Un available Polina Lynch APRN HYDROGEN OPERATOR Primary Care Provi fabi Unavailable Flavia Newton APRN HYDROGEN OPERATOR Unavailable [phone] June Swan DIRECT CHILL CASTER Unavailable [phone] Encounter Details Date Type Department Care Team (Late st Contact Info) Description 02/17/[address] [place] [address] Peggy Solis MD [facility] [place] [address] Social History Tobacco Use Types Packs/Day Years [...] as of this encounter Progress Notes * 02/24/2002 11:59 PM CDTAddended by: PEGGY SOLIS on: 03/06/2002,3:21 PM Modules accepted: Progress Notes Addended by: CRISTOPHER MAY on: 02/24/2002,3:12 PM Modules accepted: Progress Notes 00:00 Emergency Department Encounter-SONIDO PATRICK) [Entered: 00:00 Investigator ([facility])] : 68 CHIEF COMPLAINT: Dizzy, headache. HISTORY OF PRESENT ILLNESS: This 32-year-old [facility] shad male presents to the emergency department with [...] alcohol or recreational drugs, abuse of o [id number] medications. SOCIAL HISTORY: He is and employed. [...] by CT scan. 3. Nonfocal neurologic exam, Valentine Coma Score 15. 4. No evidence of [...] worsen. [id number]_ SONIDO OROSCO MD MT: Document: [id number] [place], [place] Name: Ignacio HOLLINGSWORTH EMERGENCY ROOM ENCOUNTER Page 3 of 2 LCN: KRISTOPHER DSC: 02/17/2002 [place], [place] Name: MR#: : Admit Date: JORGE HOLLINGSWORTH [id number] 1970 02/17 Doctor: SONIDO OROSCO MD EMERGENCY [...] documented as of this encounter Care Teams Electronic Operator Relationship Specialty Start Date End Date [place] [address] PCP - General 01/08/03 12/30/14 Doctor, MD Cally PCP - General 07/26/01 01/07/03 No Ref-Primary, Physician PCP - General 12/31/14 03/09/21 Polina Lynch APRN HYDROGEN OPERATOR PCP - General Nurse Practitioner - Adult Health 03/10/21 02/02/23 Polina Lynch APRN HYDROGEN OPERATOR Assigned PCP 12/16/20 07/14/22 Flavia Newton APRN HYDROGEN OPERATOR [address] [place] [address] Assigned PCP 07/15/22 June Swan NP [address] [place] [address] Assigned Neuroscience Provider 09/16/22 documented as of this encounter
--- OUTSIDE RECORDS SUMMARY | 2023-06-28 08:40 | XMS_ITS | Encounter Summary ---
Author Name Unknown Organization [place] Address [facility] [place] [address] Care Team Providers Care Lumber Straightener Name Role Phone Jose Alonzo MD Primary Care Provider Unavailabl e Doctor, None MD Primary Care Provider Unavailabl e No Ref-Primary, Physician Primary Care Provider Polina Lynch APRN PUBLIC ADMINISTRATION TEACHER Unavailable Un available Polina Lynch APRN PUBLIC ADMINISTRATION TEACHER Primary Care Provi fabi Unavailable Flavia Newton APRN PUBLIC ADMINISTRATION TEACHER Unavailable [phone] June Swan CARPENTER SHIP Unavailable Encounter Details Date Type Department Care Team (Late st Contact Info) Description 12/21/[address] [place] [address] Peggy Solis MD [facility] [place] [address] ER ENCOUNTER (Primary Dx) Social History Tobacco [...] as of this encounter Progress Notes * 12/21/2002 11:59 PM CDTAddended by: PEGGY SOLIS on: 12/24/2002,5:39 PM Modules accepted: Progress Notes Addended by: ANT HAMILTONBERLY on: 12/24/2002,2:14 PM Modules accepted: Progress Notes 00:00 Emergency Department Encounter-SANIA GONZALEZ) [Entered: 00:00 Denture Processor ([facility])] : 68 CHIEF COMPLAINT: Left abdominal flank pain. HISTORY OF PRESENT ILLNESS: This 32-ye ar-old male very suddenly at 10:30 a.m. this morning developed left abdominal flank pain describing a colicky pain with radiation to his left groin and testicle. He has had no fever, chills, or other c onstitutional symptoms. He has had no prior history of kidney stone disease, but there is a family h istory in both a mother and brother with confirmed urolithiasis. The patient states that this is the worst painful experience of his life. PAST MEDICAL HISTORY: Remarkable for meningitis as a child. ALLERGIES: None. MEDICATIONS: None. 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 He does smoke cigarettes, but denies problem drug use. FAMILY HISTORY: Please see history of present illness. REVIEW OF SYSTEMS: Remarkable for intermittent bright red blood in his stool, pres ent for one to two months, with no history of colorectal neoplasia, diverticular disease, inflammator y bowel disease, hemorrhoids or other anorectal disorder. He has not had recent foreign travel, abdo tiffany surgery, antibiotic therapy for an unrelated illness and/or respiratory illness. Completed sys tems review is otherwise negative. PHYSICAL EXAMINATION: Temperature is 96.6, pulse 93, respiration s 28, blood pressure 142/100, O2 sat of 100% on room air. General appearance is that of a healthy environmental coordinator perative male of stated age who is experiencing moderately severe pain at the time of my bedside exam ination. HEENT; lids and conjunctiva are clear. Ears, nose and throat examination are unremarkable. Neck with a midline trachea. Respiratory; lungs are clear. Cardiovascular; heart without murmur, r ub or extra sounds. Abdomen is nondistended, bowel sounds are active. Tenderness is present in the l eft flank and also the left mid to lower abdomen to deep palpation without guarding or rebound. Exte rnal genitalia documented descended testes and normal appearing scrotal wall bilaterally. Skin revea led no exanthem. Inspection of the perineum revealed no external hemorrhoids. The patient requested that I not perform a digital rectal examination as he was experiencing moderately severe pain and th us that examination was not undertaken by this examiner. LABORATORY AND DIAGNOSTIC IMAGING: White b lood count of 5600 with a normal differential, hemoglobin 17.7, basic metabolic panel is normal with a BUN of 14 and a creatinine of 1.2. Urinalysis reveals trace ketones, large blood, trace protein an d microscopic examination identifies 2 to 5 white cells and 2 to 5 red cells per high power field wit h moderate amorphous phosphate crystals present. KUB is non diagnostic. Renal protocol CT imaging w [facility] helical study demonstrated a 4 mm calculus in the left mid to lower kidney and a questionable rigo culus in the left pelvis near the ureterovesicle junction with no evidence of an obstructing calculus , hydronephrosis, perinephric stranding, or dilatation of the ureters. Within the limits of the non contrast study, the visualized portions of the spleen, liver and adrenal glands are unremarkable. EM ERGENCY DEPARTMENT TREATMENT AND MEDICAL DECISION MAKING: The patient was approached as if he might had a symptomatic kidney stone with normal saline hydration. Toradol 30 mg IV and Morphine Sulfate w as titrated intravenously with the patient receiving a total of 10 mg over the course of his Emergenc y Department stay. He was observed for almost two hours at which time he was pain free and not requi ring opiates and the decision was made to discharge the patient for outpatient follow up. DIAGNOSTIC IMPRESSION: 1) Left ureteral calculus. 2) Intermittent rectal bleeding of undetermined etiology. PLAN AND DISPOSITION: The patient was given Percocet #20 to supplement simple analgesics. He is to enhance fluid intake and strain urine, and save any passed stone for analysis. He is to follow up w [facility] the [facility] next week. [id number]_ SANIA STEVENSON MD D: 003 19:04 MT: Document: [id number] [facility] Name: JOREG SCHAEFER EMERGENCY ROOM ENCOUNTER Page 3 of 2 LCN: PAZ DSC: 12/21/2002 [place], [place] Name: MR#: : Admit Date: JORGE SCHAEFER 0001-0 3-36-17 1970 12/21/2002 Doctor: SANIA STEVENSON MD EMERGENCY ROOM ENCOUNTER Page 1 of 2 Faby ctronically filed by Elis Keith 12/24/2002 2:14 PM documented in this encounter Plan of Treatment Not on file documented as of this encounter Visit Diagnoses Diagnosis ER ENCOUNTER- Primary documented in this encounter Additional Health Concerns Infection Onset Date Last Indicated Resolved Time Rule Out COVID-19 02/06/2022 02/06/2022 02/06/2022 12:37 PM CDT documented as of this encounter Care Teams Lumber Straightener Relationship Specialty Start Date End Date [place] [address] PCP - General 01/08/03 12/30/14 Doctor, MD Cally PCP - General 07/26/01 01/07/03 No Ref-Primary, Physician PCP - General 12/31/14 03/09/21 Polina Lynch APRN PUBLIC ADMINISTRATION TEACHER PCP - General Nurse Practitioner - Adult Health 03/10/21 02/02/23 Polina Lynch APRN PUBLIC ADMINISTRATION TEACHER Assigned PCP 12/16/20 07/14/22 Flavia Newton APRN PUBLIC ADMINISTRATION TEACHER [address] [place] [address] Assigned PCP 07/15/22 June Swan NP [address] [place] [address] [place] [address] Assigned Neuroscience Provider 09/16/22 documented as of this encounter
--- OUTSIDE RECORDS SUMMARY | 2023-06-28 08:40 | XMS_ITS | Encounter Summary ---
Author Name Unknown Organization [place] Address [facility] [place] [address] Care Team Providers Care Online Merchandising Specialist Name Role Phone Jose Alonzo MD Primary Care Provider Unavailabl e Doctor, None MD Primary Care Provider Unavailabl e No Ref-Primary, Physician Primary Care Provider Polina Lynch GRADE AND CENTER MARKER EKG/ECG TECHNICIAN Unavailable Un available Polina Lynch APRN EKG/ECG TECHNICIAN Primary Care Provi fabi Unavailable Flavia Newton APRN EKG/ECG TECHNICIAN Unavailable [phone] June Swan DIGITAL MEDIA ANALYST Unavailable Encounter Details Date Type Department Care Team (Late st Contact Info) Description 09/06/[address] [place] [address] Peggy Solis MD [facility] [place] [address] Social History Tobacco Use Types Packs/Day Years [...] 11:59 PM CDTAddended by: PEGGY SOLIS on: 01/03/2002,3:18 PM Modules accepted: Progress Notes Addended by: Jimi CRISTOPHER ROY on: 01/03/2002,1:54 PM Modules accepted: Progress Notes 00:00 Emergency Department Encounter-SONIDO PATRICK) [Entered: 00:00 Daycare Teacher ([facility])] : 68 CHIEF COMPLAINT: Anxiety, depression. HISTORY OF PRESENT ILLNESS: The patient is a 31-year-old male who presents to the Emergency Department with family members. He has had significant emotional stress. He is with his . He is here with his [id number]-szj and his mother and brother. The patient [...] 3. Depression without suicidal ideation. DISPOSITION: The jimi armstrong is discharged home with family members with crisis telephone line number to be provided, nirav ng several of these available at different locations [...] [id number] _ SONIDO OROSCO MD MT: Document: [id number] [place], [place] Name: JORGE HOLLINGSWORTH EMERGENCY ROOM ENCOUNTER Page 2 of 2 LCN: PAZ DSC: 12/07/2001 [place], [place] Name: MR#: : Admit Date: EDELBRENT DOLL D -17 1970 12/07/2001 Doctor: SONIDO OROSCO [...] documented as of this encounter Care Teams Online Merchandising Specialist Relationship Specialty Start Date End Date [place] [address] PCP - General 01/08/03 12/30/14 Cally Guardado MD PCP - General 07/26/01 01/07/03 No Ref-Primary, Physician PCP - General 12/31/14 03/09/21 Polina Lynch APRN EKG/ECG TECHNICIAN PCP - General Nurse Practitioner - Adult Health 03/10/21 02/02/23 Polina Lynch APRN EKG/ECG TECHNICIAN Assigned PCP 12/16/20 07/14/22 Flavia Newton APRN EKG/ECG TECHNICIAN [address] [place] [address] Assigned PCP 07/15/22 June Swan NP [address] [place] [address] Assigned Neuroscience Provider 09/16/22 documented as of this encounter
--- OUTSIDE RECORDS SUMMARY | 2023-06-28 08:40 | XMS_ITS | Encounter Summary ---
Author Name Unknown Organization [place] Address [facility] [place] [address] Care Team Providers Care News Assignment Editor Name Role Phone Jose Alonzo MD Primary Care Provider Unavailabl e Doctor, None MD Primary Care Provider Unavailabl e No Ref-Primary, Physician Primary Care Provider Polina Lynch APRN CANDY DIPPER Unavailable Un available Polina Lynch APRN CANDY DIPPER Primary Care Provi fabi Unavailable Flavia Newton APRN CANDY DIPPER Unavailable [phone] June Swan PERMANENT WAVER Unavailable Encounter Details Date Type Department Care Team (Late st Contact Info) Description 03/16/[address] [place] [address] Peggy Solis MD [facility] [address] Social History Tobacco Use Types Packs/Day Years [...] as of this encounter Progress Notes * 03/16/2002 11:59 PM CDTAddended by: PEGGY SOLIS on: 05/23/2002,1:08 PM Modules accepted: Progress Notes Addended by: CRISTOPHER MAY on: 04/23/2002,2:59 PM Modules accepted: Progress Notes 00:00 Emergency Department Encounter-SADAF CHAO) [Entered: 00:00 [place] ([facility])] D OB: 68 CHIEF COMPLAINT: Neck pain. [...] resolved. EM100_ SADAF MISTRY MD MT: Document: [id number] [place], [place] Name: JORGE HOLLINGSWORTH EMERGENCY ROOM ENCOUNTER Page 2 of 2 LCN: PAZ DSC: 03/16/2002 [facility] Name: MR#: : Admit Date: JORGE HOLLINGSWORTH [id number] 1970 03/16/2002 Doctor: FRANDY MISTRY MD EMERGENCY [...] documented as of this encounter Care Teams News Assignment Editor Relationship Specialty Start Date End Date [place] [address] PCP - General 01/08/03 12/30/14 Cally Guardado MD PCP - General 07/26/01 01/07/03 No Ref-Primary, Physician PCP - General 12/31/14 03/09/21 Polina Lynch APRN CANDY DIPPER PCP - General Nurse Practitioner - Adult Health 03/10/21 02/02/23 Polina Lynch APRN CANDY DIPPER Assigned PCP 12/16/20 07/14/22 Flavia Newton APRN CANDY DIPPER [address] [facility], [place] [address] Assigned PCP 07/15/22 June Swan NP [address] [place] [id number] Assigned Neuroscience Provider 09/16/22 documented as of this encounter
--- OUTSIDE RECORDS SUMMARY | 2023-06-28 08:40 | XMS_ITS | Encounter Summary ---
Author Name Unknown Organization [place] Address [facility] [place] [address] Care Team Providers Care Physician Compensation Analyst Name Role Phone Jose Alonzo MD Primary Care Provider Unavailabl e No Ref-Primary, Physician Primary Care Provider Polina Lynch APRN COPY CAMERA OPERATOR Unavailable Un available Polina Lynch APRN COPY CAMERA OPERATOR Primary Care Provi fabi Unavailable Flavia Newton APRN COPY CAMERA OPERATOR Unavailable June Swan COMPUTER GRAPHICS ILLUSTRATOR Unavailable [phone] Encounter Details Date Type Department Care Team (Late st Contact Info) Description 09/10/2006 [facility] [address] [place] [address] [place] [address] [facility]. DISMISSAL SUMMARY (Primary Dx) Social History Tobacco Use Types [...] as of this encounter Visit Diagnoses Diagnosis [facility]. DISMISSAL SUMMARY- Primary documented in this encounter Additional Health Concerns Infection Onset Date Last Indicated Resolved Time Rule Out COVID-19 02/06/2022 02/06/2022 02/06/2022 12:37 PM CDT documented as of this encounter Care Teams Physician Compensation Analyst Relationship Specialty Start Date End Date [place] [address] PCP - General 01/08/03 12/30/14 No Ref-Primary, Physician PCP - General 12/31/14 03/09/21 Polina Lynch APRN COPY CAMERA OPERATOR PCP - General Nurse Practitioner - Adult Health 03/10/21 02/02/23 Polina Lynch APRN COPY CAMERA OPERATOR Assigned PCP 12/16/20 07/14/22 Flavia Newton APRN COPY CAMERA OPERATOR [address] [place] [address] Assigned PCP 07/15/22 June Swan COMPUTER GRAPHICS ILLUSTRATOR [address] [place] [address] [place] [address] Assigned Neuroscience Provider 09/16/22 documented as of this encounter
--- OUTSIDE RECORDS SUMMARY | 2023-06-28 08:40 | XMS_ITS | Encounter Summary ---
Author Name Unknown Organization [place] Address [facility] [place] [address] Care Team Providers Care Serologist Name Role Phone Jose Alonzo MD Primary Care Provider Unavailabl e Doctor, None MD Primary Care Provider Unavailabl e No Ref-Primary, Physician Primary Care Provider Polina Lynch EMERGENCY DEPARTMENT NURSE FIELD PROPERTY LOSS SPECIALIST Unavailable Un available Polina Lynch APRN FIELD PROPERTY LOSS SPECIALIST Primary Care Provi fabi Unavailable Flavia Newton APRN FIELD PROPERTY LOSS SPECIALIST Unavailable [phone] June Swan MOBILE EQUIPMENT SERVICER Unavailable [phone] Encounter Details Date Type Department Care Team (Late st Contact Info) Description 01/18/[address] [place] [address] Peggy Solis MD [facility] [place] [address] Social History Tobacco Use Types Packs/Day Years [...] as of this encounter Progress Notes * 02/04/2002 11:59 PM CDTAddended by: PEGGY SOLIS on: 02/05/2002,2:22 PM Modules accepted: Progress Notes Addended by: ELIS HAMILTON on: 02/04/2002,11:05 AM Modules accepted: Progress Notes 00:00 Admission Note DWAYNE ESTVEES) [Entered: Film Color Tester (HIM)] PATIENT'S ADDRESS: [address] [place] [address]; [place] [address] ( ) AGE: 31 SEX: M SSN: [id number] INSURANCE: ? Medica. IDENTIFICATION: The patient is [...] re-involved with an ex- of a previous [facility], and resides at her mother's house with [...] the patie nt was hospitalized inpatient at [facility]. On 10/13/01, he had overdosed, at which basilio e he was hospitalized at [facility]. On 10/16/01, he had 4 to 5 days with some psyc hiatric testing. On 11/20/01, he eloped from the Emergency Department, when he had come in for chest pain. On 12/07/01, he came in with anxiety to [facility]; and questionably again on 2. Medications: 1. [...] would appear that he went to his ygpwlv-fb-sey's house to get a hug and was [...] Tasha ott maintained that he slept at [employer] in [place] on the night prior to admission. He [...] and lethargic. DIAGNOSES: Unchanged, including the following: [place] I: 1.Depression-m ajor, recurrent. 2. Dysthymia. 3. Chemical dependency, to be established. [place] II: Deferred. [place] I II: Anorexia and a recent loss of weight. [place] IV: Stressors: Mild to moderate. [place] V: Global assessment of functioning (GAF): 50 to 60. WEAKNESS: Noncompliance and nonadherence, with minimal insight. STRENGTH: Support of the family. TREATMENT PLAN: Restart his medication including traz odone, 50 q.h.s.; Celexa, 20, 2 q.a.m.; and Xanax, 1 mg q.4h. p.r.n. We will additionally ask for Dr. Nicholson and Associates. We will ask Byproduct Engineer to assist the family in formalizing dis position and plan. DWAYNE ESTEVES MD Dictated by: DWAYNE ESTEVES MD MT: patricia Document: [id number] LCN: [id number] DSC: [place], [place] Name: MR#: : Admit Date: JORGE HOLLINGSWORTH -17 01/18/2002 ADMISSION NOTE Page 4 of 4 [...] documented as of this encounter Care Teams Serologist Relationship Specialty Start Date End Date [place] [address] PCP - General 01/08/03 12/30/14 DoctorCally MD PCP - General 07/26/01 01/07/03 No Ref-Primary, Physician PCP - General 12/31/14 03/09/21 Polina Lynch APRN FIELD PROPERTY LOSS SPECIALIST PCP - General Nurse Practitioner - Adult Health 03/10/21 02/02/23 Polina Lynch APRN FIELD PROPERTY LOSS SPECIALIST Assigned PCP 12/16/20 07/14/22 Flavia Newton APRN FIELD PROPERTY LOSS SPECIALIST Elaine [address] [place] [address] Assigned PCP 07/15/22 June Swan NP [address] [place] [address] [place] [id number] Assigned Neuroscience Provider 09/16/22 documented as of this encounter
--- OUTSIDE RECORDS SUMMARY | 2023-06-28 08:40 | XMS_ITS | Encounter Summary ---
Author Name Unknown Organization [place] Address [facility] [place] [address] Care Team Providers Care Gas Engine Mechanic Name Role Phone Jose Alonzo MD Primary Care Provider Unavailabl e Doctor, None MD Primary Care Provider Unavailabl e No Ref-Primary, Physician Primary Care Provider Polina Lynch APRN APPLE THINNER Unavailable Un available Polina Lynch APRN APPLE THINNER Primary Care Provi fabi Unavailable Flavia Newton APRN APPLE THINNER Unavailable [phone] June Swan SLAB WORKER Unavailable Encounter Details Date Type Department Care Team (Late st Contact Info) Description 01/18/[address] [place] [phone] Peggy Solis MD [facility] [place] [address] Social History Tobacco Use Types Packs/Day Years [...] as of this encounter Progress Notes * 01/18/2002 11:59 PM CDTAddended by: PEGGY SOLIS on: 05/23/2002,1:09 PM Modules accepted: Progress Notes Addended by: CRISTOPHER MAY on: 04/23/2002,3:13 PM Comment: copied wrong visit, had to erase and recopy correc t visit Modules accepted: Progress Notes 00:00 Admission Note DWAYNE ESTEVES (Alexandra Perkins) [Entered: Environmental Project Manager (HIM)] PATIENT'S ADDRESS: [address] [place] [address]; [place] [address] ( ) AGE: 31 SEX: M SSN: [id number] INSURANCE: ? Medica. IDENTIFICATION: The patient is [...] 12/13/01, the patient was hospitalized inpatient at [facility]. On 10/13/01, he had overdosed, at which time he was hospitalized at [facility]. On 10/16/01, he had 4 to 5 days with some psychiatric testing. On 11/20/01, he eloped from the Emergency Department, when he had come in for chest pain. On 12/07/01, he came i n with anxiety to [facility]; and questionably again on 12/08/01. Medications: [...] appe ar that he went to his kloaql-uw-jgj's house to get a hug and was [...] trazodone. He maintained that he slept at [employer] in [place] on the night prior to admission. He denies alcohol or drug use, although th ere is a positive screening for amphetamines. CHEMICAL USE AND ABUSE: Two packs of cigarettes per day. A joint weekly is identified. He denies any other drugs including amphetamines. REVIEW OF SYS TEMS: Neurologic: He shakes from anxiety. Unable [...] lethargic. DIAG NOSES: Unchanged, including the following: [place] I: 1.Depression-major, recurrent. 2. Dysthymia. 3. Chemical dependency, to be established. [place] II: Deferred. [place] III: Anorexia and a recent los s of weight. [place] IV: Stressors: Mild to moderate. [place] V: Global assessment of functioning (GA F): 50 to 60. WEAKNESS: Noncompliance and nonadherence, with minimal insight. STRENGTH: Support of the family. TREATMENT PLAN: Restart his medication including trazodone, 50 q.h.s.; Celexa, 20, 2 q.a.m.; and Xanax, 1 mg q.4h. p.r.n. We will additionally ask for Dr. Nicholson and Associate s. We will ask Utility Sales And Service Manager to assist the family in formalizing disposition and plan. VELA MD Dictated by: DWAYNE ESTEVES MD MT : patricia Document: [id number] LCN: [id number] DSC: [facility] and[facility] Name: MR#: : Admit Date: JORGE HOLLINGSWORTH -17 1970 01/18/2002 ADMISSI ON NOTE Page 4 of 4 Electronically filed by Cristopher Lugo 04/23/2002 3:12 PM documented in this encounter Plan of Treatment Not on file documented as of this encounter Visit Diagnoses Not on filedocumented in this encounter Additional Health Concerns Infection Onset Date Last Indicated Resolved Time Rule Out COVID-19 02/06/2022 02/06/2022 02/06/2022 12:37 PM CDT documented as of this encounter Care Teams Gas Engine Mechanic Relationship Specialty Start Date End Date [place] [address] PCP - General 01/08/03 12/30/14 DoctorCally MD PCP - General 07/26/01 01/07/03 No Ref-Primary, Physician PCP - General 12/31/14 03/09/21 Polina Lynch APRN APPLE THINNER PCP - General Nurse Practitioner - Adult Health 03/10/21 02/02/23 Polina Lynch APRN APPLE THINNER Assigned PCP 12/16/20 07/14/22 Flavia Newton APRN APPLE THINNER [place] [address] Assigned PCP 07/15/22 June Swan NP [address] [place] [address] [place] [id number] Assigned Neuroscience Provider 09/16/22 documented as of this encounter
== END 2023-06-28 08:36 | disposition home or self-care (01) ==
PROVIDERS: PCP Family Medicine; Visit Provider Family Medicine
DX: Z13.220 Encounter for screening for lipoid disorders (principal); Z12.5 Encounter for screening for malignant neoplasm of prostate; Z13.0 Encounter for screening for diseases of the blood and blood-forming organs and certain disorders involving the immune mechanism
CPT/HCPCS: 80048; 80061; 84460; 85025; G0103

== ENCOUNTER 2023-08-26 16:19 | Emergency (ER) | payer OTHER, SELFPAY ==
[2023-08-26 16:33] VITALS: BP 122/71; PULSE 67; RESP 16; TEMP 37; O2SAT 97; BMI 20.5
--- NOTE | 2023-08-26 16:40 | ED_ITS ---
HPI - Skin/Abscess/Foreign Bdy General Time Seen by Provider: 16:40 Date Seen: 08/26/23 Chief complaint: Skin/Abscess/Foreign Body Stated complaint: Poison memo on legs and arms.. Time Seen by Provider: 08/26/23 16:22 Source: patient and RN notes reviewed Mode of arrival: ambulatory Limitations: no limitations History of Present Illness HPI narrative: Patient is presenting with a spreading itchy rash after working in the [employer]. 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 He remembers walking out, feeling some itching on his thigh and wondering if he came in contact with a potential irritant. He has had a rash on his right arm, spreading on his legs. It is very itchy, he has tried Benadryl, does not really seem to help. He remembers years ago he got an injection stopped itching. This was back in the [facility]. Reviewed with him that I do have possibly some ideas of medicines that it might have been but have no way to confirm this. MD complaint: rash Related Data Previous Rx's Medication Instructions Recorded wvujyswcxc-qfygfjlsdrnhm-deountrq 1 cap PO Q6H PRN headache #30 caps 06/28/23 50 mg-300 mg-40 mg capsule (Fioricet) cyclobenzaprine 10 mg tablet 10 mg PO BID PRN muscle spasm #30 06/28/23 tabs sumatriptan succinate 100 mg tablet 100 mg PO Q2H PRN migraine 06/28/23 headache #14 tabs albuterol sulfate 90 mcg/actuation 2 puff inhalation Q4-6H PRN 08/06/23 aerosol inhaler shortness of breath or wheezing #6.7 grams Allergies Allergy/AdvReac Type Severity Reaction Status Date / Time No Known Drug Allergies Allergy Verified 08/26/23 16:37 PFSH PFSH Medical History Bronchitis ?J40 - Bronchitis, not specified as acute or chronic (ICD-10) SONAM (generalized anxiety disorder) ?F41.1 - Generalized anxiety disorder (ICD-10) COVID ?U07.1 - COVID-19 (ICD-10) Migraine ?G43.909 - Migraine, unspecified, not intractable, without status migrainosus (ICD-10) Tension headache ?G44.209 - Tension-type headache, unspecified, not intractable (ICD-10) Insomnia ?G47.00 - Insomnia, unspecified (ICD-10) Influenza with pneumonia ?J11.00 - Influenza due to unidentified influenza virus with unspecified type of pneumonia (ICD-10) NSAID induced gastritis ?K29.60 - Other gastritis without bleeding (ICD-10) ?T39.395A - Adverse effect of other nonsteroidal anti-inflammatory drugs [NSAID], initial encounter (ICD-10) Colitis ?K52.9 - Noninfective gastroenteritis and colitis, unspecified (ICD-10) Surgical History History of esophageal surgery ?Z98.890 - Other specified postprocedural states (ICD-10) History of esophagogastroduodenoscopy (EGD) ?Z98.890 - Other specified postprocedural states (ICD-10) Hx laparoscopic cholecystectomy ?Z90.49 - Acquired absence of other specified parts of digestive tract (ICD- 10) Family History Father Myocardial infarction Social History Narrative: , 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, 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, 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 What is your current living situation?: declined to answer Problems where you live: declined to answer In the past 12 months, utilities in danger of being shut off: declined to answer In past 12 months, lack of transportation kept you from medical appts, meetings, work, or getting things needed for daily living: declined to answer In the past 12 mos, have been you worried that your food would run out before you had money to buy more?: declined to answer In the past 12 mos, the food you bought just didn't last and you didn't have money to buy more?: declined to answer Highest level of school completed/degree received: 10th grade Smoking Status: Former smoker What tobacco products do you use: cigarettes Smoking quit date/years: >15 years ago How often do you have a drink containing alcohol: 2-3 times a week Alcohol type: beer How many standard drinks containing alcohol do you have on a typical day: 1 or 2 How often do you have six or more drinks on one occasion: Never AUDIT-C Alcohol total score: 3 Non-prescribed substance use: former substance user and marijuana (any form) Non-prescribed substance use details: Smoke Marijuana occasionally, past history of meth, crack, coke, 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 Caffeine: Yes (2 monsters a day) How often does anyone, including family, friends and others, physically hurt you : decline to answer How often does anyone, including family, friends and others, insult or talk down to you: decline to answer How often does anyone, including family, friends and others, threaten you with harm: decline to answer How often does anyone, including family, friends and others, scream or curse at you: decline to answer Little interest or pleasure in doing things: not at all Feeling down, depressed, or hopeless: not at all Gender Identity: male service: No Exam Const: Vital Signs, click to edit/add: Vital Signs - 24 hr 08/26/23 16:33 Temperature 98.6 F Pulse Rate [Pulse Oximeter] 67 Respiratory Rate 16 Blood Pressure [Le ft Upper Arm] 122/71 Pulse Oximetry 97 Oxygen Delivery Me thod Room Air Patient is alert, interactive, no apparent distress face without rash, neck without rash, do not see any rash on his chest or back. I do not see any rash in his left arm. On his right arm he does have a few small erythematous circular areas that actually look more excoriated. On his thighs on his lower legs, has patches and some more linear areas that look like kept nurse phenomena underlying erythematous macular papular type rash. Certainly do not see any acute vesicles at this time but does have appearance of probable contact dermatitis given his history. Documenting provider has reviewed patient's vital signs: yes Course Course ED Course: Patient will be given prednisone from [facility], 20mg bid for 5 days. Dose of Claritin 10mg given here. Vital Signs Vital signs: Initial Vital Signs Temperature 98.6 F 08/26/23 16:33 Temperature Source Temporal Artery Scan 08/26/23 16:33 Pulse Rate 67 08/26/23 16:33 Respiratory Rate 16 08/26/23 16:33 Blood Pressure 122/71 08/26/23 16:33 Blood Pressure Mean 88 08/26/23 16:33 Blood Pressure Position Sitting 08/26/23 16:33 Pulse Oximetry 97 08/26/23 16:33 Oxygen Delivery Method Room Air 08/26/23 16:33 Vital Signs Temperature 98.6 F 08/26/23 16:33 Pulse Rate 67 08/26/23 16:33 Respiratory Rate 16 08/26/23 16:33 Blood Pressure 122/71 08/26/23 16:33 Pulse Oximetry 97 08/26/23 16:33 Oxygen Delivery Method Room Air 08/26/23 16:33 Temperature 98.6 F 08/26/23 16:33 Pulse Rate 67 08/26/23 16:33 Respiratory Rate 16 08/26/23 16:33 Blood Pressure 122/71 08/26/23 16:33 Pulse Oximetry 97 08/26/23 16:33 Oxygen Delivery Method Room Air 08/26/23 16:33 Discharge Plan Discharge Clinical Impression: Contact dermatitis Qualifiers: Contact dermatitis type: irritant Contact dermatitis trigger: non-food plants Qualified Code(s): L24.7 - Irritant contact dermatitis due to plants, except food Patient Disposition: Home, Self-Care Condition: Stable Instructions: Contact Dermatitis (ED) Additional Instructions: Start prednisone and take as prescribed. Can use zwxc-cch-blpfdut topical creams like cortisone or Benadryl to help in symptom relief. Once the prednisone is working sufficiently, you are not likely to need any topical medications. Can use Claritin twice daily to help minimize itching. Can supplement with Benadryl orally and topically to 8 in suppression of itching. Use cool compresses or ice packs for any particularly itchy area. If the prednisone is not improving the rash in the next few days, if the rash returns once the prednisone is done, do need to seek re-evaluation. Activity Level: Activity as Tolerated Prescriptions: No Action sumatriptan succinate 100 mg tablet 100 mg PO Q2H PRN (Reason: migraine headache) Qty: 14 12RF cyclobenzaprine 10 mg tablet 10 mg PO BID PRN (Reason: muscle spasm) Qty: 30 2RF ksugzaumqn-cuelwhfgnqlgm-uwby [Fioricet] 50-300-40 mg capsule 1 cap PO Q6H PRN (Reason: headache) Qty: 30 1RF albuterol sulfate 90 mcg/actuation HFA aerosol inhaler 2 puff inhalation Q4-6H PRN (Reason: shortness of breath or wheezing) Qty: 6.7 0RF Follow Up/Referrals: Juan Hi MD [Primary Care Provider] - Stand Alone Forms: [employer] Info Instructions
[2023-08-26] MEDS: LORATADINE 10 MG TABLET PO (17:15)
== END 2023-08-26 17:15 | disposition home or self-care (01) ==
PROVIDERS: Emergency Provider Family Medicine; PCP Family Medicine
DX: L24.7 Irritant contact dermatitis due to plants, except food (principal)
CPT/HCPCS: 99282; 99283

== ENCOUNTER 2025-06-05 14:20 | Emergency (ER) | payer OTHER, SELFPAY ==
--- OUTSIDE RECORDS SUMMARY | 2025-05-27 14:30 | XMS_ITS | Encounter Summary ---
Author Organization [place] Address [facility] [place] [address] Care Team Providers Care Rn Er Name Role Phone [facility] Unavailable No Ref-Primary, Physician Primary Care Provider Reason for Referral * Diagnostic Imaging CT Scan (Routine) - AuthorizedSpecialtyDiagnoses / ProceduresReferred By ContactReferred To ContactRadiology. Diagnoses Left flank pain Procedures CT Abdomen w/o Contrast Joya Zhang APRN CNP [address] [place] [address] Phone: tel: fax: Referral IDStatusReasonStart DateExpiration DateVisits RequestedVisits [id number] ODONTIC ASSISTANT Reason for Visit * ReasonCommentsFlank PainLeft sided flank pain that radiates to left testicle 3-4 weeks. Hx of kidney stones. Encounter Details DateTypeDepartmentCare Team (Latest Contact Info)Ixtdttpatxa67/17/2025 2:30 PM CSTOffice Visit [address] [address] Joya Zhang APRN CNP [address] [place] [address] Left flank pain (Primary Dx) Social History Tobacco UseTypesPacks/DayYears UsedDateSmoking Tobacco: GmksaiKoikutvlpw9Itnu: 12/07/2001Smokeless Tobacco: Never Tobacco Cessation:Counseling Given: Not Answered Alcohol UseStandard Drinks/WeekCommentsNo0 (1 standard drink = 0.6 oz pure alcohol)quit in OctoberUDIT-CAnswerDate RecordedQ1: How often do you have a drink containing alcohol?Monthly or less05/27/2025verage Number of DrinksNot on file05/27/2025Frequency of Binge DrinkingNot on file05/27/2025PHQ-2AnswerDate RecordedPHQ-2 Lfnua90707/28/2024dolescent EducationAnswerDate RecordedGetting School Help NeededNot on file03/25/2023Interpersonal SafetyAnswerDate RecordedDo you feel physically and emotionally safe where you currently live?Yes05/27/2025 Within the past 12 months, have you been hit, slapped, kicked or otherwise physically hurt by someone?No05/27/2025Within the past 12 months, have you been humiliated or emotionally abused in other ways by your partner or ex-partner?No 05/27/2025Sex and Gender InformationValueDate RecordedSex Assigned at BirthNot on fileLegal GskDthy68/04/2012 3:11 AM CSTGender IdentityNot on fileSexual OrientationNot on filedocumented as of this encounter Last Filed Vital Signs Vital SignReadingTime TakenCommentsBlood Ezgnxcmj021/8205/27/2025 2:18 PM ORTHODONTIC ASSISTANT Udrqc435705/27/2025 2:02 PM CCQWoxhzfbisfs44.8 ??C (98.2 ??F)05/27/2025 2:02 PM CSTRespiratory Rwar969707/28/2024 2:02 PM CSTOxygen Bcimrvqfhr080%05/27/2025 2:02 PM CSTInhaled Oxygen Concentration--Lapkrm63.8 kg (134 lb)05/27/2025 2:02 PM ORTHODONTIC ASSISTANT Gpnais328.5 cm (5' 7.5)05/27/2025 2:02 PM CSTBody Mass Index20.6805/27/2025 2:02 PM CSTdocumented in this encounter Functional Status * Alcohol UseQuestionAnswerDate of AssessmentAuthorQ1: How often do you have a drink containing alcohol?Monthly or less05/27/2025 2:08 PM Adela Acevedo, NIRANJAN documented as of this encounter Progress Notes * Joya ZhangPARISH RECORD TESTER - 05/27/2025 2:30 PM CST Assessment & Plan Left flank pain - Left flank pain likely due to nephrolithiasis. Differential includes hernia and infection, but nephrolithiasis is most likely. - Prescribed tamsulosin (Flomax) to facilitate stone passage. Prescribed naproxen for pain management. Ordered laboratory tests including blood count and kidney function. Ordered CT scan to evaluate for nephrolithiasis and assess stone size. Advised to hydrate. Instructed to return if symptoms worsen or if testicular changes such as erythema, bulging, or altered sensation occur. Advised to discontinue medication and skip CT if stone passes and symptoms resolve. Will review lab results and contact if any concerns arise. - As this has been going on for 3 weeks, no signs of infection, will check a CBC, but at this time,I do not think he needs a higher level of care. Will monitor for results of tests and contact patient. Reviewed red flags and when to seek emergency care. - Declined exam x 3 - UA with Microscopic reflex to Culture - Clinic Collect - UA Microscopic with Reflex to Culture - CBC with platelets and differential - CT Abdomen w/o Contrast - Basic metabolic panel (Ca, Cl, CO2, Creat, Gluc, K, Na, BUN) - tamsulosin (FLOMAX) 0.4 MG capsule Dispense: 30 capsule; Refill: 0 - naproxen (NAPROSYN) 500 MG tablet Dispense: 30 tablet; Refill: 0 - CBC with platelets and differential - Basic metabolic panel (Ca, Cl, CO2, Creat, Gluc, K, Na, BUN) The longitudinal plan of care for the diagnosis(es)/condition(s) as documented were addressed during this visit. Due to the added complexity in care, I will continue to support Yinka in the subsequent management and with ongoing continuity of care. Subjective Yinka is a 54 year old, presenting for the following health issues: Flank Pain (Left sided flank pain that radiates to left testicle 3-4 weeks. Hx of kidney stones.) 05/27/2025 2:08 PM Additional Questions Roomed by Adela Alcantar History of Present Illness Reason for visit: Na Symptom onset: 3-4 weeks ago Symptoms include: Nereyda Symptom intensity: Severe Symptom progression: Worsening Had these symptoms before: Yes Has tried/received treatment for these symptoms: No He is taking medications regularly. Yinka Schaefer, 54-year-old male - Left-sided testicular and kidney pain for 2 to 3 weeks, colicky in nature, triggered by certain movements - Associated nausea - Denies fever - History of kidney stones - Not currently taking methocarbamol or Toradol - Pain radiates from the left side downwards - Reports stiffness and slowness ROS: 10 point ROS neg other than the symptoms noted above in the HPI. Objective BP 112/82 (BP Location: Right arm, Patient Position: Sitting, Cuff Size: Adult Regular) Pulse 59 Temp 98.2 ??F (36.8 ??C) Resp 16 Ht 1.715 m (5' 7.5) Wt 60.8 kg (134 lb) SpO2 100% BMI 20.68 kg/m?? Body mass index is 20.68 kg/m??. Physical Exam Constitutional: General: He is not in acute distress. Appearance: Normal appearance. He is normal weight. He is not ill-appearing, toxic-appearing or diaphoretic. HENT: Head: Normocephalic and atraumatic. Cardiovascular: Rate and Rhythm: Normal rate. Pulses: Normal pulses. Pulmonary: Effort: Pulmonary effort is normal. Genitourinary: Comments: Declines Musculoskeletal: General: Normal range of motion. Cervical back: Normal range of motion. Skin: General: Skin is warm and dry. Capillary Refill: Capillary refill takes less than 2 seconds. Neurological: General: No focal deficit present. Mental Status: He is alert. Psychiatric: Mood and Affect: Mood normal. Behavior: Behavior normal. Thought Content: Thought content normal. Judgment: Judgment normal. Signed Electronically by: Imelda Zhang APRN CNP ODONTIC ASSISTANT documented in this encounter Plan of Treatment DateTypeDepartmentCare Team (Latest Contact Info)Wacuvxiabtm95/28/2025 7:30 AM CSTAppointment [facility] [address] [facility] [address] [place] [address] Joya Zhang APRN RECORD TESTER [address] [place] [address] NameTypePriorityAssociated DiagnosesOrder ScheduleCT Abdomen w/o ContrastImaging Routine Left flank pain Expected: 05/27/2025 (Approximate), Expires: 05/27/2026documented as of this encounter Procedures Procedure NamePriorityDate/TimeAssociated DiagnosisCommentsCBC WITH PLATELETS AND VRBTKXJWUIHFJhvuegq47/17/2025 3:23 PM ORTHODONTIC ASSISTANT Left flank pain CBC WITH PLATELETS & UUUCUYHFCMHLVcfwskt57/17/2025 3:23 PM ORTHODONTIC ASSISTANT Left flank pain BASIC METABOLIC OXOWTMwtxyog42/17/2025 3:23 PM ORTHODONTIC ASSISTANT Left flank pain UA MICROSCOPIC WITH REFLEX TO HREMJKCUeqfewf46/17/2025 2:59 PM ORTHODONTIC ASSISTANT Left flank pain ROUTINE UA WITH MICROSCOPIC REFLEX TO RAKXIYKSyutdco06/17/2025 2:59 PM ORTHODONTIC ASSISTANT Left flank pain documented in this encounter Results * CBC with platelets and differential (05/27/2025 3:23 PM ORTHODONTIC ASSISTANT)ComponentValueRef RangeTest MethodAnalysis TimePerformed AtPathologist SignatureWBC Count6.34 4.00 - 11.00 10e3/uL05/27/2025 3:25 PM CSTLV LABORATORYRBC Count5.084.40 - 5.90 10e6/uL05/27/2025 3:25 PM CSTLV DDSXUNKTIWEokaewcgha02.213.3 - 17.7 g/dL 05/27/2025 3:25 PM CSTLV UCILVEZHJVUlkntvddfi68.140.0 - 53.0 %05/27/2025 3:25 PM CSTLV NEOQYONXIIMAB96.778.0 - 100.0 fL05/27/2025 3:25 PM CSTLV LABORATORY MCH31.926.5 - 33.0 pg05/27/2025 3:25 PM CSTLV MLSJHHBQIVMDYQ84.431.5 - 36.5 g/dL05/27/2025 3:25 PM CSTLV HKGMMOPJDXQCK91.110.0 - 15.0 %05/27/2025 3:25 PM CSTLV LABORATORYPlatelet Hsxrn670449 - 450 10e3/uL05/27/2025 3:25 PM CSTLV LABORATORY% Zxkqhmyjrkh72.3%05/27/2025 3:25 PM CSTLV LABORATORY% Lymphocytes 32.0%05/27/2025 3:25 PM CSTLV LABORATORY% Monocytes8.5%05/27/2025 3:25 PM ORTHODONTIC ASSISTANT LV LABORATORY% Eosinophils3.0%05/27/2025 3:25 PM CSTLV LABORATORY% Basophils 0.9%05/27/2025 3:25 PM CSTLV LABORATORY% Immature Granulocytes0.3%05/27/2025 3:25 PM CSTLV LABORATORYAbsolute Neutrophils3.501.60 - 8.30 10e3/uL05/27/2025 3:25 PM CSTLV LABORATORYAbsolute Lymphocytes2.030.80 - 5.30 10e3/uL05/27/2025 3:25 PM CSTLV LABORATORYAbsolute Monocytes0.540.00 - 1.30 10e3/uL05/27/2025 3:25 PM CSTLV LABORATORYAbsolute Eosinophils0.190.00 - 0.70 10e3/uL05/27/2025 3:25 PM CSTLV LABORATORYAbsolute Basophils0.060.00 - 0.20 10e3/uL05/27/2025 3:25 PM CSTLV LABORATORYAbsolute Immature Granulocytes<0.04<=0.40 10e3/uL 05/27/2025 3:25 PM CSTLV LABORATORYSpecimen (Source)Anatomical Location / LateralityCollection Method / VolumeCollection TimeReceived TimeBloodBLOOD SPECIMEN / UnknownVenipuncture / Tzybhap0105/27/2025 3:23 PM CST05/27/2025 3:23 PM ORTHODONTIC ASSISTANT Narrative Authorizing ProviderResult TypeResult StatusJennifer Marisol [facility] CUSTOM HOME INSTALLER CNPLAB - BLOOD ORDERABLESFinal ResultPerforming OrganizationAddressCity/State/ZIP Code Phone Number LABORATORY [facility] [address] [facility] (no room number, 1st floor of clinic) [place] [address], [facility] * (ABNORMAL) Basic metabolic panel (Ca, Cl, CO2, Creat, Gluc, K, Na, BUN) (05/27/2025 3:23 PM ORTHODONTIC ASSISTANT)ComponentValueRef RangeTest MethodAnalysis Time Performed AtPathologist FyfvbelbkNijdks691238 - 145 mmol/L107/29/2024 4:38 AM CSTUU LABORATORYPotassium4.43.4 - 5.3 mmol/L107/29/2024 4:38 AM CSTUU ATUIQMWVMCRetsalqm73273 - 107 mmol/L107/29/2024 4:38 AM CSTUU LABORATORYCarbon Dioxide (CO2)30(H)22 - 29 mmol/L107/29/2024 4:38 AM CSTUU LABORATORYAnion Gap97 - 15 mmol/L107/29/2024 4:38 AM CSTUU LABORATORYUrea Ldodhdwv15.06.0 - 20.0 mg/dL05/28/2025 4:38 AM CSTUU LABORATORYCreatinine0.870.67 - 1.17 mg/dL 05/28/2025 4:38 AM CSTUU LABORATORYGFR Estimate>90>60 mL/min/1.31w30305/28/2025 4:38 AM CSTUU LABORATORYComment:eGFR calculated using 2020 CKD-EPI equation. Calcium9.58.8 - 10.4 mg/dL05/28/2025 4:38 AM CSTUU HIBWBGAZPXSmgxhlp8645 - 99 mg/dL05/28/2025 4:38 AM CSTUU LABORATORYSpecimen (Source)Anatomical Location / LateralityCollection Method / VolumeCollection TimeReceived TimeBloodBLOOD SPECIMEN / UnknownVenipuncture / Rpziafx6405/27/2025 3:23 PM CST05/27/2025 3:23 PM ORTHODONTIC ASSISTANT Narrative Authorizing ProviderResult TypeResult StatusJekamla Zhang APRN CNPLAB - BLOOD ORDERABLESFinal ResultPerforming OrganizationAddressCity/State/ZIP Code Phone Number [facility] LAB[facility]ATORY [facility] [address] [facility], [address] [place] [address], [place] * (ABNORMAL) UA Microscopic with Reflex to Culture (05/27/2025 2:59 PM ORTHODONTIC ASSISTANT) ComponentValueRef RangeTest MethodAnalysis TimePerformed AtPathologist SignatureRBC UrineNone Seen0-2 /HPF /HPF JACK 05/27/2025 3:10 PM CSTLV LABORATORYWBC UrineNone Seen0-5 /HPF /HPF JACK 05/27/2025 3:10 PM CSTLV LABORATORYMucus UrinePresent(A)None Seen /LPF JACK 05/27/2025 3:10 PM CSTLV LABORATORYAmorphous Crystals UrineMany(A)None Seen /HPF JAKC 05/27/2025 3:10 PM CSTLV LABORATORYSpecimen (Source)Anatomical Location / LateralityCollection Method / VolumeCollection TimeReceived TimeUrineMID-STREAM URINE SPECIMEN / UnknownNon-blood Collection / Pkrspri6705/27/2025 2:59 PM ORTHODONTIC ASSISTANT 05/27/2025 2:59 PM ORTHODONTIC ASSISTANT Narrative LABORATORY - 05/27/2025 3:10 PM ORTHODONTIC ASSISTANT Urine Culture not indicated Authorizing ProviderResult TypeResult StatusJennifer G Vicente CUSTOM HOME INSTALLER CNPLAB - URINE ORDERABLESFinal ResultPerforming OrganizationAddressCity/State/ZIP Code Phone Number LABORATORY [facility] [address] [facility] Lab (no room number, 1st floor of clinic) [place] [address], [facility] * (ABNORMAL) UA with Microscopic reflex to Culture - Clinic Collect (05/27/2025 2:59 PM ORTHODONTIC ASSISTANT)ComponentValueRef RangeTest MethodAnalysis TimePerformed At Pathologist SignatureColor UrineYellowColorless, Straw, Light Yellow, Yellow 05/27/2025 3:05 PM CSTLV LABORATORYAppearance UrineCloudy(A)Clear05/27/2025 3:05 PM CSTLV LABORATORYGlucose UrineNegativeNegative mg/dL05/27/2025 3:05 PM CSTLV LABORATORYBilirubin YjjauLhuggwcnQjfpxsxn18/17/2025 3:05 PM CSTLV LABORATORYKetones UrineNegativeNegative mg/dL05/27/2025 3:05 PM CSTLV LABORATORYSpecific Carbon Urine1.0151.002 - 1.6730205/27/2025 3:05 PM CSTLV LABORATORYBlood XdyvqGlotwyxgYcnndcyn12/17/2025 3:05 PM CSTLV LABORATORYpH Urine8.5(H)5.0 - 7. 3:05 PM CSTLV LABORATORYProtein Albumin Urine NegativeNegative mg/dL05/27/2025 3:05 PM CSTLV LABORATORYUrobilinogen Urine0.2 0.2, 1.0 E.U./dL05/27/2025 3:05 PM CSTLV LABORATORYNitrite UrineNegative Seqceztp80/17/2025 3:05 PM CSTLV LABORATORYLeukocyte Esterase UrineNegative Wxetobfn14/17/2025 3:05 PM CSTLV LABORATORYSpecimen (Source)Anatomical Location / LateralityCollection Method / VolumeCollection TimeReceived Time UrineMID-STREAM URINE SPECIMEN / UnknownNon-blood Collection / Unknown 05/27/2025 2:59 PM CST05/27/2025 2:59 PM ORTHODONTIC ASSISTANT Narrative Authorizing ProviderResult TypeResult StatusJennifer Marisol Vicente CUSTOM HOME INSTALLER CNPLAB - URINE ORDERABLESFinal ResultPerforming OrganizationAddressCity/State/ZIP Code Phone Number LABORATORY [facility] [address] [facility] Lab (no room number, 1st floor of clinic) [place] [address] documented in this encounter Visit Diagnoses Diagnosis Left flank pain- Primary Abdominal pain, unspecified site documented in this encounter Additional Health Concerns AssessmentNoted TimePHQ-9 Depression Total Score: 3:17 PM CDT documented as of this encounter Care Teams Team MemberRelationshipSpecialtyStart DateEnd Date No Ref-Primary, Physician PCP - Gmfifuc92/17/[address] [address] Assigned PCP05/03documented as of this encounter
--- OUTSIDE RECORDS SUMMARY | 2025-06-05 14:22 | XMS_ITS | Encounter Summary ---
Author Organization [place] Address [facility] [place] [address] Care Team Providers Care Cheese Blender Name Role Phone [facility] Unavailable No Ref-Primary, Physician Primary Care Provider Joya Zhang APRN MANAGER CLINIC Unavailable [phone] Encounter Details DateTypeDepartmentCare Team (Latest Contact Info)Uppdpqlbnpv02/18/2025Results Follow-Up [facility] [id number] [place] [address] Joya Zhang, PARISH MANAGER CLINIC [address] [place], [place] [id number] Social History Tobacco UseTypesPacks/DayYears UsedDateSmoking Tobacco: LjvcudIoirkytsgp8Qlsh: 12/07/2001Smokeless Tobacco: NeverAlcohol UseStandard Drinks/WeekCommentsNo0 (1 standard drink = 0.6 oz pure alcohol)quit in OctoberUDIT-CAnswerDate Recorded Q1: How often do you have a drink containing alcohol?Monthly or less05/27/2025 Average Number of DrinksNot on file05/27/2025Frequency of Binge DrinkingNot on file05/27/2025PHQ-2AnswerDate RecordedPHQ-2 Mheev55707/28/2024dolescent Education AnswerDate RecordedGetting School Help NeededNot on file03/25/2023Interpersonal SafetyAnswerDate RecordedDo you feel physically and emotionally safe where you currently live?Yes05/27/2025Within the past 12 months, have you been hit, slapped, kicked or otherwise physically hurt by someone?No05/27/2025Within the past 12 months, have you been humiliated or emotionally abused in other ways by your partner or ex-partner?No05/27/2025Sex and Gender InformationValueDate RecordedSex Assigned at BirthNot on fileLegal CnyTuxi15/04/2012 3:11 AM 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 Gender IdentityNot on fileSexual OrientationNot on filedocumented as of this encounter Plan of Treatment DateTypeDepartmentCare Team (Latest Contact Info)Uzpdkqvrhde32/28/2025 7:30 AM CSTAppointWheaton Medical Center Imaging [address] [facility] [address] [place] [address] Joya Zhang APRN MANAGER CLINIC [address] [place] [address] documented as of this encounter Visit Diagnoses Not on filedocumented in this encounter Additional Health Concerns AssessmentNoted TimePHQ-9 Depression Total Score: 3:17 PM CDT documented as of this encounter Care Teams Team MemberRelationshipSpecialtyStart DateEnd Date No Ref-Primary, Physician PCP - Zckwuhq26/17/[address] [phone] Assigned PCP05/03/2412/22/25 Joya Zhang APRN MANAGER CLINIC [address] [place], [place] [phone] Assigned PCP06/02/25documented as of this encounter
--- OUTSIDE RECORDS SUMMARY | 2025-06-05 14:22 | XMS_ITS | Patient Health Record ---
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
--- OUTSIDE RECORDS SUMMARY | 2025-06-05 14:22 | XMS_ITS | Encounter Summary ---
Author Organization [place] Address [address] [place] [address] Care Team Providers Care Chief Load Dispatcher Name Role Phone [facility] Unavailable No Ref-Primary, Physician Primary Care Provider Encounter Details DateTypeDepartmentCare Team (Latest Contact Info)Qbhfmjjravf06/17/2025Travel Social History Tobacco UseTypesPacks/DayYears UsedDateSmoking Tobacco: HbixksPnyvnmgnar8Qlzz: 12/07/2001Smokeless Tobacco: NeverAlcohol UseStandard Drinks/WeekCommentsNo0 (1 standard drink = 0.6 oz pure alcohol)quit in October1AUDIT-CAnswerDate Recorded Q1: How often do you have a drink containing alcohol?Monthly or less05/27/2025 Average Number of DrinksNot on file05/27/2025Frequency of Binge DrinkingNot on file05/27/2025PHQ-2AnswerDate RecordedPHQ-2 Sjdgg96407/28/2024dolescent Education AnswerDate RecordedGetting School Help NeededNot on [...] InformationValueDate RecordedSex Assigned at BirthNot on fileLegal DuqKfrf67/09/2011 3:11 AM 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 Gender IdentityNot on fileSexual OrientationNot on filedocumented as of this encounter Plan of Treatment DateTypeDepartmentCare Team (Latest Contact Info)Ddbdfddeakt23/28/2025 7:30 AM CSTAppointment [facility] [address] [place] [address] Joya Zhang, HIGH SCHOOL PRINCIPAL [facility] [address] [place] [address] documented as of this encounter Visit Diagnoses Not on filedocumented in this encounter Additional Health Concerns AssessmentNoted TimePHQ-9 Depression Total Score: 3:17 PM CDT documented as of this encounter Care Teams Team MemberRelationshipSpecialtyStart DateEnd Date No Ref-Primary, Physician PCP - Wzkfujy19/17/[address] [address] Assigned PCP05/03documented as of this encounter
--- OUTSIDE RECORDS SUMMARY | 2025-06-05 14:22 | XMS_ITS | Clinical Summary ---
Author Organization [place] Address [facility] [place] [address] Care Team Providers Care Transitional Studies Instructor Name Role Phone No Ref-Primary, Physician Primary Care Provider Joya Zhang APRN CHIEF QUALITY OFFICER Unavailable [phone] Allergies No known active allergies Medications MedicationSigDispense QuantityRefillsLast FilledStart DateEnd DateStatus acetaminophen (TYLENOL) 325 MG tablet Take 325-650 mg by mouth every 6 hours as needed for mild painActive SUMAtriptan (IMITREX) 100 MG tablet Indications:Migraine without status migrainosus, not intractable, unspecified migraine typeTake 1 tablet (100 mg) by mouth at onset of headache for migraine 14 tablet ctive ibuprofen (ADVIL/MOTRIN) 200 MG tablet Take 200 mg by mouth every 4 hours as needed for pain.Active tamsulosin (FLOMAX) 0.4 MG capsule Indications:Left flank painTake 1 capsule (0.4 mg) by mouth daily. 30 capsule 5Active naproxen (NAPROSYN) 500 MG tablet Indications:Left flank painTake 1 tablet (500 mg) by mouth 2 times daily (with meals). 30 tablet 5Active methocarbamol (ROBAXIN) 500 MG tablet Indications:Neck pain,Insomnia, unspecified typeTake 1 tablet (500 mg) by mouth nightly as needed for muscle spasms 30 tablet /Discontinued methocarbamol (ROBAXIN) 750 MG tablet Indications:Neck painTake 1 tablet (750 mg) by mouth 4 times daily as needed for muscle spasms 25 tablet Discontinued ketorolac (TORADOL) 10 MG tablet Indications:Neck painTake 1 tablet (10 mg) by mouth 4 times daily (with meals and nightly) This is for pain. 20 tablet Discontinued Active Problems ProblemNoted DateDiagnosed DateCARDIOVASCULAR SCREENING; LDL GOAL LESS THAN 160 04/10/2010Duodenitis Overview (03/12/2015): With ulceration; EGD with bx at [place] Problem list name updated by automated process. Provider to review Anxiety state Overview (03/12/2015): With panic attacks Problem list name updated by automated process. Provider to review Resolved Problems ProblemNoted DateDiagnosed DateResolved DateiamLUMBAR DISC DISPLACEMENT Encounters DateTypeDepartmentCare KadvOrpjuczgpsx74/18/2025Results Follow-Up [address] [address] Joya Zhang APRN CHIEF QUALITY OFFICER 05/27/2025 2:30 PM CSTOffice Visit [address] [address] Joya Zhang APRN CHIEF QUALITY OFFICER Left flank pain (Primary Dx)05/27/20257145Wcqhfm22/15/2025Telephone [facility] [address] [place] [address] No Ref-Primary, Physician Appointmentfrom Last 3 Months Immunizations ImmunizationAdministration DatesNext DueInfluenza Vaccine >6 months,quad, PF 03/24/2016Pneumococcal 23 qmzcbh9503/24/2016TDAP (Adacel,Boostrix)06/28/2023, 05/31/2013 Family History Medical HistoryRelationCommentsCoronary Artery DiseaseFatherHypertensionMother RelationStatusCommentsBrotherAliveDaughter 1AliveDaughter 2AliveDaughter 3Alive Daughter 4AliveFatherAliveMotherAliveSonAlive Social History Tobacco UseTypesPacks/DayYears UsedDateSmoking Tobacco: BvdcpfJxuojmxtov9Kvyj: 12/07/2001Smokeless Tobacco: Never Tobacco Cessation:Counseling Given: Not Answered Alcohol UseStandard Drinks/WeekCommentsNo0 (1 standard drink = 0.6 oz pure alcohol)quit in OctoberUDIT-CAnswerDate RecordedQ1: How often do you have a drink containing alcohol?Monthly or less05/27/2025verage Number of DrinksNot on file05/27/2025Frequency of Binge DrinkingNot on file05/27/2025PHQ-2AnswerDate RecordedPHQ-2 Ephma72407/28/2024dolescent EducationAnswerDate RecordedGetting School Help NeededNot on file03/25/2023Interpersonal [...] InformationValueDate RecordedSex Assigned at BirthNot on fileLegal AutGfir18/04/2012 3:11 AM CSTGender IdentityNot on fileSexual OrientationNot on file Last Filed Vital Signs Vital SignReadingTime TakenCommentsBlood Wwuhmgom204/8205/27/2025 2:18 PM FIRM ADMINISTRATOR Pwrgo157705/27/2025 2:02 PM BAHGdjlfglbudh37.8 ??C (98.2 ??F)05/27/2025 2:02 PM CSTRespiratory Dhjk028007/28/2024 2:02 PM CSTOxygen Ogmzsgcezp643%05/27/2025 2:02 PM CSTInhaled Oxygen Concentration--Clksqt84.8 kg (134 lb)05/27/2025 2:02 PM FIRM ADMINISTRATOR Otajbe742.5 cm (5' 7.5)05/27/2025 2:02 PM CSTBody Mass Index20.6805/27/2025 2:02 PM FIRM ADMINISTRATOR Plan of Treatment DateTypeDepartmentCare Team (Latest Contact Info)Twjothqrquh05/28/2025 7:30 AM CSTAppointment [facility] [address] [place] [address] Joya Zhang, PARISH CHIEF QUALITY OFFICER [address] [place] [address] Health MaintenanceDue DateLast DoneCommentsADVANCE CARE HTRMQQAQ84/12/1970ANNUAL REVIEW OF HM CEGRKO25 1969CT WUIRUDCZRXHO62/12/6925ADD01 1969FLEX SIG 1969DNA (Cologuard)1969YEARLY PREVENTIVE VISIT1972HEPATITIS B VACCINE (1 of 3 - 19+ 3-dose series)1988PNEUMOCOCCAL VACCINE 50+ YEARS (2 of 2 - PCV)ZOSTER VACCINE (1 of 2)10/21/2019COVID-19 VACCINE (1 - season)2025INFLUENZA VACCINE (#1)/LIPID /8492PAGDZDYGHKH53/16/202804/, 09/24/2017COLORECTAL CANCER DPZFJLUUR19/16/2028DIABETES OFTQRFMTS68, 03/29/2021, 08/17/2015, Additional history existsDTAP/TDAP/TD VACCINE (3 - Td or Tdap) 4006/28/2023, 05/31/2013HEPATITIS C WNRSJRHTQKqqgyhjxh39/20/2021HIV DYPCYDMANVgyozalwm71/20/2021HQ-2 (once per calendar year)Klblkoyqg36/17/2025, 09/05/2022, 09/05/2022, Additional history existsHPV VACCINE (No Doses Required) CompletedMENINGITIS VACCINEAged OutNo longer eligible based on patient's age to complete this topic Procedures Procedure NamePriorityDate/TimeAssociated DiagnosisCommentsCBC WITH PLATELETS & YXJPVPKAALRXTwjigxv01/17/2025 3:23 PM FIRM ADMINISTRATOR Left flank pain CBC WITH PLATELETS AND IRODYLFAXKNTTyoyvfs34/17/2025 3:23 PM FIRM ADMINISTRATOR Left flank pain BASIC METABOLIC HEYYMSphcbns30/17/2025 3:23 PM FIRM ADMINISTRATOR Left flank pain UA MICROSCOPIC WITH REFLEX TO QESKDXKBykvpur49/17/2025 2:59 PM FIRM ADMINISTRATOR Left flank pain ROUTINE UA WITH MICROSCOPIC REFLEX TO NGTQMDWHgalngb94/17/2025 2:59 PM FIRM ADMINISTRATOR Left flank pain HIV ANTIGEN ANTIBODY RUFEHHyvjoph90/20/2021 10:19 AM CDT Encounter for screening for HIV HEPATITIS C SCREEN REFLEX TO HCV RNA QUANT AND PCGGMUWUFqzrfks38/20/2021 10:19 AM CDT Need for hepatitis C screening test LIPID REFLEX TO DIRECT LDL PXRKCVsanlmr62/20/2021 10:19 AM CDT Screening cholesterol level COLONOSCOPY - HIM BHOFZfzdlif85/16/2018 from Last 3 Months or Most Recently Relevant to Health Maintenance Results * CBC with platelets and differential (05/27/2025 3:23 PM FIRM ADMINISTRATOR)ComponentValueRef RangeTest MethodAnalysis TimePerformed AtPathologist SignatureWBC Count6.34 4.00 - 11.00 10e3/uL05/27/2025 3:25 PM CSTLV LABORATORYRBC Count5.084.40 - 5.90 10e6/uL05/27/2025 3:25 PM CSTLV FAVHYXMHCYBrmazidgqi25.213.3 - 17.7 g/dL 05/27/2025 3:25 PM CSTLV DVWRYREGOCLeugadravh61.140.0 - 53.0 %05/27/2025 3:25 PM CSTLV EMJQEBKIXXAVO59.778.0 - 100.0 fL05/27/2025 3:25 PM CSTLV LABORATORY MCH31.926.5 - 33.0 pg12/ 3:25 PM CSTLV DHPGNDEQXBOJFP47.431.5 - 36.5 g/dL05/27/2025 3:25 PM CSTLV CTAGILTIERUNX08.110.0 - 15.0 %05/27/2025 3:25 PM CSTLV LABORATORYPlatelet Cbkyf797940 - 450 10e3/uL05/27/2025 3:25 PM CSTLV LABORATORY% Jppelfznhfb86.3%05/27/2025 3:25 PM CSTLV LABORATORY% Lymphocytes 32.0%05/27/2025 3:25 PM CSTLV LABORATORY% Monocytes8.5%05/27/2025 3:25 PM FIRM ADMINISTRATOR LV LABORATORY% Eosinophils3.0%05/27/2025 3:25 PM CSTLV LABORATORY% [...] VolumeCollection TimeReceived TimeBloodBLOOD SPECIMEN / UnknownVenipuncture / Oxcupdp2805/27/2025 3:23 PM CST05/27/2025 3:23 PM FIRM ADMINISTRATOR Narrative Authorizing ProviderResult TypeResult StatusJennifer Marisol Zhang APRN CNPLAB - BLOOD ORDERABLESFinal ResultPerforming OrganizationAddressCity/State/ZIP Code Phone Number LABORATORY [facility] [address] (no room number, 1st floor of clinic) [place] [address], [facility] * (ABNORMAL) Basic metabolic panel (Ca, Cl, CO2, Creat, Gluc, K, Na, BUN) (05/27/2025 3:23 PM FIRM ADMINISTRATOR)ComponentValueRef RangeTest MethodAnalysis Time Performed AtPathologist SggckhhboHcikcv166584 - 145 mmol/L107/29/2024 4:38 AM CSTUU LABORATORYPotassium4.43.4 - 5.3 mmol/L107/29/2024 4:38 AM CSTUU JVBQGUXNYHXdlnrxec05527 - 107 mmol/L107/29/2024 4:38 AM CSTUU LABORATORYCarbon Dioxide (CO2)30(H)22 - 29 mmol/L107/29/2024 4:38 AM CSTUU LABORATORYAnion Gap97 - 15 mmol/L107/29/2024 4:38 AM CSTUU LABORATORYUrea Tswlxnab72.06.0 - 20.0 mg/dL05/28/2025 4:38 AM CSTUU LABORATORYCreatinine0.870.67 - 1.17 mg/dL 05/28/2025 4:38 AM CSTUU LABORATORYGFR Estimate>90>60 mL/min/1.80i74005/28/2025 4:38 AM CSTUU LABORATORYComment:eGFR calculated using 2020 CKD-EPI equation. Calcium9.58.8 - 10.4 mg/dL05/28/2025 4:38 AM CSTUU QYIDDWUPOMOakdavk7454 - 99 mg/dL05/28/2025 4:38 AM CSTUU LABORATORYSpecimen (Source)Anatomical Location / LateralityCollection Method / VolumeCollection TimeReceived TimeBloodBLOOD SPECIMEN / UnknownVenipuncture / Luzkafv0105/27/2025 3:23 PM CST05/27/2025 3:23 PM FIRM ADMINISTRATOR Narrative Authorizing ProviderResult TypeResult StatusJekamla Zhang APRN CNPLAB - BLOOD ORDERABLESFinal ResultPerforming OrganizationAddressCity/State/ZIP Code Phone Number U LABORATORY [facility] [address], [address] [place] [address], [place] * (ABNORMAL) UA Microscopic with Reflex to Culture (05/27/2025 2:59 PM FIRM ADMINISTRATOR) ComponentValueRef RangeTest MethodAnalysis TimePerformed AtPathologist SignatureRBC UrineNone Seen0-2 /HPF /HPF JACK 05/27/2025 3:10 PM CSTLV LABORATORYWBC UrineNone Seen0-5 /HPF /HPF JACK 05/27/2025 3:10 PM CSTLV LABORATORYMucus UrinePresent(A)None Seen /LPF JACK 05/27/2025 3:10 PM CSTLV LABORATORYAmorphous Crystals UrineMany(A)None Seen /HPF JACK 05/27/2025 3:10 PM CSTLV LABORATORYSpecimen (Source)Anatomical Location / LateralityCollection Method / VolumeCollection TimeReceived TimeUrineMID-STREAM URINE SPECIMEN / UnknownNon-blood Collection / Wpuemyz7805/27/2025 2:59 PM FIRM ADMINISTRATOR 05/27/2025 2:59 PM FIRM ADMINISTRATOR Narrative LABORATORY - 05/27/2025 3:10 PM FIRM ADMINISTRATOR Urine Culture not indicated Authorizing ProviderResult TypeResult StatusJennifer G Grosland ELECTRIC ENGINE MECHANIC CNPLAB - URINE ORDERABLESFinal ResultPerforming OrganizationAddressCity/State/ZIP Code Phone Number LABORATORY [facility] [address] (no room number, 1st floor of clinic) [place] [address], [facility] * (ABNORMAL) UA with Microscopic reflex to Culture - Clinic Collect (05/27/2025 2:59 PM FIRM ADMINISTRATOR)ComponentValueRef RangeTest MethodAnalysis TimePerformed At Pathologist SignatureColor UrineYellowColorless, Straw, Light Yellow, Yellow 05/27/2025 3:05 PM CSTLV LABORATORYAppearance UrineCloudy(A)Clear05/27/2025 3:05 PM CSTLV LABORATORYGlucose UrineNegativeNegative mg/dL05/27/2025 3:05 PM CSTLV LABORATORYBilirubin ExyuhIoktpuhkGabbpcvd47/17/2025 3:05 PM CSTLV LABORATORYKetones UrineNegativeNegative mg/dL05/27/2025 3:05 PM CSTLV LABORATORYSpecific [place] Urine1.0151.002 - 1.6093305/27/2025 3:05 PM CSTLV LABORATORYBlood YvlbbRgfwxkseHubxgtdi03/17/2025 3:05 PM CSTLV LABORATORYpH Urine8.5(H)5.0 - 7.012/ 3:05 PM CSTLV LABORATORYProtein Albumin Urine NegativeNegative mg/dL05/27/2025 3:05 PM CSTLV LABORATORYUrobilinogen Urine0.2 0.2, 1.0 E.U./dL05/27/2025 3:05 PM CSTLV LABORATORYNitrite UrineNegative Gzdfsnps72/17/2025 3:05 PM CSTLV LABORATORYLeukocyte Esterase UrineNegative Flkcwwrf69/17/2025 3:05 PM CSTLV LABORATORYSpecimen (Source)Anatomical Location / LateralityCollection Method / VolumeCollection TimeReceived Time UrineMID-STREAM URINE SPECIMEN / UnknownNon-blood Collection / Unknown 05/27/2025 2:59 PM CST05/27/2025 2:59 PM FIRM ADMINISTRATOR Narrative Authorizing ProviderResult TypeResult StatusJekamla Zhang ELECTRIC ENGINE MECHANIC CNPLAB - URINE ORDERABLESFinal ResultPerforming OrganizationAddressCity/State/ZIP Code Phone Number LABORATORY [facility] [address] [facility] (no room number, 1st floor of clinic) [place] [address], [facility] * HIV Antigen Antibody Combo (03/30/2021 10:19 AM CDT)ComponentValueRef Range Test MethodAnalysis TimePerformed AtPathologist SignatureHIV Antigen Antibody JwmdfTyeknjvtcirLxiqwjivvze30/20/2021 9:19 PM CDTUU [facility] Comment:HIV-1 p24 Ag & HIV-1/HIV-2 Ab Not DetectedSpecimen (Source)Anatomical Location / LateralityCollection Method / VolumeCollection TimeReceived Time BloodSTRUCTURE OF RIGHT UPPER LIMB / UnknownVenipuncture / Kozrlik5003/30/2021 10:19 AM CDT1 10:19 AM CDT Narrative Authorizing ProviderResult TypeResult StatusLorlynne Newton ELECTRIC ENGINE MECHANIC CNPLAB - BLOOD ORDERABLESFinal ResultPerforming OrganizationAddressCity/State/ZIP Code Phone Number [facility] Special[facility] Lab [address], [id number] [address], [facility] [phone] * Hepatitis C Screen Reflex to HCV RNA Quant and Genotype (03/30/2021 10:19 AM CDT)ComponentValueRef RangeTest MethodAnalysis TimePerformed AtPathologist SignatureHepatitis C HqzolyeyPhbyfhfzbkaLmkqlxlwchj70/20/2021 9:[address] [facility]pecimen (Source)Anatomical Location / LateralityCollection Method / VolumeCollection TimeReceived TimeBloodSTRUCTURE OF RIGHT UPPER LIMB / UnknownVenipuncture / Ftplapy0003/30/2021 10:19 AM CDT1 10:[address] [facility] - 03/30/2021 9:19 PM CDT Assay performance characteristics have not been established for newborns, infants, and children. Authorizing ProviderResult TypeResult StatusLori Sharla Newton APRN CNPLAB - BLOOD ORDERABLESFinal ResultPerforming OrganizationAddressCity/State/ZIP Code Phone Number [facility] Specialty Core Lab [address], [address] [address], [facility] [phone] * (ABNORMAL) Lipid panel reflex to direct LDL Fasting (03/30/2021 10:19 AM CDT) ComponentValueRef RangeTest MethodAnalysis TimePerformed AtPathologist YgkmzgyvxZaazlfnzhdt427<200 mg/dL03/31/2021 2:43 PM CDTUR LABORATORY Uxmnlruplzniv91<150 mg/dL03/31/2021 2:43 PM CDTUR LABORATORYDirect Measure HDL 63>=40 mg/dL03/31/2021 2:43 PM CDTUR LABORATORYLDL Cholesterol Nawrdvmdga683 (H)<=100 mg/dL03/31/2021 2:43 PM CDTUR LABORATORYNon HDL Wnulbyavznq656(H)<130 mg/dL03/31/2021 2:43 PM CDTUR LABORATORYPatient Fasting > 8hrs?Yes03/31/2021 2:43 PM CDTOX LABORATORYSpecimen (Source)Anatomical Location / Laterality Collection Method / VolumeCollection TimeReceived TimeBloodSTRUCTURE OF RIGHT UPPER LIMB / UnknownVenipuncture / Hkabvpt3003/30/2021 10:19 AM CDT1 10:19 AM CDT Narrative UR LABORATORY - 03/31/2021 2:43 PM CDT Cholesterol Desirable: <200 mg/dL Triglycerides Normal: ??Less than 150 mg/dL Borderline High: ??150-199 mg/dL High: ??200-499 mg/dL Very High: ??Greater than or equal to 500 mg/dL Direct Measure HDL Female: ??Greater than or equal to 50 mg/dL Male: ??Greater than or equal to 40 mg/dL LDL Cholesterol Desirable: <100mg/dL Above Desirable: ??100-129 mg/dL Borderline High: ??130-159 mg/dL High: ??160-189 mg/dL Very High: >= 190 mg/dL Non HDL Cholesterol Desirable: ??130 mg/dL Above Desirable: ??130-159 mg/dL Borderline High: ??160-189 mg/dL High: ??190-219 mg/dL Very High: ??Greater than or equal to 220 mg/dL Authorizing ProviderResult TypeResult StatusLori Sharla Newton APRN CNPLAB - BLOOD ORDERABLESFinal ResultPerforming OrganizationAddressCity/State/ZIP Code Phone Number UR LABORATORY [facility] Acute Care Lab [address], [address] [place] [address], [facility] [phone] [facility]ly [facility] [address] Lab (no room number, 1st floor of clinic) [place] [address], [facility] [phone] * Colonoscopy - HIM Scan (09/24/2017) Kerri Hunter - 09/24/2017 [facility] -ED Note Authorizing ProviderResult TypeResult StatusPatient ReportedPROCEDURESFinal Result from Last 3 Months or Most Recently Relevant to Health Maintenance Insurance * Guarantor: Yinka Schaefer DAc TypeRelation to PatientDate of BirthPhone Billing AddressPersonal/ZptboeHmee31/12/1971 [address] [phone] * Guarantor: AMANDA SCHAEFER AAccount TypeRelation to PatientDate of BirthPhone Billing AddressPersonal/SsqdwdMzptng12/02/1973 [address] [phone] * Guarantor: Yinka Schaefer DAclucindaunt TypeRelation to PatientDate of BirthPhone Billing AddressPersonal/RtmbwxFlcb13/12/1971 none (Work) [address] [place] [address] Care Teams Team MemberRelationshipSpecialtyStart DateEnd Date No Ref-Primary, Physician PCP - Gbsjdev35/17/25 Joya Zhang APRN CHIEF QUALITY OFFICER [address] [place] [address] Assigned PCP06/02/25
--- OUTSIDE RECORDS SUMMARY | 2025-06-05 14:22 | XMS_ITS | Clinical Summary ---
Author Organization [facility] Address [address] [place] [address] Care Team Providers Care Wax Room Supervisor Name Role Phone Clinic, [facility] Primary Care Provider [phone] Allergies No known active allergies Medications MedicationSigDispense QuantityRefillsLast FilledStart DateEnd DateStatus Omeprazole 20 mg tablet Indications:ColitisTake 1 tablet by mouth once daily before a meal. 60 tablet Active hydrOXYzine HCL (ATARAX) 25 mg tablet Indications:AnxietyTake 1-2 Tablets (25-50 mg) by mouth every 6 hours if needed for Anxiety. 30 Tablet 1Active Active Problems ProblemNoted DateDiagnosed DatePsychophysiological gmeglkvt86/10/2016Adjustment disorder with disturbance of krtplsf7506/16/2011Noncompliance with medication xbvxtza0907/10/2009 Overview (07/10/2009): Frustrated about lack of efficacy, and stressed by family legal problems. Gastritis, qwojuqy0807/10/2009 Overview (10/10/2017): History of ulcers. EGD 10/2017 severe gastritis with hemorrhage due to NSAID use, patient must stop Nsaids Ylolibsk26/30/2010 Overview (07/10/2009): Amitriptyline prophylaxis. Depression, major07/04/2009Panic disorder without yqhmqyaqspo68/01/2009 Sensorineural hearing loss, bbchjwuae24/25/2009lcohol Abuse; episodic; in remission, per patient uksakj1707/27/2008 Overview (07/10/2009): States that he was using alcohol about once a week, up to 4 beers, and stopped two weeks ago. Generalized anxiety stfraxif84/02/2009 Resolved Problems ProblemNoted DateDiagnosed DateResolved DateRecurrent major depression in partial tnkerptic60djustment disorder with depressed mood djustment disorder with depressed mood Major Depression, Recurrent; moderate to mfueeu70 Immunizations ImmunizationAdministration DatesNext DueAMB Influenza, IIV4 PF (=>6 mos Flulaval,Fluzone Fluarix)(Flu Clinic Only)03/24/2016Pneumococcal Poly,23-Valent (Pneumovax)03/24/2016Tdap108/01/2012 Family History Medical HistoryRelationNameCommentsGood HealthBrother 2Good HealthFatherCancer Maternal GrandmotherStrokeMaternal GrandmotherGood HealthMotherAnesthesia ProblemNo Family HistoryBlood DiseaseNo Family HistoryRelationNameStatusComments Brother 1AliveBrother 2FatherAliveMaternal GrandfatherDeceasedMaternal GrandmotherDeceasedMotherAlivePaternal GrandfatherDeceasedPaternal Grandmother Social History Tobacco UseTypesPacks/DayYears UsedDateSmoking Tobacco: HyfcjcMwpvxhpofo360 09/18/1984 - 09/18/2004Smokeless Tobacco: Never Tobacco Cessation:Counseling Given: Yes Alcohol UseStandard Drinks/WeekCommentsNo0 (1 standard drink = 0.6 oz pure alcohol)PHQ-2AnswerDate RecordedPHQ-2 Cbdva421Interpersonal SafetyAnswer Date RecordedAre you being hit, kicked, pushed or yelled at (see row info)?No 04/03/2024Interpersonal Safety Abuse 12 - 18Not on file04/03/2024Interpersonal Safety Ambulatory VulnerabilityNot on file04/03/2024Sex and Gender Information ValueDate RecordedSex Assigned at BirthNot on fileLegal AtgIaji9906/24/2012 6:52 AM CSTGender IdentityNot on fileSexual OrientationNot on fileOccupationIndustry Job Start DateJob End DateROOFERNot on fileNot on fileNot on filePackage meatNot on fileNot on fileNot on file Last Filed Vital Signs Vital SignReadingTime TakenCommentsBlood Zubgajol573/9510 2:25 PM CDT Dbnmo913204/03/2024 2:25 PM ZBGHhovvjlqnay17.8 ??C (98.2 ??F)04/03/2024 2:25 PM CDTRespiratory Vbvf9693 2:25 PM CDTOxygen Cojirzudgv04%04/03/2024 2:25 PM CDTInhaled Oxygen Concentration--Gvqslr85 kg (130 lb)04/03/2024 2:25 PM CDT Kynqrh333.7 cm (5' 8)04/03/2024 2:25 PM CDTBody Mass Index19.7704/03/2024 2:25 PM CDT Plan of Treatment Health MaintenanceDue DateLast DoneCommentsHIV for age 15-Hepatitis C screening for age 18-Hepatitis B series for 19+ (1 of 3 - 19+ 3- dose series)1988Lipids for age 45-Pneumococcal series for age 50+ (2 of 2 - PCV)BMI (ht and wt on same day) for age 18+ , 10/04/2017, 09/18/2017, Additional history exists Depression screening for age 12+, 02/17/2016, 01/13/2016 Zoster (shingles) series for age 50+ (1 of 2)10/21/2019Tetanus lmpgsug9605/31/2023 05/31/2013COVID-19 vaccine series (1 - 2024- season)2025Influenza Vaccine (#1)Colonoscopy through age 7508009/24/2017, 09/24/2017, 09/24/2017RSV vaccine for adults or (1 - 1-dose 75+ series)2044 Procedures Procedure NamePriorityDate/TimeAssociated DiagnosisCommentsSCAN-COLONOSCOPY 09/24/2017 12:00 AM CDT from Last 3 Months or Most Recently Relevant to Health Maintenance Results * SCAN-COLONOSCOPY (09/24/2017 12:00 AM CDT) Narrative Authorizing ProviderResult TypeResult StatusScannerOTHERFinal Result from Last 3 Months or Most Recently Relevant to Health Maintenance Insurance Advance Directives * Full Code (Latest Code Status on File) Date ActivatedDate InactivatedComments06/15/2011 1:18 PM06/17/2011 12:19 PM * Full Code Date ActivatedDate InactivatedComments07/09/2009 9:01 07/12/2009 11:01 AM Care Teams Team MemberRelationshipSpecialtyStart DateEnd [address] [address] PCP - Ttryijw72/19/21
--- OUTSIDE RECORDS SUMMARY | 2025-06-05 14:22 | XMS_ITS | Encounter Summary ---
Author Organization [place] Address [facility] [place] [address] Care Team Providers Care Label Press Operator Name Role Phone [facility] Unavailable Reason for Visit * ReasonOnset EznqCkunamkoAevzdclehkm85/15/2025 Encounter Details DateTypeDepartmentCare Team (Latest Contact Info)Cebgnimgsla66/15/2025Telephone [facility] [address] [place] [address] No Ref-Primary, Physician Appointment Social History Tobacco UseTypesPacks/DayYears UsedDateSmoking Tobacco: FhpmhfWesntbpeqk0Obvw: 12/07/2001Smokeless Tobacco: NeverAlcohol UseStandard Drinks/WeekCommentsNo0 (1 standard drink = 0.6 oz pure alcohol)quit in OctoberUDIT-CAnswerDate Recorded Q1: How often do you have a drink containing alcohol?Monthly or less05/27/2025 Average Number of DrinksNot on file05/27/2025Frequency of Binge DrinkingNot on file05/27/2025PHQ-2AnswerDate RecordedPHQ-2 Tuznw50507/28/2024dolescent Education AnswerDate RecordedGetting School Help NeededNot on [...] InformationValueDate RecordedSex Assigned at BirthNot on fileLegal SlhCsyz36/04/2012 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 Gender IdentityNot on fileSexual OrientationNot on filedocumented as of this encounter Miscellaneous Notes * Telephone Encounter - Mayra Pratt - 05/26/2025 9:28 AM CST Called and spoke with patient who made an appointment for 05-27-2025 in [place] FORMING MACHINE OPERATOR * Telephone Encounter - Zuleyma Cota - 05/25/2025 4:01 PM CST Reason for Call: Appointment Request Patient requesting this type of appt: Hernia Requested provider: Open to anyone Reason patient unable to be scheduled: Not within requested timeframe When does patient want to be seen/preferred time: INA Comments: he needs to get in to see about a hernia Okay to leave a detailed message?: Yes at Cell number on file: Telephone Information: Call taken on 05/25/2025 at 4:01 PM by Zuleyma Cota FORMING MACHINE OPERATOR documented in this encounter Plan of Treatment DateTypeDepartmentCare Team (Latest Contact Info)Nqdjxoxzmry50/28/2025 7:30 AM CSTAppointment [facility] [address] [place] [address] Joya Zhang, RUG RENOVATOR SAMPLER AND TEST PREPARER [address] [place] [address] documented as of this encounter Visit Diagnoses Not on filedocumented in this encounter Additional Health Concerns AssessmentNoted TimePHQ-9 Depression Total Score: 3:17 PM CDT documented as of this encounter Care Teams Team MemberRelationshipSpecialtyStart DateEnd Date [facility] [address] [address] Assigned PCP05/03/2412/documented as of this encounter
[2025-06-05 14:25] VITALS: BP 156/111; PULSE 80; RESP 20; TEMP 37.3; O2SAT 97; BMI 19.8
[2025-06-05 15:26] LABS: Appearance Urine Clear (Clear)
--- NOTE | 2025-06-05 15:29 | ED.ABDPAIN ---
HPI - Abdominal Pain General Time Seen by Provider: 15:29 Date Seen: 06/05/25 Chief Complaint: Flank Pain Stated Complaint: Abdominal/lower back pain Time Seen by Provider: 06/05/25 15:20 Source: patient and RN notes reviewed Mode of arrival: ambulatory Limitations: no limitations History of Present Illness HPI narrative: This 54-year-old male is coming in with left-sided abdominal pain that is worsening. He has had symptoms intermittently for couple of months now but is now worsening. He feels it radiate towards left testicle. He had been in an outside urgent care who did get him scheduled for his CT outpatient which is scheduled for the Sunday. He has a history of kidney stones, has not required any intervention with them. The urgent care did prescribe him Flomax and Naprosyn but he did not pick it up, did not think it would be strong enough to help him. He notes no urinary symptoms, no fevers chills. He is nauseated now due to the pain but no vomiting. He also notes that he has a history of severe gastritis, quit taking Excedrin. He describes that this was diagnosed on an EGD. He is no longer on a proton pump inhibitor but still avoids his Excedrin. He has had a cholecystectomy before but no other abdominal surgery. He has a history of migraine headaches, anxiety as well. MD elicited complaint: abdominal pain Related Data Home Medications ?Medication ?Instructions ?Recorded ?Confirmed albuterol sulfate 90 mcg/actuation 2 puff inhalation Q6H PRN 09/23/24 09/23/24 aerosol inhaler Previous Rx's ?Medication ?Instructions ?Recorded celecoxib 200 mg capsule (Celebrex) 200 mg PO BID #60 caps 09/23/24 sumatriptan succinate 100 mg tablet 100 mg PO Q2H PRN migraine 09/23/24 headache #14 tabs tizanidine 4 mg tablet 4 mg PO QHS PRN muscle spasticity 09/23/24 #60 tabs Allergies Allergy/AdvReac Type Severity Reaction Status Date / Time No Known Drug Allergies Allergy Verified 06/05/25 16:01 Review of Systems Status of ROS Reports: 6 or more systems reviewed and unremarkable except as noted in History and below [facility] Medical History Anxiety disorder with panic attacks ?F41.9 - Anxiety disorder, unspecified (ICD-10) History of renal stone ?Z87.442 - Personal history of urinary calculi (ICD-10) Bronchitis ?J40 - Bronchitis, not specified as acute or chronic (ICD-10) SONAM (generalized anxiety disorder) ?F41.1 - Generalized anxiety disorder (ICD-10) COVID ?U07.1 - COVID-19 (ICD-10) Migraine ?G43.909 - Migraine, unspecified, not intractable, without status migrainosus (ICD-10) Tension headache ?G44.209 - Tension-type headache, unspecified, not intractable (ICD-10) Insomnia ?G47.00 - Insomnia, unspecified (ICD-10) Influenza with pneumonia ?J11.00 - Influenza due to unidentified influenza virus with unspecified type of pneumonia (ICD-10) NSAID induced gastritis ?K29.60 - Other gastritis without bleeding (ICD-10) ?T39.395A - Adverse effect of other nonsteroidal anti-inflammatory drugs [NSAID], initial encounter (ICD-10) Colitis ?K52.9 - Noninfective gastroenteritis and colitis, unspecified (ICD-10) Surgical History History of esophageal surgery ?Z98.890 - Other specified postprocedural states (ICD-10) History of esophagogastroduodenoscopy (EGD) ?Z98.890 - Other specified postprocedural states (ICD-10) Hx laparoscopic cholecystectomy ?Z90.49 - Acquired absence of other specified parts of digestive tract (ICD-10) Family History Father Myocardial infarction Mother High blood pressure Social History 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: , 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, 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, 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 What is your current living situation?: I presently have a place to live Problems where you live: no known problems In the past 12 months, utilities in danger of being shut off: no In past 12 months, lack of transportation kept you from medical appts, meetings, work, or getting things needed for daily living: no In the past 12 mos, have been you worried that your food would run out before you had money to buy more?: never true In the past 12 mos, the food you bought just didn't last and you didn't have money to buy more?: never true Highest level of school completed/degree received: 10th grade Smoking Status: Former smoker What tobacco products do you use: cigarettes Smoking quit date/years: >15 years ago How often do you have a drink containing alcohol: 2-3 times a week Alcohol type: beer How many standard drinks containing alcohol do you have on a typical day: 1 or 2 How often do you have six or more drinks on one occasion: Never AUDIT-C Alcohol total score: 3 Non-prescribed substance use: former substance user and marijuana (any form) Non-prescribed substance use details: Smoke Marijuana occasionally, past history of meth, crack, coke, 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 Caffeine: Yes (2 monsters a day) How often does anyone, including family, friends and others, physically hurt you: never How often does anyone, including family, friends and others, insult or talk down to you: never How often does anyone, including family, friends and others, threaten you with harm: never How often does anyone, including family, friends and others, scream or curse at you: never Gender Identity: male service: No Exam Const: Vital Signs, click to edit/add: Vital Signs - 24 hr 06/05/25 14:25 Temperature 99.2 F Pulse Rate [Pulse Oximeter] 80 Respiratory Rate 20 Blood Pressure [Ri ght Upper Arm] 156/111 H Pulse Oximetry 97 Oxygen Delivery Me thod Room Air This 54-year-old male is alert, interactive, up pacing in the room hanging onto his left abdominal area but is able to lie down on the bed for me to examine him. Pupils equal round reactive, sclera clear, symmetrical facial function, speech normal. Lungs are clear, good air entry, no wheezing or crackles, no tachypnea, no accessory muscle use. CV regular rate and rhythm, no murmur. He does have left CVA tenderness. Abdomen is soft, some mild left upper quadrant tenderness but no rebound or guarding, organomegaly, no masses. He is slender. Skin visualized without rash or jaundice. Documenting provider has reviewed patient's vital signs: yes Course Course ED Course: This 54-year-old male certainly could have renal colic, could be confounded by underlying gastritis. Will do CT abdomen pelvis with IV contrast given how slender he is and we want to consider other intra-abdominal etiologies given that he has had symptoms for couple of months. I am going to give him IV Toradol, Zofran as well as cover him with 40 mg IV Protonix for his symptoms. Will get full complement of labs, nursing staff is already ordered urinalysis. I have discussed with patient that we do not have Urology here but should he need transfer, we can work to coordinate that. Otherwise, we will consider intra-abdominal etiologies of his pain. Reevaluation(s) Time of Reevaluation #1: 17:48 Reevaluation #1: Patient requesting Dilaudid for 03/20 pain. I went in to talk to patient, provided him his CT report which is completely normal, no pathology found. His CBC, lactate and urinalysis are not showing us any abnormality. We are still awaiting chemistries. Did do a testicular exam on him as that had not been done. He has no inguinal mass or bulging, his cord is nontender, testicle is nontender, no masses, same size as his right testicle, there is no tenderness on either side, no mass on either testicle. I have reviewed with Jose that we do not have any etiology for his pain and so far testing is normal. I would advise against narcotics and go as far as saying they are contraindicated. We do not have an etiology for his pain, it is not recommended for usage of narcotics. I am happy to provide Tylenol and even perhaps a muscle relaxant at this time. He did not respond to that. Did review that were just waiting for chemistries, I will talk to him once they are back. Time of Reevaluation #2: 18:04 Reevaluation #2: Patient reportedly called nursing staff into his room, asked his IV be withdrawn and requested to leave at 5:57 p.m.. I did not get a chance to talk to him again, chemistries were not back in her still not back at time of this dictation. Vital Signs Vital signs: Initial Vital Signs Temperature 99.2 F 06/05/25 14:25 Temperature Source Temporal Artery Scan 06/05/25 14:25 Pulse Rate 80 06/05/25 14:25 Pulse Rhythm Regular 06/05/25 14:25 Respiratory Rate 20 06/05/25 14:25 Blood Pressure 156/111 H 06/05/25 14:25 Blood Pressure Mean 126 H 06/05/25 14:25 Blood Pressure Position Sitting 06/05/25 14:25 Pulse Oximetry 97 06/05/25 14:25 Oxygen Delivery Method Room Air 06/05/25 14:25 Vital Signs Temperature 99.2 F 06/05/25 14:25 Pulse Rate 80 06/05/25 14:25 Respiratory Rate 20 06/05/25 14:25 Blood Pressure 156/111 H 06/05/25 14:25 Pulse Oximetry 97 06/05/25 14:25 Oxygen Delivery Method Room Air 06/05/25 14:25 Temperature 99.2 F 06/05/25 14:25 Pulse Rate 80 06/05/25 14:25 Respiratory Rate 20 06/05/25 14:25 Blood Pressure 156/111 H 06/05/25 14:25 Pulse Oximetry 97 06/05/25 14:25 Oxygen Delivery Method Room Air 06/05/25 14:25 Medications Administered Medications: Discontinued Medications Generic Name Dose Route Start Last Admin Trade Name Arnavq PRN Reason Stop Dose Admin Ketorolac Tromethamine 15 mg 06/05/25 15:36 06/05/25 16:06 Ketorolac 15 Mg/Ml Inj IVP 06/05/25 15:37 15 mg ONCE ONE Administration Ondansetron HCl 4 mg 06/05/25 15:36 06/05/25 16:06 Ondansetron 2 Mg/Ml Inj IVP 06/05/25 15:37 4 mg ONCE ONE Administration Pantoprazole Sodium 40 mg 06/05/25 15:36 06/05/25 16:06 Pantoprazole Sodium 40 Mg Inj IVP 06/05/25 15:37 40 mg ONCE ONE Administration MDM - Abdominal Pain Lab Data Attestation: I reviewed the patient's lab results. Labs: Lab Results 06/05/25 06/05/25 Range/Units 15:21 15:45 WBC 6.62 (4.50-11.00) K/uL RBC 5.07 (4.30-5.90) m/uL Hgb 16.1 (13.5-17.5) gm/dL Hct 48.3 (37.0-53.0) % MCV 95 (80-100) fL MCH 32 (26-34) pg MCHC 33 (32-36) gm/dL RDW Coeff of Syed 12.3 (11.5-15.5) % Plt Count 370 (140-440) K/uL Neut % (Auto) 65.2 (42.0-72.0) % Lymph % (Auto) 23.7 (20-44) % [place] % (Auto) 8.0 (0.0-11.0) % Eos % (Auto) 1.8 (0.0-7.0) % Baso % (Auto) 1.1 (0.0-3.0) % Neut # (Auto) 4.32 (1.7-7.0) K/uL Lymph # (Auto) 1.57 (0.90-2.90) K/uL [place] # (Auto) 0.50 (0.00-0.90) K/UL Eos # (Auto) 0.12 (0.00-0.50) K/uL Baso # (Auto) 0.07 (0.00-0.30) K/uL Abs Immat Gran (auto) 0.01 (0.00-0.30) K/uL Imm/Tot Granulo (auto) 0.2 % Sodium 135 (135-149) mmol/L Potassium 4.7 (3.6-5.1) mmol/L Chloride 102 (96-114) mmol/L Carbon Dioxide 27 (20-32) mmol/L Anion Gap 6 L (7-15) mEq/L BUN 12 (7-30) mg/dL Creatinine 0.8 (0.5-1.5) mg/dL Estimated Creat Clear 89.69 Estimated GFR 105 ml/min Glucose 95 (60-115) mg/dL Lactate 1.7 (0.5-1.9) mmol/L Calcium 9.8 (8.4-10.6) mg/dL Total Bilirubin 1.2 (0.1-1.5) mg/dL AST 46 H (12-35) U/L ALT 22 (4-50) U/L Alkaline Phosphatase 49 (40-150) U/L C-Reactive Protein < 0.5 L (0.5-1.0) mg/dL Total Protein 8.3 (6.0-8.3) g/dL Albumin 4.8 (3.3-5.0) g/dL Lipase 141 (23-300) U/L Urine Color Yellow (Yellow) Urine Appearance Clear (Clear) Urine pH 7.0 (5.0-8.5) Ur Specific [place] 1.010 (1.000-1.030) Urine Protein Negative (Negative) Urine Glucose (UA) Negative (Negative) Urine Ketones Negative (Negative) Urine Blood Negative (Negative) Urine Nitrite Negative (Negative) Urine Bilirubin Negative (Negative) Urine Urobilinogen 0.2 (0.2-1.0) Ur Leukocyte Esterase Negative (Negative) Urine RBC 0-2 (0-2) Urine WBC 0-2 (0-5) Ur Squamous Epith Cells None (None-Few) Urine Bacteria None (None) Imaging Data CT scan - abdomen: Attestation: I have reviewed the pertinent imaging results. My impression: Did visualize patient's CT particularly looking at the left renal system, do not see any acute obstructive changes or stones within the renal system, definitely will be awaiting Radiology over-read. Radiologist's impression: Patient: JORGE HOLLINGSWORTH Facility:?[facility] Patient ID:?[id number] Site Patient ID:?[id number]. Site :?[id number] Study:?CT-Abdomen/Pelvis 66CC ISOVUE 370-06/05/2025 4:05:44 PM Ordering Physician:?Eva Correia Final Report: INDICATION: Left abdominal pain TECHNIQUE: CT abdomen and pelvis acquired with 66 cc Isovue 370 IV contrast. COMPARISON: None. FINDINGS: Lower chest: Calcified granuloma in the right middle lobe. Liver: Unremarkable. Gallbladder and bile ducts: Cholecystectomy. No biliary ductal dilation. Pancreas: Unremarkable. Spleen: Unremarkable. Adrenal glands: Unremarkable. Kidneys: No hydronephrosis. Nonobstructing nephroliths in the left kidney. No ureteral stones.. GI tract: No obstruction. No evidence of significant bowel inflammation. Duodenal diverticulum. Appendix not visualized, but there are no secondary signs of inflammation in the right lower quadrant. Vasculature: Abdominal aorta is normal in caliber. Mild aortoiliac atherosclerosis. Mesenteric arteries are patent. Lymph nodes: No lymphadenopathy. Peritoneum/Abdominal Wall: Unremarkable. No free air or significant free fluid. Pelvis: Unremarkable. Bones: Minimal degenerative disease of the spine. Mild degenerative disease of the hips. IMPRESSION: No acute findings to explain symptoms. Please note that all CT scans at this facility use dose modulation, iterative reconstruction, and/or weight-based dosing when appropriate to reduce radiation dose to as low as reasonably achievable. Dictated by Michelle Jackson MD @ 06/05/2025 4:11:23 PM (Electronic Signature) Discharge Plan Discharge Clinical Impression: Left sided abdominal pain of unknown cause Patient Disposition: Left Against Medical Advice Prescriptions: No Action albuterol sulfate 90 mcg/actuation HFA aerosol inhaler 2 puff inhalation Q6H PRN tizanidine 4 mg tablet 4 mg PO QHS PRN (Reason: muscle spasticity) Qty: 60 5RF celecoxib [Celebrex] 200 mg capsule 200 mg PO BID Qty: 60 5RF sumatriptan succinate 100 mg tablet 100 mg PO Q2H PRN (Reason: migraine headache) Qty: 14 12RF Follow Up/Referrals: Juan Hi MD [Primary Care Provider, Family Practice]
--- NOTE | 2025-06-05 15:37 | CRLHL7_ITS ---
For Patients: As a result of the Century Cures Act, medical imaging exams and procedure reports are released immediately into your electronic medical record. You may view this report before your referring provider. If you have questions, please contact your health care provider. INDICATION: Left abdominal pain TECHNIQUE: CT abdomen and pelvis acquired with 66 cc Isovue 370 IV contrast. COMPARISON: None. FINDINGS: Lower chest: Calcified granuloma in the right middle lobe. Liver: Unremarkable. Gallbladder and bile ducts: Cholecystectomy. No biliary ductal dilation. Pancreas: Unremarkable. Spleen: Unremarkable. Adrenal glands: Unremarkable. Kidneys: No hydronephrosis. Nonobstructing nephroliths in the left kidney. No ureteral stones.. GI tract: No obstruction. No evidence of significant bowel inflammation. Duodenal diverticulum. Appendix not visualized, but there are no secondary signs of inflammation in the right lower quadrant. Vasculature: Abdominal aorta is normal in caliber. Mild aortoiliac atherosclerosis. Mesenteric arteries are patent. Lymph nodes: No lymphadenopathy. Peritoneum/Abdominal Wall: Unremarkable. No free air or significant free fluid. Pelvis: Unremarkable. Bones: Minimal degenerative disease of the spine. Mild degenerative disease of the hips. IMPRESSION: No acute findings to explain symptoms. Please note that all CT scans at this facility use dose modulation, iterative reconstruction, and/or weight-based dosing when appropriate to reduce radiation dose to as low as reasonably achievable. Dictated by Michelle Jackson MD @ 06/05/2025 4:11:23 PM (Electronically Signed)
[2025-06-05 15:54] LABS: Hematocrit* 48.3 % (37.0-53.0); Hemoglobin* 16.1 gm/dL (13.5-17.5); Immature Granulocytes Abs Auto 0.01 K/uL (0.00-0.30); Immature Granulocytes Pct Auto 0.2 %; Lymphocytes Absolute Auto 1.57 K/uL (0.90-2.90); Mean Corpuscular HGB Conc 33 gm/dL (32-36); Mean Corpuscular Hemoglobin 32 pg (26-34); Mean Corpuscular Volume 95 fL (80-100); RDW Coefficient of Variation % 12.3 % (11.5-15.5); Red Blood Count* 5.07 m/uL (4.30-5.90); White Blood Count* 6.62 K/uL (4.50-11.00)
[2025-06-05 15:55] LABS: Lactate* 1.7 mmol/L (0.5-1.9)
[2025-06-05] MEDS: ONDANSETRON 2 MG/ML inj 4 MG IVP (16:06)
[2025-06-05] MEDS: PANTOPRAZOLE SODIUM 40 MG INJ IVP (16:06)
[2025-06-05 16:14] LABS: Slide Review Reflex No
[2025-06-05 18:41] LABS: Albumin* 4.8 g/dL (3.3-5.0); Chloride* 102 mmol/L (96-114); Potassium* 4.7 mmol/L (3.6-5.1); Sodium* 135 mmol/L (135-149)
[2025-06-05 18:44] LABS: Alanine Aminotransferase* 22 U/L (4-50); Alkaline Phosphatase* 49 U/L (40-150); Anion Gap 6 mEq/L (7-15); Aspartate Amino Transferase* 46 U/L (12-35); Bilirubin Total* 1.2 mg/dL (0.1-1.5); Blood Urea Nitrogen* 12 mg/dL (7-30); Calcium* 9.8 mg/dL (8.4-10.6); Carbon Dioxide* 27 mmol/L (20-32); Creatinine* 0.8 mg/dL (0.5-1.5); Est. Creatinine Clearance* 89.69; Estimated Glomerular Filt Rate 105 ml/min; Glucose* 95 mg/dL (60-115); Total Protein* 8.3 g/dL (6.0-8.3)
== END 2025-06-05 17:59 | disposition left against medical advice (07) ==
LOC: ED 15:58
PROVIDERS: Emergency Provider Family Medicine; PCP Family Medicine
DX: R10.812 Left upper quadrant abdominal tenderness (principal); Z87.442 Personal history of urinary calculi; Z90.49 Acquired absence of other specified parts of digestive tract; Z87.891 Personal history of nicotine dependence; Z53.29 Procedure and treatment not carried out because of patient's decision for other reasons
CPT/HCPCS: 36415; 74177; 80053; 81001; 83605; 83690; 85025; 86140; 96374; 96375; 99284; 99285; J1885; J2405; J2470; Q9967